=== PATIENT | female | born 1945 | race Caucasian/White ===

== ENCOUNTER 2021-04-28 08:32 | Emergency (ER) | payer MEDICARE, OTHER, SELFPAY ==
[2021-04-28] VITALS (7 sets, daily range): BP systolic 142–176; BP diastolic 68–83; PULSE 73–88; RESP 13–20; TEMP 36.7; O2SAT 98–100; BMI 17.7
--- NOTE | 2021-04-28 09:08 | ED.ARRPALP ---
HPI - Arrhythmia/Palpitations General Chief Complaint: Arrhythmia/Palpitations Stated Complaint: Rapid heart rate, dizzy Time Seen by Provider: 04/28/21 09:07 Source: patient Mode of arrival: Ambulatory History of Present Illness HPI narrative: Patient is a 75-year-old female a remote history of breast cancer in remission since 2007, history of anemia history of PVCs on metoprolol and Coreg presenting today with increased heart rate. She said last night when she went to bed she felt short of breath she has felt that her heart was racing she was so fast she was unable to count. This morning she got up and was walking to the kitchen when she again felt short of breath her watch told her that her heart rate was 110. She says that her normal heart rate is actually be 50 and syncope because her watch told her so. She has normal blood pressure. She has not traveled anywhere recently. She denies any orthopnea or peripheral edema. She has not had any fever chills or cough. Related Data Allergies Allergy/AdvReac Type Severity Reaction Status Date / Time No Known Drug Allergies Allergy Verified 04/28/21 08:58 Review of Systems Review of Systems Narrative: GENERAL: Denies chills, fatigue, malaise, fever, sweats, travel HEENT: Denies sinus pain, ear pain, sore throat, difficulty swallowing, neck pain RESPIRATORY: See HPI CARDIOVASCULAR: See HPI GASTROINTESTINAL: Denies nausea, vomiting, abdominal pain, diarrhea, constipation, melena. : Denies dysuria, frequency, incontinence, hematuria, urinary retention, flank pain. MUSCULOSKELETAL: Denies weakness, joint pain, or bony pain SKIN: No rash, no erythema, no pruritus NEUROLOGIC: Denies weakness, dizziness, headache, numbness, change in speech, confusion PSYCHIATRIC: No concerning psychosocial issues. 12 point review of systems is negative except for those stated above and HPI Patient History Social History Smoking Status: Never smoker Smoking Status: Never smoker Substance Use Type: does not use Exam Initial Vital Signs Initial Vital Signs: Vital Signs Temperature 98.1 F 04/28/21 08:33 Pulse Rate 86 04/28/21 08:33 Respiratory Rate 18 04/28/21 08:33 Blood Pressure 176/68 H 04/28/21 08:33 Pulse Oximetry 100 04/28/21 08:33 GENERAL: Alert well-appearing 75-year-old female in no acute distress. HEENT: Head atraumatic,EOMI, pupils reactive, face symmetric, moist mucous membranes CARDIOVASCULAR: Regular rate and rhythm without murmurs, rubs or gallops. RESPIRATORY: Breath sounds equal bilaterally, no wheezes rales or rhonchi. ABDOMEN: Soft, nontender. Normoactive bowel sounds all 4 quadrants. No guarding or rebound. EXTREMITIES: Normal range of motion, no clubbing or edema. Neurovascularly intact NEUROLOGICAL: Alert and oriented x4.Normal gait and speech. SKIN: Warm, dry, no laceration, no petechiae, no rashes or lesions. Course Orders Ordered: ED Orders 04/28/21 08:48 Complete Blood Count AUTO DIFF Stat Comprehensive Metabolic Panel Stat D Dimer Stat Lipase Stat NT-proBNP (BNP-Adult 18+) Stat Troponin & CK Cardiac Panel Stat 04/28/21 09:18 XR chest 1V Stat Vital Signs Vital signs: Vital Signs - 8 hr 04/28/21 08:33 04/28/21 08:38 04/28/21 08:39 Temperature 98.1 F Pulse Rate 86 88 Respiratory Rate 18 Blood Pressure 176/68 H 176/68 H Pulse Oximetry 100 99 100 04/28/21 09:00 04/28/21 09:30 04/28/21 10:00 Temperature Pulse Rate 75 80 78 Respiratory Rate 19 20 19 Blood Pressure 151/74 H 148/83 H 142/80 H Pulse Oximetry 100 99 98 MDM - Arrhythmia/Palpitations Lab Data Result diagrams: 04/28/21 08:48 04/28/21 08:48 Labs: Lab Results 04/28/21 04/28/21 04/28/21 Range/Units 08:48 08:48 08:48 WBC 3.7 L (4.5-11.0) X10^3/uL RBC 3.54 L (4.0-5.2) X10^6/uL Hgb 10.4 L (12.0-16.0) g/dL Hct 30.3 L (36-46) % MCV 85.5 (80-100) fL MCH 29.4 (26-34) PG MCHC 34.4 (30-36) % RDW 14.3 (11.6-14.8) % Plt Count 220 (150-400) X10^3/uL Neut % (Auto) 66.5 (50-75) % Lymph % (Auto) 18.5 L (25-40) % [place] % (Auto) 8.4 (3-14) % Eos % (Auto) 6.0 H (2-4) % Baso % (Auto) 0.6 (0-2) % Neut # (Auto) 2500 (6582-1131) /uL Lymph # (Auto) 700 L (9099-9714) /uL [place] # (Auto) 300 (0-900) /uL Eos # (Auto) 200 (0-450) /uL Baso # (Auto) 0 (0-100) /uL D-Dimer 345 H (<230) ng/mL Sodium (137-145) mmol/L Potassium (3.4-5.1) mmol/L Chloride (98-107) mmol/L Carbon Dioxide (22-32) mmol/L BUN (7-17) mg/dL Creatinine (0.52-1.04) mg/dL Estimated GFR (>60) mL/min BUN/Creatinine Ratio (6-22) Glucose (80-110) mg/dL Calcium (8.4-10.2) mg/dL Total Bilirubin (0.2-1.3) mg/dL AST (14-36) IU/L ALT (<35) IU/L Alkaline Phosphatase (38-126) U/L Total Creatine Kinase (30-135) U/L CK-MB (CK-2) CK-MB (CK-2) Rel Index Troponin I (0.01-0.034) ng/mL NT-Pro-B Natriuret Pep 169 H (<125) pg/mL Total Protein (6.3-8.2) g/dL Albumin (3.5-5.0) g/dL Globulin (1.7-4.1) g/dL Albumin/Globulin Ratio (1.0-2.8) Lipase (23-300) U/L 04/28/21 Range/Units 08:48 WBC (4.5-11.0) X10^3/uL RBC (4.0-5.2) X10^6/uL Hgb (12.0-16.0) g/dL Hct (36-46) % MCV (80-100) fL MCH (26-34) PG MCHC (30-36) % RDW (11.6-14.8) % Plt Count (150-400) X10^3/uL Neut % (Auto) (50-75) % Lymph % (Auto) (25-40) % [place] % (Auto) (3-14) % Eos % (Auto) (2-4) % Baso % (Auto) (0-2) % Neut # (Auto) (8287-1501) /uL Lymph # (Auto) (2879-5394) /uL [place] # (Auto) (0-900) /uL Eos # (Auto) (0-450) /uL Baso # (Auto) (0-100) /uL D-Dimer (<230) ng/mL Sodium 139 (137-145) mmol/L Potassium 4.2 (3.4-5.1) mmol/L Chloride 106 (98-107) mmol/L Carbon Dioxide 31 (22-32) mmol/L BUN 25 H (7-17) mg/dL Creatinine 0.82 (0.52-1.04) mg/dL Estimated GFR > 60.0 (>60) mL/min BUN/Creatinine Ratio 30.5 H (6-22) Glucose 201 H (80-110) mg/dL Calcium 9.0 (8.4-10.2) mg/dL Total Bilirubin 0.5 (0.2-1.3) mg/dL AST 22 (14-36) IU/L ALT 22 (<35) IU/L Alkaline Phosphatase 62 (38-126) U/L Total Creatine Kinase 63 (30-135) U/L CK-MB (CK-2) TNP CK-MB (CK-2) Rel Index TNP Troponin I < 0.012 (0.01-0.034) ng/mL NT-Pro-B Natriuret Pep (<125) pg/mL Total Protein 6.7 (6.3-8.2) g/dL Albumin 3.9 (3.5-5.0) g/dL Globulin 2.8 (1.7-4.1) g/dL Albumin/Globulin Ratio 1.4 (1.0-2.8) Lipase 416 H (23-300) U/L Imaging Data Chest x-ray: Radiologist's Impresson: PROCEDURE:? XR CHEST 1V ? INDICATIONS:? chest pain ? TECHNIQUE:? One view of the chest was acquired.? ? COMPARISON:? None. ? FINDINGS:? ? Surgical changes and devices:? None.? ? Lungs and pleura:? Lungs are clear.? No pleural effusions or pneumothorax.? ? Mediastinum:? Mediastinal contours appear normal.? Heart size is normal.? ? Bones and chest wall:? No suspicious bony lesions.? Overlying soft tissues appear unremarkable.? ? IMPRESSION:? No acute cardiopulmonary process demonstrated radiographically. ? ? Dictated by: Anil Packer M.D. on 04/28/2021 at 9:38 ? ? ECG Data Interpretation: Normal sinus rhythm rate 83 VA interval 236 QRS [address] changes or T-wave inversions, no priors MDM Narrative Medical decision making narrative: Patient's heart rate is variable it does drop randomly till 48 is a sinus rhythm it does not appear to be AFib and then randomly speech back up into the 80s again sinus rhythm. She has no PVCs on the monitor. Blood work is overall reassuring. Mild elevation in D-dimer, but is not elevated presents with age correction she is not hypoxic. 1030 Dr. Monsivais updated patient's symptoms test results at this time recommends changing the Coreg to 12.5mg in the morning and 6.25 at night. I discussed with patient need for outpatient Holter monitor. She is similar with the she has had 1 before. Age-Adjusted D-dimer for Venous Thromboembolism (VTE) from [email or web address] on 04/28/2021 All calculations should be rechecked by clinician prior to use RESULT SUMMARY: 365 ?g/L Age-adjusted D-dimer cutoff, DDU VTE unlikely Reported D-dimer is less than or equal to cutoff; consider alternative diagnosis INPUTS: Age ?> 75 years D-dimer level reported by lab ?> 345 ?g/L D-dimer unit type ?> 2 = DDU (unadjusted cutoff typically 230-250 or 0.23-0.25) Discharge Plan Departure Patient Disposition: Home Clinical Impression: Sinus arrhythmia Instructions: Arrhythmias Activity Restrictions/Additional Instructions: *You have been diagnosed with sinus arrhythmia *What to do: At this time you do need to follow-up with PCP you need a Holter monitor. I spoke with Cardiology who recommended a small change in your medications. *Continue to take medications as directed Carvedilol 12.5 mg in the morning and 6.25 mg at night *Follow up with your primary care provider in 2-3 days or call [phone] *Return to ER if you should have heart rate greater than 130, heart rate lower than 45, dizziness lightheadedness passing out shortness of any new, worsening or concerning symptoms Referrals: Chan Rodriguez MD [Primary Care Provider] - Taina Monsivais MD [Physician] -
--- NOTE | 2021-04-28 09:18 | DI.RAD.S_ITS ---
PROCEDURE: XR CHEST 1V INDICATIONS: chest pain TECHNIQUE: One view of the chest was acquired. COMPARISON: None. FINDINGS: Surgical changes and devices: None. Lungs and pleura: Lungs are clear. No pleural effusions or pneumothorax. Mediastinum: Mediastinal contours appear normal. Heart size is normal. Bones and chest wall: No suspicious bony lesions. Overlying soft tissues appear unremarkable. IMPRESSION: No acute cardiopulmonary process demonstrated radiographically. Dictated by: Anil Packer M.D. on 04/28/2021 at 9:38 Approved by: Anil Packer M.D. on 04/28/2021 at 9:39
[2021-04-28 09:26] LABS: Add Manual Diff / Slide Review NO; Basophils Absolute Auto 0 /uL (0-100); Basophils Percent Auto 0.6 % (0-2); Eosinophils Absolute Auto 200 /uL (0-450); Hematocrit 30.3 % (36-46); Hemoglobin 10.4 g/dL (12.0-16.0); Lymphocytes Absolute Auto 700 /uL (1100-4500); Lymphocytes Percent Auto 18.5 % (25-40); Mean Corpuscular HGB Conc 34.4 % (30-36); Mean Corpuscular Hemoglobin 29.4 PG (26-34); Mean Corpuscular Volume 85.5 fL (80-100); Monocytes Absolute Auto 300 /uL (0-900); Monocytes Percent Auto 8.4 % (3-14); Neutrophils Absolute Auto 2500 /uL (1500-7000); Neutrophils Percent Auto 66.5 % (50-75); Platelet Count 220 X10^3/uL (150-400); Red Blood Cell Count 3.54 X10^6/uL (4.0-5.2); Red Cell Distribution Width 14.3 % (11.6-14.8); White Blood Cell Count 3.7 X10^3/uL (4.5-11.0)
[2021-04-28 09:40] LABS: D Dimer 345 ng/mL (<230)
[2021-04-28 09:43] LABS: Alanine Aminotransferase 22 IU/L (<35); Albumin 3.9 g/dL (3.5-5.0); Albumin Globulin Ratio 1.4 (1.0-2.8); Alkaline Phosphatase 62 U/L (38-126); Aspartate Aminotransferase 22 IU/L (14-36); BUN Creatinine Ratio 30.5 (6-22); Bilirubin Total 0.5 mg/dL (0.2-1.3); Blood Urea Nitrogen 25 mg/dL (7-17); Carbon Dioxide 31 mmol/L (22-32); Chloride 106 mmol/L (98-107); Creatine Kinase 63 U/L (30-135); Estimated Glomerular Filt Rate > 60.0 mL/min (>60); Globulin 2.8 g/dL (1.7-4.1); Glucose 201 mg/dL (80-110); Lipase 416 U/L (23-300); Potassium 4.2 mmol/L (3.4-5.1); Sodium 139 mmol/L (137-145); Total Protein 6.7 g/dL (6.3-8.2)
[2021-04-28 09:51] LABS: NT-proBNP (BNP-Adult 18+) 169 pg/mL (<125)
[2021-04-28 09:56] LABS: HEMOLYSIS < 15 (0-50); Troponin I < 0.012 ng/mL (0.01-0.034)
== END 2021-04-28 10:40 | disposition home or self-care (01) ==
PROVIDERS: Emergency Provider Emergency Medicine; Family Provider Family Medicine; PCP Family Medicine
DX: I49.8 Other specified cardiac arrhythmias (principal)
CPT/HCPCS: 36415; 71045; 80053; 82550; 83690; 83880; 84484; 85025; 85379; 93005; 93010; 99283; 99284

== ENCOUNTER 2021-08-24 09:45 | Outpatient (RCR) | payer MEDICARE, OTHER, SELFPAY ==
--- NOTE | 2020-11-10 12:07 | PT.OIE ---
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 (11/10/20) Cervicalgia (11/10/20) Muscle weakness (generalized) (11/10/20) Myalgia of mastication muscle (11/10/20) Abnormal posture (11/10/20) Visit Care Team Role Provider Type Chan Rodriguez MD Family Provider Non-Staff Primary Care Provider Specialty: Family Practice Address: [address] [place] [address], [id number] Email: Uzma Ren DDS Attending Provider Non-Staff Referring Provider Specialty: Dentistry Address: [address] [place] [address], [address], [id number] Email: Physical Therapy Initial Evaluation PT-OP-A Visit Information Start: 11/10/20 07:29 Freq: Status: Active Protocol: Document 11/10/20 07:29 [facility] (Rec: 11/10/20 08:19 [facility] [id number]) Out-Patient Physical Therapy Visit Information Visit Information Visit Type Initial Evaluation Visit Note 02/28 Visit Start Time 07:34 Visit Stop Time 08:15 Total Visit Minutes 41 Visit Number 1 Number of TAX MAP TECHNICIAN Visits 0 PT-OP-B Current Condition Start: 11/10/20 07:29 Freq: Status: Active Protocol: Document 11/10/20 07:29 [facility] (Rec: 11/10/20 08:19 [facility] [id number]) Current Condition History of Current Condition Onset Date worse starting 9 months ago Current Complaints L jaw History of Current Condition Pt reports jaw keeps popping out. It crunched for years before that. THe popping started 9 months ago. It just started gradually gets worse. It hurts when she pops it back in. Pt reports L side pops out so everything shifts to R. Pt reports neck pain on R side w/ALONSO associated occ. THat has been going on for the past month w/ALONSO. SHe has always had shoulder pain on R side. R TSA has not helped. 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 Her R ant lat arm consistantly always hurts. Her assistant athletic trainer tapes her neck post and that seems to help. Pt reports ALONSO more when laying down. Pt had one other episode w/R neck about 25 years ago that she did PT and OT and responded well with that care and it never came back like that again. 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 The weakness has been getting progressive over the last few years. 1x a year ago that jaw popped out (both sides)and she couldn't chew or swallow and that was like 30 years ago. Now it pops out at random. Tried mouth guard years ago and found she actually clenched the mouth guard that inc pain. She doesn 't notice herself clench her teeth a lot and doesn't wake up at night d/t jaw sore d/t clenching or anything. Pt reports B mastectomies in 2006 w/chemo. TSA R was 2017 Prior Treatments and Tests PT for shoulder in past, Dr. ren is having pt relax jaw by placing in bottom of mouth and teeth slightly apart-also instructed heat but hasn't tried Treatment Goals Patient/Caregiver Goals Dec popping out episodes PT-OP-C Subjective Start: 11/10/20 07:29 Freq: Status: Active Protocol: Document 11/10/20 07:29 [facility] (Rec: 11/10/20 08:19 [facility] [id number]) Patient Questionnaires Other Questionnaire Name and Score easy and comfortable to close w/back teeth together-yes does not feel back teeth on both sides when tapping together feels front teeth touching when tap back teeth heavier contact on front tetth feels uneven and L side does not touch when close w/back teeth together OP-PT Pain Assessment Location jaw Pain Location Details L jaw Intensity 5 Scale Used Numeric (0 - 10) Description- Other pop Frequency Frequent Pain Duration 3-4 x a day-pain just w/act of popping back in. when really hard hurts more Variations/Patterns R neck pain w/radiating up into R head w/ALONSO Other Pain Aggravating Factors popping jaw back in,pop out w/ (brush teeth, yawn,@ w/ sometimes), sourdough Other Pain Alleviating Factors has to crunch down on R side PT-OP-F Manual Assessment Start: 11/10/20 07:29 Freq: Status: Active Protocol: Document 11/10/20 07:29 [facility] (Rec: 11/10/20 08:19 [facility] [id number]) Manual Assessments Soft Tissue Assessment Soft Tissue Mobility Assessment all R sided cervical mm significant tightness, L>R masster and temporalis tightness & inf jaw B tightness, 1st rib R elevated PT-OP-J Posture/Palpation/Skin Start: 11/10/20 07:29 Freq: Status: Active Protocol: Document 11/10/20 07:29 [facility] (Rec: 11/10/20 08:19 [facility] [id number]) Posture Evaluation Comments Posture Comments Post-ant, inc kyphosis - significant fwd R>L shoulder w /IR of shoulder, neck fwd PT-OP-K Range of Motion Start: 11/10/20 07:29 Freq: Status: Active Protocol: Document 11/10/20 07:29 [facility] (Rec: 11/10/20 08:19 [facility] [id number]) Cervical Spine Range of Motion Cervical Spine Active Degrees Flexion 52 Extension 41 Rotation Left 55 Rotation Right 32 Lateral Flexion Left 29 Lateral Flexion Right 31 Comments pain w/R rot TMJ Range of Motion Jaw Openning Jaw Openning (mm) 35 Comments Comments pull on L side; WNL jaw deviation( crunching w/all movement) Shoulder Goniometric Range of Motion Shoulder ROM Limitations Comments R shoulder limited-flex about 100 deg and pain all overhead motions PT-OP-Q Treatments Start: 11/10/20 07:29 Freq: Status: Active Protocol: Document 11/10/20 07:29 [facility] (Rec: 11/10/20 12:07 [facility] [id number]) Therapeutic Exercises Sitting Exercises rocabado Sitting Exercise Name started exercises did exercises 2-4 and 6 on scanned handout Reps/Minutes 6 Comments significant cues for scap movement Self-Care/Home Management Treatment Education Other Education edu on how shoulder and neck pain may be contributing to her jaw pain PT-OP-T Assessment and Plan Start: 11/10/20 07:29 Freq: Status: Active Protocol: Document 11/10/20 07:29 [facility] (Rec: 11/10/20 08:19 [facility] [id number]) Physical Therapy Assessment Rehab Potential Rehabilitation Potential Good Evaluation Complexity Number of Personal Factors/Comorbidities 3 or More Number of Body Systems Impaired 4 or More Clinical Presentation at Evaluation Evolving Impairments Impairments Activity Tolerance,Functional Activities,Functional Mobility ,Pain,Posture,ROM,Soft Tissue Mobility,Strength Goals jaw Jail Goal (LTG) Pt will be able to yawn,brush teeth and move jaw in all directions w/o jaw popping out. LTG Duration 01/10/21 cervical Manager Of Training Goal (LTG) pt will hav efull cervical ROM in order to dec strain of mm onto jaw region and imrpove ability to turn in car. LTG Duration 01/10/21 ROM Short Term Goal (STG) Pt will be indep w/HEP STG Duration 12/10/20 Manager Of Training Goal (LTG) Pt will have full jaw ROM without deviation. LTG Duration 01/10/21 Assessment Summary Assessment Pt presents w/jaw pain mostly on L side w/instances of jaw popping out and pain when she has to pop it back in by clenching on R side. This started to worsen about 9 months ago, prior to that jaw was mostly noisy but did not pop out often. She has also had start of neck pain and ALONSO this past month along w/ history of R shoulder pain w/ failed relief of pain w/RTSA in 2017. She has impaired scapulohumeral rhythm and that has likely caused inc pain into R side of neck and head whcih likely inc tension on R side of jaw possibly causing unequal pulling to give pt the pop out sensation. Her jaw does deviate left when she does open though. She would benefit from skilled PT to dec instances of pain and improve jaw and cervical range. Physical Therapy Plan Frequency and Duration Frequency of Treatment 2x/Week Duration of Treatment 2 months Plan of Care Start Date 11/10/20 Plan of Care End Date 01/10/21 Therapeutic Interventions Therapeutic Interventions Home Exercise Program,Joint Mobilizations,Manual Therapy, Neuromuscular Re-education, Patient/Caregiver Education, Self-Care/Home Management,Soft Tissue Mobilization,Taping, Therapeutic Activities, Therapeutic Exercises Modalities Cold Pack/Ice Massage,Electric Stimulation,Hot Packs, Traction- Mechanical, Ultrasound Next Visit Focus/Plan Next Note Type Treatment Note Next Visit Plan adal 6x6, posture edu, STM
--- NOTE | 2020-11-10 12:07 | PT.OPPOC ---
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 (11/10/20) Cervicalgia (11/10/20) Muscle weakness (generalized) (11/10/20) Myalgia of mastication muscle (11/10/20) Abnormal posture (11/10/20) Visit Care Team Role Provider Type Chan Rodriguez MD Family Provider Non-Staff Primary Care Provider Specialty: Family Practice Address: [address] [place] [address], [id number] Email: Uzma Ren DDS Attending Provider Non-Staff Referring Provider Specialty: Dentistry Address: [address] [place] [address], [address], [address] Email: Plan Of Care PT-OP-T Assessment and Plan Start: 11/10/20 07:29 Freq: Status: Active Protocol: Document 11/10/20 07:29 [facility] (Rec: 11/10/20 08:19 [facility] [id number]) Physical Therapy Assessment Rehab Potential Rehabilitation Potential Good Evaluation Complexity Number of Personal Factors/Comorbidities 3 or More Number of Body Systems Impaired 4 or More Clinical Presentation at Evaluation Evolving Impairments Impairments Activity Tolerance,Functional Activities,Functional Mobility ,Pain,Posture,ROM,Soft Tissue Mobility,Strength Goals jaw Assisted Goal (LTG) Pt will be able to yawn,brush teeth and move jaw in all directions w/o jaw popping out. LTG Duration 01/10/21 cervical Assisted Goal (LTG) pt will hav efull cervical ROM in order to dec strain of mm onto jaw region and imrpove ability to turn in car. LTG Duration 01/10/21 ROM Short Term Goal (STG) Pt will be indep w/HEP STG Duration 12/10/20 Assisted Goal (LTG) Pt will have full jaw ROM without deviation. LTG Duration 01/10/21 Assessment Summary Assessment Pt presents w/jaw pain mostly on L side w/instances of jaw popping out and pain when she has to pop it back in by clenching on R side. This started to worsen about 9 months ago, prior to that jaw was mostly noisy but did not pop out often. She has also had start of neck pain and ALONSO this past month along w/ history of R shoulder pain w/ failed relief of pain w/RTSA in 2017. She has impaired scapulohumeral rhythm and that has likely caused inc pain into R side of neck and head whcih likely inc tension on R side of jaw possibly causing unequal pulling to give pt the pop out sensation. Her jaw does deviate left when she does open though. She would benefit from skilled PT to dec instances of pain and improve jaw and cervical range. Physical Therapy Plan Frequency and Duration Frequency of Treatment 2x/Week Duration of Treatment 2 months Plan of Care Start Date 11/10/20 Plan of Care End Date 01/10/21 Therapeutic Interventions Therapeutic Interventions Home Exercise Program,Joint Mobilizations,Manual Therapy, Neuromuscular Re-education, Patient/Caregiver Education, Self-Care/Home Management,Soft Tissue Mobilization,Taping, Therapeutic Activities, Therapeutic Exercises Modalities Cold Pack/Ice Massage,Electric Stimulation,Hot Packs, Traction- Mechanical, Ultrasound Next Visit Focus/Plan Next Note Type Treatment Note Next Visit Plan rocabado 6x6, posture edu, STM Plan of Care Dates Plan of Care Start Date 11/10/20 Plan of Care End Date 01/10/21 Electronically Signed by: Sneha Noyola, PT 11/10/20 3036 Please Sign and Return: I have reviewed this Plan of Care and certify that the skilled therapy services above are required to meet the patient?s needs. Physician Signature Date Printed Name and Credentials Clinical Instructor Signature Printed Name and Credentials
--- NOTE | 2020-11-23 12:17 | PT.OTN ---
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 (11/23/20) Other specified disorders of temporomandibular joint (11/23/20) Cervicalgia (11/23/20) Muscle weakness (generalized) (11/23/20) Myalgia of mastication muscle (11/23/20) Abnormal posture (11/23/20) Physical Therapy Treatment Note PT-OP-A Visit Information Start: 11/10/20 07:29 Freq: Status: Active Protocol: Document 11/23/20 11:20 [facility] (Rec: 11/23/20 12:17 [facility] [id number]) Out-Patient Physical Therapy Visit Information Visit Information Visit Type Treatment Note Visit Note 03/31 Visit Start Time 11:20 Visit Stop Time 12:00 Total Visit Minutes 40 Visit Number 2 Number of SCRAP CRUSHER Visits 0 PT-OP-B Current Condition Start: 11/10/20 07:29 Freq: Status: Active Protocol: Document 11/10/20 07:29 [facility] (Rec: 11/10/20 08:19 [facility] [id number]) Current Condition History of Current Condition Onset Date worse starting 9 months ago Current Complaints L jaw History of Current Condition Pt reports jaw keeps popping out. It crunched for years before that. THe popping started 9 months ago. It just started gradually gets worse. It hurts when she pops it back in. Pt reports L side pops out so everything shifts to R. Pt reports neck pain on R side w/ALONSO associated occ. THat has been going on for the past month w/ALONSO. SHe has always had shoulder pain on R side. R TSA has not helped. Works with a emr trainer for 4 days a week but he hasn't changed anything. Her R ant lat arm consistantly always hurts. Her emr trainer tapes her neck post and that seems to help. Pt reports ALONSO more when laying down. Pt had one other episode w/R neck about 25 years ago that she did PT and OT and responded well with that care and it never came back like that again. 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 The weakness has been getting progressive over the last few years. 1x a year ago that jaw popped out (both sides)and she couldn't chew or swallow and that was like 30 years ago. Now it pops out at random. Tried mouth guard years ago and found she actually clenched the mouth guard that inc pain. She doesn 't notice herself clench her teeth a lot and doesn't wake up at night d/t jaw sore d/t clenching or anything. Pt reports B mastectomies in 2007 w/chemo. TSA R was 2017 Prior Treatments and Tests PT for shoulder in past, Dr. rock is having pt relax jaw by placing in bottom of mouth and teeth slightly apart-also instructed heat but hasn't tried Treatment Goals Patient/Caregiver Goals Dec popping out episodes PT-OP-C Subjective Start: 11/10/20 07:29 Freq: Status: Active Protocol: Document 11/23/20 11:20 [facility] (Rec: 11/23/20 12:17 [facility] [id number]) OP-PT Subjective Patient Comments Patient Comments Pt reprots trying some of the other exercises on the paper that wern't assigned PT-OP-F Manual Assessment Start: 11/10/20 07:29 Freq: Status: Active Protocol: Document 11/10/20 07:29 [facility] (Rec: 11/10/20 08:19 [facility] [id number]) Manual Assessments Soft Tissue Assessment Soft Tissue Mobility Assessment all R sided cervical mm significant tightness, L>R masster and temporalis tightness & inf jaw B tightness, 1st rib R elevated PT-OP-J Posture/Palpation/Skin Start: 11/10/20 07:29 Freq: Status: Active Protocol: Document 11/10/20 07:29 [facility] (Rec: 11/10/20 08:19 [facility] [id number]) Posture Evaluation Comments Posture Comments Post-ant, inc kyphosis - significant fwd R>L shoulder w /IR of shoulder, neck fwd PT-OP-K Range of Motion Start: 11/10/20 07:29 Freq: Status: Active Protocol: Document 11/10/20 07:29 [facility] (Rec: 11/10/20 08:19 [facility] [id number]) Cervical Spine Range of Motion Cervical Spine Active Degrees Flexion 52 Extension 41 Rotation Left 55 Rotation Right 32 Lateral Flexion Left 29 Lateral Flexion Right 31 Comments pain w/R rot TMJ Range of Motion Jaw Openning Jaw Openning (mm) 35 Comments Comments pull on L side; WNL jaw deviation( crunching w/all movement) Shoulder Goniometric Range of Motion Shoulder ROM Limitations Comments R shoulder limited-flex about 100 deg and pain all overhead motions PT-OP-Q Treatments Start: 11/10/20 07:29 Freq: Status: Active Protocol: Document 11/23/20 11:20 [facility] (Rec: 11/23/20 12:17 [facility] [id number]) Therapeutic Exercises Supine Exercises breathing Supine Exercise Name diaphragmatic Reps/Minutes 6 Sitting Exercises rocabado Sitting Exercise Name 6x6 Reps/Minutes 6 Comments significant cues for scap movement Standing Exercises wall posture Standing Exercise Name w/shoulder ext Side bilateral Reps/Minutes 1 min Manual Therapy Treatment Soft Tissue Mobilization cervical Body Location R scalenes & SCM Mobilization Type Rolling,Strumming Intensity/Depth Moderate intraoral Body Location R ptyergoid Mobilization Type Sustained Pressure Intensity/Depth Moderate Comments w/jaw open/close jaw Body Location R>L masseter, temporalis, L>R post mandible Mobilization Type Rolling,Sustained Pressure Intensity/Depth Moderate Body Position Hooklying PT-OP-T Assessment and Plan Start: 11/10/20 07:29 Freq: Status: Active Protocol: Document 11/23/20 11:20 [facility] (Rec: 11/23/20 12:17 [facility] [id number]) Physical Therapy Assessment Goals jaw Fpc Goal (LTG) Pt will be able to yawn,brush teeth and move jaw in all directions w/o jaw popping out. LTG Duration 01/10/21 cervical Fpc Goal (LTG) pt will hav efull cervical ROM in order to dec strain of mm onto jaw region and imrpove ability to turn in car. LTG Duration 01/10/21 ROM Short Term Goal (STG) Pt will be indep w/HEP STG Duration 12/10/20 Hockey Instructor Goal (LTG) Pt will have full jaw ROM without deviation. LTG Duration 01/10/21 Assessment Summary Assessment Pt has L sheared and R rotated C1 which likely contributes to jaw mobility and neck pain along w/ALONSO. She did well with most jaw exercises but required cues to slow down. With others working on posture , pt required more cueing. She has more tighness through most of jaw mm on R>L. Physical Therapy Plan Frequency and Duration Frequency of Treatment 2x/Week Duration of Treatment 2 months Plan of Care Start Date 11/10/20 Plan of Care End Date 01/10/21 Next Visit Focus/Plan Next Note Type Treatment Note Next Visit Plan review adal 6x6, posture [facility], [facility]
--- NOTE | 2020-11-25 12:11 | PT.OTN ---
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 (Rec: 11/25/20 12:11 [facility] [id number]) Out-Patient Physical Therapy Visit Information Visit Information Visit Type Treatment Note Visit Note 04/28 Visit Start Time 11:20 Visit Stop Time 12:01 Total Visit Minutes 41 Visit Number 3 Number of PAPER REWINDER Visits 0 PT-OP-B Current Condition Start: 11/10/20 07:29 Freq: Status: Active Protocol: Document 11/10/20 07:29 [facility] (Rec: 11/10/20 08:19 [facility] [id number]) Current Condition History of Current Condition Onset Date worse starting 9 months ago Current Complaints L jaw History of Current Condition Pt reports jaw keeps popping out. It crunched for years before that. THe popping started 9 months ago. It just started gradually gets worse. It hurts when she pops it back in. Pt reports L side pops out so everything shifts to R. Pt reports neck pain on R side w/ALONSO associated occ. THat has been going on for the past month w/ALONSO. SHe has always had shoulder pain on R side. R TSA has not helped. Works with a bander hand for 4 days a week but he hasn't changed anything. Her R ant lat arm consistantly always hurts. Her bander hand tapes her neck post and that seems to help. Pt reports ALONSO more when laying down. Pt had one other episode w/R neck about 25 years ago that she did PT and OT and responded well with that care and it never came back like that again. Pt reports arms go to sleep and reports R arm adobe developer has gotten a lot less. The weakness has been getting progressive over the last few years. 1x a year ago that jaw popped out (both sides)and she couldn't chew or swallow and that was like 30 years ago. Now it pops out at random. Tried mouth guard years ago and found she actually clenched the mouth guard that inc pain. She doesn 't notice herself clench her teeth a lot and doesn't wake up at night d/t jaw sore d/t clenching or anything. Pt reports B mastectomies in 2007 w/chemo. TSA R was 2017 Prior Treatments and Tests PT for shoulder in past, Dr. rock is having pt relax jaw by placing in bottom of mouth and teeth slightly apart-also instructed heat but hasn't tried Treatment Goals Patient/Caregiver Goals Dec popping out episodes PT-OP-C Subjective Start: 11/10/20 07:29 Freq: Status: Active Protocol: Document 11/25/20 12:05 [facility] (Rec: 11/25/20 12:11 [facility] [id number]) OP-PT Subjective Patient Comments Patient Comments Pt reports wall posture exercise was difficult PT-OP-F Manual Assessment Start: 11/10/20 07:29 Freq: Status: Active Protocol: Document 11/10/20 07:29 [facility] (Rec: 11/10/20 08:19 [facility] [id number]) Manual Assessments Soft Tissue Assessment Soft Tissue Mobility Assessment all R sided cervical mm significant tightness, L>R masster and temporalis tightness & inf jaw B tightness, 1st rib R elevated PT-OP-J Posture/Palpation/Skin Start: 11/10/20 07:29 Freq: Status: Active Protocol: Document 11/10/20 07:29 [facility] (Rec: 11/10/20 08:19 [facility] [id number]) Posture Evaluation Comments Posture Comments Post-ant, inc kyphosis - significant fwd R>L shoulder w /IR of shoulder, neck fwd PT-OP-K Range of Motion Start: 11/10/20 07:29 Freq: Status: Active Protocol: Document 11/10/20 07:29 [facility] (Rec: 11/10/20 08:19 [facility] [id number]) Cervical Spine Range of Motion Cervical Spine Active Degrees Flexion 52 Extension 41 Rotation Left 55 Rotation Right 32 Lateral Flexion Left 29 Lateral Flexion Right 31 Comments pain w/R rot TMJ Range of Motion Jaw Openning Jaw Openning (mm) 35 Comments Comments pull on L side; WNL jaw deviation( crunching w/all movement) Shoulder Goniometric Range of Motion Shoulder ROM Limitations Comments R shoulder limited-flex about 100 deg and pain all overhead motions PT-OP-Q Treatments Start: 11/10/20 07:29 Freq: Status: Active Protocol: Document 11/25/20 12:05 [facility] (Rec: 11/25/20 12:11 [facility] [id number]) Therapeutic Exercises Sitting Exercises rocabado Sitting Exercise Name 6x6 Reps/Minutes 6 Comments extra reps w/scap & cervical retraction to work on form Standing Exercises wall posture Standing Exercise Name w/shoulder ext Side bilateral Reps/Minutes 1 minx2 Manual Therapy Treatment Soft Tissue Mobilization cervical Body Location R scalenes & SCM Mobilization Type Rolling,Strumming Intensity/Depth Moderate intraoral Body Location R ptyergoid Mobilization Type Sustained Pressure Intensity/Depth Moderate Comments w/jaw open/close jaw Body Location R>L masseter, temporalis, L>R post mandible Mobilization Type Rolling,Sustained Pressure Intensity/Depth Moderate Body Position Hooklying Joint Mobilizations jaw Direction R distraction FM C1 Joint transverse & UPA glides PT-OP-T Assessment and Plan Start: 11/10/20 07:29 Freq: Status: Active Protocol: Document 11/25/20 12:05 [facility] (Rec: 11/25/20 12:11 [facility] [id number]) Physical Therapy Assessment Goals jaw Rubber Goods Inspector Goal (LTG) Pt will be able to yawn,brush teeth and move jaw in all directions w/o jaw popping out. LTG Duration 01/10/21 cervical [facility]idential Goal (LTG) pt will hav efull cervical ROM in order to dec strain of mm onto jaw region and imrpove ability to turn in car. LTG Duration 01/10/21 ROM Short Term Goal (STG) Pt will be indep w/HEP STG Duration 12/10/20 Rubber Goods Inspector Goal (LTG) Pt will have full jaw ROM without deviation. LTG Duration 01/10/21 Assessment Summary Assessment Pt did well with exercises today and showed improvement w /diaphragmatic breathing and did not require much cues except for neck position w/jaw exercises. Cervical and scap retraction still does require cues though. Improved jaw opening after manual today w/ less deviation to L overall but still some popping Physical Therapy Plan Frequency and Duration Frequency of Treatment 2x/Week Duration of Treatment 2 months Plan of Care Start Date 11/10/20 Plan of Care End Date 01/10/21 Next Visit Focus/Plan Next Note Type Treatment Note Next Visit Plan review wall posture, work on scap retract & cervical retraction
--- NOTE | 2020-11-29 15:53 | PT.OTN ---
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 (Rec: 11/29/20 15:53 [facility] [id number]) Out-Patient Physical Therapy Visit Information Visit Information Visit Type Treatment Note Visit Note 05/29 Visit Start Time 10:38 Visit Stop Time 11:17 Total Visit Minutes 39 Visit Number 4 Number of SHOE COVERER Visits 0 PT-OP-B Current Condition Start: 11/10/20 07:29 Freq: Status: Active Protocol: Document 11/10/20 07:29 [facility] (Rec: 11/10/20 08:19 [facility] [id number]) Current Condition History of Current Condition Onset Date worse starting 9 months ago Current Complaints L jaw History of Current Condition Pt reports jaw keeps popping out. It crunched for years before that. THe popping started 9 months ago. It just started gradually gets worse. It hurts when she pops it back in. Pt reports L side pops out so everything shifts to R. Pt reports neck pain on R side w/ALONSO associated occ. THat has been going on for the past month w/ALONSO. SHe has always had shoulder pain on R side. R TSA has not helped. Works with a bilingual trainer for 4 days a week but he hasn't changed anything. Her R ant lat arm consistantly always hurts. Her bilingual trainer tapes her neck post and that seems to help. Pt reports ALONSO more when laying down. Pt had one other episode w/R neck about 25 years ago that she did PT and OT and responded well with that care and it never came back like that again. Pt reports arms go to sleep and reports R arm pants closer has gotten a lot less. The weakness has been getting progressive over the last few years. 1x a year ago that jaw popped out (both sides)and she couldn't chew or swallow and that was like 30 years ago. Now it pops out at random. Tried mouth guard years ago and found she actually clenched the mouth guard that inc pain. She doesn 't notice herself clench her teeth a lot and doesn't wake up at night d/t jaw sore d/t clenching or anything. Pt reports B mastectomies in 2007 w/chemo. TSA R was 2017 Prior Treatments and Tests PT for shoulder in past, Dr. rock is having pt relax jaw by placing in bottom of mouth and teeth slightly apart-also instructed heat but hasn't tried Treatment Goals Patient/Caregiver Goals Dec popping out episodes PT-OP-C Subjective Start: 11/10/20 07:29 Freq: Status: Active Protocol: Document 11/29/20 10:48 [facility] (Rec: 11/29/20 15:53 [facility] [id number]) OP-PT Subjective Patient Comments Patient Comments Pt reports less often geting the jaw stuck but its harder to put back. Notes it is more consistant w/activigties like when opening for first time to eat and to brush teeth PT-OP-F Manual Assessment Start: 11/10/20 07:29 Freq: Status: Active Protocol: Document 11/10/20 07:29 [facility] (Rec: 11/10/20 08:19 [facility] [id number]) Manual Assessments Soft Tissue Assessment Soft Tissue Mobility Assessment all R sided cervical mm significant tightness, L>R masster and temporalis tightness & inf jaw B tightness, 1st rib R elevated PT-OP-J Posture/Palpation/Skin Start: 11/10/20 07:29 Freq: Status: Active Protocol: Document 11/10/20 07:29 [facility] (Rec: 11/10/20 08:19 [facility] [id number]) Posture Evaluation Comments Posture Comments Post-ant, inc kyphosis - significant fwd R>L shoulder w /IR of shoulder, neck fwd PT-OP-K Range of Motion Start: 11/10/20 07:29 Freq: Status: Active Protocol: Document 11/10/20 07:29 [facility] (Rec: 11/10/20 08:19 [facility] [id number]) Cervical Spine Range of Motion Cervical Spine Active Degrees Flexion 52 Extension 41 Rotation Left 55 Rotation Right 32 Lateral Flexion Left 29 Lateral Flexion Right 31 Comments pain w/R rot TMJ Range of Motion Jaw Openning Jaw Openning (mm) 35 Comments Comments pull on L side; WNL jaw deviation( crunching w/all movement) Shoulder Goniometric Range of Motion Shoulder ROM Limitations Comments R shoulder limited-flex about 100 deg and pain all overhead motions PT-OP-Q Treatments Start: 11/10/20 07:29 Freq: Status: Active Protocol: Document 11/29/20 10:48 [facility] (Rec: 11/29/20 15:53 [facility] [id number]) Therapeutic Exercises Supine Exercises retraction Supine Exercise Name 1. scap 2.cervical Side bilateral Reps/Minutes 8 ea Comments work on no lumbar ext Sidelying Exercises open book Side bilateral Reps/Minutes 10 Standing Exercises retraction Side bilateral Reps/Minutes 10 ea Comments 1. cervical 2. scap wall posture Standing Exercise Name w/shoulder ext Side bilateral Reps/Minutes 1 min Manual Therapy Treatment Soft Tissue Mobilization cervical Body Location R scalenes & SCM Mobilization Type Rolling,Strumming Intensity/Depth Moderate Comments w/cervical rotation intraoral Body Location R ptyergoid Mobilization Type Sustained Pressure Intensity/Depth Moderate Comments w/jaw open/close jaw Body Location R>L masseter, temporalis, L>R post mandible Mobilization Type Rolling,Sustained Pressure Intensity/Depth Moderate Body Position Hooklying Joint Mobilizations jaw Direction R distraction FM C1 Joint R transverse & L UPA glides Comments FM PT-OP-T Assessment and Plan Start: 11/10/20 07:29 Freq: Status: Active Protocol: Document 11/29/20 10:48 [facility] (Rec: 11/29/20 15:53 [facility] [id number]) Physical Therapy Assessment Goals jaw Maintenance Shop Laborer Goal (LTG) Pt will be able to yawn,brush teeth and move jaw in all directions w/o jaw popping out. LTG Duration 01/10/21 cervical [facility] Goal (LTG) pt will hav efull cervical ROM in order to dec strain of mm onto jaw region and imrpove ability to turn in car. LTG Duration 01/10/21 ROM Short Term Goal (STG) Pt will be indep w/HEP STG Duration 12/10/20 [facility] Goal (LTG) Pt will have full jaw ROM without deviation. LTG Duration 01/10/21 Assessment Summary Assessment Pt improved with scap retraciton today especially when against a wall or supine on a bed. She does still require cueing w/ cervicalretraction though. She cont to have imrpoved ROM w/ opening Physical Therapy Plan Frequency and Duration Frequency of Treatment 2x/Week Duration of Treatment 2 months Plan of Care Start Date 11/10/20 Plan of Care End Date 01/10/21 Next Visit Focus/Plan Next Note Type Treatment Note Next Visit Plan review wall posture, work on scap retract & cervical retraction & try to advance w/ band pull
--- NOTE | 2020-12-01 12:03 | PT.OTN ---
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 (Rec: 12/01/20 12:02 [facility] [id number]) Out-Patient Physical Therapy Visit Information Visit Information Visit Type Treatment Note Visit Note 06/28 Visit Start Time 10:36 Visit Stop Time 11:16 Total Visit Minutes 40 Visit Number 5 Number of ENGINE DYNAMOMETER TESTER Visits 0 PT-OP-B Current Condition Start: 11/10/20 07:29 Freq: Status: Active Protocol: Document 11/10/20 07:29 [facility] (Rec: 11/10/20 08:19 [facility] [id number]) Current Condition History of Current Condition Onset Date worse starting 9 months ago Current Complaints L jaw History of Current Condition Pt reports jaw keeps popping out. It crunched for years before that. THe popping started 9 months ago. It just started gradually gets worse. It hurts when she pops it back in. Pt reports L side pops out so everything shifts to R. Pt reports neck pain on R side w/ALONSO associated occ. THat has been going on for the past month w/ALONSO. SHe has always had shoulder pain on R side. R TSA has not helped. Works with a sharepoint trainer for 4 days a week but he hasn't changed anything. Her R ant lat arm consistantly always hurts. Her sharepoint trainer tapes her neck post and that seems to help. Pt reports ALONSO more when laying down. Pt had one other episode w/R neck about 25 years ago that she did PT and OT and responded well with that care and it never came back like that again. Pt reports arms go to sleep and reports R arm make up arranger has gotten a lot less. The weakness has been getting progressive over the last few years. 1x a year ago that jaw popped out (both sides)and she couldn't chew or swallow and that was like 30 years ago. Now it pops out at random. Tried mouth guard years ago and found she actually clenched the mouth guard that inc pain. She doesn 't notice herself clench her teeth a lot and doesn't wake up at night d/t jaw sore d/t clenching or anything. Pt reports B mastectomies in 2007 w/chemo. TSA R was 2017 Prior Treatments and Tests PT for shoulder in past, Dr. rock is having pt relax jaw by placing in bottom of mouth and teeth slightly apart-also instructed heat but hasn't tried Treatment Goals Patient/Caregiver Goals Dec popping out episodes PT-OP-C Subjective Start: 11/10/20 07:29 Freq: Status: Active Protocol: Document 12/01/20 11:38 [facility] (Rec: 12/01/20 12:02 [facility] [id number]) OP-PT Subjective Patient Comments Patient Comments Pt reports she forgot to try to do jaw exercises before eating until her jaw would lock on her. Patient Reported Progress Improving PT-OP-F Manual Assessment Start: 11/10/20 07:29 Freq: Status: Active Protocol: Document 11/10/20 07:29 [facility] (Rec: 11/10/20 08:19 [facility] [id number]) Manual Assessments Soft Tissue Assessment Soft Tissue Mobility Assessment all R sided cervical mm significant tightness, L>R masster and temporalis tightness & inf jaw B tightness, 1st rib R elevated PT-OP-J Posture/Palpation/Skin Start: 11/10/20 07:29 Freq: Status: Active Protocol: Document 11/10/20 07:29 [facility] (Rec: 11/10/20 08:19 [facility] [id number]) Posture Evaluation Comments Posture Comments Post-ant, inc kyphosis - significant fwd R>L shoulder w /IR of shoulder, neck fwd PT-OP-K Range of Motion Start: 11/10/20 07:29 Freq: Status: Active Protocol: Document 11/10/20 07:29 [facility] (Rec: 11/10/20 08:19 [facility] [id number]) Cervical Spine Range of Motion Cervical Spine Active Degrees Flexion 52 Extension 41 Rotation Left 55 Rotation Right 32 Lateral Flexion Left 29 Lateral Flexion Right 31 Comments pain w/R rot TMJ Range of Motion Jaw Openning Jaw Openning (mm) 35 Comments Comments pull on L side; WNL jaw deviation( crunching w/all movement) Shoulder Goniometric Range of Motion Shoulder ROM Limitations Comments R shoulder limited-flex about 100 deg and pain all overhead motions PT-OP-Q Treatments Start: 11/10/20 07:29 Freq: Status: Active Protocol: Document 12/01/20 11:38 [facility] (Rec: 12/01/20 12:02 [facility] [id number]) Therapeutic Exercises Standing Exercises ext Standing Exercise Name shoulder Side bilateral Equipment Used L1 Reps/Minutes 20 Comments cues for scap movement retraction Side bilateral Equipment Used L1 Reps/Minutes 20 Comments w/row cues for scap movement Manual Therapy Treatment Soft Tissue Mobilization lat Body Location R Mobilization Type Sustained Pressure Intensity/Depth Moderate Comments w/shoulder flex R cervical Body Location R scalenes & SCM & UT Mobilization Type Rolling,Strumming Intensity/Depth Moderate Comments w/ant eleva/post dep intraoral Body Location R ptyergoid Mobilization Type Sustained Pressure Intensity/Depth Moderate Comments w/jaw open/close jaw Body Location R>L masseter, temporalis, L>R post mandible Mobilization Type Rolling,Sustained Pressure Intensity/Depth Moderate Body Position Hooklying Joint Mobilizations AC Joint R Direction gapping FM jaw Direction R distraction FM PT-OP-T Assessment and Plan Start: 11/10/20 07:29 Freq: Status: Active Protocol: Document 12/01/20 11:38 [facility] (Rec: 12/01/20 12:02 [facility] [id number]) Physical Therapy Assessment Goals jaw Assisted Goal (LTG) Pt will be able to yawn,brush teeth and move jaw in all directions w/o jaw popping out. LTG Duration 01/10/21 cervical Assessment Expert Goal (LTG) pt will hav efull cervical ROM in order to dec strain of mm onto jaw region and imrpove ability to turn in car. LTG Duration 01/10/21 ROM Short Term Goal (STG) Pt will be indep w/HEP STG Duration 12/10/20 Assessment Expert Goal (LTG) Pt will have full jaw ROM without deviation. LTG Duration 01/10/21 Assessment Summary Assessment Pt had improved jaw motion w/ less deviation and popping at end especially when encouraged neutral cervical spine. Pt cont to use excessive elevation of scap on R side w/ shoulder movemetns w/ contributes to R sided cervical tightness which inc pain in jaw also. As scap movement improves, pt will likely have improved pain in jaw and neck and shoulder. Pt requires cues to take deep breath to relax UT and cervical mm during exercises Physical Therapy Plan Frequency and Duration Frequency of Treatment 2x/Week Duration of Treatment 2 months Plan of Care Start Date 11/10/20 Plan of Care End Date 01/10/21 Next Visit Focus/Plan Next Note Type Treatment Note Next Visit Plan work on scap movement w/ shoulder exercises & cont to work on jaw mobility & R sided cervical mobility
--- NOTE | 2020-12-08 14:07 | PT.OTN ---
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) Other specified disorders of temporomandibular joint (12/08/20) Cervicalgia (12/08/20) Muscle weakness (generalized) (12/08/20) Myalgia of mastication muscle (12/08/20) Abnormal posture (12/08/20) Physical Therapy Treatment Note PT-OP-A Visit Information Start: 11/10/20 07:29 Freq: Status: Active Protocol: Document 12/08/20 13:55 [facility] (Rec: 12/08/20 14:07 [facility] [id number]) Out-Patient Physical Therapy Visit Information Visit Information Visit Type Treatment Note Visit Note 07/29 Visit Start Time 11:17 Visit Stop Time 12:00 Total Visit Minutes 43 Visit Number 6 Number of CREATIVE WRITING TEACHER Visits 0 PT-OP-B Current Condition Start: 11/10/20 07:29 Freq: Status: Active Protocol: Document 11/10/20 07:29 [facility] (Rec: 11/10/20 08:19 [facility] [id number]) Current Condition History of Current Condition Onset Date worse starting 9 months ago Current Complaints L jaw History of Current Condition Pt reports jaw keeps popping out. It crunched for years before that. THe popping started 9 months ago. It just started gradually gets worse. It hurts when she pops it back in. Pt reports L side pops out so everything shifts to R. Pt reports neck pain on R side w/ALONSO associated occ. THat has been going on for the past month w/ALONSO. SHe has always had shoulder pain on R side. R TSA has not helped. 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 Her R ant lat arm consistantly always hurts. Her dog trainer tapes her neck post and that seems to help. Pt reports ALONSO more when laying down. Pt had one other episode w/R neck about 25 years ago that she did PT and OT and responded well with that care and it never came back like that again. 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 The weakness has been getting progressive over the last few years. 1x a year ago that jaw popped out (both sides)and she couldn't chew or swallow and that was like 30 years ago. Now it pops out at random. Tried mouth guard years ago and found she actually clenched the mouth guard that inc pain. She doesn 't notice herself clench her teeth a lot and doesn't wake up at night d/t jaw sore d/t clenching or anything. Pt reports B mastectomies in 2007 w/chemo. TSA R was 2017 Prior Treatments and Tests PT for shoulder in past, Dr. rock is having pt relax jaw by placing in bottom of mouth and teeth slightly apart-also instructed heat but hasn't tried Treatment Goals Patient/Caregiver Goals Dec popping out episodes PT-OP-C Subjective Start: 11/10/20 07:29 Freq: Status: Active Protocol: Document 12/08/20 13:55 [facility] (Rec: 12/08/20 14:07 [facility] [id number]) OP-PT Subjective Patient Comments Patient Comments Pt reports her neck has not been hurting her. Jaw mostly locks up in the afternoons. PT-OP-F Manual Assessment Start: 11/10/20 07:29 Freq: Status: Active Protocol: Document 11/10/20 07:29 [facility] (Rec: 11/10/20 08:19 [facility] [id number]) Manual Assessments Soft Tissue Assessment Soft Tissue Mobility Assessment all R sided cervical mm significant tightness, L>R masster and temporalis tightness & inf jaw B tightness, 1st rib R elevated PT-OP-J Posture/Palpation/Skin Start: 11/10/20 07:29 Freq: Status: Active Protocol: Document 11/10/20 07:29 [facility] (Rec: 11/10/20 08:19 [facility] [id number]) Posture Evaluation Comments Posture Comments Post-ant, inc kyphosis - significant fwd R>L shoulder w /IR of shoulder, neck fwd PT-OP-K Range of Motion Start: 11/10/20 07:29 Freq: Status: Active Protocol: Document 11/10/20 07:29 [facility] (Rec: 11/10/20 08:19 [facility] [id number]) Cervical Spine Range of Motion Cervical Spine Active Degrees Flexion 52 Extension 41 Rotation Left 55 Rotation Right 32 Lateral Flexion Left 29 Lateral Flexion Right 31 Comments pain w/R rot TMJ Range of Motion Jaw Openning Jaw Openning (mm) 35 Comments Comments pull on L side; WNL jaw deviation( crunching w/all movement) Shoulder Goniometric Range of Motion Shoulder ROM Limitations Comments R shoulder limited-flex about 100 deg and pain all overhead motions PT-OP-Q Treatments Start: 11/10/20 07:29 Freq: Status: Active Protocol: Document 12/08/20 13:55 [facility] (Rec: 12/08/20 14:07 [facility] [id number]) Therapeutic Exercises Standing Exercises ext Standing Exercise Name 1.shoulder 2. rows Side bilateral Equipment Used L1 Reps/Minutes 20 Comments cues for scap movement Manual Therapy Treatment Soft Tissue Mobilization intraoral Body Location b ptyergoid Mobilization Type Sustained Pressure Intensity/Depth Moderate Comments w/jaw open/close jaw Body Location R>L masseter, temporalis, L>R post mandible Mobilization Type Rolling,Sustained Pressure Intensity/Depth Moderate Body Position Hooklying Joint Mobilizations jaw Direction b distraction FM & retrusion c /r C1 Joint R transverse & L UPA glides Comments FM PT-OP-T Assessment and Plan Start: 11/10/20 07:29 Freq: Status: Active Protocol: Document 12/08/20 13:55 [facility] (Rec: 12/08/20 14:07 [facility] [id number]) Physical Therapy Assessment Goals jaw Rectifying Attendant Goal (LTG) Pt will be able to yawn,brush teeth and move jaw in all directions w/o jaw popping out. LTG Duration 01/10/21 cervical Rectifying Attendant Goal (LTG) pt will hav efull cervical ROM in order to dec strain of mm onto jaw region and imrpove ability to turn in car. LTG Duration 01/10/21 ROM Short Term Goal (STG) Pt will be indep w/HEP STG Duration 12/10/20 Rectifying Attendant Goal (LTG) Pt will have full jaw ROM without deviation. LTG Duration 01/10/21 Assessment Summary Assessment Pt cont to improve w/jaw motion w/improved opening by end of session with less fwd gliding of condyles. She is reporting dec pain and was encourage to document when her popping occurs. Physical Therapy Plan Frequency and Duration Frequency of Treatment 2x/Week Duration of Treatment 2 months Plan of Care Start Date 11/10/20 Plan of Care End Date 01/10/21 Next Visit Focus/Plan Next Note Type Treatment Note Next Visit Plan work on scap movement w/ shoulder exercises & cont to work on jaw mobility & R sided cervical mobility
--- NOTE | 2020-12-13 16:23 | PT.OTN ---
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 (12/13/20) Other specified disorders of temporomandibular joint (12/13/20) Cervicalgia (12/13/20) Muscle weakness (generalized) (12/13/20) Myalgia of mastication muscle (12/13/20) Abnormal posture (12/13/20) Physical Therapy Treatment Note PT-OP-A Visit Information Start: 11/10/20 07:29 Freq: Status: Active Protocol: Document 12/13/20 13:00 [facility] (Rec: 12/13/20 16:03 [facility] [id number]) Out-Patient Physical Therapy Visit Information Visit Information Visit Type Treatment Note Visit Note 08/28 Visit Start Time 13:02 Visit Stop Time 13:42 Total Visit Minutes 40 Visit Number 7 Number of OUTSIDE MACHINIST Visits 0 PT-OP-B Current Condition Start: 11/10/20 07:29 Freq: Status: Active Protocol: Document 11/10/20 07:29 [facility] (Rec: 11/10/20 08:19 [facility] [id number]) Current Condition History of Current Condition Onset Date worse starting 9 months ago Current Complaints L jaw History of Current Condition Pt reports jaw keeps popping out. It crunched for years before that. THe popping started 9 months ago. It just started gradually gets worse. It hurts when she pops it back in. Pt reports L side pops out so everything shifts to R. Pt reports neck pain on R side w/ALONSO associated occ. THat has been going on for the past month w/ALONSO. SHe has always had shoulder pain on R side. R TSA has not helped. Works with a adjunct trainer for 4 days a week but he hasn't changed anything. Her R ant lat arm consistantly always hurts. Her adjunct trainer tapes her neck post and that seems to help. Pt reports ALONSO more when laying down. Pt had one other episode w/R neck about 25 years ago that she did PT and OT and responded well with that care and it never came back like that again. 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 The weakness has been getting progressive over the last few years. 1x a year ago that jaw popped out (both sides)and she couldn't chew or swallow and that was like 30 years ago. Now it pops out at random. Tried mouth guard years ago and found she actually clenched the mouth guard that inc pain. She doesn 't notice herself clench her teeth a lot and doesn't wake up at night d/t jaw sore d/t clenching or anything. Pt reports B mastectomies in 2007 w/chemo. TSA R was 2017 Prior Treatments and Tests PT for shoulder in past, Dr. rock is having pt relax jaw by placing in bottom of mouth and teeth slightly apart-also instructed heat but hasn't tried Treatment Goals Patient/Caregiver Goals Dec popping out episodes PT-OP-C Subjective Start: 11/10/20 07:29 Freq: Status: Active Protocol: Document 12/13/20 13:00 [facility] (Rec: 12/13/20 16:03 [facility] [id number]) OP-PT Subjective Patient Comments Patient Comments Pt reprots its when jaw opens to eat or when she brushes her teeth that it locks mostly PT-OP-F Manual Assessment Start: 11/10/20 07:29 Freq: Status: Active Protocol: Document 11/10/20 07:29 [facility] (Rec: 11/10/20 08:19 [facility] [id number]) Manual Assessments Soft Tissue Assessment Soft Tissue Mobility Assessment all R sided cervical mm significant tightness, L>R masster and temporalis tightness & inf jaw B tightness, 1st rib R elevated PT-OP-J Posture/Palpation/Skin Start: 11/10/20 07:29 Freq: Status: Active Protocol: Document 11/10/20 07:29 [facility] (Rec: 11/10/20 08:19 [facility] [id number]) Posture Evaluation Comments Posture Comments Post-ant, inc kyphosis - significant fwd R>L shoulder w /IR of shoulder, neck fwd PT-OP-K Range of Motion Start: 11/10/20 07:29 Freq: Status: Active Protocol: Document 11/10/20 07:29 [facility] (Rec: 11/10/20 08:19 [facility] [id number]) Cervical Spine Range of Motion Cervical Spine Active Degrees Flexion 52 Extension 41 Rotation Left 55 Rotation Right 32 Lateral Flexion Left 29 Lateral Flexion Right 31 Comments pain w/R rot TMJ Range of Motion Jaw Openning Jaw Openning (mm) 35 Comments Comments pull on L side; WNL jaw deviation( crunching w/all movement) Shoulder Goniometric Range of Motion Shoulder ROM Limitations Comments R shoulder limited-flex about 100 deg and pain all overhead motions PT-OP-Q Treatments Start: 11/10/20 07:29 Freq: Status: Active Protocol: Document 12/13/20 13:00 [facility] (Rec: 12/13/20 16:03 [facility] [id number]) Therapeutic Exercises Prone Exercises habd Prone Exercise Name over tball Side bilateral Reps/Minutes 20 Standing Exercises ext Standing Exercise Name 1.shoulder Side bilateral Equipment Used L1 Reps/Minutes 20 Comments cues for scap movement retraction Standing Exercise Name B habd w/flex Side bilateral Equipment Used l1 Reps/Minutes 2x10 Therapeutic Activity Therapeutic Activity activities Comments 1. hip hinge sit for lean to eat 2. seated posture 3.stand hip hinge w/ lean for teeth brushing Manual Therapy Treatment Soft Tissue Mobilization intraoral Body Location R ptyergoid, buccinitor Mobilization Type Sustained Pressure Intensity/Depth Moderate Comments w/jaw open/close Joint Mobilizations jaw Direction R distraction FM w/slight R lat glide PT-OP-T Assessment and Plan Start: 11/10/20 07:29 Freq: Status: Active Protocol: Document 12/13/20 13:00 [facility] (Rec: 12/13/20 16:03 [facility] [id number]) Physical Therapy Assessment Goals jaw Sand Cleaning Machine Operator Goal (LTG) Pt will be able to yawn,brush teeth and move jaw in all directions w/o jaw popping out. LTG Duration 01/10/21 cervical Fci Goal (LTG) pt will hav efull cervical ROM in order to dec strain of mm onto jaw region and imrpove ability to turn in car. LTG Duration 01/10/21 ROM Short Term Goal (STG) Pt will be indep w/HEP STG Duration 12/10/20 Sand Cleaning Machine Operator Goal (LTG) Pt will have full jaw ROM without deviation. LTG Duration 01/10/21 Assessment Summary Assessment Pt was unable to show how jaw pops when demoing biting down to eat or brushing teeth but did work on netural head posture and worked w/hip hinge to imrpove mechanics and encouraged pt to focus on this during these activities. She did note that she had 1 locking episode when doing UE exercises and requring a lot of cueing but just corrected and forgot to note to PT until later. This shows that when pt is over engaging R cervical mm for UE movement, it inc pt 's jaw discomfort and locking Physical Therapy Plan Frequency and Duration Frequency of Treatment 2x/Week Duration of Treatment 2 months Plan of Care Start Date 11/10/20 Plan of Care End Date 01/10/21 Next Visit Focus/Plan Next Note Type Progress Note Next Visit Plan cont to work on proper mechancis for posture & R shoulder to dec jaw pain along w/work soft tissue and R jaw mobility
--- NOTE | 2020-12-16 13:02 | PT.OTN ---
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 (12/16/20) Other specified disorders of temporomandibular joint (12/16/20) Cervicalgia (12/16/20) Muscle weakness (generalized) (12/16/20) Myalgia of mastication muscle (12/16/20) Abnormal posture (12/16/20) Physical Therapy Treatment Note PT-OP-A Visit Information Start: 11/10/20 07:29 Freq: Status: Active Protocol: Document 12/16/20 12:15 [facility] (Rec: 12/16/20 13:44 [facility] [id number]) Out-Patient Physical Therapy Visit Information Visit Information Visit Type Treatment Note Visit Note 09/28 Visit Start Time 12:15 Visit Stop Time 13:02 Total Visit Minutes 47 Visit Number 8 Number of ACCELERATOR SYSTEMS DIRECTOR Visits 1 PT-OP-B Current Condition Start: 11/10/20 07:29 Freq: Status: Active Protocol: Document 11/10/20 07:29 [facility] (Rec: 11/10/20 08:19 [facility] [id number]) Current Condition History of Current Condition Onset Date worse starting 9 months ago Current Complaints L jaw History of Current Condition Pt reports jaw keeps popping out. It crunched for years before that. THe popping started 9 months ago. It just started gradually gets worse. It hurts when she pops it back in. Pt reports L side pops out so everything shifts to R. Pt reports neck pain on R side w/ALONSO associated occ. THat has been going on for the past month w/ALONSO. SHe has always had shoulder pain on R side. R TSA has not helped. Works with a link trainer mechanic for 4 days a week but he hasn't changed anything. Her R ant lat arm consistantly always hurts. Her link trainer mechanic tapes her neck post and that seems to help. Pt reports AOLNSO more when laying down. Pt had one other episode w/R neck about 25 years ago that she did PT and OT and responded well with that care and it never came back like that again. 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 The weakness has been getting progressive over the last few years. 1x a year ago that jaw popped out (both sides)and she couldn't chew or swallow and that was like 30 years ago. Now it pops out at random. Tried mouth guard years ago and found she actually clenched the mouth guard that inc pain. She doesn 't notice herself clench her teeth a lot and doesn't wake up at night d/t jaw sore d/t clenching or anything. Pt reports B mastectomies in 2007 w/chemo. TSA R was 2017 Prior Treatments and Tests PT for shoulder in past, Dr. rock is having pt relax jaw by placing in bottom of mouth and teeth slightly apart-also instructed heat but hasn't tried Treatment Goals Patient/Caregiver Goals Dec popping out episodes PT-OP-C Subjective Start: 11/10/20 07:29 Freq: Status: Active Protocol: Document 12/16/20 12:15 [facility] (Rec: 12/16/20 13:44 [facility] [id number]) OP-PT Subjective Patient Comments Patient Comments Pt states jaw not locking up since hip hinge brushing teeth . Still notices initially jaw locks when trying to eat but when self corrects positioning of jaw helps open wider to eat apple, soup, not sure if head, neck extended forward and why happeneing. Pt states see her physician next and next PT tx on . She is please with improvement over all. Pt stated ACCELERATOR SYSTEMS DIRECTOR link trainer mechanic had her doing alot UE receiprocal and awareness of head positioning today feel good work interscapular area. Patient Reported Progress Improving PT-OP-F Manual Assessment Start: 11/10/20 07:29 Freq: Status: Active Protocol: Document 11/10/20 07:29 [facility] (Rec: 11/10/20 08:19 [facility] [id number]) Manual Assessments Soft Tissue Assessment Soft Tissue Mobility Assessment all R sided cervical mm significant tightness, L>R masster and temporalis tightness & inf jaw B tightness, 1st rib R elevated PT-OP-J Posture/Palpation/Skin Start: 11/10/20 07:29 Freq: Status: Active Protocol: Document 11/10/20 07:29 [facility] (Rec: 11/10/20 08:19 [facility] [id number]) Posture Evaluation Comments Posture Comments Post-ant, inc kyphosis - significant fwd R>L shoulder w /IR of shoulder, neck fwd PT-OP-K Range of Motion Start: 11/10/20 07:29 Freq: Status: Active Protocol: Document 11/10/20 07:29 [facility] (Rec: 11/10/20 08:19 [facility] [id number]) Cervical Spine Range of Motion Cervical Spine Active Degrees Flexion 52 Extension 41 Rotation Left 55 Rotation Right 32 Lateral Flexion Left 29 Lateral Flexion Right 31 Comments pain w/R rot TMJ Range of Motion Jaw Openning Jaw Openning (mm) 35 Comments Comments pull on L side; WNL jaw deviation( crunching w/all movement) Shoulder Goniometric Range of Motion Shoulder ROM Limitations Comments R shoulder limited-flex about 100 deg and pain all overhead motions PT-OP-Q Treatments Start: 11/10/20 07:29 Freq: Status: Active Protocol: Document 12/16/20 12:15 [facility] (Rec: 12/16/20 13:44 [facility] [id number]) Therapeutic Exercises Supine Exercises cervical rotation w/ chin nods Supine Exercise Name added to HEP (ACCELERATOR SYSTEMS DIRECTOR link trainer mechanic added head turn) Side bilateral Reps/Minutes 2 reps 5 nods Comments cued awareness of CS ext pure turn then slow fluid easy head nods CS ext hold then lift Supine Exercise Name added to HEP Reps/Minutes 3-5 sec hold Comments cued chin tuck then unweight head- good performance after few reps cuing Prone Exercises habd Prone Exercise Name over tball Side bilateral Reps/Minutes 20 Comments cued palms toward floor- CS ext/ chin tuck, no UT recruitment Sidelying Exercises open book Sidelying Exercise Name reviewed long arm Side bilateral Resistance provided HO. Reps/Minutes x5 Comments contact and cues for segmental movt: arm, scap, TS rotation Sitting Exercises rocabado Sitting Exercise Name 6x6 Equipment Used front mirror for self alignment corrections Reps/Minutes 6 Comments extra reps w/scap & cervical retraction to work on form Standing Exercises ext Standing Exercise Name 1.shoulder Side bilateral Equipment Used L1 Reps/Minutes 20 Comments cues for scap movement Manual Therapy Treatment Soft Tissue Mobilization lat Body Location R lat and infraspinatus Mobilization Type Sustained Pressure Intensity/Depth Moderate Comments w/shoulder scapular PNF retraction/ depression<> eccentric protraction w/ cues not allow UT recruitment elevation. jaw Body Location R>L masseter, temporalis, R>L med pterygoid, SCM, suboc, R prox scalene Mobilization Type Rolling,Sustained Pressure Intensity/Depth Moderate Body Position Hooklying Comments manual intral oral and instruction on self application. PT-OP-T Assessment and Plan Start: 11/10/20 07:29 Freq: Status: Active Protocol: Document 12/16/20 12:15 [facility] (Rec: 12/16/20 13:44 [facility] [id number]) Physical Therapy Assessment Goals jaw Corrugator Helper Goal (LTG) Pt will be able to yawn,brush teeth and move jaw in all directions w/o jaw popping out. 12/16/20: improving no locking / popping with brushing teeth with head repositioning, but eating is still popping and takes more time to find head/ neck position to allow jaw to open. LTG Duration 01/10/21 cervical Corrugator Helper Goal (LTG) pt will hav efull cervical ROM in order to dec strain of mm onto jaw region and imrpove ability to turn in car. 12/16/20: improved: able to look further over R and L to be able to see when driving, she feels not full ROM yet. LTG Duration 01/10/21 ROM Short Term Goal (STG) Pt will be indep w/HEP: 12/16/20: progressing: cues for proper alignment and form. STG Duration 12/10/20 Alf Goal (LTG) Pt will have full jaw ROM without deviation. 12/16/20: improving but still difficulty opening to eat. LTG Duration 01/10/21 Assessment Summary Assessment Pt improved CS DNF/chin tuck positioning and able to maintain DNF lift from table in supine for stabilization with discussion carry over head positioning while eating awareness. She notices is able to open jaw better if head positioned in DNF/CS ext neutral. Good demo 6x6 racabado exercises. Reviewed HEP: cues for scap retract/ depression during shld ext standing and palms face forward HABD over tball con and eccentric directioning. Pt will follow up with physician next , PT will write up a PN today/ Sunday and send. Pt had good understanding of self STMs with instruction intraoral today and felt helped reduce tension end of tx alot more. Physical Therapy Plan Frequency and Duration Frequency of Treatment 2x/Week Duration of Treatment 2 months Plan of Care Start Date 11/10/20 Plan of Care End Date 01/10/21 Therapeutic Interventions Therapeutic Interventions Home Exercise Program,Joint Mobilizations,Manual Therapy, Neuromuscular Re-education, Patient/Caregiver Education, Self-Care/Home Management,Soft Tissue Mobilization,Taping, Therapeutic Activities, Therapeutic Exercises Modalities Cold Pack/Ice Massage,Electric Stimulation,Hot Packs, Traction- Mechanical, Ultrasound Next Visit Focus/Plan Next Note Type Progress Note Next Visit Plan Review: DNF chin nods, cervical roation w/ head nods, scap retraction strengthening prone/stand. POC: cont to work on proper mechancis for posture & R shoulder to dec jaw pain along w/work soft tissue and R jaw mobility
--- NOTE | 2020-12-23 13:47 | PT.OTN ---
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 ROMAN Potter assisted instruction and manual with STRAW HAT BRIM RAISER OPERATOR guidence and feedback from pt during tx , supervised by CHRISTINE Pedersen throughout tx. Visit Start Time 13:03 Visit Stop Time 13:47 Total Visit Minutes 44 Visit Number 9 Number of STRAW HAT BRIM RAISER OPERATOR Visits 2 PT-OP-B Current Condition Start: 11/10/20 07:29 Freq: Status: Active Protocol: Document 11/10/20 07:29 [facility] (Rec: 11/10/20 08:19 [facility] [id number]) Current Condition History of Current Condition Onset Date worse starting 9 months ago Current Complaints L jaw History of Current Condition Pt reports jaw keeps popping out. It crunched for years before that. THe popping started 9 months ago. It just started gradually gets worse. It hurts when she pops it back in. Pt reports L side pops out so everything shifts to R. Pt reports neck pain on R side w/ALONSO associated occ. THat has been going on for the past month w/ALONSO. SHe has always had shoulder pain on R side. R TSA has not helped. 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 Her R ant lat arm consistantly always hurts. Her ultimate hoops trainer tapes her neck post and that seems to help. Pt reports ALONSO more when laying down. Pt had one other episode w/R neck about 25 years ago that she did PT and OT and responded well with that care and it never came back like that again. Pt reports arms go to sleep and reports R arm pet care associate has gotten a lot less. The weakness has been getting progressive over the last few years. 1x a year ago that jaw popped out (both sides)and she couldn't chew or swallow and that was like 30 years ago. Now it pops out at random. Tried mouth guard years ago and found she actually clenched the mouth guard that inc pain. She doesn 't notice herself clench her teeth a lot and doesn't wake up at night d/t jaw sore d/t clenching or anything. Pt reports B mastectomies in 2007 w/chemo. TSA R was 2017 Prior Treatments and Tests PT for shoulder in past, Dr. rock is having pt relax jaw by placing in bottom of mouth and teeth slightly apart-also instructed heat but hasn't tried Treatment Goals Patient/Caregiver Goals Dec popping out episodes PT-OP-C Subjective Start: 11/10/20 07:29 Freq: Status: Active Protocol: Document 12/23/20 13:03 SP (Rec: 12/23/20 16:02 SP [id number]) OP-PT Subjective Patient Comments Patient Comments Pt stated was little sore after last tx from manual but thinks is helpful, didn't perform self. States feels stiff again over R shld and complex, compared to after PT Sneha worked on her R shld, neck. She saw her physician since last visit and stated that maybe anticipating her jaw moving forward a factor. Otherwise able eating improving with awareness of alignment so able to open mouth with better ease. PT-OP-F Manual Assessment Start: 11/10/20 07:29 Freq: Status: Active Protocol: Document 11/10/20 07:29 [facility] (Rec: 11/10/20 08:19 [facility] [id number]) Manual Assessments Soft Tissue Assessment Soft Tissue Mobility Assessment all R sided cervical mm significant tightness, L>R masster and temporalis tightness & inf jaw B tightness, 1st rib R elevated PT-OP-J Posture/Palpation/Skin Start: 11/10/20 07:29 Freq: Status: Active Protocol: Document 11/10/20 07:29 [facility] (Rec: 11/10/20 08:19 [facility] [id number]) Posture Evaluation Comments Posture Comments Post-ant, inc kyphosis - significant fwd R>L shoulder w /IR of shoulder, neck fwd PT-OP-K Range of Motion Start: 11/10/20 07:29 Freq: Status: Active Protocol: Document 11/10/20 07:29 [facility] (Rec: 11/10/20 08:19 [facility] [id number]) Cervical Spine Range of Motion Cervical Spine Active Degrees Flexion 52 Extension 41 Rotation Left 55 Rotation Right 32 Lateral Flexion Left 29 Lateral Flexion Right 31 Comments pain w/R rot TMJ Range of Motion Jaw Openning Jaw Openning (mm) 35 Comments Comments pull on L side; WNL jaw deviation( crunching w/all movement) Shoulder Goniometric Range of Motion Shoulder ROM Limitations Comments R shoulder limited-flex about 100 deg and pain all overhead motions PT-OP-Q Treatments Start: 11/10/20 07:29 Freq: Status: Active Protocol: Document 12/23/20 13:03 SP (Rec: 12/23/20 16:02 SP [id number]) Therapeutic Exercises Prone Exercises habd Prone Exercise Name over tball Side bilateral Reps/Minutes 20 Comments cued palms toward floor- CS ext/ chin tuck, no UT recruitment Sidelying Exercises open book Sidelying Exercise Name reviewed hand on head more tolerated Side bilateral Reps/Minutes x5 Comments contact and cues for segmental movt: arm, scap, TS rotation Sitting Exercises rocabado Sitting Exercise Name 6x6- review next tx and provide handouts Resistance did not perform this tx Equipment Used front mirror for self alignment corrections Reps/Minutes 6 Therapeutic Activity Therapeutic Activity activities Name reviewed Comments 1. hip hinge sit for lean to eat 2. seated posture 3.stand hip hinge w/ lean for teeth brushing Manual Therapy Treatment Soft Tissue Mobilization lat Body Location R lat and infraspinatus Mobilization Type Sustained Pressure Intensity/Depth Moderate Comments w/shoulder scapular PNF retraction/ depression<> eccentric protraction w/ cues not allow UT recruitment elevation. intraoral Body Location R ptyergoid, buccinitor Mobilization Type Sustained Pressure Intensity/Depth Moderate Comments w/jaw open/close jaw Body Location R>L masseter, temporalis, R>L med pterygoid, SCM, suboc, R prox scalene Mobilization Type Rolling,Sustained Pressure Intensity/Depth Moderate Body Position Hooklying Comments manual intral oral and instruction on self application. Joint Mobilizations TS PA Joint R T5-8 Direction PA Grade II Body Position Prone Comments improved open book TS rotation . PT-OP-T Assessment and Plan Start: 11/10/20 07:29 Freq: Status: Active Protocol: Document 12/23/20 13:03 SP (Rec: 12/23/20 16:02 SP [id number]) Physical Therapy Assessment Goals jaw Senior Care Goal (LTG) Pt will be able to yawn,brush teeth and move jaw in all directions w/o jaw popping out. 12/16/20: improving no locking / popping with brushing teeth with head repositioning, but eating is still popping and takes more time to find head/ neck position to allow jaw to open. LTG Duration 01/10/21 cervical Senior Care Goal (LTG) pt will hav efull cervical ROM in order to dec strain of mm onto jaw region and imrpove ability to turn in car. 12/16/20: improved: able to look further over R and L to be able to see when driving, she feels not full ROM yet. LTG Duration 01/10/21 ROM Short Term Goal (STG) Pt will be indep w/HEP: 12/16/20: progressing: cues for proper alignment and form. STG Duration 12/10/20 Senior Care Goal (LTG) Pt will have full jaw ROM without deviation. 12/16/20: improving but still difficulty opening to eat. LTG Duration 01/10/21 Assessment Summary Assessment Extra time with TMJ instruction manual STMs to assist relaxation alignment, improved releases sustained pressure vs pincer knead. SPTA provided manual STMS under STRAW HAT BRIM RAISER OPERATOR and pt guidence feedback. Pt improved in scapular mobility post manual and instruction on proper form, no UT, cervical sidebend recruitment and jaw tension. Physical Therapy Plan Frequency and Duration Frequency of Treatment 2x/Week Duration of Treatment 2 months Plan of Care Start Date 11/10/20 Plan of Care End Date 01/10/21 Therapeutic Interventions Therapeutic Interventions Home Exercise Program,Joint Mobilizations,Manual Therapy, Neuromuscular Re-education, Patient/Caregiver Education, Self-Care/Home Management,Soft Tissue Mobilization,Taping, Therapeutic Activities, Therapeutic Exercises Modalities Cold Pack/Ice Massage,Electric Stimulation,Hot Packs, Traction- Mechanical, Ultrasound Next Visit Focus/Plan Next Note Type Treatment Note Next Visit Plan Review: javed. Assess partridge protocol benefit R shld complex for ROM and decrease tension on jaw positioning. POC: cont to work on proper mechancis for posture & R shoulder to dec jaw pain along w/work soft tissue and R jaw mobility
--- NOTE | 2020-12-28 12:14 | PT.OTN ---
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 (12/28/20) Other specified disorders of temporomandibular joint (12/28/20) Cervicalgia (12/28/20) Muscle weakness (generalized) (12/28/20) Myalgia of mastication muscle (12/28/20) Abnormal posture (12/28/20) Physical Therapy Treatment Note PT-OP-A Visit Information Start: 11/10/20 07:29 Freq: Status: Active Protocol: Document 12/28/20 11:20 [facility] (Rec: 12/28/20 12:14 [facility] [id number]) Out-Patient Physical Therapy Visit Information Visit Information Visit Type Progress Note Visit Note 02/28 SPT participated in session w/ PT direction Visit Start Time 11:20 Visit Stop Time 12:02 Total Visit Minutes 42 Visit Number 10 Number of FREIGHT FORWARDER Visits 0 PT-OP-B Current Condition Start: 11/10/20 07:29 Freq: Status: Active Protocol: Document 11/10/20 07:29 [facility] (Rec: 11/10/20 08:19 [facility] [id number]) Current Condition History of Current Condition Onset Date worse starting 9 months ago Current Complaints L jaw History of Current Condition Pt reports jaw keeps popping out. It crunched for years before that. THe popping started 9 months ago. It just started gradually gets worse. It hurts when she pops it back in. Pt reports L side pops out so everything shifts to R. Pt reports neck pain on R side w/ALONSO associated occ. THat has been going on for the past month w/ALONSO. SHe has always had shoulder pain on R side. R TSA has not helped. 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 Her R ant lat arm consistantly always hurts. Her head animal trainer tapes her neck post and that seems to help. Pt reports ALONSO more when laying down. Pt had one other episode w/R neck about 25 years ago that she did PT and OT and responded well with that care and it never came back like that again. Pt reports arms go to sleep and reports R arm pole framer has gotten a lot less. The weakness has been getting progressive over the last few years. 1x a year ago that jaw popped out (both sides)and she couldn't chew or swallow and that was like 30 years ago. Now it pops out at random. Tried mouth guard years ago and found she actually clenched the mouth guard that inc pain. She doesn 't notice herself clench her teeth a lot and doesn't wake up at night d/t jaw sore d/t clenching or anything. Pt reports B mastectomies in 2007 w/chemo. TSA R was 2017 Prior Treatments and Tests PT for shoulder in past, Dr. rock is having pt relax jaw by placing in bottom of mouth and teeth slightly apart-also instructed heat but hasn't tried Treatment Goals Patient/Caregiver Goals Dec popping out episodes PT-OP-C Subjective Start: 11/10/20 07:29 Freq: Status: Active Protocol: Document 12/28/20 11:20 [facility] (Rec: 12/28/20 12:14 [facility] [id number]) OP-PT Subjective Patient Comments Patient Comments Pt reprots R neck has been sore some recenlty. PT-OP-F Manual Assessment Start: 11/10/20 07:29 Freq: Status: Active Protocol: Document 11/10/20 07:29 [facility] (Rec: 11/10/20 08:19 [facility] [id number]) Manual Assessments Soft Tissue Assessment Soft Tissue Mobility Assessment all R sided cervical mm significant tightness, L>R masster and temporalis tightness & inf jaw B tightness, 1st rib R elevated PT-OP-J Posture/Palpation/Skin Start: 11/10/20 07:29 Freq: Status: Active Protocol: Document 11/10/20 07:29 [facility] (Rec: 11/10/20 08:19 [facility] [id number]) Posture Evaluation Comments Posture Comments Post-ant, inc kyphosis - significant fwd R>L shoulder w /IR of shoulder, neck fwd PT-OP-K Range of Motion Start: 11/10/20 07:29 Freq: Status: Active Protocol: Document 12/28/20 11:20 [facility] (Rec: 12/28/20 12:14 [facility] [id number]) Cervical Spine Range of Motion Cervical Spine Active Degrees Flexion 51 Extension 53 Rotation Left 60 Rotation Right 51 Lateral Flexion Left 20 Lateral Flexion Right 35 Comments pain w/R rot & SB TMJ Range of Motion Jaw Openning Jaw Openning (mm) 42 PT-OP-Q Treatments Start: 11/10/20 07:29 Freq: Status: Active Protocol: Document 12/28/20 11:20 [facility] (Rec: 12/28/20 12:14 [facility] [id number]) Manual Therapy Treatment Soft Tissue Mobilization cervical Comments MFR w/dycem & plunger at CT junction w/flex and slight rotations along w/strumming along med border of R paraspinals Joint Mobilizations TS PA Joint T1-2 Comments R>L PA seated w/ext FM PT-OP-T Assessment and Plan Start: 11/10/20 07:29 Freq: Status: Active Protocol: Document 12/28/20 11:20 [facility] (Rec: 12/28/20 12:14 [facility] [id number]) Physical Therapy Assessment Goals jaw Mcfp Goal (LTG) Pt will be able to yawn,brush teeth and move jaw in all directions w/o jaw popping out. 12/16/20: improving no locking / popping with brushing teeth with head repositioning, but eating is still popping and takes more time to find head/ neck position to allow jaw to open. LTG Duration 01/10/21 cervical Wood Inspector Goal (LTG) pt will hav efull cervical ROM in order to dec strain of mm onto jaw region and imrpove ability to turn in car. 12/16/20: improved: able to look further over R and L to be able to see when driving, she feels not full ROM yet. LTG Duration 01/10/21 ROM Short Term Goal (STG) Pt will be indep w/HEP: 12/16/20: progressing: cues for proper alignment and form. STG Duration 12/10/20 Wood Inspector Goal (LTG) Pt will have full jaw ROM without deviation. 12/16/20: improving but still difficulty opening to eat. LTG Duration 01/10/21 Assessment Summary Assessment Pt doing well with jaw opening motion and cervical motion w/ good progress towards goals w/ less often jaw popping out, but when seh does open she gets cervical extension. This improved w/manual treatment and she thenw as able to open w/o neck ext Physical Therapy Plan Frequency and Duration Frequency of Treatment 2x/Week Duration of Treatment 2 months Plan of Care Start Date 11/10/20 Plan of Care End Date 01/10/21 Next Visit Focus/Plan Next Note Type Treatment Note Next Visit Plan cont to work on pt ability to axially elongate and work on ant cervical and along hyoids & glossal mm for improving ability to open w/o feeling of tightness whiel keeping head in neutral
--- NOTE | 2020-12-28 16:47 | PT.OPPN ---
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 (Rec: 12/28/20 12:14 [facility] [id number]) Out-Patient Physical Therapy Visit Information Visit Information Visit Type Progress Note Visit Note 02/28 SPT participated in session w/ PT direction Visit Start Time 11:20 Visit Stop Time 12:02 Total Visit Minutes 42 Visit Number 10 Number of CHAIN HOOKER Visits 0 PT-OP-B Current Condition Start: 11/10/20 07:29 Freq: Status: Active Protocol: Document 11/10/20 07:29 [facility] (Rec: 11/10/20 08:19 [facility] [id number]) Current Condition History of Current Condition Onset Date worse starting 9 months ago Current Complaints L jaw History of Current Condition Pt reports jaw keeps popping out. It crunched for years before that. THe popping started 9 months ago. It just started gradually gets worse. It hurts when she pops it back in. Pt reports L side pops out so everything shifts to R. Pt reports neck pain on R side w/ALONSO associated occ. THat has been going on for the past month w/ALONSO. SHe has always had shoulder pain on R side. R TSA has not helped. 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 Her R ant lat arm consistantly always hurts. Her link trainer teacher tapes her neck post and that seems to help. Pt reports ALONSO more when laying down. Pt had one other episode w/R neck about 25 years ago that she did PT and OT and responded well with that care and it never came back like that again. Pt reports arms go to sleep and reports R arm shoes salesperson has gotten a lot less. The weakness has been getting progressive over the last few years. 1x a year ago that jaw popped out (both sides)and she couldn't chew or swallow and that was like 30 years ago. Now it pops out at random. Tried mouth guard years ago and found she actually clenched the mouth guard that inc pain. She doesn 't notice herself clench her teeth a lot and doesn't wake up at night d/t jaw sore d/t clenching or anything. Pt reports B mastectomies in 2007 w/chemo. TSA R was 2017 Prior Treatments and Tests PT for shoulder in past, Dr. rock is having pt relax jaw by placing in bottom of mouth and teeth slightly apart-also instructed heat but hasn't tried Treatment Goals Patient/Caregiver Goals Dec popping out episodes PT-OP-C Subjective Start: 11/10/20 07:29 Freq: Status: Active Protocol: Document 12/30/20 16:47 [facility] (Rec: 12/28/20 12:14 [facility] [id number]) OP-PT Subjective Patient Comments Patient Comments Pt reprots R neck has been sore some recenlty. PT-OP-F Manual Assessment Start: 11/10/20 07:29 Freq: Status: Active Protocol: Document 11/10/20 07:29 [facility] (Rec: 11/10/20 08:19 [facility] [id number]) Manual Assessments Soft Tissue Assessment Soft Tissue Mobility Assessment all R sided cervical mm significant tightness, L>R masster and temporalis tightness & inf jaw B tightness, 1st rib R elevated PT-OP-J Posture/Palpation/Skin Start: 11/10/20 07:29 Freq: Status: Active Protocol: Document 11/10/20 07:29 [facility] (Rec: 11/10/20 08:19 [facility] [id number]) Posture Evaluation Comments Posture Comments Post-ant, inc kyphosis - significant fwd R>L shoulder w /IR of shoulder, neck fwd PT-OP-K Range of Motion Start: 11/10/20 07:29 Freq: Status: Active Protocol: Document 12/28/20 11:20 [facility] (Rec: 12/28/20 12:14 [facility] [id number]) Cervical Spine Range of Motion Cervical Spine Active Degrees Flexion 51 Extension 53 Rotation Left 60 Rotation Right 51 Lateral Flexion Left 20 Lateral Flexion Right 35 Comments pain w/R rot & SB TMJ Range of Motion Jaw Openning Jaw Openning (mm) 42 PT-OP-T Assessment and Plan Start: 11/10/20 07:29 Freq: Status: Active Protocol: Document 12/30/20 16:47 [facility] (Rec: 12/28/20 12:14 [facility] [id number]) Physical Therapy Assessment Goals jaw Television Repairer Goal (LTG) Pt will be able to yawn,brush teeth and move jaw in all directions w/o jaw popping out. 12/16/20: improving no locking / popping with brushing teeth with head repositioning, but eating is still popping and takes more time to find head/ neck position to allow jaw to open. LTG Duration 01/10/21 cervical Television Repairer Goal (LTG) pt will hav efull cervical ROM in order to dec strain of mm onto jaw region and imrpove ability to turn in car. 12/16/20: improved: able to look further over R and L to be able to see when driving, she feels not full ROM yet. LTG Duration 01/10/21 ROM Short Term Goal (STG) Pt will be indep w/HEP: 12/16/20: progressing: cues for proper alignment and form. STG Duration 12/10/20 Prison Goal (LTG) Pt will have full jaw ROM without deviation. 12/16/20: improving but still difficulty opening to eat. LTG Duration 01/10/21 Assessment Summary Assessment Pt doing well with jaw opening motion and cervical motion w/ good progress towards goals w/ less often jaw popping out, but when seh does open she gets cervical extension. This improved w/manual treatment and she thenw as able to open w/o neck ext Physical Therapy Plan Frequency and Duration Frequency of Treatment 2x/Week Duration of Treatment 2 months Plan of Care Start Date 11/10/20 Plan of Care End Date 01/10/21 Next Visit Focus/Plan Next Note Type Treatment Note Next Visit Plan cont to work on pt ability to axially elongate and work on ant cervical and along hyoids & glossal mm for improving ability to open w/o feeling of tightness deepthiiel keeping head in neutral
--- NOTE | 2020-12-30 09:47 | PT.OTN ---
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 (12/30/20) Cervicalgia (12/30/20) Muscle weakness (generalized) (12/30/20) Myalgia of mastication muscle (12/30/20) Abnormal posture (12/30/20) Physical Therapy Treatment Note PT-OP-A Visit Information Start: 11/10/20 07:29 Freq: Status: Active Protocol: Document 12/30/20 09:00 SP (Rec: 12/30/20 09:49 SP [id number]) Out-Patient Physical Therapy Visit Information Visit Information Visit Type Treatment Note Visit Note 03/31 Visit Start Time 09:00 Visit Stop Time 09:47 Total Visit Minutes 45 Visit Number 11 Number of DOMESTIC HELPER Visits 1 PT-OP-B Current Condition Start: 11/10/20 07:29 Freq: Status: Active Protocol: Document 11/10/20 07:29 [facility] (Rec: 11/10/20 08:19 [facility] [id number]) Current Condition History of Current Condition Onset Date worse starting 9 months ago Current Complaints L jaw History of Current Condition Pt reports jaw keeps popping out. It crunched for years before that. THe popping started 9 months ago. It just started gradually gets worse. It hurts when she pops it back in. Pt reports L side pops out so everything shifts to R. Pt reports neck pain on R side w/ALONSO associated occ. THat has been going on for the past month w/ALONSO. SHe has always had shoulder pain on R side. R TSA has not helped. 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 Her R ant lat arm consistantly always hurts. Her computer trainer tapes her neck post and that seems to help. Pt reports ALONSO more when laying down. Pt had one other episode w/R neck about 25 years ago that she did PT and OT and responded well with that care and it never came back like that again. 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 The weakness has been getting progressive over the last few years. 1x a year ago that jaw popped out (both sides)and she couldn't chew or swallow and that was like 30 years ago. Now it pops out at random. Tried mouth guard years ago and found she actually clenched the mouth guard that inc pain. She doesn 't notice herself clench her teeth a lot and doesn't wake up at night d/t jaw sore d/t clenching or anything. Pt reports B mastectomies in 2007 w/chemo. TSA R was 2017 Prior Treatments and Tests PT for shoulder in past, Dr. rock is having pt relax jaw by placing in bottom of mouth and teeth slightly apart-also instructed heat but hasn't tried Treatment Goals Patient/Caregiver Goals Dec popping out episodes PT-OP-C Subjective Start: 11/10/20 07:29 Freq: Status: Active Protocol: Document 12/30/20 09:00 SP (Rec: 12/30/20 09:49 SP [id number]) OP-PT Subjective Patient Comments Patient Comments Pt states when gets cold like outside and come inside starting to warm feel aching in jaw. Still notices when starting to open jaw, TMJ starts to slip out, maybe in anticipation. PT-OP-F Manual Assessment Start: 11/10/20 07:29 Freq: Status: Active Protocol: Document 11/10/20 07:29 [facility] (Rec: 11/10/20 08:19 [facility] [id number]) Manual Assessments Soft Tissue Assessment Soft Tissue Mobility Assessment all R sided cervical mm significant tightness, L>R masster and temporalis tightness & inf jaw B tightness, 1st rib R elevated PT-OP-J Posture/Palpation/Skin Start: 11/10/20 07:29 Freq: Status: Active Protocol: Document 11/10/20 07:29 [facility] (Rec: 11/10/20 08:19 [facility] [id number]) Posture Evaluation Comments Posture Comments Post-ant, inc kyphosis - significant fwd R>L shoulder w /IR of shoulder, neck fwd PT-OP-K Range of Motion Start: 11/10/20 07:29 Freq: Status: Active Protocol: Document 12/28/20 11:20 [facility] (Rec: 12/28/20 12:14 [facility] [id number]) Cervical Spine Range of Motion Cervical Spine Active Degrees Flexion 51 Extension 53 Rotation Left 60 Rotation Right 51 Lateral Flexion Left 20 Lateral Flexion Right 35 Comments pain w/R rot & SB TMJ Range of Motion Jaw Openning Jaw Openning (mm) 42 PT-OP-Q Treatments Start: 11/10/20 07:29 Freq: Status: Active Protocol: Document 12/30/20 09:00 SP (Rec: 12/30/20 09:49 SP [id number]) Therapeutic Exercises Supine Exercises pec stretch Supine Exercise Name 90deg ABD, 120 deg abd Side bilateral Resistance bridge over 65 cm tball Reps/Minutes 2 min total Comments cued CS neutral alignment w/ supported on ball. CS elongation Supine Exercise Name CS neutral supine> quadruped Reps/Minutes x10 Comments good lengthening, occasional cues for relaxed jaw- no pain/ dec tension jaw Standing Exercises ext Standing Exercise Name 1.shoulder Side bilateral Equipment Used L1 Reps/Minutes 20 Comments cues for scap movement, CS elongation w/ relaxed jaw wall posture Standing Exercise Name w/shoulder ER Side bilateral Resistance AROM> Tb #1 Reps/Minutes 2x10 reps Comments tongue on roof mouth, small relaxed open/close, shld depress aware,elong CS Other Exercises quadruped Other Exercise Name CS elongation> Shld flexion Resistance over 55cm tball Reps/Minutes 3 sec hold x10, x5 reps Comments improved CS alignment, relaxed jaw, cued FF jasmyne AROM no [place] recruit Manual Therapy Treatment Soft Tissue Mobilization cervical Body Location Suprahyoids, glossals, SCMs, Longus colli Mobilization Type Myofascial Release,Strumming, Sustained Pressure Intensity/Depth Moderate Body Position Hooklying Comments manual, instruction on self PT-OP-T Assessment and Plan Start: 11/10/20 07:29 Freq: Status: Active Protocol: Document 12/30/20 09:00 SP (Rec: 12/30/20 09:49 SP [id number]) Physical Therapy Assessment Goals jaw Skilled Nursing Goal (LTG) Pt will be able to yawn,brush teeth and move jaw in all directions w/o jaw popping out. 12/16/20: improving no locking / popping with brushing teeth with head repositioning, but eating is still popping and takes more time to find head/ neck position to allow jaw to open. LTG Duration 01/10/21 cervical Skilled Nursing Goal (LTG) pt will hav efull cervical ROM in order to dec strain of mm onto jaw region and imrpove ability to turn in car. 12/16/20: improved: able to look further over R and L to be able to see when driving, she feels not full ROM yet. LTG Duration 01/10/21 ROM Short Term Goal (STG) Pt will be indep w/HEP: 12/16/20: progressing: cues for proper alignment and form. STG Duration 12/10/20 Skilled Nursing Goal (LTG) Pt will have full jaw ROM without deviation. 12/16/20: improving but still difficulty opening to eat. LTG Duration 01/10/21 Assessment Summary Assessment Pt improved understanding and self corrections with occasional cuing CS neutral w/ jaw relaxed positioning during various HEP, supine on ball/ table/ quadruped, back to wall with allowable added TB shld ER resistance and rows / shld ext. this tx in various postions with good self corrections with cuing carryover to posture at wall and allowing resisted shld ER,rows, shld ext. Physical Therapy Plan Frequency and Duration Frequency of Treatment 2x/Week Duration of Treatment 2 months Plan of Care Start Date 11/10/20 Plan of Care End Date 01/10/21 Therapeutic Interventions Therapeutic Interventions Home Exercise Program,Joint Mobilizations,Manual Therapy, Neuromuscular Re-education, Patient/Caregiver Education, Self-Care/Home Management,Soft Tissue Mobilization,Taping, Therapeutic Activities, Therapeutic Exercises Modalities Cold Pack/Ice Massage,Electric Stimulation,Hot Packs, Traction- Mechanical, Ultrasound Next Visit Focus/Plan Next Note Type Treatment Note Next Visit Plan Recheck Axially elongate supine, quadruped, stand shld ext. POC: STMs ant cervical and along hyoids & glossal mm for improving ability to open w/o feeling of tightness edda keeping head in neutral
--- NOTE | 2021-01-03 13:25 | PT.OTN ---
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 (01/03/21) Other specified disorders of temporomandibular joint (01/03/21) Cervicalgia (01/03/21) Muscle weakness (generalized) (01/03/21) Myalgia of mastication muscle (01/03/21) Abnormal posture (01/03/21) Physical Therapy Treatment Note PT-OP-A Visit Information Start: 11/10/20 07:29 Freq: Status: Active Protocol: Document 01/03/21 13:13 [facility] (Rec: 01/03/21 13:25 [facility] [id number]) Out-Patient Physical Therapy Visit Information Visit Information Visit Type Progress Note Visit Note 02/28 Visit Start Time 11:15 Visit Stop Time 12:05 Total Visit Minutes 50 Visit Number 12 Number of ALMOND PASTE MIXER Visits 0 PT-OP-B Current Condition Start: 11/10/20 07:29 Freq: Status: Active Protocol: Document 11/10/20 07:29 [facility] (Rec: 11/10/20 08:19 [facility] [id number]) Current Condition History of Current Condition Onset Date worse starting 9 months ago Current Complaints L jaw History of Current Condition Pt reports jaw keeps popping out. It crunched for years before that. THe popping started 9 months ago. It just started gradually gets worse. It hurts when she pops it back in. Pt reports L side pops out so everything shifts to R. Pt reports neck pain on R side w/ALONSO associated occ. THat has been going on for the past month w/ALONSO. SHe has always had shoulder pain on R side. R TSA has not helped. Works with a applications trainer for 4 days a week but he hasn't changed anything. Her R ant lat arm consistantly always hurts. Her applications trainer tapes her neck post and that seems to help. Pt reports ALONSO more when laying down. Pt had one other episode w/R neck about 25 years ago that she did PT and OT and responded well with that care and it never came back like that again. 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 The weakness has been getting progressive over the last few years. 1x a year ago that jaw popped out (both sides)and she couldn't chew or swallow and that was like 30 years ago. Now it pops out at random. Tried mouth guard years ago and found she actually clenched the mouth guard that inc pain. She doesn 't notice herself clench her teeth a lot and doesn't wake up at night d/t jaw sore d/t clenching or anything. Pt reports B mastectomies in 2007 w/chemo. TSA R was 2017 Prior Treatments and Tests PT for shoulder in past, Dr. rock is having pt relax jaw by placing in bottom of mouth and teeth slightly apart-also instructed heat but hasn't tried Treatment Goals Patient/Caregiver Goals Dec popping out episodes PT-OP-C Subjective Start: 11/10/20 07:29 Freq: Status: Active Protocol: Document 01/03/21 13:13 [facility] (Rec: 01/03/21 13:25 [facility] [id number]) OP-PT Subjective Patient Comments Patient Comments Pt reprots less often that her jaw is popping out. Notes Sunday evening her jaw was sore on L side and felt like she couldn't popi t back in so had to take mm relaxor at bed timea nd slept fine and woke up and it was fine. PT-OP-F Manual Assessment Start: 11/10/20 07:29 Freq: Status: Active Protocol: Document 11/10/20 07:29 [facility] (Rec: 11/10/20 08:19 [facility] [id number]) Manual Assessments Soft Tissue Assessment Soft Tissue Mobility Assessment all R sided cervical mm significant tightness, L>R masster and temporalis tightness & inf jaw B tightness, 1st rib R elevated PT-OP-J Posture/Palpation/Skin Start: 11/10/20 07:29 Freq: Status: Active Protocol: Document 11/10/20 07:29 [facility] (Rec: 11/10/20 08:19 [facility] [id number]) Posture Evaluation Comments Posture Comments Post-ant, inc kyphosis - significant fwd R>L shoulder w /IR of shoulder, neck fwd PT-OP-K Range of Motion Start: 11/10/20 07:29 Freq: Status: Active Protocol: Document 12/28/20 11:20 [facility] (Rec: 12/28/20 12:14 [facility] [id number]) Cervical Spine Range of Motion Cervical Spine Active Degrees Flexion 51 Extension 53 Rotation Left 60 Rotation Right 51 Lateral Flexion Left 20 Lateral Flexion Right 35 Comments pain w/R rot & SB TMJ Range of Motion Jaw Openning Jaw Openning (mm) 42 PT-OP-Q Treatments Start: 11/10/20 07:29 Freq: Status: Active Protocol: Document 01/03/21 13:13 [facility] (Rec: 01/03/21 13:25 [facility] [id number]) Therapeutic Exercises Supine Exercises CS elongation Supine Exercise Name axial elongation w/PT assist & cues initially progress to PT resistance Standing Exercises retraction Standing Exercise Name cervical w/PT assist progressed to self wall posture Standing Exercise Name slow roll up Reps/Minutes 5 min Manual Therapy Treatment Soft Tissue Mobilization cervical Body Location SCM, scalenes, c paraspinals Mobilization Type Myofascial Release,Strumming, Sustained Pressure Intensity/Depth Moderate Body Position Hooklying Joint Mobilizations cervical Joint C5-6 Direction UAP R TS PA Joint T1-3 Comments R>L PA seated w/ext FM C1 Direction FM Comments 1. C0-C1- L transverse 2. PA B PT-OP-T Assessment and Plan Start: 11/10/20 07:29 Freq: Status: Active Protocol: Document 01/03/21 13:13 [facility] (Rec: 01/03/21 13:25 [facility] [id number]) Physical Therapy Assessment Goals jaw Mcc Goal (LTG) Pt will be able to yawn,brush teeth and move jaw in all directions w/o jaw popping out. 12/16/20: improving no locking / popping with brushing teeth with head repositioning, but eating is still popping and takes more time to find head/ neck position to allow jaw to open. LTG Duration 03/05/21 cervical Youth Career Specialist Goal (LTG) pt will hav efull cervical ROM in order to dec strain of mm onto jaw region and imrpove ability to turn in car. 12/16/20: improved: able to look further over R and L to be able to see when driving, she feels not full ROM yet. LTG Duration 03/05/21 ROM Short Term Goal (STG) Pt will be indep w/HEP: 12/16/20: progressing: cues for proper alignment and form. STG Duration achieved progessing as needed Mcc Goal (LTG) Pt will have full jaw ROM without deviation. 12/16/20: improving but still difficulty opening to eat. LTG Duration achieved 01/03 Assessment Summary Assessment Pt has good jaw opening at this time but is getting axial ext occ when opening. She has imrpoved significantly w/jaw opening, dec popping out when opening and cervical range and pain. She cont to have some restriction of ablity to get neck into appropriate alignment which puts jaw on inc tension which likely creates her locking up episodes. Physical Therapy Plan Frequency and Duration Frequency of Treatment 2x/Week Duration of Treatment 2 months Plan of Care Start Date 01/03/21 Plan of Care End Date 03/05/21 Therapeutic Interventions Therapeutic Interventions Home Exercise Program,Joint Mobilizations,Manual Therapy, Neuromuscular Re-education, Patient/Caregiver Education, Self-Care/Home Management,Soft Tissue Mobilization,Taping, Therapeutic Activities, Therapeutic Exercises Modalities Cold Pack/Ice Massage,Electric Stimulation,Hot Packs, Traction- Mechanical, Ultrasound Next Visit Focus/Plan Next Note Type Treatment Note Next Visit Plan work on ant soft tissue along ant vertebral bodies, AP mobs cervical & mobs of T1-3 to improve axial elongation, work on axial elongation in mult positions & cont to work on posture
--- NOTE | 2021-01-03 13:25 | PT.OPPOC ---
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 (01/03/21) Other specified disorders of temporomandibular joint (01/03/21) Cervicalgia (01/03/21) Muscle weakness (generalized) (01/03/21) Myalgia of mastication muscle (01/03/21) Abnormal posture (01/03/21) Visit Care Team Role Provider Type Chan Rodriguez MD Family Provider Non-Staff Primary Care Provider Specialty: Family Practice Address: [address] [place] [address], [id number] Email: Uzma Ren DDS Attending Provider Non-Staff Referring Provider Specialty: Dentistry Address: [address] [place] [address], [address], [id number] Email: Plan Of Care PT-OP-T Assessment and Plan Start: 11/10/20 07:29 Freq: Status: Active Protocol: Document 01/03/21 13:13 [facility] (Rec: 01/03/21 13:25 [facility] [id number]) Physical Therapy Assessment Goals jaw [facility] Goal (LTG) Pt will be able to yawn,brush teeth and move jaw in all directions w/o jaw popping out. 12/16/20: improving no locking / popping with brushing teeth with head repositioning, but eating is still popping and takes more time to find head/ neck position to allow jaw to open. LTG Duration 03/05/21 cervical [facility] Goal (LTG) pt will hav efull cervical ROM in order to dec strain of mm onto jaw region and imrpove ability to turn in car. 12/16/20: improved: able to look further over R and L to be able to see when driving, she feels not full ROM yet. LTG Duration 03/05/21 ROM Short Term Goal (STG) Pt will be indep w/HEP: 12/16/20: progressing: cues for proper alignment and form. STG Duration achieved progessing as needed Executive Creative Director Goal (LTG) Pt will have full jaw ROM without deviation. 12/16/20: improving but still difficulty opening to eat. LTG Duration achieved 01/03 Assessment Summary Assessment Pt has good jaw opening at this time but is getting axial ext occ when opening. She has imrpoved significantly w/jaw opening, dec popping out when opening and cervical range and pain. She cont to have some restriction of ablity to get neck into appropriate alignment which puts jaw on inc tension which likely creates her locking up episodes. Physical Therapy Plan Frequency and Duration Frequency of Treatment 2x/Week Duration of Treatment 2 months Plan of Care Start Date 01/03/21 Plan of Care End Date 03/05/21 Therapeutic Interventions Therapeutic Interventions Home Exercise Program,Joint Mobilizations,Manual Therapy, Neuromuscular Re-education, Patient/Caregiver Education, Self-Care/Home Management,Soft Tissue Mobilization,Taping, Therapeutic Activities, Therapeutic Exercises Modalities Cold Pack/Ice Massage,Electric Stimulation,Hot Packs, Traction- Mechanical, Ultrasound Next Visit Focus/Plan Next Note Type Treatment Note Next Visit Plan work on ant soft tissue along ant vertebral bodies, AP mobs cervical & mobs of T1-3 to improve axial elongation, work on axial elongation in mult positions & cont to work on posture Plan of Care Dates Plan of Care Start Date 01/03/21 Plan of Care End Date 03/05/21 Electronically Signed by: Sneha Noyola, PT 01/03/21 8020 Please Sign and Return: I have reviewed this Plan of Care and certify that the skilled therapy services above are required to meet the patient?s needs. Physician Signature Date Printed Name and Credentials Clinical Instructor Signature Printed Name and Credentials
--- NOTE | 2021-01-06 13:45 | PT.OTN ---
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 Visit Start Time 13:01 Visit Stop Time 13:45 Total Visit Minutes 44 Visit Number 12 Number of CARD WRITER HAND Visits 1 PT-OP-B Current Condition Start: 11/10/20 07:29 Freq: Status: Active Protocol: Document 11/10/20 07:29 [facility] (Rec: 11/10/20 08:19 [facility] [id number]) Current Condition History of Current Condition Onset Date worse starting 9 months ago Current Complaints L jaw History of Current Condition Pt reports jaw keeps popping out. It crunched for years before that. THe popping started 9 months ago. It just started gradually gets worse. It hurts when she pops it back in. Pt reports L side pops out so everything shifts to R. Pt reports neck pain on R side w/ALONSO associated occ. THat has been going on for the past month w/ALONSO. SHe has always had shoulder pain on R side. R TSA has not helped. 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 Her R ant lat arm consistantly always hurts. Her water trainer tapes her neck post and that seems to help. Pt reports ALOSNO more when laying down. Pt had one other episode w/R neck about 25 years ago that she did PT and OT and responded well with that care and it never came back like that again. 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 The weakness has been getting progressive over the last few years. 1x a year ago that jaw popped out (both sides)and she couldn't chew or swallow and that was like 30 years ago. Now it pops out at random. Tried mouth guard years ago and found she actually clenched the mouth guard that inc pain. She doesn 't notice herself clench her teeth a lot and doesn't wake up at night d/t jaw sore d/t clenching or anything. Pt reports B mastectomies in 2007 w/chemo. TSA R was 2017 Prior Treatments and Tests PT for shoulder in past, Dr. rock is having pt relax jaw by placing in bottom of mouth and teeth slightly apart-also instructed heat but hasn't tried Treatment Goals Patient/Caregiver Goals Dec popping out episodes PT-OP-C Subjective Start: 11/10/20 07:29 Freq: Status: Active Protocol: Document 01/06/21 13:01 SP (Rec: 01/06/21 14:07 SP [id number]) OP-PT Subjective Patient Comments Patient Comments Pt reports that she had a knot in her L jaw on Sunday, but took a muscle relaxer and it resolved. Indicated that she has been massaging her lateral jaws on both sides, but has not done inraoral massage. Pt says that she finally feels like she is getting her cervical exercises right and not overdoing it in any direction. She feels more aware of her cervical movements overall. PT-OP-F Manual Assessment Start: 11/10/20 07:29 Freq: Status: Active Protocol: Document 11/10/20 07:29 [facility] (Rec: 11/10/20 08:19 [facility] [id number]) Manual Assessments Soft Tissue Assessment Soft Tissue Mobility Assessment all R sided cervical mm significant tightness, L>R masster and temporalis tightness & inf jaw B tightness, 1st rib R elevated PT-OP-J Posture/Palpation/Skin Start: 11/10/20 07:29 Freq: Status: Active Protocol: Document 11/10/20 07:29 [facility] (Rec: 11/10/20 08:19 [facility] [id number]) Posture Evaluation Comments Posture Comments Post-ant, inc kyphosis - significant fwd R>L shoulder w /IR of shoulder, neck fwd PT-OP-K Range of Motion Start: 11/10/20 07:29 Freq: Status: Active Protocol: Document 12/28/20 11:20 [facility] (Rec: 12/28/20 12:14 [facility] [id number]) Cervical Spine Range of Motion Cervical Spine Active Degrees Flexion 51 Extension 53 Rotation Left 60 Rotation Right 51 Lateral Flexion Left 20 Lateral Flexion Right 35 Comments pain w/R rot & SB TMJ Range of Motion Jaw Openning Jaw Openning (mm) 42 PT-OP-Q Treatments Start: 11/10/20 07:29 Freq: Status: Active Protocol: Document 01/06/21 13:01 SP (Rec: 01/06/21 14:07 SP [id number]) Therapeutic Exercises Supine Exercises CS elongation Supine Exercise Name axial elongation w/CARD WRITER HAND cuing chin nod yes Reps/Minutes 2s x10 Comments good lengthening, occasional cues for relaxed jaw- no pain/ dec tension jaw cervical rotation w/ chin nods Supine Exercise Name added to HEP (CARD WRITER HAND water trainer added head turn) Side bilateral Reps/Minutes 2 reps 5 nods Comments cued awareness of CS ext pure turn then slow fluid easy head nods retraction Supine Exercise Name Cervical Side bilateral Reps/Minutes 8x Comments work on no lumbar ext breathing Supine Exercise Name diaphragmatic Reps/Minutes 6 Comments during manual, cued less talking to allow axial cervical Sidelying Exercises open book Sidelying Exercise Name arms extended Side bilateral Reps/Minutes x3 ea Comments cues for no UT recruit, TS rotation, pec stretch, humeral ER Standing Exercises wall posture Standing Exercise Name reviewed HEP, slow roll up, progressed to w/ shldr ER Side bilateral Reps/Minutes 3x, 3x with shldr ER Comments cued chin nod, neutral Other Exercises self STMs Other Exercise Name theracane UT at occiput positioning, racquetball over pec corner wall. Reps/Minutes 5 min Comments good feedback response Manual Therapy Treatment Soft Tissue Mobilization cervical Body Location levator scap, scalenes, UT, suboccipitals, spenius capitus , SCM Mobilization Type Myofascial Release,Strumming, Sustained Pressure,Other Intensity/Depth Moderate Body Position Supine Comments manual Other = active motion nods/ lateral rotation over sustained pressure splenius cap, lev scap. Self-Care/Home Management Treatment Education Patient Education Body Mechanics,Home Exercise Program Other Education self STM of posteriolateral cervical muscles with theracane. Self STM of proximal pec, upper anterior thoracic region with ball on wall. PT-OP-T Assessment and Plan Start: 11/10/20 07:29 Freq: Status: Active Protocol: Document 01/06/21 13:01 SP (Rec: 01/06/21 14:07 SP [id number]) Physical Therapy Assessment Goals jaw Usp Goal (LTG) Pt will be able to yawn,brush teeth and move jaw in all directions w/o jaw popping out. 12/16/20: improving no locking / popping with brushing teeth with head repositioning, but eating is still popping and takes more time to find head/ neck position to allow jaw to open. LTG Duration 03/05/21 cervical Usp Goal (LTG) pt will hav efull cervical ROM in order to dec strain of mm onto jaw region and imrpove ability to turn in car. 12/16/20: improved: able to look further over R and L to be able to see when driving, she feels not full ROM yet. LTG Duration 03/05/21 ROM Short Term Goal (STG) Pt will be indep w/HEP: 12/16/20: progressing: cues for proper alignment and form. STG Duration achieved progessing as needed Grounds Restoration Specialist Goal (LTG) Pt will have full jaw ROM without deviation. 12/16/20: improving but still difficulty opening to eat. LTG Duration achieved 01/03 Assessment Summary Assessment Pt improved self corrections with axial extension and scap retraction/ depression w/ chest lift to allow elongated pec for allowance of shld ER when applied to wall posture. Pt noted better positioning for jaw open close without popping. Provided shld ER AROM for home to incorporated w/ wall posture. Physical Therapy Plan Frequency and Duration Frequency of Treatment 2x/Week Duration of Treatment 2 months Plan of Care Start Date 01/03/21 Plan of Care End Date 03/05/21 Therapeutic Interventions Therapeutic Interventions Home Exercise Program,Joint Mobilizations,Manual Therapy, Neuromuscular Re-education, Patient/Caregiver Education, Self-Care/Home Management,Soft Tissue Mobilization,Taping, Therapeutic Activities, Therapeutic Exercises Modalities Cold Pack/Ice Massage,Electric Stimulation,Hot Packs, Traction- Mechanical, Ultrasound Next Visit Focus/Plan Next Note Type Treatment Note Next Visit Plan Recheck wall posture, shld ER. POC: work on ant soft tissue along ant vertebral bodies, pec, AP mobs cervical & mobs of T1-3 to improve axial elongation, work on axial elongation in mult positions & cont to work on posture
--- NOTE | 2021-01-10 18:42 | PT.OTN ---
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 (Rec: 01/10/21 18:42 [facility] [id number]) Out-Patient Physical Therapy Visit Information Visit Information Visit Type Treatment Note Visit Start Time 11:20 Visit Stop Time 12:00 Total Visit Minutes 40 Visit Number 13 Number of DIRECTOR OF CASINO Visits 0 PT-OP-B Current Condition Start: 11/10/20 07:29 Freq: Status: Active Protocol: Document 11/10/20 07:29 [facility] (Rec: 11/10/20 08:19 [facility] [id number]) Current Condition History of Current Condition Onset Date worse starting 9 months ago Current Complaints L jaw History of Current Condition Pt reports jaw keeps popping out. It crunched for years before that. THe popping started 9 months ago. It just started gradually gets worse. It hurts when she pops it back in. Pt reports L side pops out so everything shifts to R. Pt reports neck pain on R side w/ALONSO associated occ. THat has been going on for the past month w/ALONSO. SHe has always had shoulder pain on R side. R TSA has not helped. Works with a review trainer for 4 days a week but he hasn't changed anything. Her R ant lat arm consistantly always hurts. Her review trainer tapes her neck post and that seems to help. Pt reports ALONSO more when laying down. Pt had one other episode w/R neck about 25 years ago that she did PT and OT and responded well with that care and it never came back like that again. 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 The weakness has been getting progressive over the last few years. 1x a year ago that jaw popped out (both sides)and she couldn't chew or swallow and that was like 30 years ago. Now it pops out at random. Tried mouth guard years ago and found she actually clenched the mouth guard that inc pain. She doesn 't notice herself clench her teeth a lot and doesn't wake up at night d/t jaw sore d/t clenching or anything. Pt reports B mastectomies in 2007 w/chemo. TSA R was 2017 Prior Treatments and Tests PT for shoulder in past, Dr. rock is having pt relax jaw by placing in bottom of mouth and teeth slightly apart-also instructed heat but hasn't tried Treatment Goals Patient/Caregiver Goals Dec popping out episodes PT-OP-C Subjective Start: 11/10/20 07:29 Freq: Status: Active Protocol: Document 01/10/21 18:36 [facility] (Rec: 01/10/21 18:42 [facility] [id number]) OP-PT Subjective Patient Comments Patient Comments Pt reports jaw was doing well until Sunday evening then had more locking along w/soreness sat morning and more locking but improve w/massage. Unsurei f it is d/t leg day at gym as sometimes vanita feels like she clenches PT-OP-F Manual Assessment Start: 11/10/20 07:29 Freq: Status: Active Protocol: Document 11/10/20 07:29 [facility] (Rec: 11/10/20 08:19 [facility] [id number]) Manual Assessments Soft Tissue Assessment Soft Tissue Mobility Assessment all R sided cervical mm significant tightness, L>R masster and temporalis tightness & inf jaw B tightness, 1st rib R elevated PT-OP-J Posture/Palpation/Skin Start: 11/10/20 07:29 Freq: Status: Active Protocol: Document 11/10/20 07:29 [facility] (Rec: 11/10/20 08:19 [facility] [id number]) Posture Evaluation Comments Posture Comments Post-ant, inc kyphosis - significant fwd R>L shoulder w /IR of shoulder, neck fwd PT-OP-K Range of Motion Start: 11/10/20 07:29 Freq: Status: Active Protocol: Document 12/28/20 11:20 [facility] (Rec: 12/28/20 12:14 [facility] [id number]) Cervical Spine Range of Motion Cervical Spine Active Degrees Flexion 51 Extension 53 Rotation Left 60 Rotation Right 51 Lateral Flexion Left 20 Lateral Flexion Right 35 Comments pain w/R rot & SB TMJ Range of Motion Jaw Openning Jaw Openning (mm) 42 PT-OP-Q Treatments Start: 11/10/20 07:29 Freq: Status: Active Protocol: Document 01/10/21 18:36 [facility] (Rec: 01/10/21 18:42 [facility] [id number]) Therapeutic Exercises Supine Exercises retraction Supine Exercise Name axial elongation Side bilateral Reps/Minutes 10 Manual Therapy Treatment Soft Tissue Mobilization cervical Body Location ant cervical soft tissue & Scalnes & SCM Mobilization Type Myofascial Release,Strumming, Sustained Pressure,Other Intensity/Depth Moderate Body Position Supine Comments w/jaw opening L>R jaw Body Location L lat border Mobilization Type Rolling,Sustained Pressure Intensity/Depth Moderate Body Position Hooklying Comments med ptyergoid & angle of jaw Joint Mobilizations cervical Joint C2 &4 Direction UAP R Self-Care/Home Management Treatment Education Other Education edu for breathing out w/ exercises when doing concentric and in on eccentric and working on tongue position and posture before starting each exercise. Edu to put longwall foreman hand or rubber band on wrist to help as cue for posture duirng day, edu to inform review trainer if she gets any neck tightenss during exercise PT-OP-T Assessment and Plan Start: 11/10/20 07:29 Freq: Status: Active Protocol: Document 01/10/21 18:36 [facility] (Rec: 01/10/21 18:42 [facility] [id number]) Physical Therapy Assessment Goals jaw Retirement Goal (LTG) Pt will be able to yawn,brush teeth and move jaw in all directions w/o jaw popping out. 12/16/20: improving no locking / popping with brushing teeth with head repositioning, but eating is still popping and takes more time to find head/ neck position to allow jaw to open. LTG Duration 03/05/21 cervical Director Of Music Therapy Goal (LTG) pt will hav efull cervical ROM in order to dec strain of mm onto jaw region and imrpove ability to turn in car. 12/16/20: improved: able to look further over R and L to be able to see when driving, she feels not full ROM yet. LTG Duration 03/05/21 ROM Short Term Goal (STG) Pt will be indep w/HEP: 12/16/20: progressing: cues for proper alignment and form. STG Duration achieved progessing as needed Retirement Goal (LTG) Pt will have full jaw ROM without deviation. 12/16/20: improving but still difficulty opening to eat. LTG Duration achieved 01/03 Assessment Summary Assessment pt had less cervical ext w/ opening upon presentation today which improved to none after manual treatment.She is improvign w/ability to axially elongate. Physical Therapy Plan Frequency and Duration Frequency of Treatment 2x/Week Duration of Treatment 2 months Plan of Care Start Date 01/03/21 Plan of Care End Date 03/05/21 Next Visit Focus/Plan Next Note Type Treatment Note Next Visit Plan Recheck wall posture, shld ER. POC: work on ant soft tissue along ant vertebral bodies, pec, AP mobs cervical & mobs of T1-3 to improve axial elongation, work on axial elongation in mult positions & cont to work on posture
--- NOTE | 2021-01-18 14:29 | PT.OTN ---
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 (01/18/21) Other specified disorders of temporomandibular joint (01/18/21) Cervicalgia (01/18/21) Muscle weakness (generalized) (01/18/21) Myalgia of mastication muscle (01/18/21) Abnormal posture (01/18/21) Physical Therapy Treatment Note PT-OP-A Visit Information Start: 11/10/20 07:29 Freq: Status: Active Protocol: Document 01/18/21 14:15 [facility] (Rec: 01/18/21 14:29 [facility] [id number]) Out-Patient Physical Therapy Visit Information Visit Information Visit Type Treatment Note Visit Start Time 13:01 Visit Stop Time 13:41 Total Visit Minutes 40 Visit Number 14 Number of SENIOR INVESTIGATOR Visits 0 PT-OP-B Current Condition Start: 11/10/20 07:29 Freq: Status: Active Protocol: Document 11/10/20 07:29 [facility] (Rec: 11/10/20 08:19 [facility] [id number]) Current Condition History of Current Condition Onset Date worse starting 9 months ago Current Complaints L jaw History of Current Condition Pt reports jaw keeps popping out. It crunched for years before that. THe popping started 9 months ago. It just started gradually gets worse. It hurts when she pops it back in. Pt reports L side pops out so everything shifts to R. Pt reports neck pain on R side w/ALONSO associated occ. THat has been going on for the past month w/ALONSO. SHe has always had shoulder pain on R side. R TSA has not helped. 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 Her R ant lat arm consistantly always hurts. Her water trainer tapes her neck post and that seems to help. Pt reports ALONSO more when laying down. Pt had one other episode w/R neck about 25 years ago that she did PT and OT and responded well with that care and it never came back like that again. 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 The weakness has been getting progressive over the last few years. 1x a year ago that jaw popped out (both sides)and she couldn't chew or swallow and that was like 30 years ago. Now it pops out at random. Tried mouth guard years ago and found she actually clenched the mouth guard that inc pain. She doesn 't notice herself clench her teeth a lot and doesn't wake up at night d/t jaw sore d/t clenching or anything. Pt reports B mastectomies in 2007 w/chemo. TSA R was 2017 Prior Treatments and Tests PT for shoulder in past, Dr. rock is having pt relax jaw by placing in bottom of mouth and teeth slightly apart-also instructed heat but hasn't tried Treatment Goals Patient/Caregiver Goals Dec popping out episodes PT-OP-C Subjective Start: 11/10/20 07:29 Freq: Status: Active Protocol: Document 01/18/21 14:15 [facility] (Rec: 01/18/21 14:29 [facility] [id number]) OP-PT Subjective Patient Comments Patient Comments Pt reports her jaw has been doing pretyy good. Yesterday was one of the worst days recently and she only noticed her jaw lock 3-4 times that day. Patient Reported Progress Improving PT-OP-F Manual Assessment Start: 11/10/20 07:29 Freq: Status: Active Protocol: Document 11/10/20 07:29 [facility] (Rec: 11/10/20 08:19 [facility] [id number]) Manual Assessments Soft Tissue Assessment Soft Tissue Mobility Assessment all R sided cervical mm significant tightness, L>R masster and temporalis tightness & inf jaw B tightness, 1st rib R elevated PT-OP-J Posture/Palpation/Skin Start: 11/10/20 07:29 Freq: Status: Active Protocol: Document 11/10/20 07:29 [facility] (Rec: 11/10/20 08:19 [facility] [id number]) Posture Evaluation Comments Posture Comments Post-ant, inc kyphosis - significant fwd R>L shoulder w /IR of shoulder, neck fwd PT-OP-K Range of Motion Start: 11/10/20 07:29 Freq: Status: Active Protocol: Document 12/28/20 11:20 [facility] (Rec: 12/28/20 12:14 [facility] [id number]) Cervical Spine Range of Motion Cervical Spine Active Degrees Flexion 51 Extension 53 Rotation Left 60 Rotation Right 51 Lateral Flexion Left 20 Lateral Flexion Right 35 Comments pain w/R rot & SB TMJ Range of Motion Jaw Openning Jaw Openning (mm) 42 PT-OP-Q Treatments Start: 11/10/20 07:29 Freq: Status: Active Protocol: Document 01/18/21 14:15 [facility] (Rec: 01/18/21 14:29 [facility] [id number]) Therapeutic Exercises Supine Exercises breathing Supine Exercise Name diaphragmatic progressed to standing w/slef facilitation Sitting Exercises axial elongation Sitting Exercise Name w/c3 fwd glide self facilitation Side bilateral Reps/Minutes 8 Comments w/jaw opening rocabado Sitting Exercise Name 6x6- review next tx and provide handouts Equipment Used front mirror for self alignment corrections Reps/Minutes 6 Comments working on neutral jaw Manual Therapy Treatment Soft Tissue Mobilization cervical Body Location ant cervical soft tissue & Scalnes & SCM Mobilization Type Myofascial Release,Strumming, Sustained Pressure,Other Intensity/Depth Moderate Body Position Supine Joint Mobilizations cervical Joint ap C3 Neuro Re-Education Treatment Other Activities facilitation Details at C3 transverse process for axial elongation Comments w/L head turn progressed to neutral in supine and progressed to opening mouth w/ chin tuck then to standing Self-Care/Home Management Treatment Education Other Education edu on importance of posture & working on mobility of shoulder for improving neck and jaw d/t hard for pt to keep good posture d/t dec ability to make it into the range. REview HEP and discussed uissng exercises prior to eating PT-OP-T Assessment and Plan Start: 11/10/20 07:29 Freq: Status: Active Protocol: Document 01/18/21 14:15 [facility] (Rec: 01/18/21 14:29 [facility] [id number]) Physical Therapy Assessment Goals jaw [facility]entiary Goal (LTG) Pt will be able to yawn,brush teeth and move jaw in all directions w/o jaw popping out. 12/16/20: improving no locking / popping with brushing teeth with head repositioning, but eating is still popping and takes more time to find head/ neck position to allow jaw to open. LTG Duration 03/05/21 cervical [facility] Goal (LTG) pt will hav efull cervical ROM in order to dec strain of mm onto jaw region and imrpove ability to turn in car. 12/16/20: improved: able to look further over R and L to be able to see when driving, she feels not full ROM yet. LTG Duration 03/05/21 ROM Short Term Goal (STG) Pt will be indep w/HEP: 12/16/20: progressing: cues for proper alignment and form. STG Duration achieved progessing as needed Instrument Setter Goal (LTG) Pt will have full jaw ROM without deviation. 12/16/20: improving but still difficulty opening to eat. LTG Duration achieved 01/03 Assessment Summary Assessment Pt is making excellent progress w/jaw motion and is showing improvement in neck motion also. She was cued with exercises some in order to work on appropriate performance as she often compensated w/neck position Physical Therapy Plan Frequency and Duration Frequency of Treatment 2x/Week Duration of Treatment 2 months Plan of Care Start Date 01/03/21 Plan of Care End Date 03/05/21 Next Visit Focus/Plan Next Note Type Re-Evaluation Next Visit Plan assess shoulder motion & neck & postural assessment for starting treatment w/scapular movement focus
--- NOTE | 2021-01-19 09:47 | PT.OTRE ---
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) Other specified disorders of temporomandibular joint (01/19/21) Cervicalgia (01/19/21) Muscle weakness (generalized) (01/19/21) Myalgia of mastication muscle (01/19/21) Abnormal posture (01/19/21) Visit Care Team Role Provider Type Chan Rodriguez MD Family Provider Non-Staff Primary Care Provider Specialty: Family Practice Address: [address] [place] [address], [id number] Email: Uzma Ren DDS Attending Provider Non-Staff Referring Provider Specialty: Dentistry Address: [address] [place] [address], [address], [id number] Email: Physical Therapy Re-Evaluation PT-OP-A Visit Information Start: 11/10/20 07:29 Freq: Status: Active Protocol: Document 01/19/21 07:30 [facility] (Rec: 01/19/21 08:17 [facility] [id number]) Out-Patient Physical Therapy Visit Information Visit Information Visit Type Re-Evaluation Visit Note / Visit Start Time 07:30 Visit Stop Time 08:17 Total Visit Minutes 47 Visit Number 15 Number of COAL PIPELINE OPERATOR Visits 0 PT-OP-B Current Condition Start: 11/10/20 07:29 Freq: Status: Active Protocol: Document 01/19/21 07:30 [facility] (Rec: 01/19/21 08:17 [facility] [id number]) Current Condition History of Current Condition Onset Date worse starting 9 months ago Current Complaints L jaw History of Current Condition 01/19-prior to starting PT for jaw, R shoulder pain was constant. Now it is intermittent. Notes arms no longer go to sleep frequently and do not do that to the extent they used to. Neck pain is less frequent now too. Still gets it a couple times a week. When she does core stuff like crunches, her neck starts to hurt. 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 IE:Pt reports jaw keeps popping out. It crunched for years before that. THe popping started 9 months ago. It just started gradually gets worse. It hurts when she pops it back in. Pt reports L side pops out so everything shifts to R. Pt reports neck pain on R side w/ALONSO associated occ. THat has been going on for the past month w/ALONSO. SHe has always had shoulder pain on R side. R TSA has not helped. Works with a inside sales trainer for 4 days a week but he hasn't changed anything. Her R ant lat arm consistantly always hurts. Her inside sales trainer tapes her neck post and that seems to help. Pt reports ALONSO more when laying down. Pt had one other episode w/R neck about 25 years ago that she did PT and OT and responded well with that care and it never came back like that again. Pt reports arms go to sleep and reports R arm sales and leasing agent has gotten a lot less. The weakness has been getting progressive over the last few years. 1x a year ago that jaw popped out (both sides)and she couldn't chew or swallow and that was like 30 years ago. Now it pops out at random. Tried mouth guard years ago and found she actually clenched the mouth guard that inc pain. She doesn 't notice herself clench her teeth a lot and doesn't wake up at night d/t jaw sore d/t clenching or anything. Pt reports B mastectomies in 2007 w/chemo. TSA R was 2017 Prior Treatments and Tests PT for shoulder in 2017, Dr. ren is having pt relax jaw by placing in bottom of mouth and teeth slightly apart-also instructed heat but hasn't tried Treatment Goals Patient/Caregiver Goals get rid of most of the pain, be able to move around a little bit and not have pain w /it, not get numb when talking on the phone PT-OP-C Subjective Start: 11/10/20 07:29 Freq: Status: Active Protocol: Document 01/19/21 07:30 [facility] (Rec: 01/19/21 08:17 [facility] [id number]) OP-PT Pain Assessment Location R shoulder Pain Location Details lat brachium and sup shoulder Intensity 4 Scale Used worst 8/10 after sleep on it Description Aching Frequency Intermittent Pain Duration recently not more than 1 day Variations/Patterns sleep or holding phone, arm goes to sleep Other Pain Aggravating Factors sleep on it wrong, after UE exercises, pushing, overhead, behind back Other Pain Alleviating Factors tylenol, different creams PT-OP-F Manual Assessment Start: 11/10/20 07:29 Freq: Status: Active Protocol: Document 01/19/21 07:30 [facility] (Rec: 01/19/21 08:17 [facility] [id number]) Manual Assessments Soft Tissue Assessment Soft Tissue Mobility Assessment tightness B pec, R>L UT & LS, R rhomboids, B Scalenes & SCM, B biceps superiorly PT-OP-J Posture/Palpation/Skin Start: 11/10/20 07:29 Freq: Status: Active Protocol: Document 01/19/21 07:30 [facility] (Rec: 01/19/21 08:17 [facility] [id number]) Posture Evaluation [facility] Postural Classification System Vertebral Compression Test 1 Elbow Flexion Test 1 Comments Posture Comments scapula abducted & shoulders IR, inc kyphosis, fwd head PT-OP-K Range of Motion Start: 11/10/20 07:29 Freq: Status: Active Protocol: Document 01/19/21 07:30 [facility] (Rec: 01/19/21 08:17 [facility] [id number]) Cervical Spine Range of Motion Cervical Spine Active Degrees Flexion 43 Extension 45 Rotation Left 56 Rotation Right 44 Lateral Flexion Left 25 Lateral Flexion Right 48 Comments pain when SB B, R rot Shoulder Goniometric Range of Motion Shoulder Measured in Degrees Right Passive Flexion 101 Abduction 104 Right Active Testing Position Standing Flexion 91 Extension 52 Abduction 88 External Rotation at 0 degrees Abduction 52 Internal Rotation Behind Back (text) S2 Comments iniates flex and abd and cont w/elevation of scapula Left Active Testing Position Standing Flexion 146 Extension 55 Abduction 143 External Rotation at 90 degrees 87 Abduction External Rotation at 0 degrees Abduction 60 Internal Rotation Behind Back (text) T11 Comments goes into flex w/abd; PT-OP-L Special Tests Start: 01/19/21 07:30 Freq: Status: Active Protocol: Document 01/19/21 07:30 [facility] (Rec: 01/19/21 08:17 [facility] [id number]) Special Tests Cervical Spine Special Tests Spurling's Test Test Results neg Neural Special Tests- Upper Body Radial Nerve Tension Test Results neg B Ulnar Nerve Tension Test Results positive R Median Nerve Tension Test Results positive R PT-OP-M Strength Start: 11/10/20 07:29 Freq: Status: Active Protocol: Document 01/19/21 07:30 [facility] (Rec: 01/19/21 08:17 [facility] [id number]) Shoulder Strength Shoulder Manual Muscle Testing Right Flexion 3+ Fair+ Extension 5 Normal Abduction (C5) 3+ Fair+ External Rotation 5 Normal Internal Rotation 5 Normal Left Flexion 5 Normal Extension 5 Normal Abduction (C5) 4+ Good+ External Rotation 5 Normal Internal Rotation 5 Normal Elbow/Forearm Strength Elbow and Forearm Manual Muscle Testing Right Flexion (C6) 5 Normal Extension (C7) 5 Normal Pronation 5 Normal Supination 4 Good Left Flexion (C6) 5 Normal Extension (C7) 5 Normal Pronation 5 Normal Supination 5 Normal Wrist Strength Wrist Manual Muscle Testing Right Flexion (C7) 4 Good Extension (C6) 5 Normal Radial Deviation 5 Normal Left Flexion (C7) 5 Normal Extension (C6) 4 Good Radial Deviation 5 Normal Hand Technical Information Specialist/Pinch Strength Hand Strength Right Comments 65#, 65#, 65# tested B elbow at side Left Comments 78#, 70#, 79# PT-OP-Q Treatments Start: 11/10/20 07:29 Freq: Status: Active Protocol: Document 01/18/21 14:15 [facility] (Rec: 01/18/21 14:29 [facility] [id number]) Therapeutic Exercises Supine Exercises breathing Supine Exercise Name diaphragmatic progressed to standing w/slef facilitation Sitting Exercises axial elongation Sitting Exercise Name w/c3 fwd glide self facilitation Side bilateral Reps/Minutes 8 Comments w/jaw opening rocabado Sitting Exercise Name 6x6- review next tx and provide handouts Equipment Used front mirror for self alignment corrections Reps/Minutes 6 Comments working on neutral jaw Manual Therapy Treatment Soft Tissue Mobilization cervical Body Location ant cervical soft tissue & Scalnes & SCM Mobilization Type Myofascial Release,Strumming, Sustained Pressure,Other Intensity/Depth Moderate Body Position Supine Joint Mobilizations cervical Joint ap C3 Neuro Re-Education Treatment Other Activities facilitation Details at C3 transverse process for axial elongation Comments w/L head turn progressed to neutral in supine and progressed to opening mouth w/ chin tuck then to standing Self-Care/Home Management Treatment Education Other Education edu on importance of posture & working on mobility of shoulder for improving neck and jaw d/t hard for pt to keep good posture d/t dec ability to make it into the range. REview HEP and discussed uissng exercises prior to eating PT-OP-T Assessment and Plan Start: 11/10/20 07:29 Freq: Status: Active Protocol: Document 01/19/21 07:30 [facility] (Rec: 01/19/21 08:17 [facility] [id number]) Physical Therapy Assessment Rehab Potential Rehabilitation Potential Good Impairments Impairments Activity Tolerance,Functional Activities,Functional Mobility ,Pain,Posture,ROM,Soft Tissue Mobility,Strength Goals Shoulder Short Term Goal (STG) Pt will be able to hold phone and talk on phone w/o RUE getting numb STG Duration 02/24/21 Shelter Goal (LTG) Pt will improve strength of R shoulder to show at least 4/5 UE MMT for flex and abd in order to allow improved ease for overhead activities LTG Duration 03/22/21 jaw Service Advisor Goal (LTG) Pt will be able to yawn,brush teeth and move jaw in all directions w/o jaw popping out. 12/16/20: improving no locking / popping with brushing teeth with head repositioning, but eating is still popping and takes more time to find head/ neck position to allow jaw to open. 01/19-only happening on a bad day 3-4x LTG Duration 03/22/21 cervical Service Advisor Goal (LTG) pt will hav efull cervical ROM in order to dec strain of mm onto jaw region and imrpove ability to turn in car. 12/16/20: improved: able to look further over R and L to be able to see when driving, she feels not full ROM yet. 01/19-improving but still limited w/discomfort LTG Duration 03/22/21 ROM Short Term Goal (STG) Pt will be indep w/HEP and mechanics for workouts w/ inside sales trainer min A STG Duration 02/20/21 Service Advisor Goal (LTG) Pt will improve overhead shoulder mobility to at least 100 deg flex and abd w/o scapular elevation. LTG Duration 03/23/21 Assessment Summary Assessment Pt has been being treated for jaw pain and popping which has significantly improved along w/resulting improved neck and shoulder pain overall w/this treatment. She still has pain daily w/R shoulder and frequently in neck w/occ numbness in R>L UE. She has signfiicant limits w/ use of RUE with dec ability to raise UE overhead and pain w/use of RUE likely d/t poor initiation and scapulothoracic and glenohumeral mechanics. She would benefit from PT to work on improving posture, mechanics of movement, ROM, strength and functional ability in order to dec pain in R shoulder, neck and jaw. Physical Therapy Plan Frequency and Duration Frequency of Treatment 2x/Week Duration of Treatment 2 months Plan of Care Start Date 01/19/21 Plan of Care End Date 03/22/21 Therapeutic Interventions Therapeutic Interventions Aquatic Therapy,Gait Training, Home Exercise Program,Joint Mobilizations,Manual Therapy, Neuromuscular Re-education, Patient/Caregiver Education, Self-Care/Home Management,Soft Tissue Mobilization,Taping, Therapeutic Activities, Therapeutic Exercises Modalities Cold Pack/Ice Massage,Electric Stimulation,Hot Packs, Traction- Mechanical, Ultrasound Next Visit Focus/Plan Next Note Type Treatment Note Next Visit Plan manual treatment to scap to work on post dep
--- NOTE | 2021-01-19 09:47 | PT.OPPOC ---
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) Other specified disorders of temporomandibular joint (01/19/21) Cervicalgia (01/19/21) Muscle weakness (generalized) (01/19/21) Myalgia of mastication muscle (01/19/21) Abnormal posture (01/19/21) Visit Care Team Role Provider Type Chan Rodriguez MD Family Provider Non-Staff Primary Care Provider Specialty: Family Practice Address: [address] [place] [address], [id number] Email: Uzma Ren DDS Attending Provider Non-Staff Referring Provider Specialty: Dentistry Address: [address] [place] [address], [address], [address] Email: Plan Of Care PT-OP-T Assessment and Plan Start: 11/10/20 07:29 Freq: Status: Active Protocol: Document 01/19/21 07:30 [facility] (Rec: 01/19/21 08:17 [facility] [id number]) Physical Therapy Assessment Rehab Potential Rehabilitation Potential Good Impairments Impairments Activity Tolerance,Functional Activities,Functional Mobility ,Pain,Posture,ROM,Soft Tissue Mobility,Strength Goals Shoulder Short Term Goal (STG) Pt will be able to hold phone and talk on phone w/o RUE getting numb STG Duration 02/24/21 Alternative Medicine Practitioner Goal (LTG) Pt will improve strength of R shoulder to show at least 4/5 UE MMT for flex and abd in order to allow improved ease for overhead activities LTG Duration 03/22/21 jaw Care Home Goal (LTG) Pt will be able to yawn,brush teeth and move jaw in all directions w/o jaw popping out. 12/16/20: improving no locking / popping with brushing teeth with head repositioning, but eating is still popping and takes more time to find head/ neck position to allow jaw to open. 01/19-only happening on a bad day 3-4x LTG Duration 2/1/22 cervical Alternative Medicine Practitioner Goal (LTG) pt will hav efull cervical ROM in order to dec strain of mm onto jaw region and imrpove ability to turn in car. 12/16/20: improved: able to look further over R and L to be able to see when driving, she feels not full ROM yet. 01/19-improving but still limited w/discomfort LTG Duration 03/22/21 ROM Short Term Goal (STG) Pt will be indep w/HEP and mechanics for workouts w/ certified personal trainer min A STG Duration 02/20/21 Care Home Goal (LTG) Pt will improve overhead shoulder mobility to at least 100 deg flex and abd w/o scapular elevation. LTG Duration 03/23/21 Assessment Summary Assessment Pt has been being treated for jaw pain and popping which has significantly improved along w/resulting improved neck and shoulder pain overall w/this treatment. She still has pain daily w/R shoulder and frequently in neck w/occ numbness in R>L UE. She has signfiicant limits w/ use of RUE with dec ability to raise UE overhead and pain w/use of RUE likely d/t poor initiation and scapulothoracic and glenohumeral mechanics. She would benefit from PT to work on improving posture, mechanics of movement, ROM, strength and functional ability in order to dec pain in R shoulder, neck and jaw. Physical Therapy Plan Frequency and Duration Frequency of Treatment 2x/Week Duration of Treatment 2 months Plan of Care Start Date 01/19/21 Plan of Care End Date 03/22/21 Therapeutic Interventions Therapeutic Interventions Aquatic Therapy,Gait Training, Home Exercise Program,Joint Mobilizations,Manual Therapy, Neuromuscular Re-education, Patient/Caregiver Education, Self-Care/Home Management,Soft Tissue Mobilization,Taping, Therapeutic Activities, Therapeutic Exercises Modalities Cold Pack/Ice Massage,Electric Stimulation,Hot Packs, Traction- Mechanical, Ultrasound Next Visit Focus/Plan Next Note Type Treatment Note Next Visit Plan manual treatment to scap to work on post dep Plan of Care Dates Plan of Care Start Date 01/19/21 Plan of Care End Date 03/22/21 Electronically Signed by: Sneha Noyola, PT 01/20/21 [id number] Please Sign and Return: I have reviewed this Plan of Care and certify that the skilled therapy services above are required to meet the patient?s needs. Physician Signature Date Printed Name and Credentials Clinical Instructor Signature Printed Name and Credentials
--- NOTE | 2021-01-26 18:45 | PT.OTN ---
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 (Rec: 01/26/21 18:45 [facility] [id number]) Out-Patient Physical Therapy Visit Information Visit Information Visit Type Treatment Note Visit Note 03/31 Visit Start Time 13:46 Visit Stop Time 14:30 Total Visit Minutes 44 Visit Number 16 Number of MANAGER RN Visits 0 PT-OP-B Current Condition Start: 11/10/20 07:29 Freq: Status: Active Protocol: Document 01/19/21 07:30 [facility] (Rec: 01/19/21 08:17 [facility] [id number]) Current Condition History of Current Condition Onset Date worse starting 9 months ago Current Complaints L jaw History of Current Condition 01/19-prior to starting PT for jaw, R shoulder pain was constant. Now it is intermittent. Notes arms no longer go to sleep frequently and do not do that to the extent they used to. Neck pain is less frequent now too. Still gets it a couple times a week. When she does core stuff like crunches, her neck starts to hurt. 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 IE:Pt reports jaw keeps popping out. It crunched for years before that. THe popping started 9 months ago. It just started gradually gets worse. It hurts when she pops it back in. Pt reports L side pops out so everything shifts to R. Pt reports neck pain on R side w/ALONSO associated occ. THat has been going on for the past month w/ALONSO. SHe has always had shoulder pain on R side. R TSA has not helped. Works with a certified personal trainer for 4 days a week but he hasn't changed anything. Her R ant lat arm consistantly always hurts. Her certified personal trainer tapes her neck post and that seems to help. Pt reports ALONSO more when laying down. Pt had one other episode w/R neck about 25 years ago that she did PT and OT and responded well with that care and it never came back like that again. Pt reports arms go to sleep and reports R arm landscaping supervisor has gotten a lot less. The weakness has been getting progressive over the last few years. 1x a year ago that jaw popped out (both sides)and she couldn't chew or swallow and that was like 30 years ago. Now it pops out at random. Tried mouth guard years ago and found she actually clenched the mouth guard that inc pain. She doesn 't notice herself clench her teeth a lot and doesn't wake up at night d/t jaw sore d/t clenching or anything. Pt reports B mastectomies in 2006 w/chemo. TSA R was 2017 Prior Treatments and Tests PT for shoulder in 2017, Dr. rock is having pt relax jaw by placing in bottom of mouth and teeth slightly apart-also instructed heat but hasn't tried Treatment Goals Patient/Caregiver Goals get rid of most of the pain, be able to move around a little bit and not have pain w /it, not get numb when talking on the phone PT-OP-C Subjective Start: 11/10/20 07:29 Freq: Status: Active Protocol: Document 01/26/21 18:29 [facility] (Rec: 01/26/21 18:45 [facility] [id number]) OP-PT Subjective Patient Comments Patient Comments Pt reports she has cont to work out w/certified personal trainer PT-OP-F Manual Assessment Start: 11/10/20 07:29 Freq: Status: Active Protocol: Document 01/19/21 07:30 [facility] (Rec: 01/19/21 08:17 [facility] [id number]) Manual Assessments Soft Tissue Assessment Soft Tissue Mobility Assessment tightness B pec, R>L UT & LS, R rhomboids, B Scalenes & SCM, B biceps superiorly PT-OP-J Posture/Palpation/Skin Start: 11/10/20 07:29 Freq: Status: Active Protocol: Document 01/19/21 07:30 [facility] (Rec: 01/19/21 08:17 [facility] [id number]) Posture Evaluation Rowan Postural Classification System Vertebral Compression Test 1 Elbow Flexion Test 1 Comments Posture Comments scapula abducted & shoulders IR, inc kyphosis, fwd head PT-OP-K Range of Motion Start: 11/10/20 07:29 Freq: Status: Active Protocol: Document 01/19/21 07:30 [facility] (Rec: 01/19/21 08:17 [facility] [id number]) Cervical Spine Range of Motion Cervical Spine Active Degrees Flexion 43 Extension 45 Rotation Left 56 Rotation Right 44 Lateral Flexion Left 25 Lateral Flexion Right 48 Comments pain when SB B, R rot Shoulder Goniometric Range of Motion Shoulder Right Passive Flexion 101 Abduction 104 Right Active Testing Position Standing Flexion 91 Extension 52 Abduction 88 External Rotation at 0 degrees Abduction 52 Internal Rotation Behind Back (text) S2 Comments iniates flex and abd and cont w/elevation of scapula Left Active Testing Position Standing Flexion 146 Extension 55 Abduction 143 External Rotation at 90 degrees 87 Abduction External Rotation at 0 degrees Abduction 60 Internal Rotation Behind Back (text) T11 Comments goes into flex w/abd; PT-OP-L Special Tests Start: 01/19/21 07:30 Freq: Status: Active Protocol: Document 01/19/21 07:30 [facility] (Rec: 01/19/21 08:17 [facility] [id number]) Special Tests Cervical Spine Special Tests Spurling's Test Test Results neg Neural Special Tests- Upper Body Radial Nerve Tension Test Results neg B Ulnar Nerve Tension Test Results positive R Median Nerve Tension Test Results positive R PT-OP-M Strength Start: 11/10/20 07:29 Freq: Status: Active Protocol: Document 01/19/21 07:30 [facility] (Rec: 01/19/21 08:17 [facility] [id number]) Shoulder Strength Shoulder Manual Muscle Testing Right Flexion 3+ Fair+ Extension 5 Normal Abduction (C5) 3+ Fair+ External Rotation 5 Normal Internal Rotation 5 Normal Left Flexion 5 Normal Extension 5 Normal Abduction (C5) 4+ Good+ External Rotation 5 Normal Internal Rotation 5 Normal Elbow/Forearm Strength Elbow and Forearm Manual Muscle Testing Right Flexion (C6) 5 Normal Extension (C7) 5 Normal Pronation 5 Normal Supination 4 Good Left Flexion (C6) 5 Normal Extension (C7) 5 Normal Pronation 5 Normal Supination 5 Normal Wrist Strength Wrist Manual Muscle Testing Right Flexion (C7) 4 Good Extension (C6) 5 Normal Radial Deviation 5 Normal Left Flexion (C7) 5 Normal Extension (C6) 4 Good Radial Deviation 5 Normal Hand Chain Tender/Pinch Strength Hand Strength Right Comments 65#, 65#, 65# tested B elbow at side Left Comments 78#, 70#, 79# PT-OP-Q Treatments Start: 11/10/20 07:29 Freq: Status: Active Protocol: Document 01/26/21 18:29 [facility] (Rec: 01/26/21 18:45 [facility] [id number]) Manual Therapy Treatment Soft Tissue Mobilization pec Body Location R Mobilization Type Rolling,Strumming,Sustained Pressure Intensity/Depth Moderate Body Position Supine Comments w/ passive shoulder abd lat Body Location R lat, teres, post delt Mobilization Type Sustained Pressure Intensity/Depth Moderate Body Position Sidelying Comments w/shoulder flex Joint Mobilizations ribs Comments 1. S/L sup rib 9 2. UPA R 3 FM w/breathing Neuro Re-Education Treatment Other Activities pnf Comments R post dep sustained hold progressed to w/modified pivot prone PT-OP-T Assessment and Plan Start: 11/10/20 07:29 Freq: Status: Active Protocol: Document 01/26/21 18:29 [facility] (Rec: 01/26/21 18:45 [facility] [id number]) Physical Therapy Assessment Goals Shoulder Short Term Goal (STG) Pt will be able to hold phone and talk on phone w/o RUE getting numb STG Duration 02/24/21 Fur Weigher Goal (LTG) Pt will improve strength of R shoulder to show at least 4/5 UE MMT for flex and abd in order to allow improved ease for overhead activities LTG Duration 03/22/21 jaw Fur Weigher Goal (LTG) Pt will be able to yawn,brush teeth and move jaw in all directions w/o jaw popping out. 12/16/20: improving no locking / popping with brushing teeth with head repositioning, but eating is still popping and takes more time to find head/ neck position to allow jaw to open. 01/19-only happening on a bad day 3-4x LTG Duration 03/22/21 cervical Fur Weigher Goal (LTG) pt will hav efull cervical ROM in order to dec strain of mm onto jaw region and imrpove ability to turn in car. 12/16/20: improved: able to look further over R and L to be able to see when driving, she feels not full ROM yet. 01/19-improving but still limited w/discomfort LTG Duration 03/22/21 ROM Short Term Goal (STG) Pt will be indep w/HEP and mechanics for workouts w/ certified personal trainer min A STG Duration 02/20/21 Fur Weigher Goal (LTG) Pt will improve overhead shoulder mobility to at least 100 deg flex and abd w/o scapular elevation. LTG Duration 03/23/21 Assessment Summary Assessment Pt has significant ribcage limits on R side which limit her ability to depress and retract scapula. She improved w/scap post dep after manual treatment but still has a hard end feel w/post dep w/limited range indicating further restrictions. Physical Therapy Plan Next Visit Focus/Plan Next Note Type Treatment Note Next Visit Plan manual treatment to scap to work on post dep then PNF for neurore edu
--- NOTE | 2021-02-08 12:03 | PT.OTN ---
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 (Rec: 02/08/21 12:03 [facility] [id number]) Out-Patient Physical Therapy Visit Information Visit Information Visit Type Treatment Note Visit Note 04/28 PT student Mason participated in treatment w/PT direction Visit Start Time 10:32 Visit Stop Time 11:15 Total Visit Minutes 43 Visit Number 17 Number of CARD BOXER Visits 0 PT-OP-B Current Condition Start: 11/10/20 07:29 Freq: Status: Active Protocol: Document 01/19/21 07:30 [facility] (Rec: 01/19/21 08:17 [facility] [id number]) Current Condition History of Current Condition Onset Date worse starting 9 months ago Current Complaints L jaw History of Current Condition 01/19-prior to starting PT for jaw, R shoulder pain was constant. Now it is intermittent. Notes arms no longer go to sleep frequently and do not do that to the extent they used to. Neck pain is less frequent now too. Still gets it a couple times a week. When she does core stuff like crunches, her neck starts to hurt. 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 IE:Pt reports jaw keeps popping out. It crunched for years before that. THe popping started 9 months ago. It just started gradually gets worse. It hurts when she pops it back in. Pt reports L side pops out so everything shifts to R. Pt reports neck pain on R side w/ALONSO associated occ. THat has been going on for the past month w/ALONSO. SHe has always had shoulder pain on R side. R TSA has not helped. 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 Her R ant lat arm consistantly always hurts. Her green jobs trainer tapes her neck post and that seems to help. Pt reports ALONSO more when laying down. Pt had one other episode w/R neck about 25 years ago that she did PT and OT and responded well with that care and it never came back like that again. Pt reports arms go to sleep and reports R arm check and transfer beader has gotten a lot less. The weakness has been getting progressive over the last few years. 1x a year ago that jaw popped out (both sides)and she couldn't chew or swallow and that was like 30 years ago. Now it pops out at random. Tried mouth guard years ago and found she actually clenched the mouth guard that inc pain. She doesn 't notice herself clench her teeth a lot and doesn't wake up at night d/t jaw sore d/t clenching or anything. Pt reports B mastectomies in 2006 w/chemo. TSA R was 2017 Prior Treatments and Tests PT for shoulder in 2017, Dr. rock is having pt relax jaw by placing in bottom of mouth and teeth slightly apart-also instructed heat but hasn't tried Treatment Goals Patient/Caregiver Goals get rid of most of the pain, be able to move around a little bit and not have pain w /it, not get numb when talking on the phone PT-OP-C Subjective Start: 11/10/20 07:29 Freq: Status: Active Protocol: Document 02/08/21 11:38 [facility] (Rec: 02/08/21 12:03 [facility] [id number]) OP-PT Subjective Patient Comments Patient Comments Pt reports she realized today her jaw hadn't popped out in probably about a week. Shoulder discomfort has been on/off. PT-OP-F Manual Assessment Start: 11/10/20 07:29 Freq: Status: Active Protocol: Document 01/19/21 07:30 [facility] (Rec: 01/19/21 08:17 [facility] [id number]) Manual Assessments Soft Tissue Assessment Soft Tissue Mobility Assessment tightness B pec, R>L UT & LS, R rhomboids, B Scalenes & SCM, B biceps superiorly PT-OP-J Posture/Palpation/Skin Start: 11/10/20 07:29 Freq: Status: Active Protocol: Document 01/19/21 07:30 [facility] (Rec: 01/19/21 08:17 [facility] [id number]) Posture Evaluation Rowan Postural Classification System Vertebral Compression Test 1 Elbow Flexion Test 1 Comments Posture Comments scapula abducted & shoulders IR, inc kyphosis, fwd head PT-OP-K Range of Motion Start: 11/10/20 07:29 Freq: Status: Active Protocol: Document 01/19/21 07:30 [facility] (Rec: 01/19/21 08:17 [facility] [id number]) Cervical Spine Range of Motion Cervical Spine Active Degrees Flexion 43 Extension 45 Rotation Left 56 Rotation Right 44 Lateral Flexion Left 25 Lateral Flexion Right 48 Comments pain when SB B, R rot Shoulder Goniometric Range of Motion Shoulder Right Passive Flexion 101 Abduction 104 Right Active Testing Position Standing Flexion 91 Extension 52 Abduction 88 External Rotation at 0 degrees Abduction 52 Internal Rotation Behind Back (text) S2 Comments iniates flex and abd and cont w/elevation of scapula Left Active Testing Position Standing Flexion 146 Extension 55 Abduction 143 External Rotation at 90 degrees 87 Abduction External Rotation at 0 degrees Abduction 60 Internal Rotation Behind Back (text) T11 Comments goes into flex w/abd; PT-OP-L Special Tests Start: 01/19/21 07:30 Freq: Status: Active Protocol: Document 01/19/21 07:30 [facility] (Rec: 01/19/21 08:17 [facility] [id number]) Special Tests Cervical Spine Special Tests Spurling's Test Test Results neg Neural Special Tests- Upper Body Radial Nerve Tension Test Results neg B Ulnar Nerve Tension Test Results positive R Median Nerve Tension Test Results positive R PT-OP-M Strength Start: 11/10/20 07:29 Freq: Status: Active Protocol: Document 01/19/21 07:30 [facility] (Rec: 01/19/21 08:17 [facility] [id number]) Shoulder Strength Shoulder Manual Muscle Testing Right Flexion 3+ Fair+ Extension 5 Normal Abduction (C5) 3+ Fair+ External Rotation 5 Normal Internal Rotation 5 Normal Left Flexion 5 Normal Extension 5 Normal Abduction (C5) 4+ Good+ External Rotation 5 Normal Internal Rotation 5 Normal Elbow/Forearm Strength Elbow and Forearm Manual Muscle Testing Right Flexion (C6) 5 Normal Extension (C7) 5 Normal Pronation 5 Normal Supination 4 Good Left Flexion (C6) 5 Normal Extension (C7) 5 Normal Pronation 5 Normal Supination 5 Normal Wrist Strength Wrist Manual Muscle Testing Right Flexion (C7) 4 Good Extension (C6) 5 Normal Radial Deviation 5 Normal Left Flexion (C7) 5 Normal Extension (C6) 4 Good Radial Deviation 5 Normal Hand Sectionizer/Pinch Strength Hand Strength Right Comments 65#, 65#, 65# tested B elbow at side Left Comments 78#, 70#, 79# PT-OP-Q Treatments Start: 11/10/20 07:29 Freq: Status: Active Protocol: Document 02/08/21 11:38 [facility] (Rec: 02/08/21 12:03 [facility] [id number]) Manual Therapy Treatment Soft Tissue Mobilization pec Body Location R major and minor Mobilization Type Rolling,Strumming,Sustained Pressure Intensity/Depth Moderate Body Position Supine Comments w/ passive shoulder abd & 90/ 90 ER cervical Body Location scalenes & SCM R>L Mobilization Type Rolling,Strumming,Sustained Pressure Intensity/Depth Moderate Body Position Supine Joint Mobilizations SC Joint R inf glide FM PT-OP-T Assessment and Plan Start: 11/10/20 07:29 Freq: Status: Active Protocol: Document 02/08/21 11:38 [facility] (Rec: 02/08/21 12:03 [facility] [id number]) Physical Therapy Assessment Goals Shoulder Short Term Goal (STG) Pt will be able to hold phone and talk on phone w/o RUE getting numb STG Duration 02/24/21 Longterm Goal (LTG) Pt will improve strength of R shoulder to show at least 4/5 UE MMT for flex and abd in order to allow improved ease for overhead activities LTG Duration 03/22/21 jaw Mandarin Chinese Teacher Goal (LTG) Pt will be able to yawn,brush teeth and move jaw in all directions w/o jaw popping out. 12/16/20: improving no locking / popping with brushing teeth with head repositioning, but eating is still popping and takes more time to find head/ neck position to allow jaw to open. 01/19-only happening on a bad day 3-4x LTG Duration 03/22/21 cervical Mandarin Chinese Teacher Goal (LTG) pt will hav efull cervical ROM in order to dec strain of mm onto jaw region and imrpove ability to turn in car. 12/16/20: improved: able to look further over R and L to be able to see when driving, she feels not full ROM yet. 12/1-improving but still limited w/discomfort LTG Duration 03/22/21 ROM Short Term Goa l (STG) Pt will be indep w/HEP and mechanics for workouts w/ green jobs trainer min A STG Duration 02/20/21 Mandarin Chinese Teacher Goal (LTG) Pt will improve overhead shoulder mobility to at least 100 deg flex and abd w/o scapular elevation. LTG Duration 03/23/21 Assessment Summary Assessment Pt had improved ROM after manual treatment today with PROM improving for flex, abd & 90/90 ER. She still has limits but was over 90 deg w/ both flex & abd passively w/o shoulder elevation or pain after manual. athletic trainer was asked to work on [employer] w/ her to maintain this. Physical Therapy Plan Frequency and Duration Frequency of Treatment 2x/Week Duration of Treatment 2 months Plan of Care Start Date 01/19/21 Plan of Care End Date 03/22/21 Next Visit Focus/Plan Next Note Type Treatment Note Next Visit Plan cont to work on chest mobility and start on AC and GH mobility to improve overhead mobility
--- NOTE | 2021-02-10 17:05 | PT.OTN ---
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 (02/10/21) Cervicalgia (02/10/21) Muscle weakness (generalized) (02/10/21) Myalgia of mastication muscle (02/10/21) Abnormal posture (02/10/21) Physical Therapy Treatment Note PT-OP-A Visit Information Start: 11/10/20 07:29 Freq: Status: Active Protocol: Document 02/10/21 08:19 JG (Rec: 02/10/21 09:04 JG [id number]) Out-Patient Physical Therapy Visit Information Visit Information Visit Type Treatment Note Visit Note 05/29 PT student Sari participated in treatment w/PT direction Visit Start Time 08:19 Visit Stop Time 09:02 Total Visit Minutes 43 Visit Number 18 Number of CARGO WORKER Visits 0 PT-OP-B Current Condition Start: 11/10/20 07:29 Freq: Status: Active Protocol: Document 01/19/21 07:30 [facility] (Rec: 01/19/21 08:17 [facility] [id number]) Current Condition History of Current Condition Onset Date worse starting 9 months ago Current Complaints L jaw History of Current Condition 01/19-prior to starting PT for jaw, R shoulder pain was constant. Now it is intermittent. Notes arms no longer go to sleep frequently and do not do that to the extent they used to. Neck pain is less frequent now too. Still gets it a couple times a week. When she does core stuff like crunches, her neck starts to hurt. 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 IE:Pt reports jaw keeps popping out. It crunched for years before that. THe popping started 9 months ago. It just started gradually gets worse. It hurts when she pops it back in. Pt reports L side pops out so everything shifts to R. Pt reports neck pain on R side w/ALONSO associated occ. THat has been going on for the past month w/ALONSO. SHe has always had shoulder pain on R side. R TSA has not helped. 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 Her R ant lat arm consistantly always hurts. Her link trainer maintenance man tapes her neck post and that seems to help. Pt reports ALONSO more when laying down. Pt had one other episode w/R neck about 25 years ago that she did PT and OT and responded well with that care and it never came back like that again. Pt reports arms go to sleep and reports R arm aircraft layout worker has gotten a lot less. The weakness has been getting progressive over the last few years. 1x a year ago that jaw popped out (both sides)and she couldn't chew or swallow and that was like 30 years ago. Now it pops out at random. Tried mouth guard years ago and found she actually clenched the mouth guard that inc pain. She doesn 't notice herself clench her teeth a lot and doesn't wake up at night d/t jaw sore d/t clenching or anything. Pt reports B mastectomies in 2006 w/chemo. TSA R was 2017 Prior Treatments and Tests PT for shoulder in 2017, Dr. rock is having pt relax jaw by placing in bottom of mouth and teeth slightly apart-also instructed heat but hasn't tried Treatment Goals Patient/Caregiver Goals get rid of most of the pain, be able to move around a little bit and not have pain w /it, not get numb when talking on the phone PT-OP-C Subjective Start: 11/10/20 07:29 Freq: Status: Active Protocol: Document 02/10/21 08:19 J (Rec: 02/10/21 09:04 J [id number]) OP-PT Subjective Patient Comments Patient Comments Pt L jaw is starting to hurt last week, but no popping. Hasn't been doing jaw opening exercises. PT-OP-F Manual Assessment Start: 11/10/20 07:29 Freq: Status: Active Protocol: Document 01/19/21 07:30 [facility] (Rec: 01/19/21 08:17 [facility] [id number]) Manual Assessments Soft Tissue Assessment Soft Tissue Mobility Assessment tightness B pec, R>L UT & LS, R rhomboids, B Scalenes & SCM, B biceps superiorly PT-OP-J Posture/Palpation/Skin Start: 11/10/20 07:29 Freq: Status: Active Protocol: Document 01/19/21 07:30 [facility] (Rec: 01/19/21 08:17 [facility] [id number]) Posture Evaluation Rowan Postural Classification System Vertebral Compression Test 1 Elbow Flexion Test 1 Comments Posture Comments scapula abducted & shoulders IR, inc kyphosis, fwd head PT-OP-K Range of Motion Start: 11/10/20 07:29 Freq: Status: Active Protocol: Document 01/19/21 07:30 [facility] (Rec: 01/19/21 08:17 [facility] [id number]) Cervical Spine Range of Motion Cervical Spine Active Degrees Flexion 43 Extension 45 Rotation Left 56 Rotation Right 44 Lateral Flexion Left 25 Lateral Flexion Right 48 Comments pain when SB B, R rot Shoulder Goniometric Range of Motion Shoulder Right Passive Flexion 101 Abduction 104 Right Active Testing Position Standing Flexion 91 Extension 52 Abduction 88 External Rotation at 0 degrees Abduction 52 Internal Rotation Behind Back (text) S2 Comments iniates flex and abd and cont w/elevation of scapula Left Active Testing Position Standing Flexion 146 Extension 55 Abduction 143 External Rotation at 90 degrees 87 Abduction External Rotation at 0 degrees Abduction 60 Internal Rotation Behind Back (text) T11 Comments goes into flex w/abd; PT-OP-L Special Tests Start: 01/19/21 07:30 Freq: Status: Active Protocol: Document 01/19/21 07:30 [facility] (Rec: 01/19/21 08:17 [facility] [id number]) Special Tests Cervical Spine Special Tests Spurling's Test Test Results neg Neural Special Tests- Upper Body Radial Nerve Tension Test Results neg B Ulnar Nerve Tension Test Results positive R Median Nerve Tension Test Results positive R PT-OP-M Strength Start: 11/10/20 07:29 Freq: Status: Active Protocol: Document 01/19/21 07:30 [facility] (Rec: 01/19/21 08:17 [facility] [id number]) Shoulder Strength Shoulder Manual Muscle Testing Right Flexion 3+ Fair+ Extension 5 Normal Abduction (C5) 3+ Fair+ External Rotation 5 Normal Internal Rotation 5 Normal Left Flexion 5 Normal Extension 5 Normal Abduction (C5) 4+ Good+ External Rotation 5 Normal Internal Rotation 5 Normal Elbow/Forearm Strength Elbow and Forearm Manual Muscle Testing Right Flexion (C6) 5 Normal Extension (C7) 5 Normal Pronation 5 Normal Supination 4 Good Left Flexion (C6) 5 Normal Extension (C7) 5 Normal Pronation 5 Normal Supination 5 Normal Wrist Strength Wrist Manual Muscle Testing Right Flexion (C7) 4 Good Extension (C6) 5 Normal Radial Deviation 5 Normal Left Flexion (C7) 5 Normal Extension (C6) 4 Good Radial Deviation 5 Normal Hand Marine Equipment Engineer/Pinch Strength Hand Strength Right Comments 65#, 65#, 65# tested B elbow at side Left Comments 78#, 70#, 79# PT-OP-Q Treatments Start: 11/10/20 07:29 Freq: Status: Active Protocol: Document 02/10/21 08:19 JDeanna (Rec: 02/10/21 09:04 [id number]) Therapeutic Exercises Sitting Exercises rocabado Sitting Exercise Name 6x6 Reps/Minutes 1 full set of 6 exercises Comments working on neutral jaw, review to add back into HEP Manual Therapy Treatment Soft Tissue Mobilization cervical Body Location scalenes, anterior fascic Mobilization Type Myofascial Release,Rolling, Strumming,Sustained Pressure Intensity/Depth Moderate Body Position Supine Joint Mobilizations TS Joint Transverse on SP, rotation on upper TS Comments w/flexed trunk and crossed arms contract/relax cervical Joint lower cervical R rot on L TP and R TP, bilat TP posterior glide, lower CS Comments w/cervical rot, pt actively bending legs side to side, shld flex PT-OP-T Assessment and Plan Start: 11/10/20 07:29 Freq: Status: Active Protocol: Document 02/10/21 08:19 JDeanna (Rec: 02/10/21 09:04 [id number]) Physical Therapy Assessment Goals Shoulder Short Term Goal (STG) Pt will be able to hold phone and talk on phone w/o RUE getting numb STG Duration 02/24/21 Fdc Goal (LTG) Pt will improve strength of R shoulder to show at least 4/5 UE MMT for flex and abd in order to allow improved ease for overhead activities LTG Duration 03/22/21 jaw Fdc Goal (LTG) Pt will be able to yawn,brush teeth and move jaw in all directions w/o jaw popping out. 12/16/20: improving no locking / popping with brushing teeth with head repositioning, but eating is still popping and takes more time to find head/ neck position to allow jaw to open. 01/19-only happening on a bad day 3-4x LTG Duration 03/22/21 cervical Fast Food Crew Lead Goal (LTG) pt will hav efull cervical ROM in order to dec strain of mm onto jaw region and imrpove ability to turn in car. 12/16/20: improved: able to look further over R and L to be able to see when driving, she feels not full ROM yet. 01/19-improving but still limited w/discomfort LTG Duration 03/22/21 ROM Short Term Goal (STG) Pt will be indep w/HEP and mechanics for workouts w/ link trainer maintenance man min A STG Duration 02/20/21 Fast Food Crew Lead Goal (LTG) Pt will improve overhead shoulder mobility to at least 100 deg flex and abd w/o scapular elevation. LTG Duration 03/23/21 Assessment Summary Assessment Pt presented w/L jaw pain that has persisted for last week. HEP was reviewed for jaw exercises and pt stated she had discontinued these exercises and will restart. Session focus was on increasing functional ROM throughout cervical and thoracic spine through manual therapy. Pt had increased R cervical rot and bilat cervical sidebending after manual therapy. Physical Therapy Plan Frequency and Duration Frequency of Treatment 2x/Week Duration of Treatment 2 months Plan of Care Start Date 01/19/21 Plan of Care End Date 03/22/21 Therapeutic Interventions Therapeutic Interventions Aquatic Therapy,Gait Training, Home Exercise Program,Joint Mobilizations,Manual Therapy, Neuromuscular Re-education, Patient/Caregiver Education, Self-Care/Home Management,Soft Tissue Mobilization,Taping, Therapeutic Activities, Therapeutic Exercises Modalities Cold Pack/Ice Massage,Electric Stimulation,Hot Packs, Traction- Mechanical, Ultrasound Next Visit Focus/Plan Next Note Type Treatment Note Next Visit Plan cont to work on chest mobility and start on AC and GH mobility to improve overhead mobility
--- NOTE | 2021-02-21 16:33 | PT.OTN ---
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 (02/21/21) Other specified disorders of temporomandibular joint (02/21/21) Cervicalgia (02/21/21) Muscle weakness (generalized) (02/21/21) Myalgia of mastication muscle (02/21/21) Abnormal posture (02/21/21) Physical Therapy Treatment Note PT-OP-A Visit Information Start: 11/10/20 07:29 Freq: Status: Active Protocol: Document 02/21/21 13:46 [facility] (Rec: 02/21/21 16:33 [facility] [id number]) Out-Patient Physical Therapy Visit Information Visit Information Visit Type Treatment Note Visit Note 06/28 Visit Start Time 13:46 Visit Stop Time 14:32 Total Visit Minutes 46 Visit Number 19 Number of TECHNICAL SERVICE ENGINEER Visits 0 PT-OP-B Current Condition Start: 11/10/20 07:29 Freq: Status: Active Protocol: Document 01/19/21 07:30 [facility] (Rec: 01/19/21 08:17 [facility] [id number]) Current Condition History of Current Condition Onset Date worse starting 9 months ago Current Complaints L jaw History of Current Condition 01/19-prior to starting PT for jaw, R shoulder pain was constant. Now it is intermittent. Notes arms no longer go to sleep frequently and do not do that to the extent they used to. Neck pain is less frequent now too. Still gets it a couple times a week. When she does core stuff like crunches, her neck starts to hurt. 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 IE:Pt reports jaw keeps popping out. It crunched for years before that. THe popping started 9 months ago. It just started gradually gets worse. It hurts when she pops it back in. Pt reports L side pops out so everything shifts to R. Pt reports neck pain on R side w/ALONSO associated occ. THat has been going on for the past month w/ALONSO. SHe has always had shoulder pain on R side. R TSA has not helped. 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 Her R ant lat arm consistantly always hurts. Her security trainer tapes her neck post and that seems to help. Pt reports ALONSO more when laying down. Pt had one other episode w/R neck about 25 years ago that she did PT and OT and responded well with that care and it never came back like that again. Pt reports arms go to sleep and reports R arm upper lining cementer has gotten a lot less. The weakness has been getting progressive over the last few years. 1x a year ago that jaw popped out (both sides)and she couldn't chew or swallow and that was like 30 years ago. Now it pops out at random. Tried mouth guard years ago and found she actually clenched the mouth guard that inc pain. She doesn 't notice herself clench her teeth a lot and doesn't wake up at night d/t jaw sore d/t clenching or anything. Pt reports B mastectomies in 2006 w/chemo. TSA R was 2017 Prior Treatments and Tests PT for shoulder in 2017, Dr. rock is having pt relax jaw by placing in bottom of mouth and teeth slightly apart-also instructed heat but hasn't tried Treatment Goals Patient/Caregiver Goals get rid of most of the pain, be able to move around a little bit and not have pain w /it, not get numb when talking on the phone PT-OP-C Subjective Start: 11/10/20 07:29 Freq: Status: Active Protocol: Document 02/21/21 13:46 [facility] (Rec: 02/21/21 16:33 [facility] [id number]) OP-PT Subjective Patient Comments Patient Comments Pt reports neck and jaw doing well. Shoulder is main issue right now. PT-OP-F Manual Assessment Start: 11/10/20 07:29 Freq: Status: Active Protocol: Document 01/19/21 07:30 [facility] (Rec: 01/19/21 08:17 [facility] [id number]) Manual Assessments Soft Tissue Assessment Soft Tissue Mobility Assessment tightness B pec, R>L UT & LS, R rhomboids, B Scalenes & SCM, B biceps superiorly PT-OP-J Posture/Palpation/Skin Start: 11/10/20 07:29 Freq: Status: Active Protocol: Document 01/19/21 07:30 [facility] (Rec: 01/19/21 08:17 [facility] [id number]) Posture Evaluation Rowan Postural Classification System Vertebral Compression Test 1 Elbow Flexion Test 1 Comments Posture Comments scapula abducted & shoulders IR, inc kyphosis, fwd head PT-OP-K Range of Motion Start: 11/10/20 07:29 Freq: Status: Active Protocol: Document 01/19/21 07:30 [facility] (Rec: 01/19/21 08:17 [facility] [id number]) Cervical Spine Range of Motion Cervical Spine Active Degrees Flexion 43 Extension 45 Rotation Left 56 Rotation Right 44 Lateral Flexion Left 25 Lateral Flexion Right 48 Comments pain when SB B, R rot Shoulder Goniometric Range of Motion Shoulder Right Passive Flexion 101 Abduction 104 Right Active Testing Position Standing Flexion 91 Extension 52 Abduction 88 External Rotation at 0 degrees Abduction 52 Internal Rotation Behind Back (text) S2 Comments iniates flex and abd and cont w/elevation of scapula Left Active Testing Position Standing Flexion 146 Extension 55 Abduction 143 External Rotation at 90 degrees 87 Abduction External Rotation at 0 degrees Abduction 60 Internal Rotation Behind Back (text) T11 Comments goes into flex w/abd; PT-OP-L Special Tests Start: 01/19/21 07:30 Freq: Status: Active Protocol: Document 01/19/21 07:30 [facility] (Rec: 01/19/21 08:17 [facility] [id number]) Special Tests Cervical Spine Special Tests Spurling's Test Test Results neg Neural Special Tests- Upper Body Radial Nerve Tension Test Results neg B Ulnar Nerve Tension Test Results positive R Median Nerve Tension Test Results positive R PT-OP-M Strength Start: 11/10/20 07:29 Freq: Status: Active Protocol: Document 01/19/21 07:30 [facility] (Rec: 01/19/21 08:17 [facility] [id number]) Shoulder Strength Shoulder Manual Muscle Testing Right Flexion 3+ Fair+ Extension 5 Normal Abduction (C5) 3+ Fair+ External Rotation 5 Normal Internal Rotation 5 Normal Left Flexion 5 Normal Extension 5 Normal Abduction (C5) 4+ Good+ External Rotation 5 Normal Internal Rotation 5 Normal Elbow/Forearm Strength Elbow and Forearm Manual Muscle Testing Right Flexion (C6) 5 Normal Extension (C7) 5 Normal Pronation 5 Normal Supination 4 Good Left Flexion (C6) 5 Normal Extension (C7) 5 Normal Pronation 5 Normal Supination 5 Normal Wrist Strength Wrist Manual Muscle Testing Right Flexion (C7) 4 Good Extension (C6) 5 Normal Radial Deviation 5 Normal Left Flexion (C7) 5 Normal Extension (C6) 4 Good Radial Deviation 5 Normal Hand Computer Networking Instructor/Pinch Strength Hand Strength Right Comments 65#, 65#, 65# tested B elbow at side Left Comments 78#, 70#, 79# PT-OP-Q Treatments Start: 11/10/20 07:29 Freq: Status: Active Protocol: Document 02/21/21 13:46 [facility] (Rec: 02/21/21 16:33 [facility] [id number]) Therapeutic Exercises Supine Exercises rotation Supine Exercise Name 90/90 ER Side right Reps/Minutes 10 AAROM Supine Exercise Name 1. flex 2. abd Side right Equipment Used cane Reps/Minutes 8 Comments cues for scap Sitting Exercises pullys Sitting Exercise Name AAROM flex, & abd Side right Reps/Minutes 8 ea Manual Therapy Treatment Soft Tissue Mobilization lat Body Location R lat, teres, rhomboids Mobilization Type Sustained Pressure Intensity/Depth Moderate Body Position Sidelying Comments w/scap dep Joint Mobilizations GH Joint R Direction inf, post, distraction AC Joint R Direction gapping FM PT-OP-T Assessment and Plan Start: 11/10/20 07:29 Freq: Status: Active Protocol: Document 02/21/21 13:46 [facility] (Rec: 02/21/21 16:33 [facility] [id number]) Physical Therapy Assessment Goals Shoulder Short Term Goal (STG) Pt will be able to hold phone and talk on phone w/o RUE getting numb STG Duration 02/24/21 Usp Goal (LTG) Pt will improve strength of R shoulder to show at least 4/5 UE MMT for flex and abd in order to allow improved ease for overhead activities LTG Duration 03/22/21 jaw Usp Goal (LTG) Pt will be able to yawn,brush teeth and move jaw in all directions w/o jaw popping out. 12/16/20: improving no locking / popping with brushing teeth with head repositioning, but eating is still popping and takes more time to find head/ neck position to allow jaw to open. 01/19-only happening on a bad day 3-4x LTG Duration 03/22/21 cervical Automotive Buyer Goal (LTG) pt will hav efull cervical ROM in order to dec strain of mm onto jaw region and imrpove ability to turn in car. 12/16/20: improved: able to look further over R and L to be able to see when driving, she feels not full ROM yet. 01/19-improving but still limited w/discomfort LTG Duration 03/22/21 ROM Short Term Goal (STG) Pt will be indep w/HEP and mechanics for workouts w/ security trainer min A STG Duration 02/20/21 Usp Goal (LTG) Pt will improve overhead shoulder mobility to at least 100 deg flex and abd w/o scapular elevation. LTG Duration 03/23/21 Assessment Summary Assessment Pt had improved shoulder flex, abd and 90/90 ER after manual treatment and was encouraged to do AAROM to maintain mobility. She required cues w/ AAROM to avoid shoulder elevation and work on good form. Physical Therapy Plan Frequency and Duration Frequency of Treatment 2x/Week Duration of Treatment 2 months Plan of Care Start Date 01/19/21 Plan of Care End Date 03/22/21 Next Visit Focus/Plan Next Note Type Treatment Note Next Visit Plan cont to work on chest mobility and start on AC and GH mobility to improve overhead mobility
--- NOTE | 2021-02-28 15:12 | PT.OTN ---
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 (02/28/21) Other specified disorders of temporomandibular joint (02/28/21) Cervicalgia (02/28/21) Muscle weakness (generalized) (02/28/21) Myalgia of mastication muscle (02/28/21) Abnormal posture (02/28/21) Physical Therapy Treatment Note PT-OP-A Visit Information Start: 11/10/20 07:29 Freq: Status: Active Protocol: Document 02/28/21 14:30 SP (Rec: 02/28/21 15:24 SP [id number]) Out-Patient Physical Therapy Visit Information Visit Information Visit Type Treatment Note Visit Note 07/29 Visit Start Time 14:30 Visit Stop Time 15:12 Total Visit Minutes 43 Visit Number 20 Number of GLOBAL PROGRAM MANAGER Visits 1 PT-OP-B Current Condition Start: 11/10/20 07:29 Freq: Status: Active Protocol: Document 01/19/21 07:30 [facility] (Rec: 01/19/21 08:17 [facility] [id number]) Current Condition History of Current Condition Onset Date worse starting 9 months ago Current Complaints L jaw History of Current Condition 01/19-prior to starting PT for jaw, R shoulder pain was constant. Now it is intermittent. Notes arms no longer go to sleep frequently and do not do that to the extent they used to. Neck pain is less frequent now too. Still gets it a couple times a week. When she does core stuff like crunches, her neck starts to hurt. Pt reports weak tier over and has trouble picking up things when has to use a pincer tier over. IE:Pt reports jaw keeps popping out. It crunched for years before that. THe popping started 9 months ago. It just started gradually gets worse. It hurts when she pops it back in. Pt reports L side pops out so everything shifts to R. Pt reports neck pain on R side w/ALONSO associated occ. THat has been going on for the past month w/ALONSO. SHe has always had shoulder pain on R side. R TSA has not helped. 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 Her R ant lat arm consistantly always hurts. Her job trainer tapes her neck post and that seems to help. Pt reports ALONSO more when laying down. Pt had one other episode w/R neck about 25 years ago that she did PT and OT and responded well with that care and it never came back like that again. Pt reports arms go to sleep and reports R arm tier over has gotten a lot less. The weakness has been getting progressive over the last few years. 1x a year ago that jaw popped out (both sides)and she couldn't chew or swallow and that was like 30 years ago. Now it pops out at random. Tried mouth guard years ago and found she actually clenched the mouth guard that inc pain. She doesn 't notice herself clench her teeth a lot and doesn't wake up at night d/t jaw sore d/t clenching or anything. Pt reports B mastectomies in 2006 w/chemo. TSA R was 2017 Prior Treatments and Tests PT for shoulder in 2017, Dr. rock is having pt relax jaw by placing in bottom of mouth and teeth slightly apart-also instructed heat but hasn't tried Treatment Goals Patient/Caregiver Goals get rid of most of the pain, be able to move around a little bit and not have pain w /it, not get numb when talking on the phone PT-OP-C Subjective Start: 11/10/20 07:29 Freq: Status: Active Protocol: Document 02/28/21 14:30 SP (Rec: 02/28/21 15:24 SP [id number]) OP-PT Subjective Patient Comments Patient Comments Pt reports jaw still doing well, at times little achy. Focusing on L shld now. PT-OP-F Manual Assessment Start: 11/10/20 07:29 Freq: Status: Active Protocol: Document 01/19/21 07:30 [facility] (Rec: 01/19/21 08:17 [facility] [id number]) Manual Assessments Soft Tissue Assessment Soft Tissue Mobility Assessment tightness B pec, R>L UT & LS, R rhomboids, B Scalenes & SCM, B biceps superiorly PT-OP-J Posture/Palpation/Skin Start: 11/10/20 07:29 Freq: Status: Active Protocol: Document 01/19/21 07:30 [facility] (Rec: 01/19/21 08:17 [facility] [id number]) Posture Evaluation Rowan Postural Classification System Vertebral Compression Test 1 Elbow Flexion Test 1 Comments Posture Comments scapula abducted & shoulders IR, inc kyphosis, fwd head PT-OP-K Range of Motion Start: 11/10/20 07:29 Freq: Status: Active Protocol: Document 01/19/21 07:30 [facility] (Rec: 01/19/21 08:17 [facility] [id number]) Cervical Spine Range of Motion Cervical Spine Active Degrees Flexion 43 Extension 45 Rotation Left 56 Rotation Right 44 Lateral Flexion Left 25 Lateral Flexion Right 48 Comments pain when SB B, R rot Shoulder Goniometric Range of Motion Shoulder Right Passive Flexion 101 Abduction 104 Right Active Testing Position Standing Flexion 91 Extension 52 Abduction 88 External Rotation at 0 degrees Abduction 52 Internal Rotation Behind Back (text) S2 Comments iniates flex and abd and cont w/elevation of scapula Left Active Testing Position Standing Flexion 146 Extension 55 Abduction 143 External Rotation at 90 degrees 87 Abduction External Rotation at 0 degrees Abduction 60 Internal Rotation Behind Back (text) T11 Comments goes into flex w/abd; PT-OP-L Special Tests Start: 01/19/21 07:30 Freq: Status: Active Protocol: Document 01/19/21 07:30 [facility] (Rec: 01/19/21 08:17 [facility] [id number]) Special Tests Cervical Spine Special Tests Spurling's Test Test Results neg Neural Special Tests- Upper Body Radial Nerve Tension Test Results neg B Ulnar Nerve Tension Test Results positive R Median Nerve Tension Test Results positive R PT-OP-M Strength Start: 11/10/20 07:29 Freq: Status: Active Protocol: Document 01/19/21 07:30 [facility] (Rec: 01/19/21 08:17 [facility] [id number]) Shoulder Strength Shoulder Manual Muscle Testing Right Flexion 3+ Fair+ Extension 5 Normal Abduction (C5) 3+ Fair+ External Rotation 5 Normal Internal Rotation 5 Normal Left Flexion 5 Normal Extension 5 Normal Abduction (C5) 4+ Good+ External Rotation 5 Normal Internal Rotation 5 Normal Elbow/Forearm Strength Elbow and Forearm Manual Muscle Testing Right Flexion (C6) 5 Normal Extension (C7) 5 Normal Pronation 5 Normal Supination 4 Good Left Flexion (C6) 5 Normal Extension (C7) 5 Normal Pronation 5 Normal Supination 5 Normal Wrist Strength Wrist Manual Muscle Testing Right Flexion (C7) 4 Good Extension (C6) 5 Normal Radial Deviation 5 Normal Left Flexion (C7) 5 Normal Extension (C6) 4 Good Radial Deviation 5 Normal Hand Mechanical Intern/Pinch Strength Hand Strength Right Comments 65#, 65#, 65# tested B elbow at side Left Comments 78#, 70#, 79# PT-OP-Q Treatments Start: 11/10/20 07:29 Freq: Status: Active Protocol: Document 02/28/21 14:30 SP (Rec: 02/28/21 15:24 SP [id number]) Therapeutic Exercises Supine Exercises Ts, 1/2 Xs, Ws Supine Exercise Name added to HEP Side bilateral Resistance AROM Equipment Used over foam roller (can use at gym daily) Reps/Minutes x10 each direction Comments cued allow scap complex posterior glide side foam roller, rotation Supine Exercise Name 90/90 ER Side right Resistance #5 DB Reps/Minutes 2x 10 Comments cued slow pacing maintain ABD 90 deg IR/ ER AAROM Supine Exercise Name 1. flex 2. abd Side right Resistance #4 leg wt x10 FF BUE, AAROM FF & ABD Equipment Used cane Reps/Minutes x10 reps each Comments cues for scap pec stretch Supine Exercise Name 90deg ABD, 120 deg abd Side bilateral Resistance over foam roller Reps/Minutes 2 min total Comments cued palms forward Sidelying Exercises R shld ER Resistance 3# DB Reps/Minutes x10 open book Sidelying Exercise Name arms extended Side bilateral Reps/Minutes x3 ea Comments cues for no UT recruit, TS rotation, pec stretch, humeral ER Manual Therapy Treatment Soft Tissue Mobilization partridge protocol Body Location perform next tx pec Body Location R major and minor, subscap Mobilization Type Rolling,Strumming,Sustained Pressure Intensity/Depth Moderate Body Position Sidelying lat Body Location R lat, teres, rhomboids Mobilization Type Sustained Pressure Intensity/Depth Moderate Body Position Sidelying Comments w/scap dep cervical Body Location R UT, Lev scap Mobilization Type Myofascial Release,Rolling, Strumming Intensity/Depth Moderate Body Position Sidelying Comments w/scap dep Joint Mobilizations GH Joint R Direction inf, post, distraction PT-OP-T Assessment and Plan Start: 11/10/20 07:29 Freq: Status: Active Protocol: Document 02/28/21 14:30 SP (Rec: 02/28/21 15:24 SP [id number]) Physical Therapy Assessment Goals Shoulder Short Term Goal (STG) Pt will be able to hold phone and talk on phone w/o RUE getting numb STG Duration 1/6/22 Detention Goal (LTG) Pt will improve strength of R shoulder to show at least 4/5 UE MMT for flex and abd in order to allow improved ease for overhead activities LTG Duration 03/22/21 jaw Detention Goal (LTG) Pt will be able to yawn,brush teeth and move jaw in all directions w/o jaw popping out. 12/16/20: improving no locking / popping with brushing teeth with head repositioning, but eating is still popping and takes more time to find head/ neck position to allow jaw to open. 01/19-only happening on a bad day 3-4x LTG Duration 03/22/21 cervical Procurement Cost Coordinator Goal (LTG) pt will hav efull cervical ROM in order to dec strain of mm onto jaw region and imrpove ability to turn in car. 12/16/20: improved: able to look further over R and L to be able to see when driving, she feels not full ROM yet. 01/19-improving but still limited w/discomfort LTG Duration 03/22/21 ROM Short Term Goal (STG) Pt will be indep w/HEP and mechanics for workouts w/ job trainer min A STG Duration 02/20/21 Detention Goal (LTG) Pt will improve overhead shoulder mobility to at least 100 deg flex and abd w/o scapular elevation. LTG Duration 03/23/21 Assessment Summary Assessment Pt improved R shld abd, scaption over foam roller vs hooklying, initiated Ts, 1/2 Xs and Ws for home/ gym. Physical Therapy Plan Frequency and Duration Frequency of Treatment 2x/Week Duration of Treatment 2 months Plan of Care Start Date 01/19/21 Plan of Care End Date 03/22/21 Therapeutic Interventions Therapeutic Interventions Aquatic Therapy,Gait Training, Home Exercise Program,Joint Mobilizations,Manual Therapy, Neuromuscular Re-education, Patient/Caregiver Education, Self-Care/Home Management,Soft Tissue Mobilization,Taping, Therapeutic Activities, Therapeutic Exercises Modalities Cold Pack/Ice Massage,Electric Stimulation,Hot Packs, Traction- Mechanical, Ultrasound Next Visit Focus/Plan Next Note Type Treatment Note Next Visit Plan Recheck initiated HEP this ex, see Ass. POC: cont to work on chest mobility and start on AC and GH mobility to improve overhead mobility
--- NOTE | 2021-03-03 12:16 | PT.OTN ---
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 (03/03/21) Other specified disorders of temporomandibular joint (03/03/21) Cervicalgia (03/03/21) Muscle weakness (generalized) (03/03/21) Myalgia of mastication muscle (03/03/21) Abnormal posture (03/03/21) Physical Therapy Treatment Note PT-OP-A Visit Information Start: 11/10/20 07:29 Freq: Status: Active Protocol: Document 03/03/21 11:19 [facility] (Rec: 03/03/21 12:15 [facility] [id number]) Out-Patient Physical Therapy Visit Information Visit Information Visit Type Treatment Note Visit Note 08/28 Visit Start Time 11:18 Visit Stop Time 12:00 Total Visit Minutes 42 Visit Number 21 Number of HARDWARE TECHNICIAN Visits 0 PT-OP-B Current Condition Start: 11/10/20 07:29 Freq: Status: Active Protocol: Document 01/19/21 07:30 [facility] (Rec: 01/19/21 08:17 [facility] [id number]) Current Condition History of Current Condition Onset Date worse starting 9 months ago Current Complaints L jaw History of Current Condition 01/19-prior to starting PT for jaw, R shoulder pain was constant. Now it is intermittent. Notes arms no longer go to sleep frequently and do not do that to the extent they used to. Neck pain is less frequent now too. Still gets it a couple times a week. When she does core stuff like crunches, her neck starts to hurt. Pt reports weak right of way man and has trouble picking up things when has to use a pincer right of way man. IE:Pt reports jaw keeps popping out. It crunched for years before that. THe popping started 9 months ago. It just started gradually gets worse. It hurts when she pops it back in. Pt reports L side pops out so everything shifts to R. Pt reports neck pain on R side w/ALONSO associated occ. THat has been going on for the past month w/ALONSO. SHe has always had shoulder pain on R side. R TSA has not helped. 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 Her R ant lat arm consistantly always hurts. Her production trainer tapes her neck post and that seems to help. Pt reports ALONSO more when laying down. Pt had one other episode w/R neck about 25 years ago that she did PT and OT and responded well with that care and it never came back like that again. Pt reports arms go to sleep and reports R arm right of way man has gotten a lot less. The weakness has been getting progressive over the last few years. 1x a year ago that jaw popped out (both sides)and she couldn't chew or swallow and that was like 30 years ago. Now it pops out at random. Tried mouth guard years ago and found she actually clenched the mouth guard that inc pain. She doesn 't notice herself clench her teeth a lot and doesn't wake up at night d/t jaw sore d/t clenching or anything. Pt reports B mastectomies in 2006 w/chemo. TSA R was 2017 Prior Treatments and Tests PT for shoulder in 2017, Dr. rock is having pt relax jaw by placing in bottom of mouth and teeth slightly apart-also instructed heat but hasn't tried Treatment Goals Patient/Caregiver Goals get rid of most of the pain, be able to move around a little bit and not have pain w /it, not get numb when talking on the phone PT-OP-C Subjective Start: 11/10/20 07:29 Freq: Status: Active Protocol: Document 03/03/21 11:19 [facility] (Rec: 03/03/21 12:15 [facility] [id number]) OP-PT Subjective Patient Comments Patient Comments Pt reports her jaw hasn't been popping out but its been sore and she could make it mroe sore w/neck rotation and eating. Notes she hurt her back lifting her 's wc and R shoulder has also been hurting. PT-OP-F Manual Assessment Start: 11/10/20 07:29 Freq: Status: Active Protocol: Document 01/19/21 07:30 [facility] (Rec: 01/19/21 08:17 [facility] [id number]) Manual Assessments Soft Tissue Assessment Soft Tissue Mobility Assessment tightness B pec, R>L UT & LS, R rhomboids, B Scalenes & SCM, B biceps superiorly PT-OP-J Posture/Palpation/Skin Start: 11/10/20 07:29 Freq: Status: Active Protocol: Document 01/19/21 07:30 [facility] (Rec: 01/19/21 08:17 [facility] [id number]) Posture Evaluation Rowan Postural Classification System Vertebral Compression Test 1 Elbow Flexion Test 1 Comments Posture Comments scapula abducted & shoulders IR, inc kyphosis, fwd head PT-OP-K Range of Motion Start: 11/10/20 07:29 Freq: Status: Active Protocol: Document 01/19/21 07:30 [facility] (Rec: 01/19/21 08:17 [facility] [id number]) Cervical Spine Range of Motion Cervical Spine Active Degrees Flexion 43 Extension 45 Rotation Left 56 Rotation Right 44 Lateral Flexion Left 25 Lateral Flexion Right 48 Comments pain when SB B, R rot Shoulder Goniometric Range of Motion Shoulder Right Passive Flexion 101 Abduction 104 Right Active Testing Position Standing Flexion 91 Extension 52 Abduction 88 External Rotation at 0 degrees Abduction 52 Internal Rotation Behind Back (text) S2 Comments iniates flex and abd and cont w/elevation of scapula Left Active Testing Position Standing Flexion 146 Extension 55 Abduction 143 External Rotation at 90 degrees 87 Abduction External Rotation at 0 degrees Abduction 60 Internal Rotation Behind Back (text) T11 Comments goes into flex w/abd; PT-OP-L Special Tests Start: 01/19/21 07:30 Freq: Status: Active Protocol: Document 01/19/21 07:30 [facility] (Rec: 01/19/21 08:17 [facility] [id number]) Special Tests Cervical Spine Special Tests Spurling's Test Test Results neg Neural Special Tests- Upper Body Radial Nerve Tension Test Results neg B Ulnar Nerve Tension Test Results positive R Median Nerve Tension Test Results positive R PT-OP-M Strength Start: 11/10/20 07:29 Freq: Status: Active Protocol: Document 01/19/21 07:30 [facility] (Rec: 01/19/21 08:17 [facility] [id number]) Shoulder Strength Shoulder Manual Muscle Testing Right Flexion 3+ Fair+ Extension 5 Normal Abduction (C5) 3+ Fair+ External Rotation 5 Normal Internal Rotation 5 Normal Left Flexion 5 Normal Extension 5 Normal Abduction (C5) 4+ Good+ External Rotation 5 Normal Internal Rotation 5 Normal Elbow/Forearm Strength Elbow and Forearm Manual Muscle Testing Right Flexion (C6) 5 Normal Extension (C7) 5 Normal Pronation 5 Normal Supination 4 Good Left Flexion (C6) 5 Normal Extension (C7) 5 Normal Pronation 5 Normal Supination 5 Normal Wrist Strength Wrist Manual Muscle Testing Right Flexion (C7) 4 Good Extension (C6) 5 Normal Radial Deviation 5 Normal Left Flexion (C7) 5 Normal Extension (C6) 4 Good Radial Deviation 5 Normal Hand Waist Cutter/Pinch Strength Hand Strength Right Comments 65#, 65#, 65# tested B elbow at side Left Comments 78#, 70#, 79# PT-OP-Q Treatments Start: 11/10/20 07:29 Freq: Status: Active Protocol: Document 03/03/21 11:19 [facility] (Rec: 03/03/21 12:15 [facility] [id number]) Therapeutic Activity Therapeutic Activity lifting Comments 1. hip hinge w/dowel on back working on neutrral thoracic and cervical alignment 2. squat w/dowel on back working on neutral thoracic and cervical alignment 3. squat to lift bolster w/ cues for maintaining that alignment Manual Therapy Treatment Soft Tissue Mobilization cervical Body Location R>L scalenes & SCM Mobilization Type Myofascial Release,Rolling, Strumming Intensity/Depth Moderate Body Position Supine Comments w/cervical rotation jaw Body Location L masseter & temporalis Mobilization Type Rolling,Sustained Pressure Intensity/Depth Moderate Body Position Hooklying Joint Mobilizations TS Joint PA T5-8; UPA R T4-6 Body Position Prone ribs Joint ribs 1-3 depression & AP fm PT-OP-T Assessment and Plan Start: 11/10/20 07:29 Freq: Status: Active Protocol: Document 03/03/21 11:19 [facility] (Rec: 03/03/21 12:15 [facility] [id number]) Physical Therapy Assessment Goals Shoulder Short Term Goal (STG) Pt will be able to hold phone and talk on phone w/o RUE getting numb STG Duration 02/24/21 Halfway Goal (LTG) Pt will improve strength of R shoulder to show at least 4/5 UE MMT for flex and abd in order to allow improved ease for overhead activities LTG Duration 03/22/21 jaw Halfway Goal (LTG) Pt will be able to yawn,brush teeth and move jaw in all directions w/o jaw popping out. 12/16/20: improving no locking / popping with brushing teeth with head repositioning, but eating is still popping and takes more time to find head/ neck position to allow jaw to open. 01/19-only happening on a bad day 3-4x LTG Duration 03/22/21 cervical Siebel Crm Developer Goal (LTG) pt will hav efull cervical ROM in order to dec strain of mm onto jaw region and imrpove ability to turn in car. 12/16/20: improved: able to look further over R and L to be able to see when driving, she feels not full ROM yet. 01/19-improving but still limited w/discomfort LTG Duration 03/22/21 ROM Short Term Goal (STG) Pt will be indep w/HEP and mechanics for workouts w/ production trainer min A STG Duration 02/20/21 Siebel Crm Developer Goal (LTG) Pt will improve overhead shoulder mobility to at least 100 deg flex and abd w/o scapular elevation. LTG Duration 03/23/21 Assessment Summary Assessment Pt had improved cervical R rotation and improved scap depression and retraction w/ manual treatment. She had more tightness today in L jaw than recently. Physical Therapy Plan Frequency and Duration Frequency of Treatment 2x/Week Duration of Treatment 2 months Plan of Care Start Date 01/19/21 Plan of Care End Date 03/22/21 Next Visit Focus/Plan Next Note Type Treatment Note Next Visit Plan work on lifting wc. cont to work on thoracic and cervical mobility & stability; try partridge protocol
--- NOTE | 2021-03-09 10:21 | PT.OTN ---
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 (03/09/21) Other specified disorders of temporomandibular joint (03/09/21) Cervicalgia (03/09/21) Muscle weakness (generalized) (03/09/21) Myalgia of mastication muscle (03/09/21) Abnormal posture (03/09/21) Physical Therapy Treatment Note PT-OP-A Visit Information Start: 11/10/20 07:29 Freq: Status: Active Protocol: Document 03/09/21 08:14 [facility] (Rec: 03/09/21 10:21 [facility] [id number]) Out-Patient Physical Therapy Visit Information Visit Information Visit Type Treatment Note Visit Note 09/28 Visit Start Time 08:15 Visit Stop Time 08:57 Total Visit Minutes 42 Visit Number 22 Number of RN SHIFT MGR Visits 0 PT-OP-B Current Condition Start: 11/10/20 07:29 Freq: Status: Active Protocol: Document 01/19/21 07:30 [facility] (Rec: 01/19/21 08:17 [facility] [id number]) Current Condition History of Current Condition Onset Date worse starting 9 months ago Current Complaints L jaw History of Current Condition 01/19-prior to starting PT for jaw, R shoulder pain was constant. Now it is intermittent. Notes arms no longer go to sleep frequently and do not do that to the extent they used to. Neck pain is less frequent now too. Still gets it a couple times a week. When she does core stuff like crunches, her neck starts to hurt. 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 IE:Pt reports jaw keeps popping out. It crunched for years before that. THe popping started 9 months ago. It just started gradually gets worse. It hurts when she pops it back in. Pt reports L side pops out so everything shifts to R. Pt reports neck pain on R side w/ALONSO associated occ. THat has been going on for the past month w/ALONSO. SHe has always had shoulder pain on R side. R TSA has not helped. 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 Her R ant lat arm consistantly always hurts. Her business trainer tapes her neck post and that seems to help. Pt reports ALONSO more when laying down. Pt had one other episode w/R neck about 25 years ago that she did PT and OT and responded well with that care and it never came back like that again. Pt reports arms go to sleep and reports R arm clean up worker has gotten a lot less. The weakness has been getting progressive over the last few years. 1x a year ago that jaw popped out (both sides)and she couldn't chew or swallow and that was like 30 years ago. Now it pops out at random. Tried mouth guard years ago and found she actually clenched the mouth guard that inc pain. She doesn 't notice herself clench her teeth a lot and doesn't wake up at night d/t jaw sore d/t clenching or anything. Pt reports B mastectomies in 2006 w/chemo. TSA R was 2017 Prior Treatments and Tests PT for shoulder in 2017, Dr. rock is having pt relax jaw by placing in bottom of mouth and teeth slightly apart-also instructed heat but hasn't tried Treatment Goals Patient/Caregiver Goals get rid of most of the pain, be able to move around a little bit and not have pain w /it, not get numb when talking on the phone PT-OP-C Subjective Start: 11/10/20 07:29 Freq: Status: Active Protocol: Document 03/09/21 08:14 [facility] (Rec: 03/09/21 10:21 [facility] [id number]) OP-PT Subjective Patient Comments Patient Comments pt reports her jaw is not popping out anymore but it has been sore when eating when she opens wide and when she has to chew a lot like on a bagel (L side pain). L neck has also been sore. Notes during some exercises w/ business trainer have been painful in neck PT-OP-F Manual Assessment Start: 11/10/20 07:29 Freq: Status: Active Protocol: Document 01/19/21 07:30 [facility] (Rec: 01/19/21 08:17 [facility] [id number]) Manual Assessments Soft Tissue Assessment Soft Tissue Mobility Assessment tightness B pec, R>L UT & LS, R rhomboids, B Scalenes & SCM, B biceps superiorly PT-OP-J Posture/Palpation/Skin Start: 11/10/20 07:29 Freq: Status: Active Protocol: Document 01/19/21 07:30 [facility] (Rec: 01/19/21 08:17 [facility] [id number]) Posture Evaluation Rowan Postural Classification System Vertebral Compression Test 1 Elbow Flexion Test 1 Comments Posture Comments scapula abducted & shoulders IR, inc kyphosis, fwd head PT-OP-K Range of Motion Start: 11/10/20 07:29 Freq: Status: Active Protocol: Document 01/19/21 07:30 [facility] (Rec: 01/19/21 08:17 [facility] [id number]) Cervical Spine Range of Motion Cervical Spine Active Degrees Flexion 43 Extension 45 Rotation Left 56 Rotation Right 44 Lateral Flexion Left 25 Lateral Flexion Right 48 Comments pain when SB B, R rot Shoulder Goniometric Range of Motion Shoulder Right Passive Flexion 101 Abduction 104 Right Active Testing Position Standing Flexion 91 Extension 52 Abduction 88 External Rotation at 0 degrees Abduction 52 Internal Rotation Behind Back (text) S2 Comments iniates flex and abd and cont w/elevation of scapula Left Active Testing Position Standing Flexion 146 Extension 55 Abduction 143 External Rotation at 90 degrees 87 Abduction External Rotation at 0 degrees Abduction 60 Internal Rotation Behind Back (text) T11 Comments goes into flex w/abd; PT-OP-L Special Tests Start: 01/19/21 07:30 Freq: Status: Active Protocol: Document 01/19/21 07:30 [facility] (Rec: 01/19/21 08:17 [facility] [id number]) Special Tests Cervical Spine Special Tests Spurling's Test Test Results neg Neural Special Tests- Upper Body Radial Nerve Tension Test Results neg B Ulnar Nerve Tension Test Results positive R Median Nerve Tension Test Results positive R PT-OP-M Strength Start: 11/10/20 07:29 Freq: Status: Active Protocol: Document 01/19/21 07:30 [facility] (Rec: 01/19/21 08:17 [facility] [id number]) Shoulder Strength Shoulder Manual Muscle Testing Right Flexion 3+ Fair+ Extension 5 Normal Abduction (C5) 3+ Fair+ External Rotation 5 Normal Internal Rotation 5 Normal Left Flexion 5 Normal Extension 5 Normal Abduction (C5) 4+ Good+ External Rotation 5 Normal Internal Rotation 5 Normal Elbow/Forearm Strength Elbow and Forearm Manual Muscle Testing Right Flexion (C6) 5 Normal Extension (C7) 5 Normal Pronation 5 Normal Supination 4 Good Left Flexion (C6) 5 Normal Extension (C7) 5 Normal Pronation 5 Normal Supination 5 Normal Wrist Strength Wrist Manual Muscle Testing Right Flexion (C7) 4 Good Extension (C6) 5 Normal Radial Deviation 5 Normal Left Flexion (C7) 5 Normal Extension (C6) 4 Good Radial Deviation 5 Normal Hand Crime Scene Investigator/Pinch Strength Hand Strength Right Comments 65#, 65#, 65# tested B elbow at side Left Comments 78#, 70#, 79# PT-OP-Q Treatments Start: 11/10/20 07:29 Freq: Status: Active Protocol: Document 03/09/21 08:14 [facility] (Rec: 03/09/21 10:21 [facility] [id number]) Therapeutic Exercises Supine Exercises CS elongation Supine Exercise Name axial elongation w/head held just off table Side bilateral Reps/Minutes 5sec x8 Other Exercises quadruped Other Exercise Name finding neutral Reps/Minutes [id number] Comments max cues for cervical position , scap position & lumbar & thoracic Manual Therapy Treatment Soft Tissue Mobilization cervical Body Location L>R scalenes & SCM Mobilization Type Myofascial Release,Rolling, Strumming Intensity/Depth Moderate Body Position Supine Comments w/cervical rotation intraoral Body Location R ptyergoid Mobilization Type Sustained Pressure Intensity/Depth Moderate Comments w/jaw open/close jaw Body Location L masseter & temporalis Mobilization Type Rolling,Sustained Pressure Intensity/Depth Moderate Body Position Hooklying Joint Mobilizations cervical Joint C4 AP FM L jaw Direction R distraction FM C1 Direction FM Comments 1. L UPA FM C1 Self-Care/Home Management Treatment Education Other Education I stressed with her the importance of telling you when her neck is hurting during exercises and explained business trainer cannot fully do his job unless she is honest about where she is feeling things. I told her it is not whining to be honest about when things hurt because that just makes her backtrack w/her pain and dysfunctions. PT-OP-T Assessment and Plan Start: 11/10/20 07:29 Freq: Status: Active Protocol: Document 03/09/21 08:14 [facility] (Rec: 03/09/21 10:21 [facility] [id number]) Physical Therapy Assessment Goals Shoulder Short Term Goal (STG) Pt will be able to hold phone and talk on phone w/o RUE getting numb STG Duration 02/24/21 Gauge And Weigh Machine Adjuster Goal (LTG) Pt will improve strength of R shoulder to show at least 4/5 UE MMT for flex and abd in order to allow improved ease for overhead activities LTG Duration 03/22/21 jaw Gauge And Weigh Machine Adjuster Goal (LTG) Pt will be able to yawn,brush teeth and move jaw in all directions w/o jaw popping out. 12/16/20: improving no locking / popping with brushing teeth with head repositioning, but eating is still popping and takes more time to find head/ neck position to allow jaw to open. 01/19-only happening on a bad day 3-4x LTG Duration 03/22/21 cervical Gauge And Weigh Machine Adjuster Goal (LTG) pt will hav efull cervical ROM in order to dec strain of mm onto jaw region and imrpove ability to turn in car. 12/16/20: improved: able to look further over R and L to be able to see when driving, she feels not full ROM yet. 01/19-improving but still limited w/discomfort LTG Duration 03/22/21 ROM Short Term Goal (STG) Pt will be indep w/HEP and mechanics for workouts w/ business trainer min A STG Duration 02/20/21 Mcfp Goal (LTG) Pt will improve overhead shoulder mobility to at least 100 deg flex and abd w/o scapular elevation. LTG Duration 03/23/21 Assessment Summary Assessment pt had significant difficultly w/maintaining cervical neutral during exercises today . Just finding neutral in quadruped was extremely difficult for pt. She did have more jaw opening to normal range w/less tightness after manual treatment. Physical Therapy Plan Frequency and Duration Frequency of Treatment 2x/Week Duration of Treatment 2 months Plan of Care Start Date 01/19/21 Plan of Care End Date 03/22/21 Next Visit Focus/Plan Next Note Type Treatment Note Next Visit Plan cotn to wrok on cervical stabiltiy & quadruped ability, try partridge protocol
--- NOTE | 2021-03-11 15:15 | PT.OTN ---
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 (03/11/21) Other specified disorders of temporomandibular joint (03/11/21) Cervicalgia (03/11/21) Muscle weakness (generalized) (03/11/21) Myalgia of mastication muscle (03/11/21) Abnormal posture (03/11/21) Physical Therapy Treatment Note PT-OP-A Visit Information Start: 11/10/20 07:29 Freq: Status: Active Protocol: Document 03/11/21 14:34 [facility] (Rec: 03/11/21 15:36 [facility] [id number]) Out-Patient Physical Therapy Visit Information Visit Information Visit Type Treatment Note Visit Note 10/29 Visit Start Time 14:34 Visit Stop Time 15:15 Total Visit Minutes 41 Visit Number 23 Number of MECHANICAL MANUFACTURING TECHNICIAN Visits 1 PT-OP-B Current Condition Start: 11/10/20 07:29 Freq: Status: Active Protocol: Document 01/19/21 07:30 [facility] (Rec: 01/19/21 08:17 [facility] [id number]) Current Condition History of Current Condition Onset Date worse starting 9 months ago Current Complaints L jaw History of Current Condition 01/19-prior to starting PT for jaw, R shoulder pain was constant. Now it is intermittent. Notes arms no longer go to sleep frequently and do not do that to the extent they used to. Neck pain is less frequent now too. Still gets it a couple times a week. When she does core stuff like crunches, her neck starts to hurt. 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 IE:Pt reports jaw keeps popping out. It crunched for years before that. THe popping started 9 months ago. It just started gradually gets worse. It hurts when she pops it back in. Pt reports L side pops out so everything shifts to R. Pt reports neck pain on R side w/ALONSO associated occ. THat has been going on for the past month w/ALONSO. SHe has always had shoulder pain on R side. R TSA has not helped. 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 Her R ant lat arm consistantly always hurts. Her puppy trainer tapes her neck post and that seems to help. Pt reports ALONSO more when laying down. Pt had one other episode w/R neck about 25 years ago that she did PT and OT and responded well with that care and it never came back like that again. Pt reports arms go to sleep and reports R arm wire winder has gotten a lot less. The weakness has been getting progressive over the last few years. 1x a year ago that jaw popped out (both sides)and she couldn't chew or swallow and that was like 30 years ago. Now it pops out at random. Tried mouth guard years ago and found she actually clenched the mouth guard that inc pain. She doesn 't notice herself clench her teeth a lot and doesn't wake up at night d/t jaw sore d/t clenching or anything. Pt reports B mastectomies in 2006 w/chemo. TSA R was 2017 Prior Treatments and Tests PT for shoulder in 2017, Dr. rock is having pt relax jaw by placing in bottom of mouth and teeth slightly apart-also instructed heat but hasn't tried Treatment Goals Patient/Caregiver Goals get rid of most of the pain, be able to move around a little bit and not have pain w /it, not get numb when talking on the phone PT-OP-C Subjective Start: 11/10/20 07:29 Freq: Status: Active Protocol: Document 03/11/21 14:34 [facility] (Rec: 03/11/21 15:36 [facility] [id number]) OP-PT Subjective Patient Comments Patient Comments Pt stated her jaw tightness when bites down eg bagel. Associate Director Career Services placed K tape X cross spine (R<>L, X scap to opp ribcage) for trunk alignment feedback, worked on quadruped alot this am with puppy trainer and K taping helped with self correct feedback. PT-OP-F Manual Assessment Start: 11/10/20 07:29 Freq: Status: Active Protocol: Document 01/19/21 07:30 [facility] (Rec: 01/19/21 08:17 [facility] [id number]) Manual Assessments Soft Tissue Assessment Soft Tissue Mobility Assessment tightness B pec, R>L UT & LS, R rhomboids, B Scalenes & SCM, B biceps superiorly PT-OP-J Posture/Palpation/Skin Start: 11/10/20 07:29 Freq: Status: Active Protocol: Document 01/19/21 07:30 [facility] (Rec: 01/19/21 08:17 [facility] [id number]) Posture Evaluation Rowan Postural Classification System Vertebral Compression Test 1 Elbow Flexion Test 1 Comments Posture Comments scapula abducted & shoulders IR, inc kyphosis, fwd head PT-OP-K Range of Motion Start: 11/10/20 07:29 Freq: Status: Active Protocol: Document 01/19/21 07:30 [facility] (Rec: 01/19/21 08:17 [facility] [id number]) Cervical Spine Range of Motion Cervical Spine Active Degrees Flexion 43 Extension 45 Rotation Left 56 Rotation Right 44 Lateral Flexion Left 25 Lateral Flexion Right 48 Comments pain when SB B, R rot Shoulder Goniometric Range of Motion Shoulder Right Passive Flexion 101 Abduction 104 Right Active Testing Position Standing Flexion 91 Extension 52 Abduction 88 External Rotation at 0 degrees Abduction 52 Internal Rotation Behind Back (text) S2 Comments iniates flex and abd and cont w/elevation of scapula Left Active Testing Position Standing Flexion 146 Extension 55 Abduction 143 External Rotation at 90 degrees 87 Abduction External Rotation at 0 degrees Abduction 60 Internal Rotation Behind Back (text) T11 Comments goes into flex w/abd; PT-OP-L Special Tests Start: 01/19/21 07:30 Freq: Status: Active Protocol: Document 01/19/21 07:30 [facility] (Rec: 01/19/21 08:17 [facility] [id number]) Special Tests Cervical Spine Special Tests Spurling's Test Test Results neg Neural Special Tests- Upper Body Radial Nerve Tension Test Results neg B Ulnar Nerve Tension Test Results positive R Median Nerve Tension Test Results positive R PT-OP-M Strength Start: 11/10/20 07:29 Freq: Status: Active Protocol: Document 01/19/21 07:30 [facility] (Rec: 01/19/21 08:17 [facility] [id number]) Shoulder Strength Shoulder Manual Muscle Testing Right Flexion 3+ Fair+ Extension 5 Normal Abduction (C5) 3+ Fair+ External Rotation 5 Normal Internal Rotation 5 Normal Left Flexion 5 Normal Extension 5 Normal Abduction (C5) 4+ Good+ External Rotation 5 Normal Internal Rotation 5 Normal Elbow/Forearm Strength Elbow and Forearm Manual Muscle Testing Right Flexion (C6) 5 Normal Extension (C7) 5 Normal Pronation 5 Normal Supination 4 Good Left Flexion (C6) 5 Normal Extension (C7) 5 Normal Pronation 5 Normal Supination 5 Normal Wrist Strength Wrist Manual Muscle Testing Right Flexion (C7) 4 Good Extension (C6) 5 Normal Radial Deviation 5 Normal Left Flexion (C7) 5 Normal Extension (C6) 4 Good Radial Deviation 5 Normal Hand Cup Trimming Machine Operator/Pinch Strength Hand Strength Right Comments 65#, 65#, 65# tested B elbow at side Left Comments 78#, 70#, 79# PT-OP-Q Treatments Start: 11/10/20 07:29 Freq: Status: Active Protocol: Document 03/11/21 14:34 [facility] (Rec: 03/11/21 15:36 [facility] [id number]) Therapeutic Exercises Sitting Exercises axial elongation Side bilateral Reps/Minutes 3 sec hold x3, then lift 2 sec x2 rocabado Sitting Exercise Name 6x6 Reps/Minutes x 6 reps each Comments tongue mouth open/ close, isometric mandible R lat pressure open/close Other Exercises bird dog Other Exercise Name quadruped: UE/ LE contact table Side bilateral Reps/Minutes x3 Comments good CS neutral and upper back level, max cues TA/PPT with RLE ext quadruped Other Exercise Name finding neutral Reps/Minutes [id number] Comments min cues CS chin tuck with ext neutral, Max cues PPT neutral LS Manual Therapy Treatment Soft Tissue Mobilization cervical Body Location L>R SCM, SOR Mobilization Type Myofascial Release,Rolling, Sustained Pressure,Trigger Point Release Intensity/Depth Moderate Body Position Supine Comments manual intraoral Body Location L>R ptyergoid Mobilization Type Sustained Pressure Intensity/Depth Moderate Body Position Hooklying Comments manual w/jaw open/close jaw Body Location L masseter & temporalis Mobilization Type Rolling,Sustained Pressure Intensity/Depth Moderate Body Position Hooklying PT-OP-T Assessment and Plan Start: 11/10/20 07:29 Freq: Status: Active Protocol: Document 03/11/21 14:34 [facility] (Rec: 03/11/21 15:36 SP [id number]) Physical Therapy Assessment Goals Shoulder Short Term Goal (STG) Pt will be able to hold phone and talk on phone w/o RUE getting numb STG Duration 02/24/21 Senior Living Goal (LTG) Pt will improve strength of R shoulder to show at least 4/5 UE MMT for flex and abd in order to allow improved ease for overhead activities LTG Duration 03/22/21 jaw Senior Living Goal (LTG) Pt will be able to yawn,brush teeth and move jaw in all directions w/o jaw popping out. 12/16/20: improving no locking / popping with brushing teeth with head repositioning, but eating is still popping and takes more time to find head/ neck position to allow jaw to open. 01/19-only happening on a bad day 3-4x LTG Duration 03/22/21 cervical Senior Living Goal (LTG) pt will hav efull cervical ROM in order to dec strain of mm onto jaw region and imrpove ability to turn in car. 12/16/20: improved: able to look further over R and L to be able to see when driving, she feels not full ROM yet. 01/19-improving but still limited w/discomfort LTG Duration 03/22/21 ROM Short Term Goal (STG) Pt will be indep w/HEP and mechanics for workouts w/ puppy trainer min A STG Duration 02/20/21 Senior Living Goal (LTG) Pt will improve overhead shoulder mobility to at least 100 deg flex and abd w/o scapular elevation. LTG Duration 03/23/21 Assessment Summary Assessment Pt responded well to manual L pterygoid softened with decreased tightness during isometric pressure on R mandible during open/ close in mirror neutral jaw alignment, painfree and able open better . Improved neutral alignment quadruped, initiated LE ext challenged RLE ext contact table maintaining TA and pelvis level. Able to lift LLE and RUE with good form. Physical Therapy Plan Frequency and Duration Frequency of Treatment 2x/Week Duration of Treatment 2 months Plan of Care Start Date 01/19/21 Plan of Care End Date 03/22/21 Therapeutic Interventions Therapeutic Interventions Aquatic Therapy,Gait Training, Home Exercise Program,Joint Mobilizations,Manual Therapy, Neuromuscular Re-education, Patient/Caregiver Education, Self-Care/Home Management,Soft Tissue Mobilization,Taping, Therapeutic Activities, Therapeutic Exercises Modalities Cold Pack/Ice Massage,Electric Stimulation,Hot Packs, Traction- Mechanical, Ultrasound Next Visit Focus/Plan Next Note Type Treatment Note Next Visit Plan POC: continue to work on cervical stability & quadruped ability, try partridge protocol for Shld ROM.
--- NOTE | 2021-03-15 09:45 | PT.OTN ---
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) Other specified disorders of temporomandibular joint (03/15/21) Cervicalgia (03/15/21) Muscle weakness (generalized) (03/15/21) Myalgia of mastication muscle (03/15/21) Abnormal posture (03/15/21) Physical Therapy Treatment Note PT-OP-A Visit Information Start: 11/10/20 07:29 Freq: Status: Active Protocol: Document 03/15/21 09:00 SP (Rec: 03/15/21 09:48 SP [id number]) Out-Patient Physical Therapy Visit Information Visit Information Visit Type Treatment Note Visit Note 11/28 Visit Start Time 09:00 Visit Stop Time 09:45 Total Visit Minutes 45 Visit Number 24 Number of PARCEL POST TRUCK DRIVER Visits 2 PT-OP-B Current Condition Start: 11/10/20 07:29 Freq: Status: Active Protocol: Document 01/19/21 07:30 [facility] (Rec: 01/19/21 08:17 [facility] [id number]) Current Condition History of Current Condition Onset Date worse starting 9 months ago Current Complaints L jaw History of Current Condition 01/19-prior to starting PT for jaw, R shoulder pain was constant. Now it is intermittent. Notes arms no longer go to sleep frequently and do not do that to the extent they used to. Neck pain is less frequent now too. Still gets it a couple times a week. When she does core stuff like crunches, her neck starts to hurt. 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 IE:Pt reports jaw keeps popping out. It crunched for years before that. THe popping started 9 months ago. It just started gradually gets worse. It hurts when she pops it back in. Pt reports L side pops out so everything shifts to R. Pt reports neck pain on R side w/ALONSO associated occ. THat has been going on for the past month w/ALONSO. SHe has always had shoulder pain on R side. R TSA has not helped. 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 Her R ant lat arm consistantly always hurts. Her sap trainer tapes her neck post and that seems to help. Pt reports ALONSO more when laying down. Pt had one other episode w/R neck about 25 years ago that she did PT and OT and responded well with that care and it never came back like that again. Pt reports arms go to sleep and reports R arm senior executive assistant has gotten a lot less. The weakness has been getting progressive over the last few years. 1x a year ago that jaw popped out (both sides)and she couldn't chew or swallow and that was like 30 years ago. Now it pops out at random. Tried mouth guard years ago and found she actually clenched the mouth guard that inc pain. She doesn 't notice herself clench her teeth a lot and doesn't wake up at night d/t jaw sore d/t clenching or anything. Pt reports B mastectomies in 2006 w/chemo. TSA R was 2017 Prior Treatments and Tests PT for shoulder in 2017, Dr. rock is having pt relax jaw by placing in bottom of mouth and teeth slightly apart-also instructed heat but hasn't tried Treatment Goals Patient/Caregiver Goals get rid of most of the pain, be able to move around a little bit and not have pain w /it, not get numb when talking on the phone PT-OP-C Subjective Start: 11/10/20 07:29 Freq: Status: Active Protocol: Document 03/15/21 09:00 SP (Rec: 03/15/21 09:48 SP [id number]) OP-PT Subjective Patient Comments Patient Comments Pt reports the manual last tx helped and only 1 time soreness since, avoiding bagels at this time. Having some soreness over R>L trap today. Did some self rolling with training yesterday to help decrease tightness. PT-OP-F Manual Assessment Start: 11/10/20 07:29 Freq: Status: Active Protocol: Document 01/19/21 07:30 [facility] (Rec: 01/19/21 08:17 [facility] [id number]) Manual Assessments Soft Tissue Assessment Soft Tissue Mobility Assessment tightness B pec, R>L UT & LS, R rhomboids, B Scalenes & SCM, B biceps superiorly PT-OP-J Posture/Palpation/Skin Start: 11/10/20 07:29 Freq: Status: Active Protocol: Document 01/19/21 07:30 [facility] (Rec: 01/19/21 08:17 [facility] [id number]) Posture Evaluation [facility] Postural Classification System Vertebral Compression Test 1 Elbow Flexion Test 1 Comments Posture Comments scapula abducted & shoulders IR, inc kyphosis, fwd head PT-OP-K Range of Motion Start: 11/10/20 07:29 Freq: Status: Active Protocol: Document 01/19/21 07:30 [facility] (Rec: 01/19/21 08:17 [facility] [id number]) Cervical Spine Range of Motion Cervical Spine Active Degrees Flexion 43 Extension 45 Rotation Left 56 Rotation Right 44 Lateral Flexion Left 25 Lateral Flexion Right 48 Comments pain when SB B, R rot Shoulder Goniometric Range of Motion Shoulder Right Passive Flexion 101 Abduction 104 Right Active Testing Position Standing Flexion 91 Extension 52 Abduction 88 External Rotation at 0 degrees Abduction 52 Internal Rotation Behind Back (text) S2 Comments iniates flex and abd and cont w/elevation of scapula Left Active Testing Position Standing Flexion 146 Extension 55 Abduction 143 External Rotation at 90 degrees 87 Abduction External Rotation at 0 degrees Abduction 60 Internal Rotation Behind Back (text) T11 Comments goes into flex w/abd; PT-OP-L Special Tests Start: 01/19/21 07:30 Freq: Status: Active Protocol: Document 01/19/21 07:30 [facility] (Rec: 01/19/21 08:17 [facility] [id number]) Special Tests Cervical Spine Special Tests Spurling's Test Test Results neg Neural Special Tests- Upper Body Radial Nerve Tension Test Results neg B Ulnar Nerve Tension Test Results positive R Median Nerve Tension Test Results positive R PT-OP-M Strength Start: 11/10/20 07:29 Freq: Status: Active Protocol: Document 01/19/21 07:30 [facility] (Rec: 01/19/21 08:17 [facility] [id number]) Shoulder Strength Shoulder Manual Muscle Testing Right Flexion 3+ Fair+ Extension 5 Normal Abduction (C5) 3+ Fair+ External Rotation 5 Normal Internal Rotation 5 Normal Left Flexion 5 Normal Extension 5 Normal Abduction (C5) 4+ Good+ External Rotation 5 Normal Internal Rotation 5 Normal Elbow/Forearm Strength Elbow and Forearm Manual Muscle Testing Right Flexion (C6) 5 Normal Extension (C7) 5 Normal Pronation 5 Normal Supination 4 Good Left Flexion (C6) 5 Normal Extension (C7) 5 Normal Pronation 5 Normal Supination 5 Normal Wrist Strength Wrist Manual Muscle Testing Right Flexion (C7) 4 Good Extension (C6) 5 Normal Radial Deviation 5 Normal Left Flexion (C7) 5 Normal Extension (C6) 4 Good Radial Deviation 5 Normal Hand Dining Manager/Pinch Strength Hand Strength Right Comments 65#, 65#, 65# tested B elbow at side Left Comments 78#, 70#, 79# PT-OP-Q Treatments Start: 11/10/20 07:29 Freq: Status: Active Protocol: Document 03/15/21 09:00 SP (Rec: 03/15/21 09:48 SP [id number]) Therapeutic Exercises Standing Exercises ext Standing Exercise Name shoulder Side bilateral Equipment Used L1 Reps/Minutes x20 Comments cues for scap movement, CS elongation w/ relaxed jaw retraction Standing Exercise Name shld ER easy Side bilateral Resistance Tb #1 Equipment Used back to wall Comments cued scap retracted awareness, CS neutral, relaxed jaw Other Exercises self STMs Other Exercise Name pec corner Equipment Used racquetball Reps/Minutes 2 min Comments good feedback response Manual Therapy Treatment Soft Tissue Mobilization pec Body Location R major and minor, subscap Mobilization Type Rolling,Strumming,Sustained Pressure Intensity/Depth Moderate Body Position Supine cervical Body Location L>R SCM, SOR, UT Mobilization Type Myofascial Release,Rolling, Sustained Pressure,Trigger Point Release Intensity/Depth Moderate Body Position Supine Comments manual Self-Care/Home Management Treatment Education Other Education Reiterated letting sap trainer and Therapists know feedback for activities painfree. Time spent side and supine sleeping with pillow support. Ed for body mechanics for lifting 5 gal waterbottles: cued hip hinge, straightback and neutral CS, WBOS lift close to body, improved with ed corrections. PT-OP-T Assessment and Plan Start: 11/10/20 07:29 Freq: Status: Active Protocol: Document 03/15/21 09:00 SP (Rec: 03/15/21 09:48 SP [id number]) Physical Therapy Assessment Goals Shoulder Short Term Goal (STG) Pt will be able to hold phone and talk on phone w/o RUE getting numb 03/15/21: Pt reports less numbness and tingling w/ talking on phone. STG Duration 02/24/21 Senior Care Goal (LTG) Pt will improve strength of R shoulder to show at least 4/5 UE MMT for flex and abd in order to allow improved ease for overhead activities LTG Duration 03/22/21 jaw Cleaning Supervisor Goal (LTG) Pt will be able to yawn,brush teeth and move jaw in all directions w/o jaw popping out. 12/16/20: improving no locking / popping with brushing teeth with head repositioning, but eating is still popping and takes more time to find head/ neck position to allow jaw to open. 01/19-only happening on a bad day 3-4x LTG Duration 03/22/21 cervical Cleaning Supervisor Goal (LTG) pt will hav efull cervical ROM in order to dec strain of mm onto jaw region and imrpove ability to turn in car. 12/16/20: improved: able to look further over R and L to be able to see when driving, she feels not full ROM yet. 01/19-improving but still limited w/discomfort LTG Duration 03/22/21 ROM Short Term Goal (STG) Pt will be indep w/HEP and mechanics for workouts w/ sap trainer min A STG Duration 02/20/21 Senior Care Goal (LTG) Pt will improve overhead shoulder mobility to at least 100 deg flex and abd w/o scapular elevation. 03/15/21: progressin deg flexion without shld elevation , 80 deg ABD. LTG Duration 03/23/21 Assessment Summary Assessment Pt improved understanding alignment and self corrections post cues and mirror for self feedback during standing HEP review. Pt provided good feedback for comfort painfree throughout tx. Pt progressing in goals, see goals for details, would benefit from continued physical therapy. PT to complete progress note. Physical Therapy Plan Frequency and Duration Frequency of Treatment 2x/Week Duration of Treatment 2 months Plan of Care Start Date 01/19/21 Plan of Care End Date 03/22/21 Therapeutic Interventions Therapeutic Interventions Aquatic Therapy,Gait Training, Home Exercise Program,Joint Mobilizations,Manual Therapy, Neuromuscular Re-education, Patient/Caregiver Education, Self-Care/Home Management,Soft Tissue Mobilization,Taping, Therapeutic Activities, Therapeutic Exercises Modalities Cold Pack/Ice Massage,Electric Stimulation,Hot Packs, Traction- Mechanical, Ultrasound Next Visit Focus/Plan Next Note Type Treatment Note Next Visit Plan Recheck standing HEP next tx. POC: progress cervical stability & quadruped ability.
--- NOTE | 2021-03-17 14:12 | PT.OTN ---
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) Other specified disorders of temporomandibular joint (03/17/21) Cervicalgia (03/17/21) Muscle weakness (generalized) (03/17/21) Myalgia of mastication muscle (03/17/21) Abnormal posture (03/17/21) Physical Therapy Treatment Note PT-OP-A Visit Information Start: 11/10/20 07:29 Freq: Status: Active Protocol: Document 03/17/21 13:01 [facility] (Rec: 03/17/21 14:11 [facility] [id number]) Out-Patient Physical Therapy Visit Information Visit Information Visit Type Treatment Note Visit Note 02/28 Visit Start Time 13:01 Visit Stop Time 13:49 Total Visit Minutes 48 Visit Number 25 Number of CAR REPAIRER Visits 0 PT-OP-B Current Condition Start: 11/10/20 07:29 Freq: Status: Active Protocol: Document 01/19/21 07:30 [facility] (Rec: 01/19/21 08:17 [facility] [id number]) Current Condition History of Current Condition Onset Date worse starting 9 months ago Current Complaints L jaw History of Current Condition 01/19-prior to starting PT for jaw, R shoulder pain was constant. Now it is intermittent. Notes arms no longer go to sleep frequently and do not do that to the extent they used to. Neck pain is less frequent now too. Still gets it a couple times a week. When she does core stuff like crunches, her neck starts to hurt. 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 IE:Pt reports jaw keeps popping out. It crunched for years before that. THe popping started 9 months ago. It just started gradually gets worse. It hurts when she pops it back in. Pt reports L side pops out so everything shifts to R. Pt reports neck pain on R side w/ALONSO associated occ. THat has been going on for the past month w/ALONSO. SHe has always had shoulder pain on R side. R TSA has not helped. 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 Her R ant lat arm consistantly always hurts. Her monkey breeder tapes her neck post and that seems to help. Pt reports ALONSO more when laying down. Pt had one other episode w/R neck about 25 years ago that she did PT and OT and responded well with that care and it never came back like that again. Pt reports arms go to sleep and reports R arm high school professional has gotten a lot less. The weakness has been getting progressive over the last few years. 1x a year ago that jaw popped out (both sides)and she couldn't chew or swallow and that was like 30 years ago. Now it pops out at random. Tried mouth guard years ago and found she actually clenched the mouth guard that inc pain. She doesn 't notice herself clench her teeth a lot and doesn't wake up at night d/t jaw sore d/t clenching or anything. Pt reports B mastectomies in 2006 w/chemo. TSA R was 2017 Prior Treatments and Tests PT for shoulder in 2017, Dr. rock is having pt relax jaw by placing in bottom of mouth and teeth slightly apart-also instructed heat but hasn't tried Treatment Goals Patient/Caregiver Goals get rid of most of the pain, be able to move around a little bit and not have pain w /it, not get numb when talking on the phone PT-OP-C Subjective Start: 11/10/20 07:29 Freq: Status: Active Protocol: Document 03/17/21 13:01 [facility] (Rec: 03/17/21 14:12 [facility] [id number]) OP-PT Subjective Patient Comments Patient Comments Pt reports she is doing better overall but jaw still bothers her w/chewing tough things and L scap/neck area is uncomfortable today. PT-OP-F Manual Assessment Start: 11/10/20 07:29 Freq: Status: Active Protocol: Document 01/19/21 07:30 [facility] (Rec: 01/19/21 08:17 [facility] [id number]) Manual Assessments Soft Tissue Assessment Soft Tissue Mobility Assessment tightness B pec, R>L UT & LS, R rhomboids, B Scalenes & SCM, B biceps superiorly PT-OP-J Posture/Palpation/Skin Start: 11/10/20 07:29 Freq: Status: Active Protocol: Document 01/19/21 07:30 [facility] (Rec: 01/19/21 08:17 [facility] [id number]) Posture Evaluation [facility] Postural Classification System Vertebral Compression Test 1 Elbow Flexion Test 1 Comments Posture Comments scapula abducted & shoulders IR, inc kyphosis, fwd head PT-OP-K Range of Motion Start: 11/10/20 07:29 Freq: Status: Active Protocol: Document 03/17/21 13:01 [facility] (Rec: 03/17/21 14:11 [facility] [id number]) Cervical Spine Range of Motion Cervical Spine Active Degrees Flexion 50 Extension 51 Rotation Left 59 Rotation Right 62 Lateral Flexion Left 30 Lateral Flexion Right 30 Comments pain when SB B, R rot PT-OP-L Special Tests Start: 01/19/21 07:30 Freq: Status: Active Protocol: Document 01/19/21 07:30 [facility] (Rec: 01/19/21 08:17 [facility] [id number]) Special Tests Cervical Spine Special Tests Spurling's Test Test Results neg Neural Special Tests- Upper Body Radial Nerve Tension Test Results neg B Ulnar Nerve Tension Test Results positive R Median Nerve Tension Test Results positive R PT-OP-M Strength Start: 11/10/20 07:29 Freq: Status: Active Protocol: Document 03/17/21 13:01 [facility] (Rec: 03/17/21 14:11 [facility] [id number]) Shoulder Strength Shoulder Manual Muscle Testing Right Flexion 3+ Fair+ Extension 5 Normal Abduction (C5) 3+ Fair+ External Rotation 5 Normal Internal Rotation 5 Normal Horizontal Abduction 4 Good Horizontal Adduction 4+ Good+ Left Flexion 5 Normal Extension 5 Normal Abduction (C5) 4+ Good+ External Rotation 5 Normal Internal Rotation 5 Normal Horizontal Abduction 5 Normal Horizontal Adduction 5 Normal PT-OP-Q Treatments Start: 11/10/20 07:29 Freq: Status: Active Protocol: Document 03/17/21 13:01 [facility] (Rec: 03/17/21 14:11 [facility] [id number]) Therapeutic Exercises Sitting Exercises hand Sitting Exercise Name tendon gliding exercises Side right Reps/Minutes 3x axial elongation Sitting Exercise Name chin tucks Side bilateral Reps/Minutes 6x Standing Exercises ext Standing Exercise Name shoulder Side bilateral Equipment Used L2 Reps/Minutes x20 Comments cues for scap movement, CS elongation w/ relaxed jaw retraction Standing Exercise Name scap working on retraction & depression Side bilateral Reps/Minutes 8 Manual Therapy Treatment Soft Tissue Mobilization thoracic Body Location L paraspinals, LS, UT, rhomboids Mobilization Type Rolling,Strumming,Sustained Pressure Intensity/Depth Moderate Body Position Sidelying cervical Mobilization Type Myofascial Release Comments post cervical fascia w/flex Joint Mobilizations TS Comments 1. PA T 7-8 FM 2. UPA L T7 3. transverse glide T6 R 4. UPA L T1-2 FM ribs Comments 1. rib 5 UPA and depression R FM 2. rib 2 AP FM L 3. rib 1 and 2 caudal FM L PT-OP-T Assessment and Plan Start: 11/10/20 07:29 Freq: Status: Active Protocol: Document 03/17/21 13:01 [facility] (Rec: 03/17/21 14:11 [facility] [id number]) Physical Therapy Assessment Goals lifting Short Term Goal (STG) Pt report more endurance w/RUE so it doesn't give out. STG Duration 04/19/21 Skilled Nursing Goal (LTG) Pt will be able to push objects w/UEs w/o feeling pain . LTG Duration 05/15/21 Shoulder Short Term Goal (STG) Pt will be able to hold phone and talk on phone w/o RUE getting numb 03/15/21: Pt reports less numbness and tingling w/ talking on phone. STG Duration 04/17/21 Traffic Or System Dispatcher Goal (LTG) Pt will improve strength of R shoulder to show at least 4/5 UE MMT for flex and abd in order to allow improved ease for overhead activities LTG Duration 06/15/21 jaw Short Term Goal (STG) Pt will be able to bite and chew w/o jaw discomfort even w /something tough like a bagel. STG Duration 04/19/21 Traffic Or System Dispatcher Goal (LTG) Pt will be able to yawn,brush teeth and move jaw in all directions w/o jaw popping out. 12/16/20: improving no locking / popping with brushing teeth with head repositioning, but eating is still popping and takes more time to find head/ neck position to allow jaw to open. 01/19-only happening on a bad day 3-4x LTG Duration achieved 03/17 cervical Skilled Nursing Goal (LTG) pt will hav efull cervical ROM in order to dec strain of mm onto jaw region and imrpove ability to turn in car. 12/16/20: improved: able to look further over R and L to be able to see when driving, she feels not full ROM yet. 01/19-improving but still limited w/discomfort 03/17-mild limitation w/some discomfort w/flex/ext LTG Duration 04/19/21 ROM Short Term Goal (STG) Pt will be indep w/HEP and mechanics for workouts w/ monkey breeder min A STG Duration 02/20/21 Traffic Or System Dispatcher Goal (LTG) Pt will improve overhead shoulder mobility to at least 100 deg flex and abd w/o scapular elevation. 03/15/21: progressin deg flexion without shld elevation , 80 deg ABD. LTG Duration 06/15/21 Assessment Summary Assessment Pt has made excellent progress with therapy and is improving w/shoulder strength and ROM along w/cervical ROM. She still does have cervical and jaw pain occasionally along w/ weakness and dec activity tolerance w/RUE and would benefit from cont PT to cont to address this. Physical Therapy Plan Frequency and Duration Frequency of Treatment 1-2x/week Duration of Treatment 2 months Plan of Care Start Date 03/17/21 Plan of Care End Date 05/15/21 Therapeutic Interventions Therapeutic Interventions Aquatic Therapy,Gait Training, Home Exercise Program,Joint Mobilizations,Manual Therapy, Neuromuscular Re-education, Patient/Caregiver Education, Self-Care/Home Management,Soft Tissue Mobilization,Taping, Therapeutic Activities, Therapeutic Exercises Modalities Cold Pack/Ice Massage,Electric Stimulation,Hot Packs, Traction- Mechanical, Ultrasound Next Visit Focus/Plan Next Note Type Treatment Note Next Visit Plan work on ribcage ant mobility, scar tissue (private room), and diaphram mobility to improve diaphragmatic breaths
--- NOTE | 2021-03-17 14:12 | PT.OPPOC ---
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) Other specified disorders of temporomandibular joint (03/17/21) Cervicalgia (03/17/21) Muscle weakness (generalized) (03/17/21) Myalgia of mastication muscle (03/17/21) Abnormal posture (03/17/21) Visit Care Team Role Provider Type Chan Rodriguez MD Family Provider Non-Staff Primary Care Provider Specialty: Family Practice Address: [address] [place] [address], [id number] Email: Uzma Ren DDS Attending Provider Non-Staff Referring Provider Specialty: Dentistry Address: [address] [place] [address], [address], [id number] Email: Plan Of Care PT-OP-T Assessment and Plan Start: 11/10/20 07:29 Freq: Status: Active Protocol: Document 03/17/21 13:01 [facility] (Rec: 03/17/21 14:11 [facility] [id number]) Physical Therapy Assessment Goals lifting Short Term Goal (STG) Pt report more endurance w/RUE so it doesn't give out. STG Duration 04/19/21 [employer] Goal (LTG) Pt will be able to push objects w/UEs w/o feeling pain . LTG Duration 05/15/21 Shoulder Short Term Goal (STG) Pt will be able to hold phone and talk on phone w/o RUE getting numb 03/15/21: Pt reports less numbness and tingling w/ talking on phone. STG Duration 04/17/21 Nursing Home Goal (LTG) Pt will improve strength of R shoulder to show at least 4/5 UE MMT for flex and abd in order to allow improved ease for overhead activities LTG Duration 06/15/21 jaw Short Term Goal (STG) Pt will be able to bite and chew w/o jaw discomfort even w /something tough like a bagel. STG Duration 04/19/21 [employer] Goal (LTG) Pt will be able to yawn,brush teeth and move jaw in all directions w/o jaw popping out. 12/16/20: improving no locking / popping with brushing teeth with head repositioning, but eating is still popping and takes more time to find head/ neck position to allow jaw to open. 01/19-only happening on a bad day 3-4x LTG Duration achieved 03/17 cervical Nursing Home Goal (LTG) pt will hav efull cervical ROM in order to dec strain of mm onto jaw region and imrpove ability to turn in car. 12/16/20: improved: able to look further over R and L to be able to see when driving, she feels not full ROM yet. 01/19-improving but still limited w/discomfort 03/17-mild limitation w/some discomfort w/flex/ext LTG Duration 04/19/21 ROM Short Term Goal (STG) Pt will be indep w/HEP and mechanics for workouts w/ program trainer min A STG Duration 02/20/21 [employer] Goal (LTG) Pt will improve overhead shoulder mobility to at least 100 deg flex and abd w/o scapular elevation. 03/15/21: progressin deg flexion without shld elevation , 80 deg ABD. LTG Duration 06/15/21 Assessment Summary Assessment Pt has made excellent progress with therapy and is improving w/shoulder strength and ROM along w/cervical ROM. She still does have cervical and jaw pain occasionally along w/ weakness and dec activity tolerance w/RUE and would benefit from cont PT to cont to address this. Physical Therapy Plan Frequency and Duration Frequency of Treatment 1-2x/week Duration of Treatment 2 months Plan of Care Start Date 03/17/21 Plan of Care End Date 05/15/21 Therapeutic Interventions Therapeutic Interventions Aquatic Therapy,Gait Training, Home Exercise Program,Joint Mobilizations,Manual Therapy, Neuromuscular Re-education, Patient/Caregiver Education, Self-Care/Home Management,Soft Tissue Mobilization,Taping, Therapeutic Activities, Therapeutic Exercises Modalities Cold Pack/Ice Massage,Electric Stimulation,Hot Packs, Traction- Mechanical, Ultrasound Next Visit Focus/Plan Next Note Type Treatment Note Next Visit Plan work on ribcage ant mobility, scar tissue (private room), and diaphram mobility to improve diaphragmatic breaths Plan of Care Dates Plan of Care Start Date 03/17/21 Plan of Care End Date 05/15/21 Electronically Signed by: Sneha Noyola, PT 03/17/21 1412 Please Sign and Return: I have reviewed this Plan of Care and certify that the skilled therapy services above are required to meet the patient?s needs. Physician Signature Date Printed Name and Credentials Clinical Instructor Signature Printed Name and Credentials
--- NOTE | 2021-03-22 13:45 | PT.OTN ---
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 Visit Start Time 13:05 Visit Stop Time 13:45 Total Visit Minutes 40 Visit Number 26 Number of HAND DRILLER Visits 1 PT-OP-B Current Condition Start: 11/10/20 07:29 Freq: Status: Active Protocol: Document 01/19/21 07:30 [facility] (Rec: 01/19/21 08:17 [facility] [id number]) Current Condition History of Current Condition Onset Date worse starting 9 months ago Current Complaints L jaw History of Current Condition 01/19-prior to starting PT for jaw, R shoulder pain was constant. Now it is intermittent. Notes arms no longer go to sleep frequently and do not do that to the extent they used to. Neck pain is less frequent now too. Still gets it a couple times a week. When she does core stuff like crunches, her neck starts to hurt. 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 IE:Pt reports jaw keeps popping out. It crunched for years before that. THe popping started 9 months ago. It just started gradually gets worse. It hurts when she pops it back in. Pt reports L side pops out so everything shifts to R. Pt reports neck pain on R side w/ALONSO associated occ. THat has been going on for the past month w/ALONSO. SHe has always had shoulder pain on R side. R TSA has not helped. Works with a bilingual trainer for 4 days a week but he hasn't changed anything. Her R ant lat arm consistantly always hurts. Her bilingual trainer tapes her neck post and that seems to help. Pt reports ALONSO more when laying down. Pt had one other episode w/R neck about 25 years ago that she did PT and OT and responded well with that care and it never came back like that again. Pt reports arms go to sleep and reports R arm mobile home laborer has gotten a lot less. The weakness has been getting progressive over the last few years. 1x a year ago that jaw popped out (both sides)and she couldn't chew or swallow and that was like 30 years ago. Now it pops out at random. Tried mouth guard years ago and found she actually clenched the mouth guard that inc pain. She doesn 't notice herself clench her teeth a lot and doesn't wake up at night d/t jaw sore d/t clenching or anything. Pt reports B mastectomies in 2006 w/chemo. TSA R was 2017 Prior Treatments and Tests PT for shoulder in 2017, Dr. rock is having pt relax jaw by placing in bottom of mouth and teeth slightly apart-also instructed heat but hasn't tried Treatment Goals Patient/Caregiver Goals get rid of most of the pain, be able to move around a little bit and not have pain w /it, not get numb when talking on the phone PT-OP-C Subjective Start: 11/10/20 07:29 Freq: Status: Active Protocol: Document 03/22/21 13:05 SP (Rec: 03/22/21 13:44 SP [id number]) OP-PT Subjective Patient Comments Patient Comments Pt reported jaw hurting lately , little bit all the time when chews now but not popping, more this am almost impossible almost out of alignment. Can chew on L side or bit down on anything. Not sure if slept wrong last night clenching during night. Spouse stated she said she did some band work out with bilingual trainer yesterday and maybe irriated her jaw? Pt states sees her dentist next Sunday, will discuss no popping now but still having pain maybe they can look into why and if anything they can help with, mouth guard? PT-OP-F Manual Assessment Start: 11/10/20 07:29 Freq: Status: Active Protocol: Document 01/19/21 07:30 [facility] (Rec: 01/19/21 08:17 [facility] [id number]) Manual Assessments Soft Tissue Assessment Soft Tissue Mobility Assessment tightness B pec, R>L UT & LS, R rhomboids, B Scalenes & SCM, B biceps superiorly PT-OP-J Posture/Palpation/Skin Start: 11/10/20 07:29 Freq: Status: Active Protocol: Document 01/19/21 07:30 [facility] (Rec: 01/19/21 08:17 [facility] [id number]) Posture Evaluation Rowan Postural Classification System Vertebral Compression Test 1 Elbow Flexion Test 1 Comments Posture Comments scapula abducted & shoulders IR, inc kyphosis, fwd head PT-OP-K Range of Motion Start: 11/10/20 07:29 Freq: Status: Active Protocol: Document 03/17/21 13:01 [facility] (Rec: 03/17/21 14:11 [facility] [id number]) Cervical Spine Range of Motion Cervical Spine Active Degrees Flexion 50 Extension 51 Rotation Left 59 Rotation Right 62 Lateral Flexion Left 30 Lateral Flexion Right 30 Comments pain when SB B, R rot PT-OP-L Special Tests Start: 01/19/21 07:30 Freq: Status: Active Protocol: Document 01/19/21 07:30 [facility] (Rec: 01/19/21 08:17 [facility] [id number]) Special Tests Cervical Spine Special Tests Spurling's Test Test Results neg Neural Special Tests- Upper Body Radial Nerve Tension Test Results neg B Ulnar Nerve Tension Test Results positive R Median Nerve Tension Test Results positive R PT-OP-M Strength Start: 11/10/20 07:29 Freq: Status: Active Protocol: Document 03/17/21 13:01 [facility] (Rec: 03/17/21 14:11 [facility] [id number]) Shoulder Strength Shoulder Manual Muscle Testing Right Flexion 3+ Fair+ Extension 5 Normal Abduction (C5) 3+ Fair+ External Rotation 5 Normal Internal Rotation 5 Normal Horizontal Abduction 4 Good Horizontal Adduction 4+ Good+ Left Flexion 5 Normal Extension 5 Normal Abduction (C5) 4+ Good+ External Rotation 5 Normal Internal Rotation 5 Normal Horizontal Abduction 5 Normal Horizontal Adduction 5 Normal PT-OP-Q Treatments Start: 11/10/20 07:29 Freq: Status: Active Protocol: Document 03/22/21 13:05 SP (Rec: 03/22/21 13:44 SP [id number]) Therapeutic Exercises Supine Exercises CS elongation Supine Exercise Name axial elongation Side bilateral Reps/Minutes 5 sec x8 breathing Supine Exercise Name diaphramatic during manual Side bilateral Reps/Minutes many reps- assisted decrease jaw musculature softening Comments cued hands on lateral ribcage for self feedback expansion Sidelying Exercises open book Sidelying Exercise Name arms extended Side bilateral Reps/Minutes x6 reps each Comments cues for no UT recruit, TS rotation, pec stretch Sitting Exercises rocabado Sitting Exercise Name 6x6 Reps/Minutes x 6 reps each Comments tongue mouth open/ close, isometric mandible R lat pressure open/close Manual Therapy Treatment Soft Tissue Mobilization cervical Body Location L>R SCM Mobilization Type Myofascial Release,Rolling, Sustained Pressure,Other Intensity/Depth Moderate Body Position Hooklying Comments manual, discussed self as well . intraoral Body Location L>R ptyergoid Mobilization Type Sustained Pressure Intensity/Depth Moderate Body Position Hooklying Comments manual and w/jaw open/close jaw Body Location L masseter & temporalis Mobilization Type Rolling,Sustained Pressure Intensity/Depth Moderate Body Position Hooklying Joint Mobilizations jaw Joint inferior pressure L proximal mandible w/ open close Body Position Hooklying Reps/Duration x5 Comments MWM, cued slow open/ close, noted little popping but not painful. Self-Care/Home Management Treatment Education Patient Education Pain Management,Posture Other Education Pt ed for self STMs: intraoral , temporalis, [place] ex in mirror. Spouse verbalized can give pt reminders intraoral, helped decrease pain and able open close jaw better. PT-OP-T Assessment and Plan Start: 11/10/20 07:29 Freq: Status: Active Protocol: Document 03/22/21 13:05 SP (Rec: 03/22/21 13:44 SP [id number]) Physical Therapy Assessment Goals lifting Short Term Goal (STG) Pt report more endurance w/RUE so it doesn't give out. STG Duration 04/19/21 [employer] Goal (LTG) Pt will be able to push objects w/UEs w/o feeling pain . LTG Duration 05/15/21 Shoulder Short Term Goal (STG) Pt will be able to hold phone and talk on phone w/o RUE getting numb 03/15/21: Pt reports less numbness and tingling w/ talking on phone. STG Duration 04/17/21 Correction Goal (LTG) Pt will improve strength of R shoulder to show at least 4/5 UE MMT for flex and abd in order to allow improved ease for overhead activities LTG Duration 06/15/21 jaw Short Term Goal (STG) Pt will be able to bite and chew w/o jaw discomfort even w /something tough like a bagel. STG Duration 04/19/21 Correction Goal (LTG) Pt will be able to yawn,brush teeth and move jaw in all directions w/o jaw popping out. 12/16/20: improving no locking / popping with brushing teeth with head repositioning, but eating is still popping and takes more time to find head/ neck position to allow jaw to open. 01/19-only happening on a bad day 3-4x LTG Duration achieved 03/17 cervical [employer] Goal (LTG) pt will hav efull cervical ROM in order to dec strain of mm onto jaw region and imrpove ability to turn in car. 12/16/20: improved: able to look further over R and L to be able to see when driving, she feels not full ROM yet. 01/19-improving but still limited w/discomfort 03/17-mild limitation w/some discomfort w/flex/ext LTG Duration 04/19/21 ROM Short Term Goal (STG) Pt will be indep w/HEP and mechanics for workouts w/ bilingual trainer min A STG Duration 02/20/21 Correction Goal (LTG) Pt will improve overhead shoulder mobility to at least 100 deg flex and abd w/o scapular elevation. 03/15/21: progressin deg flexion without shld elevation , 80 deg ABD. LTG Duration 06/15/21 Assessment Summary Assessment Pt reported decrease pain in L side jaw, able open close jaw better end tx, did note little gring/rubbint feeling in L TMJ during open close in mirror, saw how challenging keep alignment, mandible wants to pull to L, able self correct with mirror feedback. Physical Therapy Plan Frequency and Duration Frequency of Treatment 1-2x/week Duration of Treatment 2 months Plan of Care Start Date 03/17/21 Plan of Care End Date 05/15/21 Therapeutic Interventions Therapeutic Interventions Aquatic Therapy,Gait Training, Home Exercise Program,Joint Mobilizations,Manual Therapy, Neuromuscular Re-education, Patient/Caregiver Education, Self-Care/Home Management,Soft Tissue Mobilization,Taping, Therapeutic Activities, Therapeutic Exercises Modalities Cold Pack/Ice Massage,Electric Stimulation,Hot Packs, Traction- Mechanical, Ultrasound Next Visit Focus/Plan Next Note Type Treatment Note Next Visit Plan Check in how dental appt went next week. POC: Manual Jaw, work on ribcage ant mobility, scar tissue (private room), and diaphram mobility to improve diaphragmatic breaths.
--- NOTE | 2021-03-24 18:24 | PT.OTN ---
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 (Rec: 03/24/21 18:24 [facility] [id number]) Out-Patient Physical Therapy Visit Information Visit Information Visit Type Treatment Note Visit Note 04/28 Visit Start Time 09:48 Visit Stop Time 10:31 Total Visit Minutes 43 Visit Number 27 Number of NETWORK OPERATIONS SPECIALIST Visits 0 PT-OP-B Current Condition Start: 11/10/20 07:29 Freq: Status: Active Protocol: Document 01/19/21 07:30 [facility] (Rec: 01/19/21 08:17 [facility] [id number]) Current Condition History of Current Condition Onset Date worse starting 9 months ago Current Complaints L jaw History of Current Condition 01/19-prior to starting PT for jaw, R shoulder pain was constant. Now it is intermittent. Notes arms no longer go to sleep frequently and do not do that to the extent they used to. Neck pain is less frequent now too. Still gets it a couple times a week. When she does core stuff like crunches, her neck starts to hurt. Pt reports weak fiber locking supervisor and has trouble picking up things when has to use a pincer fiber locking supervisor. IE:Pt reports jaw keeps popping out. It crunched for years before that. THe popping started 9 months ago. It just started gradually gets worse. It hurts when she pops it back in. Pt reports L side pops out so everything shifts to R. Pt reports neck pain on R side w/ALONSO associated occ. THat has been going on for the past month w/ALONSO. SHe has always had shoulder pain on R side. R TSA has not helped. 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 Her R ant lat arm consistantly always hurts. Her animal trainer supervisor tapes her neck post and that seems to help. Pt reports ALONSO more when laying down. Pt had one other episode w/R neck about 25 years ago that she did PT and OT and responded well with that care and it never came back like that again. Pt reports arms go to sleep and reports R arm fiber locking supervisor has gotten a lot less. The weakness has been getting progressive over the last few years. 1x a year ago that jaw popped out (both sides)and she couldn't chew or swallow and that was like 30 years ago. Now it pops out at random. Tried mouth guard years ago and found she actually clenched the mouth guard that inc pain. She doesn 't notice herself clench her teeth a lot and doesn't wake up at night d/t jaw sore d/t clenching or anything. Pt reports B mastectomies in 2006 w/chemo. TSA R was 2017 Prior Treatments and Tests PT for shoulder in 2017, Dr. rock is having pt relax jaw by placing in bottom of mouth and teeth slightly apart-also instructed heat but hasn't tried Treatment Goals Patient/Caregiver Goals get rid of most of the pain, be able to move around a little bit and not have pain w /it, not get numb when talking on the phone PT-OP-C Subjective Start: 11/10/20 07:29 Freq: Status: Active Protocol: Document 03/24/21 18:17 [facility] (Rec: 03/24/21 18:24 [facility] [id number]) OP-PT Subjective Patient Comments Patient Comments Pt reports L jaw has been bothering her a lot recently PT-OP-F Manual Assessment Start: 11/10/20 07:29 Freq: Status: Active Protocol: Document 01/19/21 07:30 [facility] (Rec: 01/19/21 08:17 [facility] [id number]) Manual Assessments Soft Tissue Assessment Soft Tissue Mobility Assessment tightness B pec, R>L UT & LS, R rhomboids, B Scalenes & SCM, B biceps superiorly PT-OP-J Posture/Palpation/Skin Start: 11/10/20 07:29 Freq: Status: Active Protocol: Document 01/19/21 07:30 [facility] (Rec: 01/19/21 08:17 [facility] [id number]) Posture Evaluation Rowan Postural Classification System Vertebral Compression Test 1 Elbow Flexion Test 1 Comments Posture Comments scapula abducted & shoulders IR, inc kyphosis, fwd head PT-OP-K Range of Motion Start: 11/10/20 07:29 Freq: Status: Active Protocol: Document 03/17/21 13:01 [facility] (Rec: 03/17/21 14:11 [facility] [id number]) Cervical Spine Range of Motion Cervical Spine Active Degrees Flexion 50 Extension 51 Rotation Left 59 Rotation Right 62 Lateral Flexion Left 30 Lateral Flexion Right 30 Comments pain when SB B, R rot PT-OP-L Special Tests Start: 01/19/21 07:30 Freq: Status: Active Protocol: Document 01/19/21 07:30 [facility] (Rec: 01/19/21 08:17 [facility] [id number]) Special Tests Cervical Spine Special Tests Spurling's Test Test Results neg Neural Special Tests- Upper Body Radial Nerve Tension Test Results neg B Ulnar Nerve Tension Test Results positive R Median Nerve Tension Test Results positive R PT-OP-M Strength Start: 11/10/20 07:29 Freq: Status: Active Protocol: Document 03/17/21 13:01 [facility] (Rec: 03/17/21 14:11 [facility] [id number]) Shoulder Strength Shoulder Manual Muscle Testing Right Flexion 3+ Fair+ Extension 5 Normal Abduction (C5) 3+ Fair+ External Rotation 5 Normal Internal Rotation 5 Normal Horizontal Abduction 4 Good Horizontal Adduction 4+ Good+ Left Flexion 5 Normal Extension 5 Normal Abduction (C5) 4+ Good+ External Rotation 5 Normal Internal Rotation 5 Normal Horizontal Abduction 5 Normal Horizontal Adduction 5 Normal PT-OP-Q Treatments Start: 11/10/20 07:29 Freq: Status: Active Protocol: Document 03/24/21 18:17 [facility] (Rec: 03/24/21 18:24 [facility] [id number]) Therapeutic Activity Therapeutic Activity posture Comments signfiicant work in mirror and w/spouse working on pt neutral (pt tends to SB trunk and neck and have fwd head) x9min Manual Therapy Treatment Soft Tissue Mobilization cervical Body Location L>R SCM & scalenes Mobilization Type Myofascial Release,Rolling, Sustained Pressure,Other Intensity/Depth Moderate Body Position Hooklying Comments manual jaw Body Location L masseter & med pterygoid & digastric & R temporalis Mobilization Type Rolling,Sustained Pressure Intensity/Depth Moderate Body Position Hooklying Joint Mobilizations cervical Joint C1 UPA R jaw Comments 1. c/r into retrusion 2. distraction B w/slight directional glide to R PT-OP-T Assessment and Plan Start: 11/10/20 07:29 Freq: Status: Active Protocol: Document 03/24/21 18:17 [facility] (Rec: 03/24/21 18:24 [facility] [id number]) Physical Therapy Assessment Goals lifting Short Term Goal (STG) Pt report more endurance w/RUE so it doesn't give out. STG Duration 04/19/21 Retirement Goal (LTG) Pt will be able to push objects w/UEs w/o feeling pain . LTG Duration 05/15/21 Shoulder Short Term Goal (STG) Pt will be able to hold phone and talk on phone w/o RUE getting numb 03/15/21: Pt reports less numbness and tingling w/ talking on phone. STG Duration 04/17/21 Offal Separator Goal (LTG) Pt will improve strength of R shoulder to show at least 4/5 UE MMT for flex and abd in order to allow improved ease for overhead activities LTG Duration 06/15/21 jaw Short Term Goal (STG) Pt will be able to bite and chew w/o jaw discomfort even w /something tough like a bagel. STG Duration 04/19/21 Offal Separator Goal (LTG) Pt will be able to yawn,brush teeth and move jaw in all directions w/o jaw popping out. 12/16/20: improving no locking / popping with brushing teeth with head repositioning, but eating is still popping and takes more time to find head/ neck position to allow jaw to open. 01/19-only happening on a bad day 3-4x LTG Duration achieved 03/17 cervical Retirement Goal (LTG) pt will hav efull cervical ROM in order to dec strain of mm onto jaw region and imrpove ability to turn in car. 12/16/20: improved: able to look further over R and L to be able to see when driving, she feels not full ROM yet. 01/19-improving but still limited w/discomfort 03/17-mild limitation w/some discomfort w/flex/ext LTG Duration 04/19/21 ROM Short Term Goal (STG) Pt will be indep w/HEP and mechanics for workouts w/ animal trainer supervisor min A STG Duration 02/20/21 Offal Separator Goal (LTG) Pt will improve overhead shoulder mobility to at least 100 deg flex and abd w/o scapular elevation. 03/15/21: progressin deg flexion without shld elevation , 80 deg ABD. LTG Duration 06/15/21 Assessment Summary Assessment Pt requried a lot of cueing for neck posture and positioning and where is neutral and required frequent corrections. She asked for to be shown good position so she can help her at home which was done. She had dec pain and less clicking and less deviation of jaw after manual treatmetna nd work on positioning neck in neutral. Physical Therapy Plan Frequency and Duration Frequency of Treatment 1-2x/week Duration of Treatment 2 months Plan of Care Start Date 03/17/21 Plan of Care End Date 05/15/21 Next Visit Focus/Plan Next Note Type Treatment Note Next Visit Plan Check in how dental appt went next week. POC: Manual Jaw, and improve diaphragmatic breaths.
--- NOTE | 2021-03-29 09:45 | PT.OTN ---
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 (03/29/21) Other specified disorders of temporomandibular joint (03/29/21) Cervicalgia (03/29/21) Muscle weakness (generalized) (03/29/21) Myalgia of mastication muscle (03/29/21) Abnormal posture (03/29/21) Physical Therapy Treatment Note PT-OP-A Visit Information Start: 11/10/20 07:29 Freq: Status: Active Protocol: Document 03/29/21 09:00 [facility] (Rec: 03/29/21 09:47 [facility] [id number]) Out-Patient Physical Therapy Visit Information Visit Information Visit Type Treatment Note Visit Note 05/29 Visit Start Time 09:00 Visit Stop Time 09:45 Total Visit Minutes 45 Visit Number 28 Number of STATISTICAL ANALYST Visits 1 PT-OP-B Current Condition Start: 11/10/20 07:29 Freq: Status: Active Protocol: Document 01/19/21 07:30 [facility] (Rec: 01/19/21 08:17 [facility] [id number]) Current Condition History of Current Condition Onset Date worse starting 9 months ago Current Complaints L jaw History of Current Condition 01/19-prior to starting PT for jaw, R shoulder pain was constant. Now it is intermittent. Notes arms no longer go to sleep frequently and do not do that to the extent they used to. Neck pain is less frequent now too. Still gets it a couple times a week. When she does core stuff like crunches, her neck starts to hurt. Pt reports weak airway controller and has trouble picking up things when has to use a pincer airway controller. IE:Pt reports jaw keeps popping out. It crunched for years before that. THe popping started 9 months ago. It just started gradually gets worse. It hurts when she pops it back in. Pt reports L side pops out so everything shifts to R. Pt reports neck pain on R side w/ALONSO associated occ. THat has been going on for the past month w/ALONSO. SHe has always had shoulder pain on R side. R TSA has not helped. 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 Her R ant lat arm consistantly always hurts. Her animal attendants and trainers tapes her neck post and that seems to help. Pt reports ALONSO more when laying down. Pt had one other episode w/R neck about 25 years ago that she did PT and OT and responded well with that care and it never came back like that again. Pt reports arms go to sleep and reports R arm airway controller has gotten a lot less. The weakness has been getting progressive over the last few years. 1x a year ago that jaw popped out (both sides)and she couldn't chew or swallow and that was like 30 years ago. Now it pops out at random. Tried mouth guard years ago and found she actually clenched the mouth guard that inc pain. She doesn 't notice herself clench her teeth a lot and doesn't wake up at night d/t jaw sore d/t clenching or anything. Pt reports B mastectomies in 2006 w/chemo. TSA R was 2017 Prior Treatments and Tests PT for shoulder in 2017, Dr. rock is having pt relax jaw by placing in bottom of mouth and teeth slightly apart-also instructed heat but hasn't tried Treatment Goals Patient/Caregiver Goals get rid of most of the pain, be able to move around a little bit and not have pain w /it, not get numb when talking on the phone PT-OP-C Subjective Start: 11/10/20 07:29 Freq: Status: Active Protocol: Document 03/29/21 09:00 [facility] (Rec: 03/29/21 09:47 [facility] [id number]) OP-PT Subjective Patient Comments Patient Comments Pt started saw oral surgeon, placed on Prednizone pack in am to assist inflammation 1st before decide on mouth guard but discussed. Also discussed taking antidepressant in am instead of pm to decrease bruxism (grinding teeth). Pt stated initially jaw tight chewing but after few bites, started loosening up still light pain. PT-OP-F Manual Assessment Start: 11/10/20 07:29 Freq: Status: Active Protocol: Document 01/19/21 07:30 [facility] (Rec: 01/19/21 08:17 [facility] [id number]) Manual Assessments Soft Tissue Assessment Soft Tissue Mobility Assessment tightness B pec, R>L UT & LS, R rhomboids, B Scalenes & SCM, B biceps superiorly PT-OP-J Posture/Palpation/Skin Start: 11/10/20 07:29 Freq: Status: Active Protocol: Document 01/19/21 07:30 [facility] (Rec: 01/19/21 08:17 [facility] [id number]) Posture Evaluation Rowan Postural Classification System Vertebral Compression Test 1 Elbow Flexion Test 1 Comments Posture Comments scapula abducted & shoulders IR, inc kyphosis, fwd head PT-OP-K Range of Motion Start: 11/10/20 07:29 Freq: Status: Active Protocol: Document 03/17/21 13:01 [facility] (Rec: 03/17/21 14:11 [facility] [id number]) Cervical Spine Range of Motion Cervical Spine Active Degrees Flexion 50 Extension 51 Rotation Left 59 Rotation Right 62 Lateral Flexion Left 30 Lateral Flexion Right 30 Comments pain when SB B, R rot PT-OP-L Special Tests Start: 01/19/21 07:30 Freq: Status: Active Protocol: Document 01/19/21 07:30 [facility] (Rec: 01/19/21 08:17 [facility] [id number]) Special Tests Cervical Spine Special Tests Spurling's Test Test Results neg Neural Special Tests- Upper Body Radial Nerve Tension Test Results neg B Ulnar Nerve Tension Test Results positive R Median Nerve Tension Test Results positive R PT-OP-M Strength Start: 11/10/20 07:29 Freq: Status: Active Protocol: Document 03/17/21 13:01 [facility] (Rec: 03/17/21 14:11 [facility] [id number]) Shoulder Strength Shoulder Manual Muscle Testing Right Flexion 3+ Fair+ Extension 5 Normal Abduction (C5) 3+ Fair+ External Rotation 5 Normal Internal Rotation 5 Normal Horizontal Abduction 4 Good Horizontal Adduction 4+ Good+ Left Flexion 5 Normal Extension 5 Normal Abduction (C5) 4+ Good+ External Rotation 5 Normal Internal Rotation 5 Normal Horizontal Abduction 5 Normal Horizontal Adduction 5 Normal PT-OP-Q Treatments Start: 11/10/20 07:29 Freq: Status: Active Protocol: Document 03/29/21 09:00 [facility] (Rec: 03/29/21 09:47 SP [id number]) Therapeutic Exercises Supine Exercises breathing Supine Exercise Name diaphramatic during manual Side bilateral Reps/Minutes many reps- assisted decrease jaw musculature softening Comments cued hands on lateral ribcage for self feedback expansion Sidelying Exercises R shld ER Side right Resistance 3# DB Reps/Minutes x10 Comments cued alignment, slow pacing open book Sidelying Exercise Name arms bent Side bilateral Reps/Minutes x6 reps each Comments cues for no UT recruit, TS rotation, pec stretch Sitting Exercises rocabado Sitting Exercise Name open close Equipment Used in mirror (standing alignment) Reps/Minutes x 10 reps Comments tongue mouth open/ close, isometric mandible R lat pressure open/close Standing Exercises wall posture Standing Exercise Name reviewed HEP, slow roll up, progressed to w/ shldr ER Side bilateral Resistance AROM, #1 TB w/ ER Reps/Minutes 3x, 3x with shldr ER Comments cued chin nod, CS neutral, relaxed jaw Manual Therapy Treatment Soft Tissue Mobilization pec Body Location R major and minor, subscap Mobilization Type Rolling,Strumming,Sustained Pressure Intensity/Depth Moderate Body Position Supine cervical Body Location L>R SCM & scalenes Mobilization Type Myofascial Release,Rolling, Sustained Pressure,Other Intensity/Depth Moderate Body Position Hooklying Comments manual intraoral Body Location L ptyergoid Mobilization Type Sustained Pressure Intensity/Depth Moderate Body Position Hooklying Comments manual and w/jaw open/close jaw Body Location L masseter & med pterygoid & digastric & R temporalis Mobilization Type Rolling,Sustained Pressure Intensity/Depth Moderate Body Position Hooklying Manual Traction CS Body Position Hooklying Reps/Duration 1 min Comments manual PT-OP-T Assessment and Plan Start: 11/10/20 07:29 Freq: Status: Active Protocol: Document 03/29/21 09:00 SP (Rec: 03/29/21 09:47 SP [id number]) Physical Therapy Assessment Goals lifting Short Term Goal (STG) Pt report more endurance w/RUE so it doesn't give out. STG Duration 04/19/21 Habilitation Specialist Goal (LTG) Pt will be able to push objects w/UEs w/o feeling pain . LTG Duration 05/15/21 Shoulder Short Term Goal (STG) Pt will be able to hold phone and talk on phone w/o RUE getting numb 03/15/21: Pt reports less numbness and tingling w/ talking on phone. STG Duration 04/17/21 Care Home Goal (LTG) Pt will improve strength of R shoulder to show at least 4/5 UE MMT for flex and abd in order to allow improved ease for overhead activities LTG Duration 06/15/21 jaw Short Term Goal (STG) Pt will be able to bite and chew w/o jaw discomfort even w /something tough like a bagel. STG Duration 04/19/21 Care Home Goal (LTG) Pt will be able to yawn,brush teeth and move jaw in all directions w/o jaw popping out. 12/16/20: improving no locking / popping with brushing teeth with head repositioning, but eating is still popping and takes more time to find head/ neck position to allow jaw to open. 01/19-only happening on a bad day 3-4x LTG Duration achieved 03/17 cervical Habilitation Specialist Goal (LTG) pt will hav efull cervical ROM in order to dec strain of mm onto jaw region and imrpove ability to turn in car. 12/16/20: improved: able to look further over R and L to be able to see when driving, she feels not full ROM yet. 01/19-improving but still limited w/discomfort 03/17-mild limitation w/some discomfort w/flex/ext LTG Duration 04/19/21 ROM Short Term Goal (STG) Pt will be indep w/HEP and mechanics for workouts w/ animal attendants and trainers min A STG Duration 02/20/21 Habilitation Specialist Goal (LTG) Pt will improve overhead shoulder mobility to at least 100 deg flex and abd w/o scapular elevation. 03/15/21: progressin deg flexion without shld elevation , 80 deg ABD. LTG Duration 06/15/21 Assessment Summary Assessment Pt responded well to manual, decreased tightness in L TMJ. Reviewed R shld resisted ER again gravity, cues for alignment, slow pacing form, painfree. Reviewed wall posture w/ shld ER AROM> resisted TB with cues for postural alignment head, jaw, shld improved with corrections and stated less tightness on jaw. STATISTICAL ANALYST cued to let animal attendants and trainers know when feels tension for help corrections if needed. Physical Therapy Plan Frequency and Duration Frequency of Treatment 1-2x/week Duration of Treatment 2 months Plan of Care Start Date 03/17/21 Plan of Care End Date 05/15/21 Therapeutic Interventions Therapeutic Interventions Aquatic Therapy,Gait Training, Home Exercise Program,Joint Mobilizations,Manual Therapy, Neuromuscular Re-education, Patient/Caregiver Education, Self-Care/Home Management,Soft Tissue Mobilization,Taping, Therapeutic Activities, Therapeutic Exercises Modalities Cold Pack/Ice Massage,Electric Stimulation,Hot Packs, Traction- Mechanical, Ultrasound Next Visit Focus/Plan Next Note Type Treatment Note Next Visit Plan Recheck how responding to Prednisone started day last tx . POC: Manual Jaw, and improve diaphragmatic breaths. R shld strengthening, posture, alignment
--- NOTE | 2021-03-31 07:35 | PT-OP ANOTE ---
Pt left voice message cancelled today's appt, exposed to Covid + person with symptoms (although masks were donned). Pt states not having symptoms but wants to be safe and stay home quarantine, will covid test in few days for safety before return to PT early next week.
--- NOTE | 2021-04-04 16:34 | PT.OTN ---
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 (Rec: 04/04/21 16:34 [facility] [id number]) Out-Patient Physical Therapy Visit Information Visit Information Visit Type Treatment Note Visit Note 06/28 Visit Start Time 14:36 Visit Stop Time 15:16 Total Visit Minutes 40 Visit Number 29 Number of SOLUTIONS ARCHITECT Visits 0 PT-OP-B Current Condition Start: 11/10/20 07:29 Freq: Status: Active Protocol: Document 01/19/21 07:30 [facility] (Rec: 01/19/21 08:17 [facility] [id number]) Current Condition History of Current Condition Onset Date worse starting 9 months ago Current Complaints L jaw History of Current Condition 01/19-prior to starting PT for jaw, R shoulder pain was constant. Now it is intermittent. Notes arms no longer go to sleep frequently and do not do that to the extent they used to. Neck pain is less frequent now too. Still gets it a couple times a week. When she does core stuff like crunches, her neck starts to hurt. 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 IE:Pt reports jaw keeps popping out. It crunched for years before that. THe popping started 9 months ago. It just started gradually gets worse. It hurts when she pops it back in. Pt reports L side pops out so everything shifts to R. Pt reports neck pain on R side w/ALONSO associated occ. THat has been going on for the past month w/ALONSO. SHe has always had shoulder pain on R side. R TSA has not helped. 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 Her R ant lat arm consistantly always hurts. Her salesforce trainer tapes her neck post and that seems to help. Pt reports ALONSO more when laying down. Pt had one other episode w/R neck about 25 years ago that she did PT and OT and responded well with that care and it never came back like that again. Pt reports arms go to sleep and reports R arm field crop harvest contractor has gotten a lot less. The weakness has been getting progressive over the last few years. 1x a year ago that jaw popped out (both sides)and she couldn't chew or swallow and that was like 30 years ago. Now it pops out at random. Tried mouth guard years ago and found she actually clenched the mouth guard that inc pain. She doesn 't notice herself clench her teeth a lot and doesn't wake up at night d/t jaw sore d/t clenching or anything. Pt reports B mastectomies in 2006 w/chemo. TSA R was 2017 Prior Treatments and Tests PT for shoulder in 2017, Dr. rock is having pt relax jaw by placing in bottom of mouth and teeth slightly apart-also instructed heat but hasn't tried Treatment Goals Patient/Caregiver Goals get rid of most of the pain, be able to move around a little bit and not have pain w /it, not get numb when talking on the phone PT-OP-C Subjective Start: 11/10/20 07:29 Freq: Status: Active Protocol: Document 04/04/21 14:41 [facility] (Rec: 04/04/21 16:34 [facility] [id number]) OP-PT Subjective Patient Comments Patient Comments Pt reports prednizone is done as of yesterday and feels like it helped. Jaw is better as long as she doesn't chew on L side but if she chews on that sie it is painful. Neck has been feeling good. Shoulder feels a little tight. PT-OP-F Manual Assessment Start: 11/10/20 07:29 Freq: Status: Active Protocol: Document 01/19/21 07:30 [facility] (Rec: 01/19/21 08:17 [facility] [id number]) Manual Assessments Soft Tissue Assessment Soft Tissue Mobility Assessment tightness B pec, R>L UT & LS, R rhomboids, B Scalenes & SCM, B biceps superiorly PT-OP-J Posture/Palpation/Skin Start: 11/10/20 07:29 Freq: Status: Active Protocol: Document 01/19/21 07:30 [facility] (Rec: 01/19/21 08:17 [facility] [id number]) Posture Evaluation [facility] Postural Classification System Vertebral Compression Test 1 Elbow Flexion Test 1 Comments Posture Comments scapula abducted & shoulders IR, inc kyphosis, fwd head PT-OP-K Range of Motion Start: 11/10/20 07:29 Freq: Status: Active Protocol: Document 03/17/21 13:01 [facility] (Rec: 03/17/21 14:11 [facility] [id number]) Cervical Spine Range of Motion Cervical Spine Active Degrees Flexion 50 Extension 51 Rotation Left 59 Rotation Right 62 Lateral Flexion Left 30 Lateral Flexion Right 30 Comments pain when SB B, R rot PT-OP-L Special Tests Start: 01/19/21 07:30 Freq: Status: Active Protocol: Document 01/19/21 07:30 [facility] (Rec: 01/19/21 08:17 [facility] [id number]) Special Tests Cervical Spine Special Tests Spurling's Test Test Results neg Neural Special Tests- Upper Body Radial Nerve Tension Test Results neg B Ulnar Nerve Tension Test Results positive R Median Nerve Tension Test Results positive R PT-OP-M Strength Start: 11/10/20 07:29 Freq: Status: Active Protocol: Document 03/17/21 13:01 [facility] (Rec: 03/17/21 14:11 [facility] [id number]) Shoulder Strength Shoulder Manual Muscle Testing Right Flexion 3+ Fair+ Extension 5 Normal Abduction (C5) 3+ Fair+ External Rotation 5 Normal Internal Rotation 5 Normal Horizontal Abduction 4 Good Horizontal Adduction 4+ Good+ Left Flexion 5 Normal Extension 5 Normal Abduction (C5) 4+ Good+ External Rotation 5 Normal Internal Rotation 5 Normal Horizontal Abduction 5 Normal Horizontal Adduction 5 Normal PT-OP-Q Treatments Start: 11/10/20 07:29 Freq: Status: Active Protocol: Document 04/04/21 14:41 [facility] (Rec: 04/04/21 16:34 [facility] [id number]) Therapeutic Exercises Supine Exercises rhythmic stabilization Supine Exercise Name in flex 110 deg Side right Reps/Minutes 2 min retraction Supine Exercise Name retract w/Habd then flex Side bilateral Reps/Minutes 20 Comments on foam roll Other Exercises jitendra pose Side bilateral Reps/Minutes 30 sec bird dog Other Exercise Name alt arm flex only Side bilateral Reps/Minutes 10 quadruped Other Exercise Name serratus punches Side bilateral Reps/Minutes 2x10 Manual Therapy Treatment Soft Tissue Mobilization pec Body Location R major and minor Mobilization Type Rolling,Strumming,Sustained Pressure Intensity/Depth Moderate Body Position Supine lat Body Location R lat, teres Mobilization Type Sustained Pressure Intensity/Depth Moderate Body Position Supine Comments w/flex jaw Body Location L post jaw Mobilization Type Rolling,Sustained Pressure Intensity/Depth Moderate Body Position Hooklying Joint Mobilizations GH Joint R Direction inf, post, distraction Comments progressed to D2 flx w/tbar AC Joint R Direction gapping FM PT-OP-T Assessment and Plan Start: 11/10/20 07:29 Freq: Status: Active Protocol: Document 04/04/21 14:41 [facility] (Rec: 04/04/21 16:34 [facility] [id number]) Physical Therapy Assessment Goals lifting Short Term Goal (STG) Pt report more endurance w/RUE so it doesn't give out. STG Duration 04/19/21 Half-Way Goal (LTG) Pt will be able to push objects w/UEs w/o feeling pain . LTG Duration 05/15/21 Shoulder Short Term Goal (STG) Pt will be able to hold phone and talk on phone w/o RUE getting numb 03/15/21: Pt reports less numbness and tingling w/ talking on phone. STG Duration 04/17/21 Six Color Press Operator Goal (LTG) Pt will improve strength of R shoulder to show at least 4/5 UE MMT for flex and abd in order to allow improved ease for overhead activities LTG Duration 06/15/21 jaw Short Term Goal (STG) Pt will be able to bite and chew w/o jaw discomfort even w /something tough like a bagel. STG Duration 04/19/21 Six Color Press Operator Goal (LTG) Pt will be able to yawn,brush teeth and move jaw in all directions w/o jaw popping out. 12/16/20: improving no locking / popping with brushing teeth with head repositioning, but eating is still popping and takes more time to find head/ neck position to allow jaw to open. 01/19-only happening on a bad day 3-4x LTG Duration achieved 03/17 cervical Six Color Press Operator Goal (LTG) pt will hav efull cervical ROM in order to dec strain of mm onto jaw region and imrpove ability to turn in car. 12/16/20: improved: able to look further over R and L to be able to see when driving, she feels not full ROM yet. 01/19-improving but still limited w/discomfort 03/17-mild limitation w/some discomfort w/flex/ext LTG Duration 04/19/21 ROM Short Term Goal (STG) Pt will be indep w/HEP and mechanics for workouts w/ salesforce trainer min A STG Duration 02/20/21 Six Color Press Operator Goal (LTG) Pt will improve overhead shoulder mobility to at least 100 deg flex and abd w/o scapular elevation. 03/15/21: progressin deg flexion without shld elevation , 80 deg ABD. LTG Duration 06/15/21 Assessment Summary Assessment Pt required significant cues w /all exercises for scap movement in order to avoid elevation of scap and UT engagement. iMproved jaw mobility overall but still tightness in post jaw on L side. Pt encouraged to wrok on this herself. Improved overhead motion w/ mobilizations of shoulder today. Physical Therapy Plan Frequency and Duration Frequency of Treatment 1-2x/week Duration of Treatment 2 months Plan of Care Start Date 03/17/21 Plan of Care End Date 05/15/21 Next Visit Focus/Plan Next Note Type Treatment Note Next Visit Plan work on scap depression & ability to do overhead UE motion
--- NOTE | 2021-04-07 08:36 | PT.OTN ---
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) Other specified disorders of temporomandibular joint (04/07/21) Cervicalgia (04/07/21) Muscle weakness (generalized) (04/07/21) Myalgia of mastication muscle (04/07/21) Abnormal posture (04/07/21) Physical Therapy Treatment Note PT-OP-A Visit Information Start: 11/10/20 07:29 Freq: Status: Active Protocol: Document 04/07/21 07:30 [facility] (Rec: 04/07/21 08:35 [facility] [id number]) Out-Patient Physical Therapy Visit Information Visit Information Visit Type Treatment Note Visit Note 07/29 Visit Start Time 07:30 Visit Stop Time 08:15 Total Visit Minutes 45 Visit Number 30 Number of BATCHER OPERATOR Visits 1 PT-OP-B Current Condition Start: 11/10/20 07:29 Freq: Status: Active Protocol: Document 01/19/21 07:30 [facility] (Rec: 01/19/21 08:17 [facility] [id number]) Current Condition History of Current Condition Onset Date worse starting 9 months ago Current Complaints L jaw History of Current Condition 01/19-prior to starting PT for jaw, R shoulder pain was constant. Now it is intermittent. Notes arms no longer go to sleep frequently and do not do that to the extent they used to. Neck pain is less frequent now too. Still gets it a couple times a week. When she does core stuff like crunches, her neck starts to hurt. 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 IE:Pt reports jaw keeps popping out. It crunched for years before that. THe popping started 9 months ago. It just started gradually gets worse. It hurts when she pops it back in. Pt reports L side pops out so everything shifts to R. Pt reports neck pain on R side w/ALONSO associated occ. THat has been going on for the past month w/ALONSO. SHe has always had shoulder pain on R side. R TSA has not helped. 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 Her R ant lat arm consistantly always hurts. Her marine animal trainer tapes her neck post and that seems to help. Pt reports ALONSO more when laying down. Pt had one other episode w/R neck about 25 years ago that she did PT and OT and responded well with that care and it never came back like that again. Pt reports arms go to sleep and reports R arm charging machine operator has gotten a lot less. The weakness has been getting progressive over the last few years. 1x a year ago that jaw popped out (both sides)and she couldn't chew or swallow and that was like 30 years ago. Now it pops out at random. Tried mouth guard years ago and found she actually clenched the mouth guard that inc pain. She doesn 't notice herself clench her teeth a lot and doesn't wake up at night d/t jaw sore d/t clenching or anything. Pt reports B mastectomies in 2006 w/chemo. TSA R was 2017 Prior Treatments and Tests PT for shoulder in 2017, Dr. rock is having pt relax jaw by placing in bottom of mouth and teeth slightly apart-also instructed heat but hasn't tried Treatment Goals Patient/Caregiver Goals get rid of most of the pain, be able to move around a little bit and not have pain w /it, not get numb when talking on the phone PT-OP-C Subjective Start: 11/10/20 07:29 Freq: Status: Active Protocol: Document 04/07/21 07:30 [facility] (Rec: 04/07/21 08:35 [facility] [id number]) OP-PT Subjective Patient Comments Patient Comments Pt stated jaw feeling good today. R shld discomfort today , always stiff when wakes up, sleeps on R side. PT-OP-F Manual Assessment Start: 11/10/20 07:29 Freq: Status: Active Protocol: Document 01/19/21 07:30 [facility] (Rec: 01/19/21 08:17 [facility] [id number]) Manual Assessments Soft Tissue Assessment Soft Tissue Mobility Assessment tightness B pec, R>L UT & LS, R rhomboids, B Scalenes & SCM, B biceps superiorly PT-OP-J Posture/Palpation/Skin Start: 11/10/20 07:29 Freq: Status: Active Protocol: Document 01/19/21 07:30 [facility] (Rec: 01/19/21 08:17 [facility] [id number]) Posture Evaluation [facility] Postural Classification System Vertebral Compression Test 1 Elbow Flexion Test 1 Comments Posture Comments scapula abducted & shoulders IR, inc kyphosis, fwd head PT-OP-K Range of Motion Start: 11/10/20 07:29 Freq: Status: Active Protocol: Document 03/17/21 13:01 [facility] (Rec: 03/17/21 14:11 [facility] [id number]) Cervical Spine Range of Motion Cervical Spine Active Degrees Flexion 50 Extension 51 Rotation Left 59 Rotation Right 62 Lateral Flexion Left 30 Lateral Flexion Right 30 Comments pain when SB B, R rot PT-OP-L Special Tests Start: 01/19/21 07:30 Freq: Status: Active Protocol: Document 01/19/21 07:30 [facility] (Rec: 01/19/21 08:17 [facility] [id number]) Special Tests Cervical Spine Special Tests Spurling's Test Test Results neg Neural Special Tests- Upper Body Radial Nerve Tension Test Results neg B Ulnar Nerve Tension Test Results positive R Median Nerve Tension Test Results positive R PT-OP-M Strength Start: 11/10/20 07:29 Freq: Status: Active Protocol: Document 03/17/21 13:01 [facility] (Rec: 03/17/21 14:11 [facility] [id number]) Shoulder Strength Shoulder Manual Muscle Testing Right Flexion 3+ Fair+ Extension 5 Normal Abduction (C5) 3+ Fair+ External Rotation 5 Normal Internal Rotation 5 Normal Horizontal Abduction 4 Good Horizontal Adduction 4+ Good+ Left Flexion 5 Normal Extension 5 Normal Abduction (C5) 4+ Good+ External Rotation 5 Normal Internal Rotation 5 Normal Horizontal Abduction 5 Normal Horizontal Adduction 5 Normal PT-OP-Q Treatments Start: 11/10/20 07:29 Freq: Status: Active Protocol: Document 04/07/21 07:30 [facility] (Rec: 04/07/21 08:35 SP [id number]) Therapeutic Exercises Supine Exercises Ts, 1/2 Xs, Ws Supine Exercise Name review serratus eccentric > concentric, Ts, FF Side bilateral Resistance AROM Equipment Used over foam roller (can use at gym daily) Reps/Minutes x10 each direction Comments cued allow scap complex posterior & inferior glide on foam roller Sidelying Exercises R shld ER Side right Resistance AROM- cued slow Equipment Used towel under arm Reps/Minutes x10 Comments Cued rhomboid, LT recruitment awarenes for neutral positioning Other Exercises 1/2 kneel eccentric flexion stretch Other Exercise Name added to HEP Side right Resistance AAROM Equipment Used foam cushion under opposite knee Reps/Minutes 2 sec hold x5 Comments cued scap depression con/ eccentric movement Manual Therapy Treatment Soft Tissue Mobilization pec Body Location R major and minor Mobilization Type Rolling,Strumming,Sustained Pressure Intensity/Depth Moderate Body Position Supine Comments manual and instruction self w/ racquetball on wall corner lat Body Location R lat, subscap Mobilization Type Sustained Pressure Intensity/Depth Moderate Body Position Supine Comments w/flex, slight adduction positioning cervical Body Location R paraspinals, UT, Lev scap Mobilization Type Myofascial Release,Rolling, Sustained Pressure,Other Intensity/Depth Moderate Body Position Supine Comments manual PT-OP-T Assessment and Plan Start: 11/10/20 07:29 Freq: Status: Active Protocol: Document 04/07/21 07:30 [facility] (Rec: 04/07/21 08:35 SP [id number]) Physical Therapy Assessment Goals lifting Short Term Goal (STG) Pt report more endurance w/RUE so it doesn't give out. STG Duration 04/19/21 Vault Service Mechanic Goal (LTG) Pt will be able to push objects w/UEs w/o feeling pain . LTG Duration 05/15/21 Shoulder Short Term Goal (STG) Pt will be able to hold phone and talk on phone w/o RUE getting numb 03/15/21: Pt reports less numbness and tingling w/ talking on phone. STG Duration 04/17/21 Vault Service Mechanic Goal (LTG) Pt will improve strength of R shoulder to show at least 4/5 UE MMT for flex and abd in order to allow improved ease for overhead activities LTG Duration 06/15/21 jaw Short Term Goal (STG) Pt will be able to bite and chew w/o jaw discomfort even w /something tough like a bagel. STG Duration 04/19/21 Prison Goal (LTG) Pt will be able to yawn,brush teeth and move jaw in all directions w/o jaw popping out. 12/16/20: improving no locking / popping with brushing teeth with head repositioning, but eating is still popping and takes more time to find head/ neck position to allow jaw to open. 01/19-only happening on a bad day 3-4x LTG Duration achieved 03/17 cervical Vault Service Mechanic Goal (LTG) pt will hav efull cervical ROM in order to dec strain of mm onto jaw region and imrpove ability to turn in car. 12/16/20: improved: able to look further over R and L to be able to see when driving, she feels not full ROM yet. 01/19-improving but still limited w/discomfort 03/17-mild limitation w/some discomfort w/flex/ext LTG Duration 04/19/21 ROM Short Term Goal (STG) Pt will be indep w/HEP and mechanics for workouts w/ marine animal trainer min A STG Duration 02/20/21 Vault Service Mechanic Goal (LTG) Pt will improve overhead shoulder mobility to at least 100 deg flex and abd w/o scapular elevation. 03/15/21: progressin deg flexion without shld elevation , 80 deg ABD. LTG Duration 06/15/21 Assessment Summary Assessment BATCHER OPERATOR reviewed sleeping with pillow under ribcage for trunk and R shld support for alignment postiioning. Pt improved in self corrections low trap facilitation scap depresssion stabilization w/ segmental humeral FF ROM supine over foam roller and initiated 1/2 knee eccentric FF with verbal cues and mirror for feedback slow pacing motion. Physical Therapy Plan Frequency and Duration Frequency of Treatment 1-2x/week Duration of Treatment 2 months Plan of Care Start Date 03/17/21 Plan of Care End Date 05/15/21 Therapeutic Interventions Therapeutic Interventions Aquatic Therapy,Gait Training, Home Exercise Program,Joint Mobilizations,Manual Therapy, Neuromuscular Re-education, Patient/Caregiver Education, Self-Care/Home Management,Soft Tissue Mobilization,Taping, Therapeutic Activities, Therapeutic Exercises Modalities Cold Pack/Ice Massage,Electric Stimulation,Hot Packs, Traction- Mechanical, Ultrasound Next Visit Focus/Plan Next Note Type Treatment Note Next Visit Plan Recheck TB 1/2 knee FF AAROM, manual partridge protocol. POC: continue work on scap depression & ability to do overhead UE motion
--- NOTE | 2021-04-12 14:36 | PT.OTN ---
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) Other specified disorders of temporomandibular joint (04/12/21) Cervicalgia (04/12/21) Muscle weakness (generalized) (04/12/21) Myalgia of mastication muscle (04/12/21) Abnormal posture (04/12/21) Physical Therapy Treatment Note PT-OP-A Visit Information Start: 11/10/20 07:29 Freq: Status: Active Protocol: Document 04/12/21 13:54 [facility] (Rec: 04/12/21 14:36 [facility] [id number]) Out-Patient Physical Therapy Visit Information Visit Information Visit Type Treatment Note Visit Note 08/28 Visit Start Time 13:50 Visit Stop Time 14:30 Total Visit Minutes 40 Visit Number 31 Number of PAIN MEDICINE PHYSICIAN Visits 0 PT-OP-B Current Condition Start: 11/10/20 07:29 Freq: Status: Active Protocol: Document 01/19/21 07:30 [facility] (Rec: 01/19/21 08:17 [facility] [id number]) Current Condition History of Current Condition Onset Date worse starting 9 months ago Current Complaints L jaw History of Current Condition 01/19-prior to starting PT for jaw, R shoulder pain was constant. Now it is intermittent. Notes arms no longer go to sleep frequently and do not do that to the extent they used to. Neck pain is less frequent now too. Still gets it a couple times a week. When she does core stuff like crunches, her neck starts to hurt. Pt reports weak interior decorator paperhanging and has trouble picking up things when has to use a pincer interior decorator paperhanging. IE:Pt reports jaw keeps popping out. It crunched for years before that. THe popping started 9 months ago. It just started gradually gets worse. It hurts when she pops it back in. Pt reports L side pops out so everything shifts to R. Pt reports neck pain on R side w/ALONSO associated occ. THat has been going on for the past month w/ALONSO. SHe has always had shoulder pain on R side. R TSA has not helped. 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 Her R ant lat arm consistantly always hurts. Her dog handler or trainer tapes her neck post and that seems to help. Pt reports ALONSO more when laying down. Pt had one other episode w/R neck about 25 years ago that she did PT and OT and responded well with that care and it never came back like that again. Pt reports arms go to sleep and reports R arm interior decorator paperhanging has gotten a lot less. The weakness has been getting progressive over the last few years. 1x a year ago that jaw popped out (both sides)and she couldn't chew or swallow and that was like 30 years ago. Now it pops out at random. Tried mouth guard years ago and found she actually clenched the mouth guard that inc pain. She doesn 't notice herself clench her teeth a lot and doesn't wake up at night d/t jaw sore d/t clenching or anything. Pt reports B mastectomies in 2006 w/chemo. TSA R was 2017 Prior Treatments and Tests PT for shoulder in 2017, Dr. rock is having pt relax jaw by placing in bottom of mouth and teeth slightly apart-also instructed heat but hasn't tried Treatment Goals Patient/Caregiver Goals get rid of most of the pain, be able to move around a little bit and not have pain w /it, not get numb when talking on the phone PT-OP-C Subjective Start: 11/10/20 07:29 Freq: Status: Active Protocol: Document 04/12/21 13:54 [facility] (Rec: 04/12/21 14:36 [facility] [id number]) OP-PT Subjective Patient Comments Patient Comments Pt reports jaw seems to go out but less than it used to. PT-OP-F Manual Assessment Start: 11/10/20 07:29 Freq: Status: Active Protocol: Document 01/19/21 07:30 [facility] (Rec: 01/19/21 08:17 [facility] [id number]) Manual Assessments Soft Tissue Assessment Soft Tissue Mobility Assessment tightness B pec, R>L UT & LS, R rhomboids, B Scalenes & SCM, B biceps superiorly PT-OP-J Posture/Palpation/Skin Start: 11/10/20 07:29 Freq: Status: Active Protocol: Document 01/19/21 07:30 [facility] (Rec: 01/19/21 08:17 [facility] [id number]) Posture Evaluation [facility] Postural Classification System Vertebral Compression Test 1 Elbow Flexion Test 1 Comments Posture Comments scapula abducted & shoulders IR, inc kyphosis, fwd head PT-OP-K Range of Motion Start: 11/10/20 07:29 Freq: Status: Active Protocol: Document 03/17/21 13:01 [facility] (Rec: 03/17/21 14:11 [facility] [id number]) Cervical Spine Range of Motion Cervical Spine Active Degrees Flexion 50 Extension 51 Rotation Left 59 Rotation Right 62 Lateral Flexion Left 30 Lateral Flexion Right 30 Comments pain when SB B, R rot PT-OP-L Special Tests Start: 01/19/21 07:30 Freq: Status: Active Protocol: Document 01/19/21 07:30 [facility] (Rec: 01/19/21 08:17 [facility] [id number]) Special Tests Cervical Spine Special Tests Spurling's Test Test Results neg Neural Special Tests- Upper Body Radial Nerve Tension Test Results neg B Ulnar Nerve Tension Test Results positive R Median Nerve Tension Test Results positive R PT-OP-M Strength Start: 11/10/20 07:29 Freq: Status: Active Protocol: Document 03/17/21 13:01 [facility] (Rec: 03/17/21 14:11 [facility] [id number]) Shoulder Strength Shoulder Manual Muscle Testing Right Flexion 3+ Fair+ Extension 5 Normal Abduction (C5) 3+ Fair+ External Rotation 5 Normal Internal Rotation 5 Normal Horizontal Abduction 4 Good Horizontal Adduction 4+ Good+ Left Flexion 5 Normal Extension 5 Normal Abduction (C5) 4+ Good+ External Rotation 5 Normal Internal Rotation 5 Normal Horizontal Abduction 5 Normal Horizontal Adduction 5 Normal PT-OP-Q Treatments Start: 11/10/20 07:29 Freq: Status: Active Protocol: Document 04/12/21 13:54 [facility] (Rec: 04/12/21 14:36 [facility] [id number]) Therapeutic Exercises Sitting Exercises rocabado Sitting Exercise Name 6x6 w/max cues Reps/Minutes x 10 reps Manual Therapy Treatment Soft Tissue Mobilization cervical Body Location B SCM Mobilization Type Myofascial Release,Rolling, Sustained Pressure,Other Intensity/Depth Moderate Body Position Supine Comments manual intraoral Body Location R ptyergoid Mobilization Type Sustained Pressure Intensity/Depth Moderate Body Position Hooklying Comments manual and w/jaw open/close jaw Body Location L post jaw Mobilization Type Rolling,Sustained Pressure Intensity/Depth Moderate Body Position Hooklying Joint Mobilizations jaw Joint L distraction FM PT-OP-T Assessment and Plan Start: 11/10/20 07:29 Freq: Status: Active Protocol: Document 04/12/21 13:54 [facility] (Rec: 04/12/21 14:36 [facility] [id number]) Physical Therapy Assessment Goals lifting Short Term Goal (STG) Pt report more endurance w/RUE so it doesn't give out. STG Duration 04/19/21 Electrical Electronics Engineers Goal (LTG) Pt will be able to push objects w/UEs w/o feeling pain . LTG Duration 05/15/21 Shoulder Short Term Goal (STG) Pt will be able to hold phone and talk on phone w/o RUE getting numb 03/15/21: Pt reports less numbness and tingling w/ talking on phone. STG Duration 04/17/21 Shelter Goal (LTG) Pt will improve strength of R shoulder to show at least 4/5 UE MMT for flex and abd in order to allow improved ease for overhead activities LTG Duration 06/15/21 jaw Short Term Goal (STG) Pt will be able to bite and chew w/o jaw discomfort even w /something tough like a bagel. STG Duration 04/19/21 Electrical Electronics Engineers Goal (LTG) Pt will be able to yawn,brush teeth and move jaw in all directions w/o jaw popping out. 12/16/20: improving no locking / popping with brushing teeth with head repositioning, but eating is still popping and takes more time to find head/ neck position to allow jaw to open. 01/19-only happening on a bad day 3-4x LTG Duration achieved 03/17 cervical Shelter Goal (LTG) pt will hav efull cervical ROM in order to dec strain of mm onto jaw region and imrpove ability to turn in car. 12/16/20: improved: able to look further over R and L to be able to see when driving, she feels not full ROM yet. 01/19-improving but still limited w/discomfort 03/17-mild limitation w/some discomfort w/flex/ext LTG Duration 04/19/21 ROM Short Term Goal (STG) Pt will be indep w/HEP and mechanics for workouts w/ dog handler or trainer min A STG Duration 02/20/21 Shelter Goal (LTG) Pt will improve overhead shoulder mobility to at least 100 deg flex and abd w/o scapular elevation. 03/15/21: progressin deg flexion without shld elevation , 80 deg ABD. LTG Duration 06/15/21 Assessment Summary Assessment Pt required a lot of cues w/ jaw exercises and needed PT to encourage slow down and focus on not letting jaw come fwd. Improved jaw opening w/less protrusion after manual. Physical Therapy Plan Frequency and Duration Frequency of Treatment 1-2x/week Duration of Treatment 2 months Plan of Care Start Date 03/17/21 Plan of Care End Date 05/15/21 Next Visit Focus/Plan Next Note Type Treatment Note Next Visit Plan Recheck TB 1 knee FF AAROM, manual partridge protocol. POC: continue work on scap depression & ability to do overhead UE motion
--- NOTE | 2021-04-14 07:30 | PT-OP ANOTE ---
Pt called left message, cancel today's appt due to bad weather, was offered pm appt but unable to with prior plans.
--- NOTE | 2021-04-26 14:30 | PT.OTN ---
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 (04/26/21) Other specified disorders of temporomandibular joint (04/26/21) Cervicalgia (04/26/21) Muscle weakness (generalized) (04/26/21) Myalgia of mastication muscle (04/26/21) Abnormal posture (04/26/21) Physical Therapy Treatment Note PT-OP-A Visit Information Start: 11/10/20 07:29 Freq: Status: Active Protocol: Document 04/26/21 13:48 [facility] (Rec: 04/26/21 14:36 [facility] [id number]) Out-Patient Physical Therapy Visit Information Visit Information Visit Type Treatment Note Visit Note 09/28 Visit Start Time 13:48 Visit Stop Time 14:30 Total Visit Minutes 42 Visit Number 32 Number of WATER REGULATOR AND VALVE REPAIRER Visits 1 PT-OP-B Current Condition Start: 11/10/20 07:29 Freq: Status: Active Protocol: Document 01/19/21 07:30 [facility] (Rec: 01/19/21 08:17 [facility] [id number]) Current Condition History of Current Condition Onset Date worse starting 9 months ago Current Complaints L jaw History of Current Condition 01/19-prior to starting PT for jaw, R shoulder pain was constant. Now it is intermittent. Notes arms no longer go to sleep frequently and do not do that to the extent they used to. Neck pain is less frequent now too. Still gets it a couple times a week. When she does core stuff like crunches, her neck starts to hurt. Pt reports weak mapping pilot and has trouble picking up things when has to use a pincer mapping pilot. IE:Pt reports jaw keeps popping out. It crunched for years before that. THe popping started 9 months ago. It just started gradually gets worse. It hurts when she pops it back in. Pt reports L side pops out so everything shifts to R. Pt reports neck pain on R side w/ALONSO associated occ. THat has been going on for the past month w/ALONSO. SHe has always had shoulder pain on R side. R TSA has not helped. 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 Her R ant lat arm consistantly always hurts. Her sports trainer tapes her neck post and that seems to help. Pt reports ALONSO more when laying down. Pt had one other episode w/R neck about 25 years ago that she did PT and OT and responded well with that care and it never came back like that again. Pt reports arms go to sleep and reports R arm mapping pilot has gotten a lot less. The weakness has been getting progressive over the last few years. 1x a year ago that jaw popped out (both sides)and she couldn't chew or swallow and that was like 30 years ago. Now it pops out at random. Tried mouth guard years ago and found she actually clenched the mouth guard that inc pain. She doesn 't notice herself clench her teeth a lot and doesn't wake up at night d/t jaw sore d/t clenching or anything. Pt reports B mastectomies in 2006 w/chemo. TSA R was 2017 Prior Treatments and Tests PT for shoulder in 2017, Dr. rock is having pt relax jaw by placing in bottom of mouth and teeth slightly apart-also instructed heat but hasn't tried Treatment Goals Patient/Caregiver Goals get rid of most of the pain, be able to move around a little bit and not have pain w /it, not get numb when talking on the phone PT-OP-C Subjective Start: 11/10/20 07:29 Freq: Status: Active Protocol: Document 04/26/21 13:48 [facility] (Rec: 04/26/21 14:36 [facility] [id number]) OP-PT Subjective Patient Comments Patient Comments Pt reports finds mandible off to R and gets stuck, at times can massage and get back to center but doesn't alway work. Even resting finds outof alignment, performs knows posture center but doesn't always work. Doesn't have the strength to chew all foods and finds swallowing whole after cuts in smaller bites. No pain right now. R shld and neck havent' been bothering her much, pretty good. PT-OP-F Manual Assessment Start: 11/10/20 07:29 Freq: Status: Active Protocol: Document 01/19/21 07:30 [facility] (Rec: 01/19/21 08:17 [facility] [id number]) Manual Assessments Soft Tissue Assessment Soft Tissue Mobility Assessment tightness B pec, R>L UT & LS, R rhomboids, B Scalenes & SCM, B biceps superiorly PT-OP-J Posture/Palpation/Skin Start: 11/10/20 07:29 Freq: Status: Active Protocol: Document 01/19/21 07:30 [facility] (Rec: 01/19/21 08:17 [facility] [id number]) Posture Evaluation [facility] Postural Classification System Vertebral Compression Test 1 Elbow Flexion Test 1 Comments Posture Comments scapula abducted & shoulders IR, inc kyphosis, fwd head PT-OP-K Range of Motion Start: 11/10/20 07:29 Freq: Status: Active Protocol: Document 04/26/21 13:48 [facility] (Rec: 04/26/21 14:36 [facility] [id number]) Shoulder Goniometric Range of Motion Shoulder Right Active Shoulder ROM WFL No Testing Position Standing Flexion 100 Extension 60 Abduction 100 External Rotation at 0 degrees Abduction 65 Internal Rotation Behind Back (text) L2 Comments Pt completed AROM with tall posture without cues: improved flex and abd with decreased elevation of scapula with self corrections. RUE post manual; FF (elbow bent both measurements) 107 ABD 109 ER 67 IR behind back: L1 PT-OP-L Special Tests Start: 01/19/21 07:30 Freq: Status: Active Protocol: Document 01/19/21 07:30 [facility] (Rec: 01/19/21 08:17 [facility] [id number]) Special Tests Cervical Spine Special Tests Spurling's Test Test Results neg Neural Special Tests- Upper Body Radial Nerve Tension Test Results neg B Ulnar Nerve Tension Test Results positive R Median Nerve Tension Test Results positive R PT-OP-M Strength Start: 11/10/20 07:29 Freq: Status: Active Protocol: Document 03/17/21 13:01 [facility] (Rec: 03/17/21 14:11 [facility] [id number]) Shoulder Strength Shoulder Manual Muscle Testing Right Flexion 3+ Fair+ Extension 5 Normal Abduction (C5) 3+ Fair+ External Rotation 5 Normal Internal Rotation 5 Normal Horizontal Abduction 4 Good Horizontal Adduction 4+ Good+ Left Flexion 5 Normal Extension 5 Normal Abduction (C5) 4+ Good+ External Rotation 5 Normal Internal Rotation 5 Normal Horizontal Abduction 5 Normal Horizontal Adduction 5 Normal PT-OP-Q Treatments Start: 11/10/20 07:29 Freq: Status: Active Protocol: Document 04/26/21 13:48 [facility] (Rec: 04/26/21 14:36 [facility] [id number]) Therapeutic Exercises Other Exercises 1/2 kneel eccentric flexion stretch Other Exercise Name added to HEP Side right Resistance AAROM Equipment Used foam cushion under opposite knee Reps/Minutes x5 5 sec hold Comments cued scap depression con/ eccentric movement 124 deg AAROM Manual Therapy Treatment Soft Tissue Mobilization partridge protocol Body Location R UE Mobilization Type Oscillations,Sustained Pressure Intensity/Depth Moderate Comments manual: PT-OP-T Assessment and Plan Start: 11/10/20 07:29 Freq: Status: Active Protocol: Document 04/26/21 13:48 [facility] (Rec: 04/26/21 14:36 [facility] [id number]) Physical Therapy Assessment Goals lifting Short Term Goal (STG) Pt report more endurance w/RUE so it doesn't give out. 04/26/21: Progressing: improved 50% better, still reaching OH gives way. STG Duration 04/19/21 Automatic Lehr Operator Goal (LTG) Pt will be able to push objects w/UEs w/o feeling pain . 04/26/21: progressin% better. LTG Duration 05/15/21 Shoulder Short Term Goal (STG) Pt will be able to hold phone and talk on phone w/o RUE getting numb 03/15/21: Pt reports less numbness and tingling w/ talking on phone. 04/26/21: Goal met:no tingling numbness anymore. STG Duration GOAL MET Automatic Lehr Operator Goal (LTG) Pt will improve strength of R shoulder to show at least 4/5 UE MMT for flex and abd in order to allow improved ease for overhead activities LTG Duration 06/15/21 jaw Short Term Goal (STG) Pt will be able to bite and chew w/o jaw discomfort even w /something tough like a bagel. 04/26/21: continues to have pain : not slidign out all the time , now tighter muscles and slides out of alignment, and hard to get back in again. Difficulty chew on anything: cooked veggies, using liquids to soften breading and rips chunks off now. STG Duration 04/19/21 progressing Automatic Lehr Operator Goal (LTG) Pt will be able to yawn,brush teeth and move jaw in all directions w/o jaw popping out. 12/16/20: improving no locking / popping with brushing teeth with head repositioning, but eating is still popping and takes more time to find head/ neck position to allow jaw to open. 01/19-only happening on a bad day 3-4x 04/26/21: progressing: popping pretty much gone,it locks now. LTG Duration achieved 03/17 revisited 04/26: cervical Usp Goal (LTG) pt will hav efull cervical ROM in order to dec strain of mm onto jaw region and imrpove ability to turn in car. 12/16/20: improved: able to look further over R and L to be able to see when driving, she feels not full ROM yet. 01/19-improving but still limited w/discomfort 03/17-mild limitation w/some discomfort w/flex/ext 04/26/21: progressing: states get a little catch turning to R but not bad LTG Duration 04/19/21 ROM Short Term Goal (STG) Pt will be indep w/HEP and mechanics for workouts w/ sports trainer min A STG Duration 02/20/21 Automatic Lehr Operator Goal (LTG) Pt will improve overhead shoulder mobility to at least 100 deg flex and abd w/o scapular elevation. 03/15/21: progressin deg flexion without shld elevation , 80 deg ABD. 04/26/21: progressing 100deg FF, ABD with focus on no shld elevation. LTG Duration 06/15/21 (04/26/21: progressing/ almost met) Progress Towards Goals Progress Towards Goals Progressing Toward Goals Progress Comments Increased AROM post partridge protocol: 7 deg extension, 7 deg flexion, 9 deg ABD, 5 lumbar segments IR behind back . Assessment Summary Assessment Pt improved AROM end of tx post manual. Pt report not having anymore numbness/ tingling in RUE. She continues to have decreased pain with clenching teeth but now lacking strength to chew even with soft cooked foods and finds even at rest mandible out of alignment to R and locks challenge to reposition back with manual, postural alignment. Improved FF OH with elbow slightly bent in 1/2 kneel improved with self corrections in posture. Physical Therapy Plan Frequency and Duration Frequency of Treatment 1-2x/week Duration of Treatment 2 months Plan of Care Start Date 03/17/21 Plan of Care End Date 05/15/21 Therapeutic Interventions Therapeutic Interventions Aquatic Therapy,Gait Training, Home Exercise Program,Joint Mobilizations,Manual Therapy, Neuromuscular Re-education, Patient/Caregiver Education, Self-Care/Home Management,Soft Tissue Mobilization,Taping, Therapeutic Activities, Therapeutic Exercises Modalities Cold Pack/Ice Massage,Electric Stimulation,Hot Packs, Traction- Mechanical, Ultrasound Next Visit Focus/Plan Next Note Type Treatment Note Next Visit Plan Recheck TB 1/2 knee FF AAROM. POC: continue work on scap depression & ability to do overhead UE motion
--- NOTE | 2021-05-05 13:04 | PT.OPPN ---
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) Other specified disorders of temporomandibular joint (05/05/21) Cervicalgia (05/05/21) Muscle weakness (generalized) (05/05/21) Myalgia of mastication muscle (05/05/21) Abnormal posture (05/05/21) Physical Therapy Progress Note PT-OP-A Visit Information Start: 11/10/20 07:29 Freq: Status: Active Protocol: Document 05/05/21 11:30 [facility] (Rec: 05/05/21 13:04 [facility] [id number]) Out-Patient Physical Therapy Visit Information Visit Information Visit Type Progress Note Visit Note 02/28 Visit Start Time 11:21 Visit Stop Time 12:01 Total Visit Minutes 40 Visit Number 33 Number of TRANSIT PROOF MACHINE OPERATOR Visits 0 PT-OP-B Current Condition Start: 11/10/20 07:29 Freq: Status: Active Protocol: Document 01/19/21 07:30 [facility] (Rec: 01/19/21 08:17 [facility] [id number]) Current Condition History of Current Condition Onset Date worse starting 9 months ago Current Complaints L jaw History of Current Condition 01/19-prior to starting PT for jaw, R shoulder pain was constant. Now it is intermittent. Notes arms no longer go to sleep frequently and do not do that to the extent they used to. Neck pain is less frequent now too. Still gets it a couple times a week. When she does core stuff like crunches, her neck starts to hurt. 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 IE:Pt reports jaw keeps popping out. It crunched for years before that. THe popping started 9 months ago. It just started gradually gets worse. It hurts when she pops it back in. Pt reports L side pops out so everything shifts to R. Pt reports neck pain on R side w/ALONSO associated occ. THat has been going on for the past month w/ALONSO. SHe has always had shoulder pain on R side. R TSA has not helped. Works with a certified athletic trainer for 4 days a week but he hasn't changed anything. Her R ant lat arm consistantly always hurts. Her certified athletic trainer tapes her neck post and that seems to help. Pt reports ALONSO more when laying down. Pt had one other episode w/R neck about 25 years ago that she did PT and OT and responded well with that care and it never came back like that again. Pt reports arms go to sleep and reports R arm motor inspection mechanic has gotten a lot less. The weakness has been getting progressive over the last few years. 1x a year ago that jaw popped out (both sides)and she couldn't chew or swallow and that was like 30 years ago. Now it pops out at random. Tried mouth guard years ago and found she actually clenched the mouth guard that inc pain. She doesn 't notice herself clench her teeth a lot and doesn't wake up at night d/t jaw sore d/t clenching or anything. Pt reports B mastectomies in 2006 w/chemo. TSA R was 2017 Prior Treatments and Tests PT for shoulder in 2017, Dr. rock is having pt relax jaw by placing in bottom of mouth and teeth slightly apart-also instructed heat but hasn't tried Treatment Goals Patient/Caregiver Goals get rid of most of the pain, be able to move around a little bit and not have pain w /it, not get numb when talking on the phone PT-OP-C Subjective Start: 11/10/20 07:29 Freq: Status: Active Protocol: Document 05/05/21 11:30 [facility] (Rec: 05/05/21 13:04 [facility] [id number]) OP-PT Subjective Patient Comments Patient Comments Pt reports L jaw is just achy. R shoulder has been doing well and she is really happy with it. neck is not bothering her PT-OP-F Manual Assessment Start: 11/10/20 07:29 Freq: Status: Active Protocol: Document 01/19/21 07:30 [facility] (Rec: 01/19/21 08:17 [facility] [id number]) Manual Assessments Soft Tissue Assessment Soft Tissue Mobility Assessment tightness B pec, R>L UT & LS, R rhomboids, B Scalenes & SCM, B biceps superiorly PT-OP-J Posture/Palpation/Skin Start: 11/10/20 07:29 Freq: Status: Active Protocol: Document 01/19/21 07:30 [facility] (Rec: 01/19/21 08:17 [facility] [id number]) Posture Evaluation Rowan Postural Classification System Vertebral Compression Test 1 Elbow Flexion Test 1 Comments Posture Comments scapula abducted & shoulders IR, inc kyphosis, fwd head PT-OP-K Range of Motion Start: 11/10/20 07:29 Freq: Status: Active Protocol: Document 05/05/21 11:30 [facility] (Rec: 05/05/21 13:04 [facility] [id number]) Cervical Spine Range of Motion Cervical Spine Active Degrees Flexion 55 Extension 54 Rotation Left 59 Rotation Right 57 Lateral Flexion Left 35 Lateral Flexion Right 34 Comments no pain just stiffness w/rot & SB TMJ Range of Motion Jaw Openning Jaw Openning (mm) 42 Shoulder Goniometric Range of Motion Shoulder Measured in Degrees Right Active Flexion 105 Abduction 100 PT-OP-L Special Tests Start: 01/19/21 07:30 Freq: Status: Active Protocol: Document 01/19/21 07:30 [facility] (Rec: 01/19/21 08:17 [facility] [id number]) Special Tests Cervical Spine Special Tests Spurling's Test Test Results neg Neural Special Tests- Upper Body Radial Nerve Tension Test Results neg B Ulnar Nerve Tension Test Results positive R Median Nerve Tension Test Results positive R PT-OP-M Strength Start: 11/10/20 07:29 Freq: Status: Active Protocol: Document 05/05/21 11:30 [facility] (Rec: 05/05/21 13:04 [facility] [id number]) Shoulder Strength Shoulder Manual Muscle Testing Right Flexion 4+ Good+ Extension 5 Normal Abduction (C5) 4+ Good+ External Rotation 5 Normal Internal Rotation 5 Normal Horizontal Abduction 5 Normal Horizontal Adduction 5 Normal Left Flexion 5 Normal Extension 5 Normal Abduction (C5) 5 Normal External Rotation 5 Normal Internal Rotation 5 Normal Horizontal Abduction 5 Normal Horizontal Adduction 5 Normal PT-OP-T Assessment and Plan Start: 11/10/20 07:29 Freq: Status: Active Protocol: Document 05/05/21 11:30 [facility] (Rec: 05/05/21 13:04 [facility] [id number]) Physical Therapy Assessment Goals lifting Short Term Goal (STG) Pt report more endurance w/RUE so it doesn't give out. 04/26/21: Progressing: improved 50% better, still reaching OH gives way. STG Duration achieved 05/05 Long-Term Goal (LTG) Pt will be able to push objects w/UEs w/o feeling pain . 04/26/21: progressin% better. LTG Duration achieved 05/05 Shoulder Short Term Goal (STG) Pt will be able to hold phone and talk on phone w/o RUE getting numb 03/15/21: Pt reports less numbness and tingling w/ talking on phone. 04/26/21: Goal met:no tingling numbness anymore. STG Duration GOAL MET Interior Design Director Goal (LTG) Pt will improve strength of R shoulder to show at least 4/5 UE MMT for flex and abd in order to allow improved ease for overhead activities LTG Duration achieved 05/05 jaw Short Term Goal (STG) Pt will be able to bite and chew w/o jaw discomfort even w /something tough like a bagel. 04/26/21: continues to have pain : not slidign out all the time , now tighter muscles and slides out of alignment, and hard to get back in again. Difficulty chew on anything: cooked veggies, using liquids to soften breading and rips chunks off now. 05/05- STG Duration 06/05/21 Long-Term Goal (LTG) Pt will be able to yawn,brush teeth and move jaw in all directions w/o jaw popping out. 12/16/20: improving no locking / popping with brushing teeth with head repositioning, but eating is still popping and takes more time to find head/ neck position to allow jaw to open. 01/19-only happening on a bad day 3-4x 04/26/21: progressing: popping pretty much gone,it locks now. 05/05-jaw locks when closing and makes it hard to eat LTG Duration 07/05/21 cervical Long-Term Goal (LTG) pt will hav efull cervical ROM in order to dec strain of mm onto jaw region and imrpove ability to turn in car. 12/16/20: improved: able to look further over R and L to be able to see when driving, she feels not full ROM yet. 01/19-improving but still limited w/discomfort 03/17-mild limitation w/some discomfort w/flex/ext 04/26/21: progressing: states get a little catch turning to R but not bad 05/05-pt just has mild stiffness but overall neck doing well. Does not feel limited LTG Duration achieved ROM Short Term Goal (STG) Pt will be indep w/HEP and mechanics for workouts w/ certified athletic trainer min A STG Duration achieved 05/05 Long-Term Goal (LTG) Pt will improve overhead shoulder mobility to at least 100 deg flex and abd w/o scapular elevation. 03/15/21: progressin deg flexion without shld elevation , 80 deg ABD. 04/26/21: progressing 100deg FF, ABD with focus on no shld elevation. LTG Duration achieved 05/05 Assessment Summary Assessment Pt had no aching in jaw and improved movement w/o deviation after manual treatment and no longer had the jaw lock w/full open/close . She has made excellent progress towards her shoulder goals and neck goals at this time but is mainly limited by jaw. Plan to cont w/PT over next several weeks to make sure pt indep w/HEP and to establish good jaw mechanics. Physical Therapy Plan Frequency and Duration Frequency of Treatment 1-2x/week Duration of Treatment 2 months Plan of Care Start Date 05/05/21 Plan of Care End Date 07/05/21 Therapeutic Interventions Therapeutic Interventions Aquatic Therapy,Gait Training, Home Exercise Program,Joint Mobilizations,Manual Therapy, Neuromuscular Re-education, Patient/Caregiver Education, Self-Care/Home Management,Soft Tissue Mobilization,Taping, Therapeutic Activities, Therapeutic Exercises Modalities Cold Pack/Ice Massage,Electric Stimulation,Hot Packs, Traction- Mechanical, Ultrasound Next Visit Focus/Plan Next Note Type Treatment Note Next Visit Plan Recheck TB 02/20 knee FF AAROM. work on jaw stability and mobility. REview jaw exercises & work on no locking w/close
--- NOTE | 2021-05-05 13:04 | PT.OPPOC ---
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) Other specified disorders of temporomandibular joint (05/05/21) Cervicalgia (05/05/21) Muscle weakness (generalized) (05/05/21) Myalgia of mastication muscle (05/05/21) Abnormal posture (05/05/21) Visit Care Team Role Provider Type Chan Rodriguez MD Family Provider Non-Staff Primary Care Provider Specialty: Family Practice Address: [address] [place] [address], [id number] Email: Uzma Ren DDS Attending Provider Non-Staff Referring Provider Specialty: Dentistry Address: [address] [place] [address], [address], [id number] Email: Plan Of Care PT-OP-T Assessment and Plan Start: 11/10/20 07:29 Freq: Status: Active Protocol: Document 05/05/21 11:30 [facility] (Rec: 05/05/21 13:04 [facility] [id number]) Physical Therapy Assessment Goals lifting Short Term Goal (STG) Pt report more endurance w/RUE so it doesn't give out. 04/26/21: Progressing: improved 50% better, still reaching OH gives way. STG Duration achieved 05/05 Spout Worker Goal (LTG) Pt will be able to push objects w/UEs w/o feeling pain . 04/26/21: progressin% better. LTG Duration achieved 05/05 Shoulder Short Term Goal (STG) Pt will be able to hold phone and talk on phone w/o RUE getting numb 03/15/21: Pt reports less numbness and tingling w/ talking on phone. 04/26/21: Goal met:no tingling numbness anymore. STG Duration GOAL MET Spout Worker Goal (LTG) Pt will improve strength of R shoulder to show at least 4/5 UE MMT for flex and abd in order to allow improved ease for overhead activities LTG Duration achieved 05/05 jaw Short Term Goal (STG) Pt will be able to bite and chew w/o jaw discomfort even w /something tough like a bagel. 04/26/21: continues to have pain : not slidign out all the time , now tighter muscles and slides out of alignment, and hard to get back in again. Difficulty chew on anything: cooked veggies, using liquids to soften breading and rips chunks off now. 05/05- STG Duration 06/05/21 Spout Worker Goal (LTG) Pt will be able to yawn,brush teeth and move jaw in all directions w/o jaw popping out. 12/16/20: improving no locking / popping with brushing teeth with head repositioning, but eating is still popping and takes more time to find head/ neck position to allow jaw to open. 01/19-only happening on a bad day 3-4x 04/26/21: progressing: popping pretty much gone,it locks now. 05/05-jaw locks when closing and makes it hard to eat LTG Duration 07/05/21 cervical Spout Worker Goal (LTG) pt will hav efull cervical ROM in order to dec strain of mm onto jaw region and imrpove ability to turn in car. 12/16/20: improved: able to look further over R and L to be able to see when driving, she feels not full ROM yet. 01/19-improving but still limited w/discomfort 03/17-mild limitation w/some discomfort w/flex/ext 04/26/21: progressing: states get a little catch turning to R but not bad 05/05-pt just has mild stiffness but overall neck doing well. Does not feel limited LTG Duration achieved ROM Short Term Goal (STG) Pt will be indep w/HEP and mechanics for workouts w/ national sales trainer min A STG Duration achieved 05/05 Spout Worker Goal (LTG) Pt will improve overhead shoulder mobility to at least 100 deg flex and abd w/o scapular elevation. 03/15/21: progressin deg flexion without shld elevation , 80 deg ABD. 04/26/21: progressing 100deg FF, ABD with focus on no shld elevation. LTG Duration achieved 05/05 Assessment Summary Assessment Pt had no aching in jaw and improved movement w/o deviation after manual treatment and no longer had the jaw lock w/full open/close . She has made excellent progress towards her shoulder goals and neck goals at this time but is mainly limited by jaw. Plan to cont w/PT over next several weeks to make sure pt indep w/HEP and to establish good jaw mechanics. Physical Therapy Plan Frequency and Duration Frequency of Treatment 1-2x/week Duration of Treatment 2 months Plan of Care Start Date 05/05/21 Plan of Care End Date 07/05/21 Therapeutic Interventions Therapeutic Interventions Aquatic Therapy,Gait Training, Home Exercise Program,Joint Mobilizations,Manual Therapy, Neuromuscular Re-education, Patient/Caregiver Education, Self-Care/Home Management,Soft Tissue Mobilization,Taping, Therapeutic Activities, Therapeutic Exercises Modalities Cold Pack/Ice Massage,Electric Stimulation,Hot Packs, Traction- Mechanical, Ultrasound Next Visit Focus/Plan Next Note Type Treatment Note Next Visit Plan Recheck TB 1/2 knee FF AAROM. work on jaw stability and mobility. REview jaw exercises & work on no locking w/close Plan of Care Dates Plan of Care Start Date 05/05/21 Plan of Care End Date 07/05/21 Electronically Signed by: Sneha Noyola, PT 05/05/21 [id number] Please Sign and Return: I have reviewed this Plan of Care and certify that the skilled therapy services above are required to meet the patient?s needs. Physician Signature Date Printed Name and Credentials Clinical Instructor Signature Printed Name and Credentials
--- NOTE | 2021-05-10 08:15 | PT.OTN ---
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 (05/10/21) Other specified disorders of temporomandibular joint (05/10/21) Cervicalgia (05/10/21) Muscle weakness (generalized) (05/10/21) Myalgia of mastication muscle (05/10/21) Abnormal posture (05/10/21) Physical Therapy Treatment Note PT-OP-A Visit Information Start: 11/10/20 07:29 Freq: Status: Active Protocol: Document 05/10/21 07:32 SP (Rec: 05/10/21 08:16 [facility] [id number]) Out-Patient Physical Therapy Visit Information Visit Information Visit Type Treatment Note Visit Note 03/31 Visit Start Time 07:32 Visit Stop Time 08:15 Total Visit Minutes 43 Visit Number 34 Number of DENTAL CLAIMS PROCESSOR Visits 1 PT-OP-B Current Condition Start: 11/10/20 07:29 Freq: Status: Active Protocol: Document 01/19/21 07:30 [facility] (Rec: 01/19/21 08:17 [facility] [id number]) Current Condition History of Current Condition Onset Date worse starting 9 months ago Current Complaints L jaw History of Current Condition 01/19-prior to starting PT for jaw, R shoulder pain was constant. Now it is intermittent. Notes arms no longer go to sleep frequently and do not do that to the extent they used to. Neck pain is less frequent now too. Still gets it a couple times a week. When she does core stuff like crunches, her neck starts to hurt. Pt reports weak main galley scullion and has trouble picking up things when has to use a pincer main galley scullion. IE:Pt reports jaw keeps popping out. It crunched for years before that. THe popping started 9 months ago. It just started gradually gets worse. It hurts when she pops it back in. Pt reports L side pops out so everything shifts to R. Pt reports neck pain on R side w/ALONSO associated occ. THat has been going on for the past month w/ALONSO. SHe has always had shoulder pain on R side. R TSA has not helped. Works with a parent trainer for 4 days a week but he hasn't changed anything. Her R ant lat arm consistantly always hurts. Her parent trainer tapes her neck post and that seems to help. Pt reports ALONSO more when laying down. Pt had one other episode w/R neck about 25 years ago that she did PT and OT and responded well with that care and it never came back like that again. Pt reports arms go to sleep and reports R arm main galley scullion has gotten a lot less. The weakness has been getting progressive over the last few years. 1x a year ago that jaw popped out (both sides)and she couldn't chew or swallow and that was like 30 years ago. Now it pops out at random. Tried mouth guard years ago and found she actually clenched the mouth guard that inc pain. She doesn 't notice herself clench her teeth a lot and doesn't wake up at night d/t jaw sore d/t clenching or anything. Pt reports B mastectomies in 2006 w/chemo. TSA R was 2017 Prior Treatments and Tests PT for shoulder in 2017, Dr. rock is having pt relax jaw by placing in bottom of mouth and teeth slightly apart-also instructed heat but hasn't tried Treatment Goals Patient/Caregiver Goals get rid of most of the pain, be able to move around a little bit and not have pain w /it, not get numb when talking on the phone PT-OP-C Subjective Start: 11/10/20 07:29 Freq: Status: Active Protocol: Document 05/10/21 07:32 [facility] (Rec: 05/10/21 08:16 [facility] [id number]) OP-PT Subjective Patient Comments Patient Comments Pt reported felt alot better with distraction manual last tx. Jaw still gets out of alignment but self massaging more and helps with alignment. Pt states still gets pain in L ear at times. Notices when sleeps on L side lower jaw relaxes to L and maybe a factor of tightness/pain when wakes up, maybe talking with dentist for mouth guard will be the next step and maybe help this when sleeps. PT-OP-F Manual Assessment Start: 11/10/20 07:29 Freq: Status: Active Protocol: Document 01/19/21 07:30 [facility] (Rec: 01/19/21 08:17 [facility] [id number]) Manual Assessments Soft Tissue Assessment Soft Tissue Mobility Assessment tightness B pec, R>L UT & LS, R rhomboids, B Scalenes & SCM, B biceps superiorly PT-OP-J Posture/Palpation/Skin Start: 11/10/20 07:29 Freq: Status: Active Protocol: Document 01/19/21 07:30 [facility] (Rec: 01/19/21 08:17 [facility] [id number]) Posture Evaluation [facility] Postural Classification System Vertebral Compression Test 1 Elbow Flexion Test 1 Comments Posture Comments scapula abducted & shoulders IR, inc kyphosis, fwd head PT-OP-K Range of Motion Start: 11/10/20 07:29 Freq: Status: Active Protocol: Document 05/05/21 11:30 [facility] (Rec: 05/05/21 13:04 [facility] [id number]) Cervical Spine Range of Motion Cervical Spine Active Degrees Flexion 55 Extension 54 Rotation Left 59 Rotation Right 57 Lateral Flexion Left 35 Lateral Flexion Right 34 Comments no pain just stiffness w/rot & SB TMJ Range of Motion Jaw Openning Jaw Openning (mm) 42 Shoulder Goniometric Range of Motion Shoulder Right Active Flexion 105 Abduction 100 PT-OP-L Special Tests Start: 01/19/21 07:30 Freq: Status: Active Protocol: Document 01/19/21 07:30 [facility] (Rec: 01/19/21 08:17 [facility] [id number]) Special Tests Cervical Spine Special Tests Spurling's Test Test Results neg Neural Special Tests- Upper Body Radial Nerve Tension Test Results neg B Ulnar Nerve Tension Test Results positive R Median Nerve Tension Test Results positive R PT-OP-M Strength Start: 11/10/20 07:29 Freq: Status: Active Protocol: Document 05/05/21 11:30 [facility] (Rec: 05/05/21 13:04 [facility] [id number]) Shoulder Strength Shoulder Manual Muscle Testing Right Flexion 4+ Good+ Extension 5 Normal Abduction (C5) 4+ Good+ External Rotation 5 Normal Internal Rotation 5 Normal Horizontal Abduction 5 Normal Horizontal Adduction 5 Normal Left Flexion 5 Normal Extension 5 Normal Abduction (C5) 5 Normal External Rotation 5 Normal Internal Rotation 5 Normal Horizontal Abduction 5 Normal Horizontal Adduction 5 Normal PT-OP-Q Treatments Start: 11/10/20 07:29 Freq: Status: Active Protocol: Document 05/10/21 07:32 SP (Rec: 05/10/21 08:16 SP [id number]) Therapeutic Exercises Sitting Exercises axial elongation Sitting Exercise Name chin tucks Side bilateral Reps/Minutes 6x rocabado Sitting Exercise Name 6x6 w/max cues Reps/Minutes x 10 reps Manual Therapy Treatment Soft Tissue Mobilization cervical Body Location L>R SCM Mobilization Type Myofascial Release,Rolling, Sustained Pressure,Other Intensity/Depth Moderate Body Position Supine Comments manual intraoral Body Location L ptyergoid Mobilization Type Sustained Pressure Intensity/Depth Moderate Body Position Hooklying Comments manual and w/jaw open/close jaw Body Location L post jaw Mobilization Type Rolling,Sustained Pressure Intensity/Depth Moderate Body Position Hooklying Joint Mobilizations jaw Comments L distraction w/L lat glide & R distraction w/L lat glide FM PT-OP-T Assessment and Plan Start: 11/10/20 07:29 Freq: Status: Active Protocol: Document 05/10/21 07:32 SP (Rec: 05/10/21 08:16 SP [id number]) Physical Therapy Assessment Goals lifting Short Term Goal (STG) Pt report more endurance w/RUE so it doesn't give out. 04/26/21: Progressing: improved 50% better, still reaching [place] gives way. STG Duration achieved 05/05 Canine Service Instructor Trainer Goal (LTG) Pt will be able to push objects w/UEs w/o feeling pain . 04/26/21: progressin% better. LTG Duration achieved 05/05 Shoulder Short Term Goal (STG) Pt will be able to hold phone and talk on phone w/o RUE getting numb 03/15/21: Pt reports less numbness and tingling w/ talking on phone. 04/26/21: Goal met:no tingling numbness anymore. STG Duration GOAL MET Penitentiary Goal (LTG) Pt will improve strength of R shoulder to show at least 4/5 UE MMT for flex and abd in order to allow improved ease for overhead activities LTG Duration achieved 05/05 jaw Short Term Goal (STG) Pt will be able to bite and chew w/o jaw discomfort even w /something tough like a bagel. 04/26/21: continues to have pain : not slidign out all the time , now tighter muscles and slides out of alignment, and hard to get back in again. Difficulty chew on anything: cooked veggies, using liquids to soften breading and rips chunks off now. 05/05- STG Duration 06/05/21 Canine Service Instructor Trainer Goal (LTG) Pt will be able to yawn,brush teeth and move jaw in all directions w/o jaw popping out. 12/16/20: improving no locking / popping with brushing teeth with head repositioning, but eating is still popping and takes more time to find head/ neck position to allow jaw to open. 01/19-only happening on a bad day 3-4x 04/26/21: progressing: popping pretty much gone,it locks now. 05/05-jaw locks when closing and makes it hard to eat LTG Duration 07/05/21 cervical Penitentiary Goal (LTG) pt will hav efull cervical ROM in order to dec strain of mm onto jaw region and imrpove ability to turn in car. 12/16/20: improved: able to look further over R and L to be able to see when driving, she feels not full ROM yet. 01/19-improving but still limited w/discomfort 03/17-mild limitation w/some discomfort w/flex/ext 04/26/21: progressing: states get a little catch turning to R but not bad 05/05-pt just has mild stiffness but overall neck doing well. Does not feel limited LTG Duration achieved ROM Short Term Goal (STG) Pt will be indep w/HEP and mechanics for workouts w/ parent trainer min A STG Duration achieved 05/05 Penitentiary Goal (LTG) Pt will improve overhead shoulder mobility to at least 100 deg flex and abd w/o scapular elevation. 03/15/21: progressin deg flexion without shld elevation , 80 deg ABD. 04/26/21: progressing 100deg FF, ABD with focus on no shld elevation. LTG Duration achieved 05/05 Assessment Summary Assessment Pt had no pain or achiness and jaw exercies w/out deviation after manual. Pt reports if keeping aware alignment mandible to R neutral feels better. She improved self STMs during day and alignment in mirror for self re ed. Improved demonstration self corections. Physical Therapy Plan Frequency and Duration Frequency of Treatment 1-2x/week Duration of Treatment 2 months Plan of Care Start Date 05/05/21 Plan of Care End Date 07/05/21 Therapeutic Interventions Therapeutic Interventions Aquatic Therapy,Gait Training, Home Exercise Program,Joint Mobilizations,Manual Therapy, Neuromuscular Re-education, Patient/Caregiver Education, Self-Care/Home Management,Soft Tissue Mobilization,Taping, Therapeutic Activities, Therapeutic Exercises Modalities Cold Pack/Ice Massage,Electric Stimulation,Hot Packs, Traction- Mechanical, Ultrasound Next Visit Focus/Plan Next Note Type Treatment Note Next Visit Plan Work on jaw stability and mobility. REview jaw exercises & work on no locking w/close
--- NOTE | 2021-05-19 12:26 | PT.OTN ---
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 (Rec: 05/19/21 12:26 [facility] [id number]) Out-Patient Physical Therapy Visit Information Visit Information Visit Type Treatment Note Visit Note 04/28 Visit Start Time 11:25 Visit Stop Time 12:05 Total Visit Minutes 40 Visit Number 2 Number of TMR TEACHER Visits 0 PT-OP-B Current Condition Start: 11/10/20 07:29 Freq: Status: Active Protocol: Document 01/19/21 07:30 [facility] (Rec: 01/19/21 08:17 [facility] [id number]) Current Condition History of Current Condition Onset Date worse starting 9 months ago Current Complaints L jaw History of Current Condition 01/19-prior to starting PT for jaw, R shoulder pain was constant. Now it is intermittent. Notes arms no longer go to sleep frequently and do not do that to the extent they used to. Neck pain is less frequent now too. Still gets it a couple times a week. When she does core stuff like crunches, her neck starts to hurt. Pt reports weak charge histotechnologist and has trouble picking up things when has to use a pincer charge histotechnologist. IE:Pt reports jaw keeps popping out. It crunched for years before that. THe popping started 9 months ago. It just started gradually gets worse. It hurts when she pops it back in. Pt reports L side pops out so everything shifts to R. Pt reports neck pain on R side w/ALONSO associated occ. THat has been going on for the past month w/ALONSO. SHe has always had shoulder pain on R side. R TSA has not helped. 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 Her R ant lat arm consistantly always hurts. Her driver trainer tapes her neck post and that seems to help. Pt reports ALONSO more when laying down. Pt had one other episode w/R neck about 25 years ago that she did PT and OT and responded well with that care and it never came back like that again. Pt reports arms go to sleep and reports R arm charge histotechnologist has gotten a lot less. The weakness has been getting progressive over the last few years. 1x a year ago that jaw popped out (both sides)and she couldn't chew or swallow and that was like 30 years ago. Now it pops out at random. Tried mouth guard years ago and found she actually clenched the mouth guard that inc pain. She doesn 't notice herself clench her teeth a lot and doesn't wake up at night d/t jaw sore d/t clenching or anything. Pt reports B mastectomies in 2006 w/chemo. TSA R was 2017 Prior Treatments and Tests PT for shoulder in 2017, Dr. rock is having pt relax jaw by placing in bottom of mouth and teeth slightly apart-also instructed heat but hasn't tried Treatment Goals Patient/Caregiver Goals get rid of most of the pain, be able to move around a little bit and not have pain w /it, not get numb when talking on the phone PT-OP-C Subjective Start: 11/10/20 07:29 Freq: Status: Active Protocol: Document 05/19/21 12:26 [facility] (Rec: 05/19/21 12:26 [facility] [id number]) OP-PT Subjective Patient Comments Patient Comments Pt reports her jaw is not as bad consistenly and she hasn't had issues w/lat movement but feels like jaw gets out of place fwd and she can somtimes help it back in w/post pressure at joint w/jaw opening exercise. notes some stiffnes in R neck today PT-OP-F Manual Assessment Start: 11/10/20 07:29 Freq: Status: Active Protocol: Document 01/19/21 07:30 [facility] (Rec: 01/19/21 08:17 [facility] [id number]) Manual Assessments Soft Tissue Assessment Soft Tissue Mobility Assessment tightness B pec, R>L UT & LS, R rhomboids, B Scalenes & SCM, B biceps superiorly PT-OP-J Posture/Palpation/Skin Start: 09/22/21 07:29 Freq: Status: Active Protocol: Document 01/19/21 07:30 [facility] (Rec: 01/19/21 08:17 [facility] [id number]) Posture Evaluation Rowan Postural Classification System Vertebral Compression Test 1 Elbow Flexion Test 1 Comments Posture Comments scapula abducted & shoulders IR, inc kyphosis, fwd head PT-OP-K Range of Motion Start: 11/10/20 07:29 Freq: Status: Active Protocol: Document 05/05/21 11:30 [facility] (Rec: 05/05/21 13:04 [facility] [id number]) Cervical Spine Range of Motion Cervical Spine Active Degrees Flexion 55 Extension 54 Rotation Left 59 Rotation Right 57 Lateral Flexion Left 35 Lateral Flexion Right 34 Comments no pain just stiffness w/rot & SB TMJ Range of Motion Jaw Openning Jaw Openning (mm) 42 Shoulder Goniometric Range of Motion Shoulder Right Active Flexion 105 Abduction 100 PT-OP-L Special Tests Start: 01/19/21 07:30 Freq: Status: Active Protocol: Document 01/19/21 07:30 [facility] (Rec: 01/19/21 08:17 [facility] [id number]) Special Tests Cervical Spine Special Tests Spurling's Test Test Results neg Neural Special Tests- Upper Body Radial Nerve Tension Test Results neg B Ulnar Nerve Tension Test Results positive R Median Nerve Tension Test Results positive R PT-OP-M Strength Start: 11/10/20 07:29 Freq: Status: Active Protocol: Document 05/05/21 11:30 [facility] (Rec: 05/05/21 13:04 [facility] [id number]) Shoulder Strength Shoulder Manual Muscle Testing Right Flexion 4+ Good+ Extension 5 Normal Abduction (C5) 4+ Good+ External Rotation 5 Normal Internal Rotation 5 Normal Horizontal Abduction 5 Normal Horizontal Adduction 5 Normal Left Flexion 5 Normal Extension 5 Normal Abduction (C5) 5 Normal External Rotation 5 Normal Internal Rotation 5 Normal Horizontal Abduction 5 Normal Horizontal Adduction 5 Normal PT-OP-Q Treatments Start: 11/10/20 07:29 Freq: Status: Active Protocol: Document 05/19/21 12:26 [facility] (Rec: 05/19/21 12:26 [facility] [id number]) Manual Therapy Treatment Soft Tissue Mobilization cervical Body Location R>L SCM & scalenes &SOR Mobilization Type Myofascial Release,Rolling, Sustained Pressure,Other Intensity/Depth Moderate Body Position Supine Comments manual jaw Body Location B post jaw & maseter Mobilization Type Rolling,Sustained Pressure Intensity/Depth Moderate Body Position Hooklying Joint Mobilizations TS Comments 1. transverse T1-2 L FM cervical Comments 1. C5&6 R AP 2. C1 & 2 R AP 3. C5 L transverse glide FM jaw Comments retrusion c/r Self-Care/Home Management Treatment Education Other Education review of neutral posture, discussed important not to go to end range scap and cercvical retraction as that will be hard to hold but find a comfortable reasonable range . Edu on self retrusion c/r PT-OP-T Assessment and Plan Start: 11/10/20 07:29 Freq: Status: Active Protocol: Document 05/19/21 12:26 [facility] (Rec: 05/19/21 12:26 [facility] [id number]) Physical Therapy Assessment Goals lifting Short Term Goal (STG) Pt report more endurance w/RUE so it doesn't give out. 04/26/21: Progressing: improved 50% better, still reaching [place] gives way. STG Duration achieved 05/05 Penitentiary Goal (LTG) Pt will be able to push objects w/UEs w/o feeling pain . 04/26/21: progressin% better. LTG Duration achieved 05/05 Shoulder Short Term Goal (STG) Pt will be able to hold phone and talk on phone w/o RUE getting numb 03/15/21: Pt reports less numbness and tingling w/ talking on phone. 04/26/21: Goal met:no tingling numbness anymore. STG Duration GOAL MET Income Tax Return Preparer Goal (LTG) Pt will improve strength of R shoulder to show at least 4/5 UE MMT for flex and abd in order to allow improved ease for overhead activities LTG Duration achieved 05/05 jaw Short Term Goal (STG) Pt will be able to bite and chew w/o jaw discomfort even w /something tough like a bagel. 04/26/21: continues to have pain : not slidign out all the time , now tighter muscles and slides out of alignment, and hard to get back in again. Difficulty chew on anything: cooked veggies, using liquids to soften breading and rips chunks off now. 05/05- STG Duration 06/05/21 Income Tax Return Preparer Goal (LTG) Pt will be able to yawn,brush teeth and move jaw in all directions w/o jaw popping out. 12/16/20: improving no locking / popping with brushing teeth with head repositioning, but eating is still popping and takes more time to find head/ neck position to allow jaw to open. 01/19-only happening on a bad day 3-4x 04/26/21: progressing: popping pretty much gone,it locks now. 05/05-jaw locks when closing and makes it hard to eat LTG Duration 07/05/21 cervical Penitentiary Goal (LTG) pt will hav efull cervical ROM in order to dec strain of mm onto jaw region and imrpove ability to turn in car. 12/16/20: improved: able to look further over R and L to be able to see when driving, she feels not full ROM yet. 01/19-improving but still limited w/discomfort 03/17-mild limitation w/some discomfort w/flex/ext 04/26/21: progressing: states get a little catch turning to R but not bad 05/05-pt just has mild stiffness but overall neck doing well. Does not feel limited LTG Duration achieved ROM Short Term Goal (STG) Pt will be indep w/HEP and mechanics for workouts w/ driver trainer min A STG Duration achieved 05/05 Income Tax Return Preparer Goal (LTG) Pt will improve overhead shoulder mobility to at least 100 deg flex and abd w/o scapular elevation. 03/15/21: progressin deg flexion without shld elevation , 80 deg ABD. 04/26/21: progressing 100deg FF, ABD with focus on no shld elevation. LTG Duration achieved 05/05 Assessment Summary Assessment Pt had improved neck R rotation and SB after manual but still some risidual pinching. pt tends to have jaw protrusion after mult times opening. She ends in a closed psition w/jaw fwd. Physical Therapy Plan Frequency and Duration Frequency of Treatment 1-2x/week Duration of Treatment 2 months Plan of Care Start Date 05/05/21 Plan of Care End Date 07/05/21 Next Visit Focus/Plan Next Note Type Treatment Note Next Visit Plan work on improved retrusion w/ closing
--- NOTE | 2021-05-24 17:16 | PT.OTN ---
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 (05/24/21) Other specified disorders of temporomandibular joint (05/24/21) Cervicalgia (05/24/21) Muscle weakness (generalized) (05/24/21) Myalgia of mastication muscle (05/24/21) Abnormal posture (05/24/21) Physical Therapy Treatment Note PT-OP-A Visit Information Start: 11/10/20 07:29 Freq: Status: Active Protocol: Document 05/24/21 13:01 [facility] (Rec: 05/24/21 17:16 [facility] [id number]) Out-Patient Physical Therapy Visit Information Visit Information Visit Type Treatment Note Visit Note 05/29 Visit Start Time 13:01 Visit Stop Time 13:43 Total Visit Minutes 42 Visit Number 3 Number of PUBLIC HOUSING MANAGER Visits 0 PT-OP-B Current Condition Start: 11/10/20 07:29 Freq: Status: Active Protocol: Document 01/19/21 07:30 [facility] (Rec: 01/19/21 08:17 [facility] [id number]) Current Condition History of Current Condition Onset Date worse starting 9 months ago Current Complaints L jaw History of Current Condition 01/19-prior to starting PT for jaw, R shoulder pain was constant. Now it is intermittent. Notes arms no longer go to sleep frequently and do not do that to the extent they used to. Neck pain is less frequent now too. Still gets it a couple times a week. When she does core stuff like crunches, her neck starts to hurt. Pt reports weak rn outpatient surgery and has trouble picking up things when has to use a pincer rn outpatient surgery. IE:Pt reports jaw keeps popping out. It crunched for years before that. THe popping started 9 months ago. It just started gradually gets worse. It hurts when she pops it back in. Pt reports L side pops out so everything shifts to R. Pt reports neck pain on R side w/ALONSO associated occ. THat has been going on for the past month w/ALONSO. SHe has always had shoulder pain on R side. R TSA has not helped. 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 Her R ant lat arm consistantly always hurts. Her water trainer tapes her neck post and that seems to help. Pt reports ALONSO more when laying down. Pt had one other episode w/R neck about 25 years ago that she did PT and OT and responded well with that care and it never came back like that again. Pt reports arms go to sleep and reports R arm rn outpatient surgery has gotten a lot less. The weakness has been getting progressive over the last few years. 1x a year ago that jaw popped out (both sides)and she couldn't chew or swallow and that was like 30 years ago. Now it pops out at random. Tried mouth guard years ago and found she actually clenched the mouth guard that inc pain. She doesn 't notice herself clench her teeth a lot and doesn't wake up at night d/t jaw sore d/t clenching or anything. Pt reports B mastectomies in 2006 w/chemo. TSA R was 2017 Prior Treatments and Tests PT for shoulder in 2017, Dr. rock is having pt relax jaw by placing in bottom of mouth and teeth slightly apart-also instructed heat but hasn't tried Treatment Goals Patient/Caregiver Goals get rid of most of the pain, be able to move around a little bit and not have pain w /it, not get numb when talking on the phone PT-OP-C Subjective Start: 11/10/20 07:29 Freq: Status: Active Protocol: Document 05/24/21 13:01 [facility] (Rec: 05/24/21 17:16 [facility] [id number]) OP-PT Subjective Patient Comments Patient Comments Pt reports jaw was good after leaving last session through mid next day. The new exercise helped and then it slipped back into its old habits. When she wakes int he AM it is better, except this AM PT-OP-F Manual Assessment Start: 11/10/20 07:29 Freq: Status: Active Protocol: Document 01/19/21 07:30 [facility] (Rec: 01/19/21 08:17 [facility] [id number]) Manual Assessments Soft Tissue Assessment Soft Tissue Mobility Assessment tightness B pec, R>L UT & LS, R rhomboids, B Scalenes & SCM, B biceps superiorly PT-OP-J Posture/Palpation/Skin Start: 11/10/20 07:29 Freq: Status: Active Protocol: Document 01/19/21 07:30 [facility] (Rec: 01/19/21 08:17 [facility] [id number]) Posture Evaluation Rowan Postural Classification System Vertebral Compression Test 1 Elbow Flexion Test 1 Comments Posture Comments scapula abducted & shoulders IR, inc kyphosis, fwd head PT-OP-K Range of Motion Start: 11/10/20 07:29 Freq: Status: Active Protocol: Document 05/05/21 11:30 [facility] (Rec: 05/05/21 13:04 [facility] [id number]) Cervical Spine Range of Motion Cervical Spine Active Degrees Flexion 55 Extension 54 Rotation Left 59 Rotation Right 57 Lateral Flexion Left 35 Lateral Flexion Right 34 Comments no pain just stiffness w/rot & SB TMJ Range of Motion Jaw Openning Jaw Openning (mm) 42 Shoulder Goniometric Range of Motion Shoulder Right Active Flexion 105 Abduction 100 PT-OP-L Special Tests Start: 01/19/21 07:30 Freq: Status: Active Protocol: Document 01/19/21 07:30 [facility] (Rec: 01/19/21 08:17 [facility] [id number]) Special Tests Cervical Spine Special Tests Spurling's Test Test Results neg Neural Special Tests- Upper Body Radial Nerve Tension Test Results neg B Ulnar Nerve Tension Test Results positive R Median Nerve Tension Test Results positive R PT-OP-M Strength Start: 11/10/20 07:29 Freq: Status: Active Protocol: Document 05/05/21 11:30 [facility] (Rec: 05/05/21 13:04 [facility] [id number]) Shoulder Strength Shoulder Manual Muscle Testing Right Flexion 4+ Good+ Extension 5 Normal Abduction (C5) 4+ Good+ External Rotation 5 Normal Internal Rotation 5 Normal Horizontal Abduction 5 Normal Horizontal Adduction 5 Normal Left Flexion 5 Normal Extension 5 Normal Abduction (C5) 5 Normal External Rotation 5 Normal Internal Rotation 5 Normal Horizontal Abduction 5 Normal Horizontal Adduction 5 Normal PT-OP-Q Treatments Start: 11/10/20 07:29 Freq: Status: Active Protocol: Document 05/24/21 13:01 [facility] (Rec: 05/24/21 17:16 [facility] [id number]) Therapeutic Exercises Sitting Exercises axial elongation Sitting Exercise Name chin tucks w/retraction of scap Side bilateral Reps/Minutes 15 rocabado Sitting Exercise Name 6x6 w/mod cues Reps/Minutes x 10 reps Standing Exercises opening Standing Exercise Name slow in mirror working on no deviation Reps/Minutes 10 Manual Therapy Treatment Soft Tissue Mobilization cervical Body Location R>L SCM & scalenes &SOR, platysma, hyoids Mobilization Type Myofascial Release,Rolling, Sustained Pressure,Other Intensity/Depth Moderate Body Position Supine Comments w/chin tucks & jaw opening jaw Body Location B post jaw & maseter Mobilization Type Rolling,Sustained Pressure Intensity/Depth Moderate Body Position Hooklying Joint Mobilizations sternum Joint R UPA w/ pt self assist cervical flex ribs Joint R frist rib caudal cervical Comments 1. C5&6 R AP Self-Care/Home Management Treatment Education Other Education in mirror working on neutral neck and discussion of set up when lounging on couch and how to prop w/pillows PT-OP-T Assessment and Plan Start: 11/10/20 07:29 Freq: Status: Active Protocol: Document 05/24/21 13:01 [facility] (Rec: 05/24/21 17:16 [facility] [id number]) Physical Therapy Assessment Goals lifting Short Term Goal (STG) Pt report more endurance w/RUE so it doesn't give out. 04/26/21: Progressing: improved 50% better, still reaching [place] gives way. STG Duration achieved 05/05 Electromechanical Technologist Goal (LTG) Pt will be able to push objects w/UEs w/o feeling pain . 04/26/21: progressin% better. LTG Duration achieved 05/05 Shoulder Short Term Goal (STG) Pt will be able to hold phone and talk on phone w/o RUE getting numb 03/15/21: Pt reports less numbness and tingling w/ talking on phone. 04/26/21: Goal met:no tingling numbness anymore. STG Duration GOAL MET Electromechanical Technologist Goal (LTG) Pt will improve strength of R shoulder to show at least 4/5 UE MMT for flex and abd in order to allow improved ease for overhead activities LTG Duration achieved 05/05 jaw Short Term Goal (STG) Pt will be able to bite and chew w/o jaw discomfort even w /something tough like a bagel. 04/26/21: continues to have pain : not slidign out all the time , now tighter muscles and slides out of alignment, and hard to get back in again. Difficulty chew on anything: cooked veggies, using liquids to soften breading and rips chunks off now. 05/05- STG Duration 06/05/21 Electromechanical Technologist Goal (LTG) Pt will be able to yawn,brush teeth and move jaw in all directions w/o jaw popping out. 12/16/20: improving no locking / popping with brushing teeth with head repositioning, but eating is still popping and takes more time to find head/ neck position to allow jaw to open. 01/19-only happening on a bad day 3-4x 04/26/21: progressing: popping pretty much gone,it locks now. 05/05-jaw locks when closing and makes it hard to eat LTG Duration 07/05/21 cervical Long-Term Goal (LTG) pt will hav efull cervical ROM in order to dec strain of mm onto jaw region and imrpove ability to turn in car. 12/16/20: improved: able to look further over R and L to be able to see when driving, she feels not full ROM yet. 01/19-improving but still limited w/discomfort 03/17-mild limitation w/some discomfort w/flex/ext 04/26/21: progressing: states get a little catch turning to R but not bad 05/05-pt just has mild stiffness but overall neck doing well. Does not feel limited LTG Duration achieved ROM Short Term Goal (STG) Pt will be indep w/HEP and mechanics for workouts w/ water trainer min A STG Duration achieved 05/05 Long-Term Goal (LTG) Pt will improve overhead shoulder mobility to at least 100 deg flex and abd w/o scapular elevation. 03/15/21: progressin deg flexion without shld elevation , 80 deg ABD. 04/26/21: progressing 100deg FF, ABD with focus on no shld elevation. LTG Duration achieved 05/05 Assessment Summary Assessment Pt improved w/ability to open and close after manual.S eh still tends to do upper cervical ext w/opening so worked heavy post for lengthening and ant for abiltiy to fold w/jaw opening. Physical Therapy Plan Frequency and Duration Frequency of Treatment 1-2x/week Duration of Treatment 2 months Plan of Care Start Date 05/05/21 Plan of Care End Date 07/05/21 Next Visit Focus/Plan Next Note Type Treatment Note Next Visit Plan cont to work on cervical and jaw stability
--- NOTE | 2021-06-10 09:46 | PT.OTN ---
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/21) Other specified disorders of temporomandibular joint (06/10/21) Cervicalgia (06/10/21) Muscle weakness (generalized) (06/10/21) Myalgia of mastication muscle (06/10/21) Abnormal posture (06/10/21) Physical Therapy Treatment Note PT-OP-A Visit Information Start: 11/10/20 07:29 Freq: Status: Active Protocol: Document 06/10/21 08:56 SP (Rec: 06/10/21 09:48 SP [id number]) Out-Patient Physical Therapy Visit Information Visit Information Visit Type Treatment Note Visit Note 06/28 Visit Start Time 08:56 Visit Stop Time 09:46 Total Visit Minutes 50 Visit Number 4 Number of CORK INSULATOR HELPER Visits 1 PT-OP-B Current Condition Start: 11/10/20 07:29 Freq: Status: Active Protocol: Document 01/19/21 07:30 [facility] (Rec: 01/19/21 08:17 [facility] [id number]) Current Condition History of Current Condition Onset Date worse starting 9 months ago Current Complaints L jaw History of Current Condition 01/19-prior to starting PT for jaw, R shoulder pain was constant. Now it is intermittent. Notes arms no longer go to sleep frequently and do not do that to the extent they used to. Neck pain is less frequent now too. Still gets it a couple times a week. When she does core stuff like crunches, her neck starts to hurt. Pt reports weak pricing strategist and has trouble picking up things when has to use a pincer pricing strategist. IE:Pt reports jaw keeps popping out. It crunched for years before that. THe popping started 9 months ago. It just started gradually gets worse. It hurts when she pops it back in. Pt reports L side pops out so everything shifts to R. Pt reports neck pain on R side w/ALONSO associated occ. THat has been going on for the past month w/ALONSO. SHe has always had shoulder pain on R side. R TSA has not helped. Works with a color strainer for 4 days a week but he hasn't changed anything. Her R ant lat arm consistantly always hurts. Her color strainer tapes her neck post and that seems to help. Pt reports ALONSO more when laying down. Pt had one other episode w/R neck about 25 years ago that she did PT and OT and responded well with that care and it never came back like that again. Pt reports arms go to sleep and reports R arm pricing strategist has gotten a lot less. The weakness has been getting progressive over the last few years. 1x a year ago that jaw popped out (both sides)and she couldn't chew or swallow and that was like 30 years ago. Now it pops out at random. Tried mouth guard years ago and found she actually clenched the mouth guard that inc pain. She doesn 't notice herself clench her teeth a lot and doesn't wake up at night d/t jaw sore d/t clenching or anything. Pt reports B mastectomies in 2006 w/chemo. TSA R was 2017 Prior Treatments and Tests PT for shoulder in 2017, Dr. rock is having pt relax jaw by placing in bottom of mouth and teeth slightly apart-also instructed heat but hasn't tried Treatment Goals Patient/Caregiver Goals get rid of most of the pain, be able to move around a little bit and not have pain w /it, not get numb when talking on the phone PT-OP-C Subjective Start: 11/10/20 07:29 Freq: Status: Active Protocol: Document 06/10/21 08:56 SP (Rec: 06/10/21 09:48 SP [id number]) OP-PT Subjective Patient Comments Patient Comments Pt stated has been working in garden lately on hands knees, jaw has been acting up lately and can't get it back self has to allow just release when it 's ready and not to appt with cold past week with cold. Pt stated felt good for 3 days and worked on alignement self. Pt states appt with oral surgeon next week to see if can get mouth guard for working out to help keep in line, most stress and hard to remember jaw/ neck alignment while exercising, is good sleeping and ok in am. PT-OP-F Manual Assessment Start: 11/10/20 07:29 Freq: Status: Active Protocol: Document 01/19/21 07:30 [facility] (Rec: 01/19/21 08:17 [facility] [id number]) Manual Assessments Soft Tissue Assessment Soft Tissue Mobility Assessment tightness B pec, R>L UT & LS, R rhomboids, B Scalenes & SCM, B biceps superiorly PT-OP-J Posture/Palpation/Skin Start: 11/10/20 07:29 Freq: Status: Active Protocol: Document 01/19/21 07:30 [facility] (Rec: 01/19/21 08:17 [facility] [id number]) Posture Evaluation [facility] Postural Classification System Vertebral Compression Test 1 Elbow Flexion Test 1 Comments Posture Comments scapula abducted & shoulders IR, inc kyphosis, fwd head PT-OP-K Range of Motion Start: 11/10/20 07:29 Freq: Status: Active Protocol: Document 05/05/21 11:30 [facility] (Rec: 05/05/21 13:04 [facility] [id number]) Cervical Spine Range of Motion Cervical Spine Active Degrees Flexion 55 Extension 54 Rotation Left 59 Rotation Right 57 Lateral Flexion Left 35 Lateral Flexion Right 34 Comments no pain just stiffness w/rot & SB TMJ Range of Motion Jaw Openning Jaw Openning (mm) 42 Shoulder Goniometric Range of Motion Shoulder Right Active Flexion 105 Abduction 100 PT-OP-L Special Tests Start: 01/19/21 07:30 Freq: Status: Active Protocol: Document 01/19/21 07:30 [facility] (Rec: 01/19/21 08:17 [facility] [id number]) Special Tests Cervical Spine Special Tests Spurling's Test Test Results neg Neural Special Tests- Upper Body Radial Nerve Tension Test Results neg B Ulnar Nerve Tension Test Results positive R Median Nerve Tension Test Results positive R PT-OP-M Strength Start: 11/10/20 07:29 Freq: Status: Active Protocol: Document 05/05/21 11:30 [facility] (Rec: 05/05/21 13:04 [facility] [id number]) Shoulder Strength Shoulder Manual Muscle Testing Right Flexion 4+ Good+ Extension 5 Normal Abduction (C5) 4+ Good+ External Rotation 5 Normal Internal Rotation 5 Normal Horizontal Abduction 5 Normal Horizontal Adduction 5 Normal Left Flexion 5 Normal Extension 5 Normal Abduction (C5) 5 Normal External Rotation 5 Normal Internal Rotation 5 Normal Horizontal Abduction 5 Normal Horizontal Adduction 5 Normal PT-OP-Q Treatments Start: 11/10/20 07:29 Freq: Status: Active Protocol: Document 06/10/21 08:56 SP (Rec: 06/10/21 09:48 SP [id number]) Therapeutic Exercises Sitting Exercises axial elongation Sitting Exercise Name chin tucks w/retraction of scap Side bilateral Reps/Minutes 15 rocabado Sitting Exercise Name 6x6 w/mod cues Reps/Minutes x 10 reps Standing Exercises GH and clavicle mob Standing Exercise Name R>L Resistance TB #5 Reps/Minutes 3rep, 20 sec hold Comments lunge stance good release feel chest pec stretch Resistance in doorway Reps/Minutes 30x3 Comments cued shld down, CS neutral ext / chin tuck opening Standing Exercise Name slow in mirror working on no deviation Reps/Minutes 10 Manual Therapy Treatment Soft Tissue Mobilization pec Body Location R major and minor, subclavius Mobilization Type Rolling,Strumming,Sustained Pressure Intensity/Depth Moderate Body Position Supine Comments manual cervical Body Location R>L SCM, longissmus, Mobilization Type Myofascial Release,Rolling, Sustained Pressure,Other Intensity/Depth Moderate Body Position Supine Comments w/chin tucks & jaw opening jaw Body Location B post jaw & maseter, hyoids Mobilization Type Rolling,Sustained Pressure Intensity/Depth Moderate Body Position Standing Comments external, standing mirror manual and self Joint Mobilizations sternum Joint R UPA w/ pt self assist cervical flex SC Joint R inf glide FM cervical Comments 1. C5&6 R AP, PA PT-OP-T Assessment and Plan Start: 11/10/20 07:29 Freq: Status: Active Protocol: Document 06/10/21 08:56 SP (Rec: 06/10/21 09:48 SP [id number]) Physical Therapy Assessment Goals lifting Short Term Goal (STG) Pt report more endurance w/RUE so it doesn't give out. 04/26/21: Progressing: improved 50% better, still reaching [place] gives way. STG Duration achieved 05/05 Summer Counselor Goal (LTG) Pt will be able to push objects w/UEs w/o feeling pain . 04/26/21: progressin% better. LTG Duration achieved 05/05 Shoulder Short Term Goal (STG) Pt will be able to hold phone and talk on phone w/o RUE getting numb 03/15/21: Pt reports less numbness and tingling w/ talking on phone. 04/26/21: Goal met:no tingling numbness anymore. STG Duration GOAL MET Shelter Goal (LTG) Pt will improve strength of R shoulder to show at least 4/5 UE MMT for flex and abd in order to allow improved ease for overhead activities LTG Duration achieved 05/05 jaw Short Term Goal (STG) Pt will be able to bite and chew w/o jaw discomfort even w /something tough like a bagel. 04/26/21: continues to have pain : not slidign out all the time , now tighter muscles and slides out of alignment, and hard to get back in again. Difficulty chew on anything: cooked veggies, using liquids to soften breading and rips chunks off now. 05/05- STG Duration 06/05/21 Shelter Goal (LTG) Pt will be able to yawn,brush teeth and move jaw in all directions w/o jaw popping out. 12/16/20: improving no locking / popping with brushing teeth with head repositioning, but eating is still popping and takes more time to find head/ neck position to allow jaw to open. 01/19-only happening on a bad day 3-4x 04/26/21: progressing: popping pretty much gone,it locks now. 05/05-jaw locks when closing and makes it hard to eat LTG Duration 07/05/21 cervical Shelter Goal (LTG) pt will hav efull cervical ROM in order to dec strain of mm onto jaw region and imrpove ability to turn in car. 12/16/20: improved: able to look further over R and L to be able to see when driving, she feels not full ROM yet. 01/19-improving but still limited w/discomfort 03/17-mild limitation w/some discomfort w/flex/ext 04/26/21: progressing: states get a little catch turning to R but not bad 05/05-pt just has mild stiffness but overall neck doing well. Does not feel limited LTG Duration achieved ROM Short Term Goal (STG) Pt will be indep w/HEP and mechanics for workouts w/ color strainer min A STG Duration achieved 05/05 Summer Counselor Goal (LTG) Pt will improve overhead shoulder mobility to at least 100 deg flex and abd w/o scapular elevation. 03/15/21: progressin deg flexion without shld elevation , 80 deg ABD. 04/26/21: progressing 100deg FF, ABD with focus on no shld elevation. LTG Duration achieved 05/05 Assessment Summary Assessment Pt good response to manual, and added stretching for home carryover. I feel more open, good stretches. Cued for continued jaw ex to strengthen alignment usign mirror. Physical Therapy Plan Frequency and Duration Frequency of Treatment 1-2x/week Duration of Treatment 2 months Plan of Care Start Date 05/05/21 Plan of Care End Date 07/05/21 Therapeutic Interventions Therapeutic Interventions Aquatic Therapy,Gait Training, Home Exercise Program,Joint Mobilizations,Manual Therapy, Neuromuscular Re-education, Patient/Caregiver Education, Self-Care/Home Management,Soft Tissue Mobilization,Taping, Therapeutic Activities, Therapeutic Exercises Modalities Cold Pack/Ice Massage,Electric Stimulation,Hot Packs, Traction- Mechanical, Ultrasound Next Visit Focus/Plan Next Note Type Treatment Note Next Visit Plan Check if pt looked into mouth guard to wear during ex help disengage recruitment. POC:cont to work on cervical and jaw stability
--- NOTE | 2021-06-16 17:50 | PT.OTN ---
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 (Rec: 06/16/21 17:50 [facility] [id number]) Out-Patient Physical Therapy Visit Information Visit Information Visit Type Treatment Note Visit Note 07/29 Visit Start Time 15:20 Visit Stop Time 16:00 Total Visit Minutes 40 Visit Number 5 Number of AIRCRAFT PAINTER Visits 0 PT-OP-B Current Condition Start: 11/10/20 07:29 Freq: Status: Active Protocol: Document 01/19/21 07:30 [facility] (Rec: 01/19/21 08:17 [facility] [id number]) Current Condition History of Current Condition Onset Date worse starting 9 months ago Current Complaints L jaw History of Current Condition 01/19-prior to starting PT for jaw, R shoulder pain was constant. Now it is intermittent. Notes arms no longer go to sleep frequently and do not do that to the extent they used to. Neck pain is less frequent now too. Still gets it a couple times a week. When she does core stuff like crunches, her neck starts to hurt. Pt reports weak paperhanger and has trouble picking up things when has to use a pincer paperhanger. IE:Pt reports jaw keeps popping out. It crunched for years before that. THe popping started 9 months ago. It just started gradually gets worse. It hurts when she pops it back in. Pt reports L side pops out so everything shifts to R. Pt reports neck pain on R side w/ALONSO associated occ. THat has been going on for the past month w/ALONSO. SHe has always had shoulder pain on R side. R TSA has not helped. 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 Her R ant lat arm consistantly always hurts. Her security trainer tapes her neck post and that seems to help. Pt reports ALONSO more when laying down. Pt had one other episode w/R neck about 25 years ago that she did PT and OT and responded well with that care and it never came back like that again. Pt reports arms go to sleep and reports R arm paperhanger has gotten a lot less. The weakness has been getting progressive over the last few years. 1x a year ago that jaw popped out (both sides)and she couldn't chew or swallow and that was like 30 years ago. Now it pops out at random. Tried mouth guard years ago and found she actually clenched the mouth guard that inc pain. She doesn 't notice herself clench her teeth a lot and doesn't wake up at night d/t jaw sore d/t clenching or anything. Pt reports B mastectomies in 2006 w/chemo. TSA R was 2017 Prior Treatments and Tests PT for shoulder in 2017, Dr. rock is having pt relax jaw by placing in bottom of mouth and teeth slightly apart-also instructed heat but hasn't tried Treatment Goals Patient/Caregiver Goals get rid of most of the pain, be able to move around a little bit and not have pain w /it, not get numb when talking on the phone PT-OP-C Subjective Start: 11/10/20 07:29 Freq: Status: Active Protocol: Document 06/16/21 15:59 [facility] (Rec: 06/16/21 17:50 [facility] [id number]) OP-PT Subjective Patient Comments Patient Comments Pt reports jaw is partially out now. She notes she felt great after last PT session May 24 and that lasted for a few days. She has been noticed after working out or gardening often it increased. PT-OP-F Manual Assessment Start: 11/10/20 07:29 Freq: Status: Active Protocol: Document 01/19/21 07:30 [facility] (Rec: 01/19/21 08:17 [facility] [id number]) Manual Assessments Soft Tissue Assessment Soft Tissue Mobility Assessment tightness B pec, R>L UT & LS, R rhomboids, B Scalenes & SCM, B biceps superiorly PT-OP-J Posture/Palpation/Skin Start: 11/10/20 07:29 Freq: Status: Active Protocol: Document 01/19/21 07:30 [facility] (Rec: 01/19/21 08:17 [facility] [id number]) Posture Evaluation [facility] Postural Classification System Vertebral Compression Test 1 Elbow Flexion Test 1 Comments Posture Comments scapula abducted & shoulders IR, inc kyphosis, fwd head PT-OP-K Range of Motion Start: 11/10/20 07:29 Freq: Status: Active Protocol: Document 05/05/21 11:30 [facility] (Rec: 05/05/21 13:04 [facility] [id number]) Cervical Spine Range of Motion Cervical Spine Active Degrees Flexion 55 Extension 54 Rotation Left 59 Rotation Right 57 Lateral Flexion Left 35 Lateral Flexion Right 34 Comments no pain just stiffness w/rot & SB TMJ Range of Motion Jaw Openning Jaw Openning (mm) 42 Shoulder Goniometric Range of Motion Shoulder Right Active Flexion 105 Abduction 100 PT-OP-L Special Tests Start: 01/19/21 07:30 Freq: Status: Active Protocol: Document 01/19/21 07:30 [facility] (Rec: 01/19/21 08:17 [facility] [id number]) Special Tests Cervical Spine Special Tests Spurling's Test Test Results neg Neural Special Tests- Upper Body Radial Nerve Tension Test Results neg B Ulnar Nerve Tension Test Results positive R Median Nerve Tension Test Results positive R PT-OP-M Strength Start: 11/10/20 07:29 Freq: Status: Active Protocol: Document 05/05/21 11:30 [facility] (Rec: 05/05/21 13:04 [facility] [id number]) Shoulder Strength Shoulder Manual Muscle Testing Right Flexion 4+ Good+ Extension 5 Normal Abduction (C5) 4+ Good+ External Rotation 5 Normal Internal Rotation 5 Normal Horizontal Abduction 5 Normal Horizontal Adduction 5 Normal Left Flexion 5 Normal Extension 5 Normal Abduction (C5) 5 Normal External Rotation 5 Normal Internal Rotation 5 Normal Horizontal Abduction 5 Normal Horizontal Adduction 5 Normal PT-OP-Q Treatments Start: 11/10/20 07:29 Freq: Status: Active Protocol: Document 06/16/21 15:59 [facility] (Rec: 06/16/21 17:50 [facility] [id number]) Manual Therapy Treatment Soft Tissue Mobilization cervical Body Location R>L SCM & scalenes &SOR, platysma, hyoids Mobilization Type Myofascial Release,Rolling, Sustained Pressure,Other Intensity/Depth Moderate Body Position Supine Comments w/chin tucks & jaw opening intraoral Body Location L ptyergoid Mobilization Type Sustained Pressure Intensity/Depth Moderate Body Position Hooklying Comments manual and w/jaw open/close jaw Body Location B post jaw & maseter, hyoids Mobilization Type Rolling,Sustained Pressure Intensity/Depth Moderate Body Position Standing Comments external, standing mirror manual and self Joint Mobilizations cervical Comments 1. C5&6 L AP jaw Comments retrusion c/r & jaw distraction C1 Direction FM Comments 1. transverse R FM Self-Care/Home Management Treatment Education Other Education cues for posture & reminder of how to do c/r for jaw retraction PT-OP-T Assessment and Plan Start: 11/10/20 07:29 Freq: Status: Active Protocol: Document 06/16/21 15:59 [facility] (Rec: 06/16/21 17:50 [facility] [id number]) Physical Therapy Assessment Goals lifting Short Term Goal (STG) Pt report more endurance w/RUE so it doesn't give out. 04/26/21: Progressing: improved 50% better, still reaching [place] gives way. STG Duration achieved 05/05 Shotblast Equipment Operator Goal (LTG) Pt will be able to push objects w/UEs w/o feeling pain . 04/26/21: progressin% better. LTG Duration achieved 05/05 Shoulder Short Term Goal (STG) Pt will be able to hold phone and talk on phone w/o RUE getting numb 03/15/21: Pt reports less numbness and tingling w/ talking on phone. 04/26/21: Goal met:no tingling numbness anymore. STG Duration GOAL MET Shotblast Equipment Operator Goal (LTG) Pt will improve strength of R shoulder to show at least 4/5 UE MMT for flex and abd in order to allow improved ease for overhead activities LTG Duration achieved 05/05 jaw Short Term Goal (STG) Pt will be able to bite and chew w/o jaw discomfort even w /something tough like a bagel. 04/26/21: continues to have pain : not slidign out all the time , now tighter muscles and slides out of alignment, and hard to get back in again. Difficulty chew on anything: cooked veggies, using liquids to soften breading and rips chunks off now. 05/05- STG Duration 06/05/21 Shotblast Equipment Operator Goal (LTG) Pt will be able to yawn,brush teeth and move jaw in all directions w/o jaw popping out. 12/16/20: improving no locking / popping with brushing teeth with head repositioning, but eating is still popping and takes more time to find head/ neck position to allow jaw to open. 01/19-only happening on a bad day 3-4x 04/26/21: progressing: popping pretty much gone,it locks now. 05/05-jaw locks when closing and makes it hard to eat LTG Duration 07/05/21 cervical Shotblast Equipment Operator Goal (LTG) pt will hav efull cervical ROM in order to dec strain of mm onto jaw region and imrpove ability to turn in car. 12/16/20: improved: able to look further over R and L to be able to see when driving, she feels not full ROM yet. 01/19-improving but still limited w/discomfort 03/17-mild limitation w/some discomfort w/flex/ext 04/26/21: progressing: states get a little catch turning to R but not bad 05/05-pt just has mild stiffness but overall neck doing well. Does not feel limited LTG Duration achieved ROM Short Term Goal (STG) Pt will be indep w/HEP and mechanics for workouts w/ security trainer min A STG Duration achieved 05/05 Alf Goal (LTG) Pt will improve overhead shoulder mobility to at least 100 deg flex and abd w/o scapular elevation. 03/15/21: progressin deg flexion without shld elevation , 80 deg ABD. 04/26/21: progressing 100deg FF, ABD with focus on no shld elevation. LTG Duration achieved 05/05 Assessment Summary Assessment Pt reported improvement in pain and jaw felt back in. She is able to get herself in good posture and did review HEP and discussed DC after next few weeks. Encouraged to call MD prior to her appt. Physical Therapy Plan Frequency and Duration Frequency of Treatment 1-2x/week Duration of Treatment 2 months Plan of Care Start Date 05/05/21 Plan of Care End Date 07/05/21 Next Visit Focus/Plan Next Note Type Treatment Note Next Visit Plan cont to work on cervical and jaw stability
--- NOTE | 2021-06-29 12:19 | PT.OTN ---
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 (06/29/21) Other specified disorders of temporomandibular joint (06/29/21) Cervicalgia (06/29/21) Muscle weakness (generalized) (06/29/21) Myalgia of mastication muscle (06/29/21) Abnormal posture (06/29/21) Physical Therapy Treatment Note PT-OP-A Visit Information Start: 11/10/20 07:29 Freq: Status: Active Protocol: Document 06/29/21 10:16 [facility] (Rec: 06/29/21 12:19 [facility] [id number]) Out-Patient Physical Therapy Visit Information Visit Information Visit Type Treatment Note Visit Note 09/28 Visit Start Time 10:15 Visit Stop Time 11:00 Total Visit Minutes 45 Number of DIRECTOR OF CORPORATE SPONSORSHIPS Visits 0 PT-OP-B Current Condition Start: 11/10/20 07:29 Freq: Status: Active Protocol: Document 01/19/21 07:30 [facility] (Rec: 01/19/21 08:17 [facility] [id number]) Current Condition History of Current Condition Onset Date worse starting 9 months ago Current Complaints L jaw History of Current Condition 01/19-prior to starting PT for jaw, R shoulder pain was constant. Now it is intermittent. Notes arms no longer go to sleep frequently and do not do that to the extent they used to. Neck pain is less frequent now too. Still gets it a couple times a week. When she does core stuff like crunches, her neck starts to hurt. Pt reports weak live out nanny and has trouble picking up things when has to use a pincer live out nanny. IE:Pt reports jaw keeps popping out. It crunched for years before that. THe popping started 9 months ago. It just started gradually gets worse. It hurts when she pops it back in. Pt reports L side pops out so everything shifts to R. Pt reports neck pain on R side w/ALONSO associated occ. THat has been going on for the past month w/ALONSO. SHe has always had shoulder pain on R side. R TSA has not helped. Works with a operations trainer for 4 days a week but he hasn't changed anything. Her R ant lat arm consistantly always hurts. Her operations trainer tapes her neck post and that seems to help. Pt reports ALONSO more when laying down. Pt had one other episode w/R neck about 25 years ago that she did PT and OT and responded well with that care and it never came back like that again. Pt reports arms go to sleep and reports R arm live out nanny has gotten a lot less. The weakness has been getting progressive over the last few years. 1x a year ago that jaw popped out (both sides)and she couldn't chew or swallow and that was like 30 years ago. Now it pops out at random. Tried mouth guard years ago and found she actually clenched the mouth guard that inc pain. She doesn 't notice herself clench her teeth a lot and doesn't wake up at night d/t jaw sore d/t clenching or anything. Pt reports B mastectomies in 2006 w/chemo. TSA R was 2017 Prior Treatments and Tests PT for shoulder in 2017, Dr. rock is having pt relax jaw by placing in bottom of mouth and teeth slightly apart-also instructed heat but hasn't tried Treatment Goals Patient/Caregiver Goals get rid of most of the pain, be able to move around a little bit and not have pain w /it, not get numb when talking on the phone PT-OP-C Subjective Start: 11/10/20 07:29 Freq: Status: Active Protocol: Document 06/29/21 10:16 [facility] (Rec: 06/29/21 12:19 [facility] [id number]) OP-PT Subjective Patient Comments Patient Comments pt notes overall doing better w/neck and shoudler but jaw still bothers her when eating and sometiems after working out. PT-OP-F Manual Assessment Start: 11/10/20 07:29 Freq: Status: Active Protocol: Document 01/19/21 07:30 [facility] (Rec: 01/19/21 08:17 [facility] [id number]) Manual Assessments Soft Tissue Assessment Soft Tissue Mobility Assessment tightness B pec, R>L UT & LS, R rhomboids, B Scalenes & SCM, B biceps superiorly PT-OP-J Posture/Palpation/Skin Start: 11/10/20 07:29 Freq: Status: Active Protocol: Document 01/19/21 07:30 [facility] (Rec: 01/19/21 08:17 [facility] [id number]) Posture Evaluation Rowan Postural Classification System Vertebral Compression Test 1 Elbow Flexion Test 1 Comments Posture Comments scapula abducted & shoulders IR, inc kyphosis, fwd head PT-OP-K Range of Motion Start: 11/10/20 07:29 Freq: Status: Active Protocol: Document 05/05/21 11:30 [facility] (Rec: 05/05/21 13:04 [facility] [id number]) Cervical Spine Range of Motion Cervical Spine Active Degrees Flexion 55 Extension 54 Rotation Left 59 Rotation Right 57 Lateral Flexion Left 35 Lateral Flexion Right 34 Comments no pain just stiffness w/rot & SB TMJ Range of Motion Jaw Openning Jaw Openning (mm) 42 Shoulder Goniometric Range of Motion Shoulder Right Active Flexion 105 Abduction 100 PT-OP-L Special Tests Start: 01/19/21 07:30 Freq: Status: Active Protocol: Document 01/19/21 07:30 [facility] (Rec: 01/19/21 08:17 [facility] [id number]) Special Tests Cervical Spine Special Tests Spurling's Test Test Results neg Neural Special Tests- Upper Body Radial Nerve Tension Test Results neg B Ulnar Nerve Tension Test Results positive R Median Nerve Tension Test Results positive R PT-OP-M Strength Start: 11/10/20 07:29 Freq: Status: Active Protocol: Document 05/05/21 11:30 [facility] (Rec: 05/05/21 13:04 [facility] [id number]) Shoulder Strength Shoulder Manual Muscle Testing Right Flexion 4+ Good+ Extension 5 Normal Abduction (C5) 4+ Good+ External Rotation 5 Normal Internal Rotation 5 Normal Horizontal Abduction 5 Normal Horizontal Adduction 5 Normal Left Flexion 5 Normal Extension 5 Normal Abduction (C5) 5 Normal External Rotation 5 Normal Internal Rotation 5 Normal Horizontal Abduction 5 Normal Horizontal Adduction 5 Normal PT-OP-Q Treatments Start: 11/10/20 07:29 Freq: Status: Active Protocol: Document 06/29/21 10:16 [facility] (Rec: 06/29/21 12:19 [facility] [id number]) Manual Therapy Treatment Soft Tissue Mobilization intraoral Body Location B ptyergoid Mobilization Type Sustained Pressure Intensity/Depth Moderate Body Position Hooklying Comments manual and w/jaw open/close jaw Body Location B post jaw & maseter, hyoids Mobilization Type Rolling,Sustained Pressure Intensity/Depth Moderate Body Position Standing Comments external, standing mirror manual and self Neuro Re-Education Treatment Other Activities rhythmic iniation Comments working in supine and seated w /facilitaiton of core w/self cross body leg press and chin tucks along w/cross body self chop pattern resistance for irradiation. She did well and imrpoved w/holds in less opening but in full opening w/ pressure to L deviaiton, pt unable to stabilize well even when keeping pressure for facilitation for opening Self-Care/Home Management Treatment Education Other Education verbal review of exercises, reminder to wrok on posture w/ jaw exercises, added doing rhythmic initiation to jaw at home. edu to work in mirror w/ jaw opening w/o tongue on top of mouth to work on jaw motion PT-OP-T Assessment and Plan Start: 11/10/20 07:29 Freq: Status: Active Protocol: Document 06/29/21 10:16 [facility] (Rec: 06/29/21 12:19 [facility] [id number]) Physical Therapy Assessment Goals lifting Short Term Goal (STG) Pt report more endurance w/RUE so it doesn't give out. 04/26/21: Progressing: improved 50% better, still reaching OH gives way. STG Duration achieved 05/05 Fdc Goal (LTG) Pt will be able to push objects w/UEs w/o feeling pain . 04/26/21: progressin% better. LTG Duration achieved 05/05 Shoulder Short Term Goal (STG) Pt will be able to hold phone and talk on phone w/o RUE getting numb 03/15/21: Pt reports less numbness and tingling w/ talking on phone. 04/26/21: Goal met:no tingling numbness anymore. STG Duration GOAL MET Fdc Goal (LTG) Pt will improve strength of R shoulder to show at least 4/5 UE MMT for flex and abd in order to allow improved ease for overhead activities LTG Duration achieved 05/05 jaw Short Term Goal (STG) Pt will be able to bite and chew w/o jaw discomfort even w /something tough like a bagel. 04/26/21: continues to have pain : not slidign out all the time , now tighter muscles and slides out of alignment, and hard to get back in again. Difficulty chew on anything: cooked veggies, using liquids to soften breading and rips chunks off now. 06/29-has been limited w/ chewing STG Duration 08/29 Buildings And Grounds Director Goal (LTG) Pt will be able to yawn,brush teeth and move jaw in all directions w/o jaw popping out. 12/16/20: improving no locking / popping with brushing teeth with head repositioning, but eating is still popping and takes more time to find head/ neck position to allow jaw to open. 01/19-only happening on a bad day 3-4x 04/26/21: progressing: popping pretty much gone,it locks now. 05/05-jaw locks when closing and makes it hard to eat LTG Duration achieved 06/29 cervical Buildings And Grounds Director Goal (LTG) pt will hav efull cervical ROM in order to dec strain of mm onto jaw region and imrpove ability to turn in car. 12/16/20: improved: able to look further over R and L to be able to see when driving, she feels not full ROM yet. 01/19-improving but still limited w/discomfort 03/17-mild limitation w/some discomfort w/flex/ext 04/26/21: progressing: states get a little catch turning to R but not bad 05/05-pt just has mild stiffness but overall neck doing well. Does not feel limited LTG Duration achieved ROM Short Term Goal (STG) Pt will be indep w/HEP and mechanics for workouts w/ operations trainer min A STG Duration achieved 05/05 Fdc Goal (LTG) Pt will improve overhead shoulder mobility to at least 100 deg flex and abd w/o scapular elevation. 03/15/21: progressin deg flexion without shld elevation , 80 deg ABD. 04/26/21: progressing 100deg FF, ABD with focus on no shld elevation. LTG Duration achieved 05/05 Assessment Summary Assessment Pt cont to slowly improve and is only having pain eating now . She is showing better soft tissue mobility since last sessions but does have dec jaw stability and when PT did manual resistance (gentle) w/ jaw open wide w/resistance towards L deviation, pt had difficulty stabilizinga nd joint would always ahve to pop back in place when returning to neutral jaw position. She improved w/other positions w/ neuro re edu though. Physical Therapy Plan Frequency and Duration Frequency of Treatment 1x/week to every oth Duration of Treatment 2 months Plan of Care Start Date 06/29/21 Plan of Care End Date 08/29/21 Therapeutic Interventions Therapeutic Interventions Aquatic Therapy,Gait Training, Home Exercise Program,Joint Mobilizations,Manual Therapy, Neuromuscular Re-education, Patient/Caregiver Education, Self-Care/Home Management,Soft Tissue Mobilization,Taping, Therapeutic Activities, Therapeutic Exercises Modalities Cold Pack/Ice Massage,Electric Stimulation,Hot Packs, Traction- Mechanical, Ultrasound Next Visit Focus/Plan Next Note Type Treatment Note Next Visit Plan possible DC if pt ready, cont to workon neuro -re edu of jaw
--- NOTE | 2021-07-04 18:10 | PT.OTN ---
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 (07/04/21) Other specified disorders of temporomandibular joint (07/04/21) Cervicalgia (07/04/21) Muscle weakness (generalized) (07/04/21) Myalgia of mastication muscle (07/04/21) Abnormal posture (07/04/21) Physical Therapy Treatment Note PT-OP-A Visit Information Start: 11/10/20 07:29 Freq: Status: Active Protocol: Document 07/04/21 17:59 [facility] (Rec: 07/04/21 18:10 [facility] [id number]) Out-Patient Physical Therapy Visit Information Visit Information Visit Type Treatment Note Visit Note 03/31 Visit Start Time 08:15 Visit Stop Time 09:00 Total Visit Minutes 45 Number of MILLING PLANER OPERATOR Visits 0 PT-OP-B Current Condition Start: 11/10/20 07:29 Freq: Status: Active Protocol: Document 01/19/21 07:30 [facility] (Rec: 01/19/21 08:17 [facility] [id number]) Current Condition History of Current Condition Onset Date worse starting 9 months ago Current Complaints L jaw History of Current Condition 01/19-prior to starting PT for jaw, R shoulder pain was constant. Now it is intermittent. Notes arms no longer go to sleep frequently and do not do that to the extent they used to. Neck pain is less frequent now too. Still gets it a couple times a week. When she does core stuff like crunches, her neck starts to hurt. Pt reports weak book cutter and has trouble picking up things when has to use a pincer book cutter. IE:Pt reports jaw keeps popping out. It crunched for years before that. THe popping started 9 months ago. It just started gradually gets worse. It hurts when she pops it back in. Pt reports L side pops out so everything shifts to R. Pt reports neck pain on R side w/ALONSO associated occ. THat has been going on for the past month w/ALONSO. SHe has always had shoulder pain on R side. R TSA has not helped. Works with a computer technology trainer for 4 days a week but he hasn't changed anything. Her R ant lat arm consistantly always hurts. Her computer technology trainer tapes her neck post and that seems to help. Pt reports ALONSO more when laying down. Pt had one other episode w/R neck about 25 years ago that she did PT and OT and responded well with that care and it never came back like that again. Pt reports arms go to sleep and reports R arm book cutter has gotten a lot less. The weakness has been getting progressive over the last few years. 1x a year ago that jaw popped out (both sides)and she couldn't chew or swallow and that was like 30 years ago. Now it pops out at random. Tried mouth guard years ago and found she actually clenched the mouth guard that inc pain. She doesn 't notice herself clench her teeth a lot and doesn't wake up at night d/t jaw sore d/t clenching or anything. Pt reports B mastectomies in 2006 w/chemo. TSA R was 2017 Prior Treatments and Tests PT for shoulder in 2017, Dr. rock is having pt relax jaw by placing in bottom of mouth and teeth slightly apart-also instructed heat but hasn't tried Treatment Goals Patient/Caregiver Goals get rid of most of the pain, be able to move around a little bit and not have pain w /it, not get numb when talking on the phone PT-OP-C Subjective Start: 11/10/20 07:29 Freq: Status: Active Protocol: Document 07/04/21 17:59 [facility] (Rec: 07/04/21 18:10 [facility] [id number]) OP-PT Subjective Patient Comments Patient Comments Pt reports she was sore sunday , sat and sun this weekend w/ jaw popping out more. Unsure why.S he woudln't notice until would stop doing something and close her mouth. She is frustrated re: jaw. Has questiosn w/neuro re edu PT-OP-F Manual Assessment Start: 11/10/20 07:29 Freq: Status: Active Protocol: Document 01/19/21 07:30 [facility] (Rec: 01/19/21 08:17 [facility] [id number]) Manual Assessments Soft Tissue Assessment Soft Tissue Mobility Assessment tightness B pec, R>L UT & LS, R rhomboids, B Scalenes & SCM, B biceps superiorly PT-OP-J Posture/Palpation/Skin Start: 11/10/20 07:29 Freq: Status: Active Protocol: Document 01/19/21 07:30 [facility] (Rec: 01/19/21 08:17 [facility] [id number]) Posture Evaluation Rowan Postural Classification System Vertebral Compression Test 1 Elbow Flexion Test 1 Comments Posture Comments scapula abducted & shoulders IR, inc kyphosis, fwd head PT-OP-K Range of Motion Start: 11/10/20 07:29 Freq: Status: Active Protocol: Document 05/05/21 11:30 [facility] (Rec: 05/05/21 13:04 [facility] [id number]) Cervical Spine Range of Motion Cervical Spine Active Degrees Flexion 55 Extension 54 Rotation Left 59 Rotation Right 57 Lateral Flexion Left 35 Lateral Flexion Right 34 Comments no pain just stiffness w/rot & SB TMJ Range of Motion Jaw Openning Jaw Openning (mm) 42 Shoulder Goniometric Range of Motion Shoulder Right Active Flexion 105 Abduction 100 PT-OP-L Special Tests Start: 01/19/21 07:30 Freq: Status: Active Protocol: Document 01/19/21 07:30 [facility] (Rec: 01/19/21 08:17 [facility] [id number]) Special Tests Cervical Spine Special Tests Spurling's Test Test Results neg Neural Special Tests- Upper Body Radial Nerve Tension Test Results neg B Ulnar Nerve Tension Test Results positive R Median Nerve Tension Test Results positive R PT-OP-M Strength Start: 11/10/20 07:29 Freq: Status: Active Protocol: Document 05/05/21 11:30 [facility] (Rec: 05/05/21 13:04 [facility] [id number]) Shoulder Strength Shoulder Manual Muscle Testing Right Flexion 4+ Good+ Extension 5 Normal Abduction (C5) 4+ Good+ External Rotation 5 Normal Internal Rotation 5 Normal Horizontal Abduction 5 Normal Horizontal Adduction 5 Normal Left Flexion 5 Normal Extension 5 Normal Abduction (C5) 5 Normal External Rotation 5 Normal Internal Rotation 5 Normal Horizontal Abduction 5 Normal Horizontal Adduction 5 Normal PT-OP-Q Treatments Start: 11/10/20 07:29 Freq: Status: Active Protocol: Document 07/04/21 17:59 [facility] (Rec: 07/04/21 18:10 [facility] [id number]) Manual Therapy Treatment Soft Tissue Mobilization intraoral Body Location B ptyergoid Mobilization Type Sustained Pressure Intensity/Depth Moderate Body Position Hooklying Comments manual and w/jaw open/close Joint Mobilizations cranium Comments occipital bone caudal, frontal bone PA, temporal bone inf, mastoid R, parietal ant, R dygomatic arch inf, sphenoid L transverse & UPA L C1 Direction FM Comments 1. transverse L FM 2. UPA R FM Neuro Re-Education Treatment Other Activities rhythmic iniation Comments working in supine chin tucks working on jaw opening w/ deviation pressure Self-Care/Home Management Treatment Education Other Education edu re: doing jaw opening at home in mirror w/finger on chin and slowly working on no deviation or fw motion, review of how to do rhythmic initiation w/gradual progression to w/jaw open PT-OP-T Assessment and Plan Start: 11/10/20 07:29 Freq: Status: Active Protocol: Document 07/04/21 17:59 [facility] (Rec: 07/04/21 18:10 [facility] [id number]) Physical Therapy Assessment Goals lifting Short Term Goal (STG) Pt report more endurance w/RUE so it doesn't give out. 04/26/21: Progressing: improved 50% better, still reaching [place] gives way. STG Duration achieved 05/05 Timing Inspector Goal (LTG) Pt will be able to push objects w/UEs w/o feeling pain . 04/26/21: progressin% better. LTG Duration achieved 05/05 Shoulder Short Term Goal (STG) Pt will be able to hold phone and talk on phone w/o RUE getting numb 03/15/21: Pt reports less numbness and tingling w/ talking on phone. 04/26/21: Goal met:no tingling numbness anymore. STG Duration GOAL MET Timing Inspector Goal (LTG) Pt will improve strength of R shoulder to show at least 4/5 UE MMT for flex and abd in order to allow improved ease for overhead activities LTG Duration achieved 05/05 jaw Short Term Goal (STG) Pt will be able to bite and chew w/o jaw discomfort even w /something tough like a bagel. 04/26/21: continues to have pain : not slidign out all the time , now tighter muscles and slides out of alignment, and hard to get back in again. Difficulty chew on anything: cooked veggies, using liquids to soften breading and rips chunks off now. 06/29-has been limited w/ chewing STG Duration 08/29 Timing Inspector Goal (LTG) Pt will be able to yawn,brush teeth and move jaw in all directions w/o jaw popping out. 12/16/20: improving no locking / popping with brushing teeth with head repositioning, but eating is still popping and takes more time to find head/ neck position to allow jaw to open. 01/19-only happening on a bad day 3-4x 04/26/21: progressing: popping pretty much gone,it locks now. 05/05-jaw locks when closing and makes it hard to eat LTG Duration achieved 06/29 cervical Longterm Goal (LTG) pt will hav efull cervical ROM in order to dec strain of mm onto jaw region and imrpove ability to turn in car. 12/16/20: improved: able to look further over R and L to be able to see when driving, she feels not full ROM yet. 01/19-improving but still limited w/discomfort 03/17-mild limitation w/some discomfort w/flex/ext 04/26/21: progressing: states get a little catch turning to R but not bad 05/05-pt just has mild stiffness but overall neck doing well. Does not feel limited LTG Duration achieved ROM Short Term Goal (STG) Pt will be indep w/HEP and mechanics for workouts w/ computer technology trainer min A STG Duration achieved 05/05 Longterm Goal (LTG) Pt will improve overhead shoulder mobility to at least 100 deg flex and abd w/o scapular elevation. 03/15/21: progressin deg flexion without shld elevation , 80 deg ABD. 04/26/21: progressing 100deg FF, ABD with focus on no shld elevation. LTG Duration achieved 05/05 Assessment Summary Assessment Pt had improved jaw opening w/ less instances of popping out after manual treatment. she was able to do neuro re- edu w /deviations w/o pain or popping out. Physical Therapy Plan Frequency and Duration Frequency of Treatment 1x/week to every oth Duration of Treatment 2 months Plan of Care Start Date 06/29/21 Plan of Care End Date 08/29/21 Therapeutic Interventions Therapeutic Interventions Aquatic Therapy,Gait Training, Home Exercise Program,Joint Mobilizations,Manual Therapy, Neuromuscular Re-education, Patient/Caregiver Education, Self-Care/Home Management,Soft Tissue Mobilization,Taping, Therapeutic Activities, Therapeutic Exercises Modalities Cold Pack/Ice Massage,Electric Stimulation,Hot Packs, Traction- Mechanical, Ultrasound Next Visit Focus/Plan Next Note Type Treatment Note Next Visit Plan possible DC if pt ready, cont to workon neuro -re edu of jaw
--- NOTE | 2021-07-27 17:50 | PT.OTN ---
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 (07/27/21) Other specified disorders of temporomandibular joint (07/27/21) Cervicalgia (07/27/21) Myalgia of mastication muscle (07/27/21) Abnormal posture (07/27/21) Physical Therapy Treatment Note PT-OP-A Visit Information Start: 11/10/20 07:29 Freq: Status: Active Protocol: Document 07/27/21 14:32 [facility] (Rec: 07/27/21 16:21 [facility] [id number]) Out-Patient Physical Therapy Visit Information Visit Information Visit Type Treatment Note Visit Note 04/28 Visit Start Time 14:32 Visit Stop Time 15:14 Total Visit Minutes 42 Number of HEEL SEWER Visits 0 PT-OP-B Current Condition Start: 11/10/20 07:29 Freq: Status: Active Protocol: Document 01/19/21 07:30 [facility] (Rec: 01/19/21 08:17 [facility] [id number]) Current Condition History of Current Condition Onset Date worse starting 9 months ago Current Complaints L jaw History of Current Condition 01/19-prior to starting PT for jaw, R shoulder pain was constant. Now it is intermittent. Notes arms no longer go to sleep frequently and do not do that to the extent they used to. Neck pain is less frequent now too. Still gets it a couple times a week. When she does core stuff like crunches, her neck starts to hurt. 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 IE:Pt reports jaw keeps popping out. It crunched for years before that. THe popping started 9 months ago. It just started gradually gets worse. It hurts when she pops it back in. Pt reports L side pops out so everything shifts to R. Pt reports neck pain on R side w/ALONSO associated occ. THat has been going on for the past month w/ALONSO. SHe has always had shoulder pain on R side. R TSA has not helped. 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 Her R ant lat arm consistantly always hurts. Her customer service trainer tapes her neck post and that seems to help. Pt reports ALONSO more when laying down. Pt had one other episode w/R neck about 25 years ago that she did PT and OT and responded well with that care and it never came back like that again. Pt reports arms go to sleep and reports R arm clerical clerk has gotten a lot less. The weakness has been getting progressive over the last few years. 1x a year ago that jaw popped out (both sides)and she couldn't chew or swallow and that was like 30 years ago. Now it pops out at random. Tried mouth guard years ago and found she actually clenched the mouth guard that inc pain. She doesn 't notice herself clench her teeth a lot and doesn't wake up at night d/t jaw sore d/t clenching or anything. Pt reports B mastectomies in 2006 w/chemo. TSA R was 2017 Prior Treatments and Tests PT for shoulder in 2017, Dr. rock is having pt relax jaw by placing in bottom of mouth and teeth slightly apart-also instructed heat but hasn't tried Treatment Goals Patient/Caregiver Goals get rid of most of the pain, be able to move around a little bit and not have pain w /it, not get numb when talking on the phone PT-OP-C Subjective Start: 11/10/20 07:29 Freq: Status: Active Protocol: Document 07/27/21 14:32 [facility] (Rec: 07/27/21 16:21 [facility] [id number]) OP-PT Subjective Patient Comments Patient Comments Pt saw oral MD and is referred to oral surgeon. MD asked her to open really wide and it popped. it didn't hurt right after but that night it started being really painful into L jaw and into ear and up into head. It has been more uncomfortable more than she has ever been since and it hurts to clench her teeth and it feels like she has an earache and goes into head. Heat helps. Before that appt, jaw had been doing well after last PT appt. PT-OP-F Manual Assessment Start: 11/10/20 07:29 Freq: Status: Active Protocol: Document 01/19/21 07:30 [facility] (Rec: 01/19/21 08:17 [facility] [id number]) Manual Assessments Soft Tissue Assessment Soft Tissue Mobility Assessment tightness B pec, R>L UT & LS, R rhomboids, B Scalenes & SCM, B biceps superiorly PT-OP-J Posture/Palpation/Skin Start: 11/10/20 07:29 Freq: Status: Active Protocol: Document 01/19/21 07:30 [facility] (Rec: 01/19/21 08:17 [facility] [id number]) Posture Evaluation [facility] Postural Classification System Vertebral Compression Test 1 Elbow Flexion Test 1 Comments Posture Comments scapula abducted & shoulders IR, inc kyphosis, fwd head PT-OP-K Range of Motion Start: 11/10/20 07:29 Freq: Status: Active Protocol: Document 05/05/21 11:30 [facility] (Rec: 05/05/21 13:04 [facility] [id number]) Cervical Spine Range of Motion Cervical Spine Active Degrees Flexion 55 Extension 54 Rotation Left 59 Rotation Right 57 Lateral Flexion Left 35 Lateral Flexion Right 34 Comments no pain just stiffness w/rot & SB TMJ Range of Motion Jaw Openning Jaw Openning (mm) 42 Shoulder Goniometric Range of Motion Shoulder Right Active Flexion 105 Abduction 100 PT-OP-L Special Tests Start: 01/19/21 07:30 Freq: Status: Active Protocol: Document 01/19/21 07:30 [facility] (Rec: 01/19/21 08:17 [facility] [id number]) Special Tests Cervical Spine Special Tests Spurling's Test Test Results neg Neural Special Tests- Upper Body Radial Nerve Tension Test Results neg B Ulnar Nerve Tension Test Results positive R Median Nerve Tension Test Results positive R PT-OP-M Strength Start: 11/10/20 07:29 Freq: Status: Active Protocol: Document 05/05/21 11:30 [facility] (Rec: 05/05/21 13:04 [facility] [id number]) Shoulder Strength Shoulder Manual Muscle Testing Right Flexion 4+ Good+ Extension 5 Normal Abduction (C5) 4+ Good+ External Rotation 5 Normal Internal Rotation 5 Normal Horizontal Abduction 5 Normal Horizontal Adduction 5 Normal Left Flexion 5 Normal Extension 5 Normal Abduction (C5) 5 Normal External Rotation 5 Normal Internal Rotation 5 Normal Horizontal Abduction 5 Normal Horizontal Adduction 5 Normal PT-OP-Q Treatments Start: 11/10/20 07:29 Freq: Status: Active Protocol: Document 07/27/21 14:32 [facility] (Rec: 07/27/21 16:21 [facility] [id number]) Therapeutic Exercises Supine Exercises jaw Supine Exercise Name opening w/neuro re-edu w/ closing & shear forces gentle Side bilateral Reps/Minutes 2 min retraction Supine Exercise Name w/C2 ant shear attempt-PT then pt performing Side bilateral Reps/Minutes 15 sec x8 Manual Therapy Treatment Soft Tissue Mobilization cervical Body Location L>R SCM & scalenes &SOR Mobilization Type Myofascial Release,Rolling, Sustained Pressure,Other Intensity/Depth Moderate Body Position Supine Comments w/chin tucks & jaw opening & LTR Joint Mobilizations C1 Comments 1. C1 transverse R FM 2. UAP R FM 3. C2 transverse R FM 4. C2 UAP L FM Self-Care/Home Management Treatment Education Other Education edu re: anatomy of neck and jaw and how close structures are and why Cspine was affecting jaw PT-OP-T Assessment and Plan Start: 11/10/20 07:29 Freq: Status: Active Protocol: Document 07/27/21 14:32 [facility] (Rec: 07/27/21 16:21 [facility] [id number]) Physical Therapy Assessment Goals lifting Short Term Goal (STG) Pt report more endurance w/RUE so it doesn't give out. 04/26/21: Progressing: improved 50% better, still reaching OH gives way. STG Duration achieved 05/05 Advertising Columnist Goal (LTG) Pt will be able to push objects w/UEs w/o feeling pain . 04/26/21: progressin% better. LTG Duration achieved 05/05 Shoulder Short Term Goal (STG) Pt will be able to hold phone and talk on phone w/o RUE getting numb 03/15/21: Pt reports less numbness and tingling w/ talking on phone. 04/26/21: Goal met:no tingling numbness anymore. STG Duration GOAL MET Advertising Columnist Goal (LTG) Pt will improve strength of R shoulder to show at least 4/5 UE MMT for flex and abd in order to allow improved ease for overhead activities LTG Duration achieved 05/05 jaw Short Term Goal (STG) Pt will be able to bite and chew w/o jaw discomfort even w /something tough like a bagel. 04/26/21: continues to have pain : not slidign out all the time , now tighter muscles and slides out of alignment, and hard to get back in again. Difficulty chew on anything: cooked veggies, using liquids to soften breading and rips chunks off now. 06/29-has been limited w/ chewing STG Duration 08/29 Intermediate Goal (LTG) Pt will be able to yawn,brush teeth and move jaw in all directions w/o jaw popping out. 12/16/20: improving no locking / popping with brushing teeth with head repositioning, but eating is still popping and takes more time to find head/ neck position to allow jaw to open. 01/19-only happening on a bad day 3-4x 04/26/21: progressing: popping pretty much gone,it locks now. 05/05-jaw locks when closing and makes it hard to eat LTG Duration achieved 06/29 cervical Advertising Columnist Goal (LTG) pt will hav efull cervical ROM in order to dec strain of mm onto jaw region and imrpove ability to turn in car. 12/16/20: improved: able to look further over R and L to be able to see when driving, she feels not full ROM yet. 01/19-improving but still limited w/discomfort 03/17-mild limitation w/some discomfort w/flex/ext 04/26/21: progressing: states get a little catch turning to R but not bad 05/05-pt just has mild stiffness but overall neck doing well. Does not feel limited LTG Duration achieved ROM Short Term Goal (STG) Pt will be indep w/HEP and mechanics for workouts w/ customer service trainer min A STG Duration achieved 05/05 Intermediate Goal (LTG) Pt will improve overhead shoulder mobility to at least 100 deg flex and abd w/o scapular elevation. 03/15/21: progressin deg flexion without shld elevation , 80 deg ABD. 04/26/21: progressing 100deg FF, ABD with focus on no shld elevation. LTG Duration achieved 05/05 Assessment Summary Assessment Pt had improved pain to no pain after session w/manual treatment. Yoanna arzate re-edu for engagement w/chins Physical Therapy Plan Frequency and Duration Frequency of Treatment 1x/week to every oth Duration of Treatment 2 months Plan of Care Start Date 06/29/21 Plan of Care End Date 08/29/21 Next Visit Focus/Plan Next Note Type Treatment Note Next Visit Plan possible DC if pt ready, cont to justin neuro -re edu of jaw
--- NOTE | 2021-08-10 18:03 | PT.OTN ---
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 (Rec: 08/10/21 18:02 [facility] [id number]) Out-Patient Physical Therapy Visit Information Visit Information Visit Type Treatment Note Visit Note 05/29 Visit Start Time 16:51 Visit Stop Time 17:31 Total Visit Minutes 40 Number of SUMMONS SERVER Visits 0 PT-OP-B Current Condition Start: 11/10/20 07:29 Freq: Status: Active Protocol: Document 01/19/21 07:30 [facility] (Rec: 01/19/21 08:17 [facility] [id number]) Current Condition History of Current Condition Onset Date worse starting 9 months ago Current Complaints L jaw History of Current Condition 01/19-prior to starting PT for jaw, R shoulder pain was constant. Now it is intermittent. Notes arms no longer go to sleep frequently and do not do that to the extent they used to. Neck pain is less frequent now too. Still gets it a couple times a week. When she does core stuff like crunches, her neck starts to hurt. Pt reports weak regional cra and has trouble picking up things when has to use a pincer regional cra. IE:Pt reports jaw keeps popping out. It crunched for years before that. THe popping started 9 months ago. It just started gradually gets worse. It hurts when she pops it back in. Pt reports L side pops out so everything shifts to R. Pt reports neck pain on R side w/ALONSO associated occ. THat has been going on for the past month w/ALONSO. SHe has always had shoulder pain on R side. R TSA has not helped. 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 Her R ant lat arm consistantly always hurts. Her life skills trainer tapes her neck post and that seems to help. Pt reports ALONSO more when laying down. Pt had one other episode w/R neck about 25 years ago that she did PT and OT and responded well with that care and it never came back like that again. Pt reports arms go to sleep and reports R arm regional cra has gotten a lot less. The weakness has been getting progressive over the last few years. 1x a year ago that jaw popped out (both sides)and she couldn't chew or swallow and that was like 30 years ago. Now it pops out at random. Tried mouth guard years ago and found she actually clenched the mouth guard that inc pain. She doesn 't notice herself clench her teeth a lot and doesn't wake up at night d/t jaw sore d/t clenching or anything. Pt reports B mastectomies in 2006 w/chemo. TSA R was 2017 Prior Treatments and Tests PT for shoulder in 2017, Dr. rock is having pt relax jaw by placing in bottom of mouth and teeth slightly apart-also instructed heat but hasn't tried Treatment Goals Patient/Caregiver Goals get rid of most of the pain, be able to move around a little bit and not have pain w /it, not get numb when talking on the phone PT-OP-C Subjective Start: 11/10/20 07:29 Freq: Status: Active Protocol: Document 08/10/21 17:57 [facility] (Rec: 08/10/21 18:02 [facility] [id number]) OP-PT Subjective Patient Comments Patient Comments Pt reports a signficant improvement right after the last session but did have pain return the day after, but notes it ssems like it is less . Still pain into ear and head though. States she feels like it is going out of place less often. reprots she now feels like she can chew on both sides again PT-OP-F Manual Assessment Start: 11/10/20 07:29 Freq: Status: Active Protocol: Document 01/19/21 07:30 [facility] (Rec: 01/19/21 08:17 [facility] [id number]) Manual Assessments Soft Tissue Assessment Soft Tissue Mobility Assessment tightness B pec, R>L UT & LS, R rhomboids, B Scalenes & SCM, B biceps superiorly PT-OP-J Posture/Palpation/Skin Start: 11/10/20 07:29 Freq: Status: Active Protocol: Document 01/19/21 07:30 [facility] (Rec: 01/19/21 08:17 [facility] [id number]) Posture Evaluation [facility] Postural Classification System Vertebral Compression Test 1 Elbow Flexion Test 1 Comments Posture Comments scapula abducted & shoulders IR, inc kyphosis, fwd head PT-OP-K Range of Motion Start: 11/10/20 07:29 Freq: Status: Active Protocol: Document 05/05/21 11:30 [facility] (Rec: 05/05/21 13:04 [facility] [id number]) Cervical Spine Range of Motion Cervical Spine Active Degrees Flexion 55 Extension 54 Rotation Left 59 Rotation Right 57 Lateral Flexion Left 35 Lateral Flexion Right 34 Comments no pain just stiffness w/rot & SB TMJ Range of Motion Jaw Openning Jaw Openning (mm) 42 Shoulder Goniometric Range of Motion Shoulder Right Active Flexion 105 Abduction 100 PT-OP-L Special Tests Start: 01/19/21 07:30 Freq: Status: Active Protocol: Document 01/19/21 07:30 [facility] (Rec: 01/19/21 08:17 [facility] [id number]) Special Tests Cervical Spine Special Tests Spurling's Test Test Results neg Neural Special Tests- Upper Body Radial Nerve Tension Test Results neg B Ulnar Nerve Tension Test Results positive R Median Nerve Tension Test Results positive R PT-OP-M Strength Start: 11/10/20 07:29 Freq: Status: Active Protocol: Document 05/05/21 11:30 [facility] (Rec: 05/05/21 13:04 [facility] [id number]) Shoulder Strength Shoulder Manual Muscle Testing Right Flexion 4+ Good+ Extension 5 Normal Abduction (C5) 4+ Good+ External Rotation 5 Normal Internal Rotation 5 Normal Horizontal Abduction 5 Normal Horizontal Adduction 5 Normal Left Flexion 5 Normal Extension 5 Normal Abduction (C5) 5 Normal External Rotation 5 Normal Internal Rotation 5 Normal Horizontal Abduction 5 Normal Horizontal Adduction 5 Normal PT-OP-Q Treatments Start: 11/10/20 07:29 Freq: Status: Active Protocol: Document 08/10/21 17:57 [facility] (Rec: 08/10/21 18:02 [facility] [id number]) Manual Therapy Treatment Soft Tissue Mobilization cervical Body Location SOR Mobilization Type Sustained Pressure Intensity/Depth Moderate Body Position Supine Joint Mobilizations cranium Comments occipital bone caudal, frontal bone PA, temporal bone inf, mastoid R, parietal ant, R dygomatic arch inf & rotations , C1 Comments 1. C1 transverse R FM 2. UAP R FM Self-Care/Home Management Treatment Education Other Education review of axial elongation w/ resistance of C1 today. Edu on importance of this. Edu to cont to work on posture to help with this also. PT-OP-T Assessment and Plan Start: 11/10/20 07:29 Freq: Status: Active Protocol: Document 08/10/21 17:57 [facility] (Rec: 08/10/21 18:02 [facility] [id number]) Physical Therapy Assessment Goals jaw Short Term Goal (STG) Pt will be able to bite and chew w/o jaw discomfort even w /something tough like a bagel. 04/26/21: continues to have pain : not slidign out all the time , now tighter muscles and slides out of alignment, and hard to get back in again. Difficulty chew on anything: cooked veggies, using liquids to soften breading and rips chunks off now. 06/29-has been limited w/ chewing STG Duration 08/29 Record Label Intern Goal (LTG) Pt will be able to yawn,brush teeth and move jaw in all directions w/o jaw popping out. 12/16/20: improving no locking / popping with brushing teeth with head repositioning, but eating is still popping and takes more time to find head/ neck position to allow jaw to open. 01/19-only happening on a bad day 3-4x 04/26/21: progressing: popping pretty much gone,it locks now. 05/05-jaw locks when closing and makes it hard to eat LTG Duration achieved 06/29 Assessment Summary Assessment Pt had no pain after treatment today. She had signficant C1 dysfunction and cranial dysfunctions but was imrpoved since last time. Improved jaw mechanics noted today Physical Therapy Plan Frequency and Duration Frequency of Treatment 1x/week to every oth Duration of Treatment 2 months Plan of Care Start Date 06/29/21 Plan of Care End Date 08/29/21 Next Visit Focus/Plan Next Note Type Treatment Note Next Visit Plan possible DC if pt ready, cont to workon neuro -re edu of jaw
--- NOTE | 2021-08-24 18:14 | PT.OTN ---
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) Other specified disorders of temporomandibular joint (08/24/21) Cervicalgia (08/24/21) Myalgia of mastication muscle (08/24/21) Abnormal posture (08/24/21) Physical Therapy Treatment Note PT-OP-A Visit Information Start: 11/10/20 07:29 Freq: Status: Active Protocol: Document 08/24/21 18:03 [facility] (Rec: 08/24/21 18:14 [facility] [id number]) Out-Patient Physical Therapy Visit Information Visit Information Visit Type Discharge Summary Visit Start Time 09:51 Visit Stop Time 10:35 Total Visit Minutes 44 Number of HEALTH AND PHYSICAL EDUCATION PROFESSOR Visits 0 PT-OP-B Current Condition Start: 11/10/20 07:29 Freq: Status: Active Protocol: Document 01/19/21 07:30 [facility] (Rec: 01/19/21 08:17 [facility] [id number]) Current Condition History of Current Condition Onset Date worse starting 9 months ago Current Complaints L jaw History of Current Condition 01/19-prior to starting PT for jaw, R shoulder pain was constant. Now it is intermittent. Notes arms no longer go to sleep frequently and do not do that to the extent they used to. Neck pain is less frequent now too. Still gets it a couple times a week. When she does core stuff like crunches, her neck starts to hurt. 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 IE:Pt reports jaw keeps popping out. It crunched for years before that. THe popping started 9 months ago. It just started gradually gets worse. It hurts when she pops it back in. Pt reports L side pops out so everything shifts to R. Pt reports neck pain on R side w/ALONSO associated occ. THat has been going on for the past month w/ALONSO. SHe has always had shoulder pain on R side. R TSA has not helped. Works with a assistive technology trainer for 4 days a week but he hasn't changed anything. Her R ant lat arm consistantly always hurts. Her assistive technology trainer tapes her neck post and that seems to help. Pt reports ALONSO more when laying down. Pt had one other episode w/R neck about 25 years ago that she did PT and OT and responded well with that care and it never came back like that again. Pt reports arms go to sleep and reports R arm access service representative has gotten a lot less. The weakness has been getting progressive over the last few years. 1x a year ago that jaw popped out (both sides)and she couldn't chew or swallow and that was like 30 years ago. Now it pops out at random. Tried mouth guard years ago and found she actually clenched the mouth guard that inc pain. She doesn 't notice herself clench her teeth a lot and doesn't wake up at night d/t jaw sore d/t clenching or anything. Pt reports B mastectomies in 2006 w/chemo. TSA R was 2017 Prior Treatments and Tests PT for shoulder in 2017, Dr. rock is having pt relax jaw by placing in bottom of mouth and teeth slightly apart-also instructed heat but hasn't tried Treatment Goals Patient/Caregiver Goals get rid of most of the pain, be able to move around a little bit and not have pain w /it, not get numb when talking on the phone PT-OP-C Subjective Start: 11/10/20 07:29 Freq: Status: Active Protocol: Document 08/24/21 18:03 [facility] (Rec: 08/24/21 18:14 [facility] [id number]) OP-PT Subjective Patient Comments Patient Comments pt reports having mult stressful days last week d/t 's surgery and sleeping on couch at the hospital [facility] was uncomfortable and pain inc again. PT-OP-F Manual Assessment Start: 11/10/20 07:29 Freq: Status: Active Protocol: Document 01/19/21 07:30 [facility] (Rec: 01/19/21 08:17 [facility] [id number]) Manual Assessments Soft Tissue Assessment Soft Tissue Mobility Assessment tightness B pec, R>L UT & LS, R rhomboids, B Scalenes & SCM, B biceps superiorly PT-OP-J Posture/Palpation/Skin Start: 11/10/20 07:29 Freq: Status: Active Protocol: Document 01/19/21 07:30 [facility] (Rec: 01/19/21 08:17 [facility] [id number]) Posture Evaluation Rowan Postural Classification System Vertebral Compression Test 1 Elbow Flexion Test 1 Comments Posture Comments scapula abducted & shoulders IR, inc kyphosis, fwd head PT-OP-K Range of Motion Start: 11/10/20 07:29 Freq: Status: Active Protocol: Document 05/05/21 11:30 [facility] (Rec: 05/05/21 13:04 [facility] [id number]) Cervical Spine Range of Motion Cervical Spine Active Degrees Flexion 55 Extension 54 Rotation Left 59 Rotation Right 57 Lateral Flexion Left 35 Lateral Flexion Right 34 Comments no pain just stiffness w/rot & SB TMJ Range of Motion Jaw Openning Jaw Openning (mm) 42 Shoulder Goniometric Range of Motion Shoulder Right Active Flexion 105 Abduction 100 PT-OP-L Special Tests Start: 01/19/21 07:30 Freq: Status: Active Protocol: Document 01/19/21 07:30 [facility] (Rec: 01/19/21 08:17 [facility] [id number]) Special Tests Cervical Spine Special Tests Spurling's Test Test Results neg Neural Special Tests- Upper Body Radial Nerve Tension Test Results neg B Ulnar Nerve Tension Test Results positive R Median Nerve Tension Test Results positive R PT-OP-M Strength Start: 11/10/20 07:29 Freq: Status: Active Protocol: Document 05/05/21 11:30 [facility] (Rec: 05/05/21 13:04 [facility] [id number]) Shoulder Strength Shoulder Manual Muscle Testing Right Flexion 4+ Good+ Extension 5 Normal Abduction (C5) 4+ Good+ External Rotation 5 Normal Internal Rotation 5 Normal Horizontal Abduction 5 Normal Horizontal Adduction 5 Normal Left Flexion 5 Normal Extension 5 Normal Abduction (C5) 5 Normal External Rotation 5 Normal Internal Rotation 5 Normal Horizontal Abduction 5 Normal Horizontal Adduction 5 Normal PT-OP-Q Treatments Start: 11/10/20 07:29 Freq: Status: Active Protocol: Document 08/24/21 18:03 [facility] (Rec: 08/24/21 18:14 [facility] [id number]) Therapeutic Activity Therapeutic Activity sleep Comments pt brought in her pillow. Worked on using towels to help supprot neck w/her pillow and shwoed how pt's pillwo does not give enought neck support. use of towel under side and legs supported w/pillows Manual Therapy Treatment Soft Tissue Mobilization cervical Body Location L>R SCM & scalenes & R SOR Mobilization Type Myofascial Release,Rolling, Sustained Pressure,Other Intensity/Depth Moderate Body Position Supine Comments w/chin tucks & jaw opening & LTR jaw Body Location B post jaw & maseter, hyoids Mobilization Type Rolling,Sustained Pressure Intensity/Depth Moderate Body Position Standing Comments external, standing mirror manual and self Joint Mobilizations C1 Comments AP C1 B FM C2 UAP L FM Self-Care/Home Management Treatment Education Other Education edu to cont axial elongation exercise and jaw exercises. edu where to wrok on self soft tissue when having pain ( along jaw and upper cervical). eud to get a new referral in the future if she has furhte problems. Discussed DC and pt in agreement PT-OP-T Assessment and Plan Start: 11/10/20 07:29 Freq: Status: Active Protocol: Document 08/24/21 18:03 [facility] (Rec: 08/24/21 18:14 [facility] [id number]) Physical Therapy Assessment Goals jaw Short Term Goal (STG) Pt will be able to bite and chew w/o jaw discomfort even w /something tough like a bagel. 04/26/21: continues to have pain : not slidign out all the time , now tighter muscles and slides out of alignment, and hard to get back in again. Difficulty chew on anything: cooked veggies, using liquids to soften breading and rips chunks off now. 06/29-has been limited w/ chewing STG Duration still some discomfort w/ chewing Correction Goal (LTG) Pt will be able to yawn,brush teeth and move jaw in all directions w/o jaw popping out. 12/16/20: improving no locking / popping with brushing teeth with head repositioning, but eating is still popping and takes more time to find head/ neck position to allow jaw to open. 01/19-only happening on a bad day 3-4x 04/26/21: progressing: popping pretty much gone,it locks now. 05/05-jaw locks when closing and makes it hard to eat LTG Duration achieved 06/29 Assessment Summary Assessment Pt has made excellent progress w/PT at this time but is still having pain in jaw. She is to see a new dentist in [place] soon to further evaluate. She appears to have jaw pain cont mostly w/changes in upper C spine and once corrected, pt dec for a short time then gets worse again w/other activit. She is no longer having jaw pop out of socket but is still having pain that inc w/ stress or poor sleeping arragement that creates a worse pain w/jaw again. DC to [facility] at this time d/t plateau Physical Therapy Plan Discharge Physical Therapy Discharge Reasons Plateau in Progress
== END 2021-08-29 11:02 ==
LOC: PHYS 09:45
PROVIDERS: Family Provider Family Medicine; PCP Family Medicine; Referring Provider Dentist; Visit Provider Dentist
DX: M26.69 Other specified disorders of temporomandibular joint (principal); M26.633 Articular disc disorder of bilateral temporomandibular joint; M79.11 Myalgia of mastication muscle; R29.3 Abnormal posture; M54.2 Cervicalgia; M25.511 Pain in right shoulder
CPT/HCPCS: 95851; 97110; 97112; 97140; 97162; 97164; 97530; 97535

== ENCOUNTER 2022-12-21 13:50 | Emergency (ER) | payer MEDICARE, OTHER, SELFPAY ==
[2022-12-21 13:57] VITALS: BP 168/62; PULSE 61; RESP 16; TEMP 36.3; O2SAT 97; BMI 33.0
--- NOTE | 2022-12-21 14:12 | DI.RAD.S_ITS ---
PROCEDURE: XR HIP W PEL IF DONE RT 2V INDICATIONS: increased pain TECHNIQUE: AP pelvis with lateral view(s) of the right hip(s). COMPARISON: [facility] [place], [place], XR PELVIS WITH LATERAL HIP LEFT, 03/08/2022, 11:43. FINDINGS: Bones: No fractures or dislocations. Pelvic ring appears intact. No suspicious bony lesions. There is moderate to severe bilateral degenerative hip joint space narrowing. Soft tissues: The visualized bowel gas pattern is normal. No suspicious soft tissue calcifications. IMPRESSION: Moderate bilateral hip arthritic change. No visualized acute fracture or dislocation. However, if clinical concern and/or pain persist, short interval imaging followup in 7-10 days is recommended, as occult injury cannot be definitively excluded. Dictated by: Naomi Hastings M.D. on 12/21/2022 at 14:41 Approved by: Naomi Hastings M.D. on 12/21/2022 at 14:41
--- NOTE | 2022-12-21 15:13 | ED_ITS ---
HPI - Extremity Problem <Toshia Kirby PA-C - Last Filed: 12/21/22 17:48> General Chief complaint: Extremity Problem,Nontraumatic Stated complaint: Right Hip Pain Time Seen by Provider: 12/21/22 14:51 Source: patient Mode of arrival: Ambulatory History of Present Illness HPI Narrative: Patient is a 77-year-old female who presents with one year of right hip pain. This pain was not preceded by any injury or trauma. Over the past year she has used Aleve, physical therapy, stretching and exercise with some improvement. She has seen an orthopedist for this pain. Overall, the pain was doing well until this morning when she got out of bed and could not stand up. She was panting because she was in so much pain. She is not currently having any radicular symptoms. The pain is located in her right buttock and right lateral hip. Previously, she was having right knee pain and right thigh pain but this seems to have moved into her right hip and she no longer has knee or thigh pain. Related Data Previous Rx's Medication Instructions Recorded cyclobenzaprine 5 mg tablet 5 mg PO TID PRN muscle spasm #14 12/21/22 tabs prednisone 20 mg tablet 40 mg (2 x 20 mg) PO DAILY #10 tabs 12/21/22 Allergies Allergy/AdvReac Type Severity Reaction Status Date / Time No Known Drug Allergies Allergy Verified 04/28/21 08:58 Review of Systems <Toshia Kirby PA-C - Last Filed: 12/21/22 17:48> Review of Systems ROS Unobtainable: All systems reviewed & are unremarkable except as noted in HPI and below Patient History <Toshia Kirby PA-C - Last Filed: 12/21/22 17:48> Social History Smoking Status: Never smoker Smoking Status: Never smoker alcohol intake frequency: holidays/special occasions only Substance Use Type: does not use Exam <Toshia Kirby PA-C - Last Filed: 12/21/22 17:48> Narrative Exam Narrative: GENERAL: 77 year old patient appears stated age. Well-developed patient, in mild distress. NEURO: AOx3. HEAD: Atraumatic. Normocephalic. EYES: Pupils equal round and reactive. Extraocular motions intact. No scleral icterus. No injection or drainage. ENT: Nose without bleeding or purulent drainage. Airway patent. RESPIRATORY: No distress, no increased work of breathing EXTREMITIES: Tenderness to light palpation of lateral hip and with palpation SI joint and right buttock. SKIN: No rash or erythema of visible areas Initial Vital Signs Initial Vital Signs: Vital Signs Temperature 97.4 F L 12/21/22 13:57 Pulse Rate 61 12/21/22 13:57 Respiratory Rate 16 12/21/22 13:57 Blood Pressure 168/62 H 12/21/22 13:57 Pulse Oximetry 97 12/21/22 13:57 Oxygen Delivery Method Room Air 12/21/22 13:57 <Hitesh Simeon MD - Last Filed: 01/08/23 07:16> Initial Vital Signs Initial Vital Signs: Vital Signs Temperature 97.4 F L 12/21/22 13:57 Pulse Rate 61 12/21/22 13:57 Respiratory Rate 16 12/21/22 13:57 Blood Pressure 168/62 H 12/21/22 13:57 Pulse Oximetry 97 12/21/22 13:57 Oxygen Delivery Method Room Air 12/21/22 13:57 Course <Toshia Kirby PA-C - Last Filed: 12/21/22 17:48> Orders Ordered: ED Orders 12/21/22 14:12 XR hip w pel if done RT 2V Stat Vital Signs Vital signs: Vital Signs - 8 hr 12/21/22 13:57 12/21/22 15:14 Temperature 97.4 F L 97.6 F Pulse Rate 61 72 Respiratory Rate 16 18 Blood Pressure 168/62 H 162/62 H Pulse Oximetry 97 98 Oxygen Delivery Method Room Air Room Air <Hitesh Simeon MD - Last Filed: 01/08/23 07:16> Orders Ordered: ED Orders 12/21/22 14:12 XR hip w pel if done RT 2V Stat Vital Signs Vital signs: Vital Signs - 8 hr 12/21/22 13:57 12/21/22 15:14 Temperature 97.4 F L 97.6 F Pulse Rate 61 72 Respiratory Rate 16 18 Blood Pressure 168/62 H 162/62 H Pulse Oximetry 97 98 Oxygen Delivery Method Room Air Room Air MDM - Extremity (Nontraumatic) <Toshia Kirby PA-C - Last Filed: 12/21/22 17:48> Imaging Data Extremity x-ray #1: Radiologist's Impression: PROCEDURE: XR HIP W PEL IF DONE RT 2V INDICATIONS: increased pain TECHNIQUE: AP pelvis with lateral view(s) of the right hip(s). COMPARISON: [facility] [place], [place], XR PELVIS WITH LATERAL HIP LEFT, 03/08/2022, 11:43. FINDINGS: Bones: No fractures or dislocations. Pelvic ring appears intact. No suspicious bony lesions. There is moderate to severe bilateral degenerative hip joint space narrowing. Soft tissues: The visualized bowel gas pattern is normal. No suspicious soft tissue calcifications. IMPRESSION: Moderate bilateral hip arthritic change. No visualized acute fracture or dislocation. However, if clinical concern and/or pain persist, short interval imaging followup in 7-10 days is recommended, as occult injury cannot be definitively excluded. Dictated by: Naomi Hastings M.D. on 12/21/2022 at 14:41 MDM Narrative Medical decision making narrative: Patient presents with acute on chronic right hip and buttock pain. She shows me an ultrasound report done by a physical therapist in Oct 2022 that shows multiple small tears in the muscles of her hip and an enlarged hip bursa. She did not fall or have any acute injury today. Her x-ray is negative for acute changes. After discussion with the patient, we will trial a course of steroids to decrease inflammation and muscle relaxers as needed. I strongly encouraged to do make a follow-up appointment with the orthopedist for further evaluation and possible MRI. Patient's symptoms improved over duration of stay with above-stated therapies. Findings and discharge diagnosis discussed with patient/family followed by verbalization of understanding Return precautions discussed with patient/family whom verbalize understanding of diagnosis and plan Discharge Plan Departure Patient Disposition: Home Clinical Impression: Hip pain, right Instructions: DI for Hip Pain Activity Restrictions/Additional Instructions: *You have been diagnosed with right hip pain. Your x-ray showed degenerative changes but nothing acute. As we discussed, we can use muscle relaxers and steroids to decrease your pain in the short term. I would strongly encourage you to make an appointment with an orthopedist for further evaluation, possibly MRI of your hip to obtain more information. *What to do: *Please continue to take your regular medications as directed. [x] New medication prescriptions sent to your pharmacy: [[facility] ] [ ] New medication written as a paper prescription [ ] No new medications given *Please follow up with your primary care provider in 2-3 days, call for an appointment. Let them know you were seen in the Emergency Department and that we ask that you be seen in follow up. We will electronically transmit a record of today's note if your PCP is in our system *If you do not have a primary care provider please contact the [facility] Resource line at [phone]. They will ask some questions about your medical history and help get you set up with a doctor in the community. *Return to Emergency Department if you should have any new, worsening or concerning symptoms, such as [fever greater than 101 F, shaking chills, worsening pain, persistent vomiting or other concerning symptoms]. Prescriptions: New prednisone 20 mg tablet 40 mg PO DAILY Qty: 10 0RF cyclobenzaprine 5 mg tablet 5 mg PO TID PRN (Reason: muscle spasm) Qty: 14 0RF Rx Instructions: take 1-1.5 tablets every 6 hours as needed for muscle spasm. Do not combine this medication with other sedative medicines or alcohol, do not drive or operate heavy machinery while taking this medicine. This medicine may cause dry mouth and constipation. Referrals: Chan Rodriguez MD [Primary Care Provider] - Stand Alone Forms: Patient Portal/API ED Sign-out <Hitesh Simeon MD - Last Filed: 01/08/23 07:16> Cosign ED Attending Balaji Attestation: I was immediately available in the department for consultation. ?This documentation has been reviewed and I agree with assessment and plan. Supervised by Hitesh Simeon MD
[2022-12-21 15:14] VITALS: BP 162/62; PULSE 72; RESP 18; TEMP 36.4; O2SAT 98
== END 2022-12-21 15:15 | disposition home or self-care (01) ==
PROVIDERS: Emergency Provider Physician Assistant; Family Provider Family Medicine; PCP Family Medicine
DX: M25.551 Pain in right hip (principal)
CPT/HCPCS: 73502; 99281; 99283